=== PATIENT | male | born 1960 | race Caucasian/White ===

== ENCOUNTER → 2016-10-25 | Outpatient (CLI) | payer OTHER ==
[~2016-10-25] MED LIST: ASPI-232 PO; CEPH500C2 PO; GADAVIST IV PRN; HMLI7525 SC; HYDR25TA5 PO; LISI-461 PO; LVMI SQ; METF-384 PO; MULT-506 PO; PRAV20TA PO; SULF800T23 PO
--- NOTE | 2016-10-25 20:39 | DIAGNOSTIC IMAGING REPORT ---
MRI OF THE RIGHT FOREFOOT WITH AND WITHOUT CONTRAST CLINICAL HISTORY: Right great toe diabetic nonhealing wound. COMPARISON STUDY: No previous studies for comparison. TECHNIQUE: Utilizing a 1.5 Cris magnet and dedicated coil, multiplanar, multiecho imaging of the right forefoot was performed pre and postcontrast administration. Injection of 11 cc of Gadavist IV was uneventful. FINDINGS: There are findings consistent with amputations of the fourth and fifth right metatarsals as well as amputation of the third metatarsal at its distal aspect. There is joint space narrowing of the interphalangeal joint of the right first toe. There is moderate marrow edema within the mid to distal aspect of the proximal phalanx of the right first toe with mildly diminished T1 signal. The findings suggest a subacute to chronic fracture of the proximal phalanx. There is no convincing evidence for osteomyelitis within the right first toe. There is mild marrow edema within the distal phalanx with relatively preserved T1 signal. There is no evidence for osteomyelitis within the right second toe. No rim-enhancing fluid collection is identified to suggest an abscess. IMPRESSION: 1. No convincing evidence for osteomyelitis within the right first toe. 2. Marrow signal abnormality within the proximal phalanx of the right first toe with cortical irregularity which favors a subacute to chronic fracture. An infectious process is considered less likely. 3. 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 4. Multiple digit amputations of the right foot, as described above. Electronically signed by: Ramon Urbina M.D. 10/25/2016 8:38 PM Dictated Date/Time: 10/25/2016 4:30 PM
== END | disposition home or self-care (01) ==
LOC: C.MRI 13:32
PROVIDERS: ATTEND Emergency Medicine
DX: T14.8 Other injury of unspecified body region (principal); X58.XXXA Exposure to other specified factors, initial encounter; M13.88 Other specified arthritis, other site

== ENCOUNTER 2018-11-14 09:57 | Inpatient (IN) ==
[2018-11-14] MEDS ORDERED: GLUCOSE 10 TABS/TUBE PO PRN (13:08)
[2018-11-14] MEDS ORDERED: GLUCOSE 40% GEL 15 GM TUBE PO PRN (13:08)
[2018-11-14] MEDS ORDERED: ACETAMINOPHEN 325 MG TAB PO PRN (13:08)
[2018-11-14] MEDS ORDERED: MAGNESIUM HYDROXIDE SUSP 30 ML UDC PO PRN (13:08)
[2018-11-14] MEDS ORDERED: GLUCAGON FOR INJ 1 MG VIAL SQ PRN (13:08)
[2018-11-14] MEDS ORDERED: ONDANSETRON INJ 2 MG/ML 2 ML VIAL IV PRN (13:08)
[2018-11-14] MEDS ORDERED: CARBOHYDRATES FOR HYPOGLYCEMIA PO PRN (13:08)
[2018-11-14] MEDS ORDERED: DEXTROSE 50% 50 ML SYRINGE IV PRN (13:08)
[2018-11-14 13:29] LABS: Basophils # (auto) 0.05 K/uL (0-0.2); Basophils % (auto) 0.3 %; Eosinophils # (auto) 0.05 K/uL (0-0.5); Eosinophils % (auto) 0.3 %; Hematocrit (blood only) 39.1 % (42-52); Hemoglobin 14.3 g/dL (14.0-18.0); Immature Granulocytes # (auto) 0.11 K/uL (0.00-0.02); Immature Granulocytes % (auto) 0.8 %; Lymphocytes # (auto) 1.04 K/uL (1.2-3.4); Lymphocytes % (auto) 7.1 %; Mean Corpuscular Hgb Conc 36.6 g/dL (32-36); Mean Corpuscular Volume 85.4 fL (80-100); Mean Platelet Volume 10.5 fL (7.4-10.4); Monocytes # (auto) 1.81 K/uL (0.11-0.59); Monocytes % (auto) 12.4 %; Neutrophils # (auto) 11.49 K/uL (1.4-6.5); Neutrophils % (auto) 79.1 %; Platelet Count 201 K/uL (130-400); RDW Coefficient of Variation 12.1 % (11.5-14.5); Red Blood Count 4.58 M/uL (4.7-6.1); White Blood Count 14.55 K/uL (4.8-10.8)
[2018-11-14 13:50] LABS: Alanine Aminotransferase 40 U/L (12-78); Albumin Level 2.6 gm/dl (3.4-5.0); Aspartate Aminotransferase 26 U/L (15-37); BUN Creatinine Ratio 19.6 (10-20); Blood Urea Nitrogen 26 mg/dl (7-18); Calcium 9.1 mg/dl (8.5-10.1); Carbon Dioxide 27 mmol/L (21-32); Chloride 95 mmol/L (98-107); Est GFR (African American) 66.6; Est GFR (Non-African American) 57.5; Glucose 324 mg/dl (70-99); Magnesium 1.4 mg/dl (1.8-2.4); Potassium 4.9 mmol/L (3.5-5.1); Sodium 128 mmol/L (136-145)
[2018-11-14 13:56] LABS: Albumin Globulin Ratio 0.6 (0.9-2); Alkaline Phosphatase 72 U/L (45-117); Bilirubin,Total 0.9 mg/dl (0.2-1); Globulin 4.6 gm/dl (2.5-4.0); Phosphorus 2.7 mg/dl (2.5-4.9); Total Protein 7.2 gm/dl (6.4-8.2)
[2018-11-14 14:04] LABS: Beta-Hydroxybutyrate 4.58 mg/dl (0.2-2.81)
[2018-11-14] MEDS: INSULIN ASPART 100 UNITS/ML 3 ML PEN SC SCH ×3 (14:35→21:52)
--- NOTE | 2018-11-14 15:07 | XRay Report ---
XR tibia fibula LT 2V CLINICAL HISTORY: Left lower leg infection. COMPARISON STUDY: None. FINDINGS: No fracture or dislocation. Mild vascular calcifications. Mild diffuse soft tissue swelling . This is most pronounced within the distal anterior lower leg. No soft tissue gas identified. No bon y destruction to suggest osteomyelitis. Degenerative changes at the ankle joint. IMPRESSION: No evidence for osteomyelitis within the left lower leg. Electronically signed by: Everardo Christianson M.D. 11/14/2018 3:05 PM
[2018-11-14] MEDS: CEFAZOLIN 1000MG 1,000 MG/7.5 ML SYR IV SCH ×2 (15:27→21:53)
--- NOTE | 2018-11-14 18:06 | History & Physical Report ---
Date of Service November 14, 2018 Assessment & Plan (1) Cellulitis: LE XR neg for osteo s/p single dose of Bactrim HS 11/13 Will start cefazolin Q8h and monitor Lactobacillus WBC elevated, afebrile Blood cx pending Wound care c/s pending Hold on surgical c/s for now Takes aspirin 81mg for prevention only, will hold for now in case of need for debridement or other procedures (2) Hyperlipidemia: continue home meds (3) HTN (hypertension): continue home meds (4) DM type 2 (diabetes mellitus, type 2): Holding novolog, add SSI PRN holding metformin Continue with levemir A1c pending (5) DVT prophylaxis: SCDs (6) Tobacco use disorder: smokeless tobacco only Nicotine patch History of Present Illness Primary Care Provider: Pascale Huang MD 58 y/o M who was sent here as a direct admission for L LE cellulitis. Pt states he has had redness, burning, and swelling of L lower leg for about 1.5 weeks. It developed a blister in the last few days that broke last night after he bumped it. He was seen by PCP yesterday and started on Bactrim. Pt states that PCP wanted to pursue inpt tx at that time, but he wanted to try outpt tx. He had one dose of Bactrim. After f/u via phone today and no improvement, pt was sent for inpt care. He did not take abx today as he was told to hold for IV abx. Pt has a nonhealing ulceration on his R ugarte that he states has been there for about 3 months. It was worse prior but stopped getting better. No redness/pain to this ulceration. Pt states he feels fine otherwise. He has been tolerating PO without issue. Pt denies fever, SOB, chest pain, abd pain, n/v/d. He does note no bowel movement x3 days. Allergies Allergy/AdvReac Type Severity Reaction Status Date / Time No Known Allergies Allergy Unverified 10/15/16 13:39 Home Medications Home Medications Medication Instructions Recorded Confirmed Type aspirin 81 mg PO DAILY 11/14/18 11/14/18 History hydrochlorothiazide 12.5 mg PO DAILY 11/14/18 11/14/18 History insulin aspart U-100 [Novolog 38 unit SUBCUT TID 11/14/18 11/14/18 History Flexpen U-100 Insulin] insulin detemir U-100 [Levemir 45 unit SUBCUT BID 11/14/18 11/14/18 History FlexTouch U-100 Insuln] lisinopril 10 mg PO DAILY 11/14/18 11/14/18 History metformin 1,000 mg PO BID 11/14/18 11/14/18 History multivitamin 1 tab PO DAILY 11/14/18 11/14/18 History pravastatin [Pravachol] 80 mg PO DAILY 11/14/18 11/14/18 History sulfamethoxazole-trimethoprim 1 tab PO BID 11/14/18 11/14/18 History [Bactrim DS] Past Med/Surg History Social History Preferred Language: Vietnamese Communication Ability: Effective Manager Animal Required: No Beliefs That Will Affect Care: None Current Living Situation: Family Other Information That Helps Us Care for You: No Feels Safe at Home: Yes Safety Concerns: Feels Safe At This Time Smoking Status: Current every day smoker Hx Alcohol Use: No Hx Substance Use: No Review of Systems Pertinent positives and negatives reviewed in HPI--all others negative Physical Exam Vital Signs (Past 24 Hours): Last Vital Signs Temp 37.0 C 11/14/18 15:41 Pulse 93 H 11/14/18 15:41 Resp 18 11/14/18 15:41 BP 105/72 11/14/18 15:41 Pulse Ox 95 11/14/18 15:41 Constitutional: WD/WN, vitals as above Eyes: normal visual sam by confrontation and + anicteric sclerae Neck: normal visual inspection and trachea midline Respiratory: normal respiratory effort, lungs clear to auscultation Cardiovascular: Rate/Rhythm: regular rate and regular rhythm Gastrointestinal (Abdomen): Inspection/Auscultation: abdomen not distended Percussion/Palpation: abdomen soft; abdomen nontender Musculoskeletal: Head/Neck/Chest: normocephalic and head atraumatic L LE swelling, peripheral pulses intact Skin: L calf with redness between knee and ankle, lines drawn today, open ulceration on anterior LE that is weeping, nonbleeding, some purulence, TTP, warm to touch R calf with scab over ulceration on ugarte, no redness or swelling Neurologic: awake; not confused Speech / Cognition: normal speech Psychiatric: A+Ox3, euthymic affect Results & Data Diagnostic Findings L LE XR: neg for osteo Code Status & VTE Plan Code Status Full code VTE Prophylaxis Plan VTE Prophylaxis will be ordered: Yes
[2018-11-14] MEDS: NICOTINE 21 MG/24 HR TDSY TD SCH (19:22)
[2018-11-14] MEDS: INSULIN DETEMIR FLEXPEN/FLEX TOUCH 100 UNITS/ML 3ML SQ SCH (21:52)
[2018-11-15] MEDS: CEFAZOLIN 1000MG 1,000 MG/7.5 ML SYR IV SCH ×3 (06:18→22:20)
[2018-11-15 07:19] LABS: Estimated Average Glucose 303 mg/dl; Hemoglobin A1C 12.2 % (4.5-5.6)
[2018-11-15] MEDS: LACTOBACILLUS ACIDOPHILUS (FLORANEX) TAB PO SCH ×3 (09:33→16:33)
[2018-11-15] MEDS: NICOTINE 21 MG/24 HR TDSY TD SCH (09:33)
[2018-11-15] MEDS: hydroCHLOROthiazide 25 MG TAB PO SCH (09:34)
[2018-11-15] MEDS: PRAVASTATIN SOD 40 MG TAB PO SCH (09:35)
[2018-11-15] MEDS: LISINOPRIL 10 MG TAB PO SCH (09:35)
[2018-11-15] MEDS: MULTIVITAMIN TAB PO SCH (09:36)
[2018-11-15] MEDS: INSULIN DETEMIR FLEXPEN/FLEX TOUCH 100 UNITS/ML 3ML SQ SCH ×2 (09:37→21:36)
[2018-11-15] MEDS: INSULIN ASPART 100 UNITS/ML 3 ML PEN SC SCH ×3 (09:38→21:37)
--- NOTE | 2018-11-15 15:05 | Hospitalist Progress Note ---
Date of Service November 15, 2018 Assessment & Plan (1) Cellulitis: Left leg/ugarte cellulitis. Got single dose of Bactrim on 11/13, but without improvement. - As of 11/15, significant improvement in redness. - Continue cefazolin - Follow up blood cultures - Appreciate wound care consult (2) DM type 2 (diabetes mellitus, type 2): A1c of 12.2% on 11/15. - paraeducator consult - Glycemic pharmacist - Continue levemir and SSI (3) Hyperlipidemia: - Continue home meds (4) HTN (hypertension): BP is currently 130/80. - Continue home meds (5) Tobacco use disorder: Smokeless tobacco only. - Nicotine patch (6) DVT prophylaxis: SCDs Subjective 58yo M w/ hx of DM who presents with LLE cellulitis. Feeling great today. Cellulitis is improving with less redness and less pain. Reports no fevers/chills, chest pain, shortness of breath, abdominal pain, nausea, or vomiting. Physical Exam Vital Signs (Past 24 Hours): Last Vital Signs Temp 37.2 C 11/15/18 08:13 Pulse 68 11/15/18 08:13 Resp 15 11/15/18 08:13 BP 100/58 L 11/15/18 08:13 Pulse Ox 96 11/15/18 08:13 Constitutional: WD/WN, vitals as above Eyes: normal visual sam by confrontation and + anicteric sclerae Neck: normal visual inspection and trachea midline Respiratory: normal respiratory effort, lungs clear to auscultation Cardiovascular: Rate/Rhythm: regular rate and regular rhythm Gastrointestinal (Abdomen): Inspection/Auscultation: abdomen not distended Percussion/Palpation: abdomen soft; abdomen nontender Musculoskeletal: Head/Neck/Chest: normocephalic and head atraumatic Skin: Improving redness on LLE compared to ink-marked area Neurologic: awake; not confused Speech / Cognition: normal speech Psychiatric: A+Ox3, euthymic affect
[2018-11-15] MEDS ORDERED: PHARMACY GLYCEMIC MGMT CONSULT PRN (16:14)
[2018-11-15] MEDS: MAGNESIUM SULFATE / D5W 1 GM/100 ML BAG IV SCH ×2 (16:24→17:32)
[2018-11-15] MEDS ORDERED: INSULIN DETEMIR FLEXPEN/FLEX TOUCH 100 UNITS/ML 3ML SQ ONE (17:00)
[2018-11-15] MEDS ORDERED: INSULIN ASPART 100 UNITS/ML 3 ML PEN SC ONE (17:00)
[2018-11-16] MEDS: INSULIN ASPART 100 UNITS/ML 3 ML PEN SC SCH ×4 (00:33→13:14)
[2018-11-16] MEDS: CEFAZOLIN 1000MG 1,000 MG/7.5 ML SYR IV SCH ×2 (06:32→15:19)
[2018-11-16 06:40] LABS: Hematocrit (blood only) 39.6 % (42-52); Hemoglobin 14.1 g/dL (14.0-18.0); Mean Corpuscular Hgb Conc 35.6 g/dL (32-36); Mean Corpuscular Volume 86.8 fL (80-100); Mean Platelet Volume 9.9 fL (7.4-10.4); Platelet Count 250 K/uL (130-400); RDW Coefficient of Variation 12.1 % (11.5-14.5); RDW Standard Deviation 39.1 fL (36.4-46.3); Red Blood Count 4.56 M/uL (4.7-6.1); White Blood Count 12.69 K/uL (4.8-10.8)
[2018-11-16 07:10] LABS: BUN Creatinine Ratio 20.8 (10-20); Blood Urea Nitrogen 18 mg/dl (7-18); Carbon Dioxide 27 mmol/L (21-32); Chloride 102 mmol/L (98-107); Est GFR (African American) 111.3; Glucose 76 mg/dl (70-99); Potassium 3.6 mmol/L (3.5-5.1); Sodium 136 mmol/L (136-145)
[2018-11-16] MEDS: INSULIN DETEMIR FLEXPEN/FLEX TOUCH 100 UNITS/ML 3ML SQ SCH (09:26)
[2018-11-16] MEDS: LACTOBACILLUS ACIDOPHILUS (FLORANEX) TAB PO SCH ×2 (09:35→13:13)
[2018-11-16] MEDS: hydroCHLOROthiazide 25 MG TAB PO SCH (09:36)
[2018-11-16] MEDS: PRAVASTATIN SOD 40 MG TAB PO SCH (09:37)
[2018-11-16] MEDS: MULTIVITAMIN TAB PO SCH (09:37)
[2018-11-16] MEDS: LISINOPRIL 10 MG TAB PO SCH (09:37)
[2018-11-16] MEDS: NICOTINE 21 MG/24 HR TDSY TD SCH (09:37)
--- NOTE | 2018-11-16 13:28 | Pharmacy Report ---
Glycemic Control Consultation - Date of Service November 16, 2018 - Scope Scope: Glycemic Pharmacist consulted by Dr Angeles on 11/15 for glycemic control and to write orders per [facility] inpatient glycemic control protocol - Objective Weight: 103.7 kg Accuchecks BSG (last 24hrs): 11/15/18 11/15/18 11/16/18 17:13 20:24 00:12 Glucose POC Glucose 159 H 193 H 70 11/16/18 11/16/18 11/16/18 04:13 04:17 06:06 Glucose 76 POC Glucose 62 L* 75 11/16/18 11/16/18 07:53 12:14 Glucose POC Glucose 74 171 H Laboratory Data (last 24hrs): 11/16/18 06:06 Potassium 3.6 D Carbon Dioxide 27 Anion Gap 7.0 Creatinine 0.85 D Est Cr Clr Drug Dosing Not Reportable HbA1c: Hemoglobin A1c 12.2 % (4.5-5.6) H 11/15/18 06:09 - Recent Pertinent Medications Outpatient Anti-diabetic Regimen: * Novolog 38 units TIDM, Levemir 45 units BID, 1 g metformin BID * A1c = 12.2 % 11/15/18 The patient is currently receiving: * Basal insulin: Lantus 45 units every 12 hours * Correctional Insulin: Novolog Correction per scale ACHS Goal Range: Low 110 mg/dL - High 140 mg/dL Correction Factor: 15 mg/dL/unit * Prandial insulin: Per carb ratio of 1 unit per 5 grams CHO consumed Risk Factors for Insulin Resistance: * Diet: T2DM - Assessment & Plan Assessment & Plan: ASSESSMENT: * Mr. Galo is a 58 yo male admitted for cellulitis, hyperglcemic on admission with A1c 12.2% indicating poor outpatient control * BSGs improved yesterday, patient received 160 units of insulin (100 units of basal, 60 units of novolog (correctional+prandial)) * Patient had lower fasting this AM was was hypoglycemic overnight-reduced basal for this morning, loosened CF/CR * Patient being discharged and called to give recommendations on sliding scale for outpatient use-please see below PLAN FOR INPATIENT GLYCEMIC CONTROL: * Holding outpatient oral diabetes medications * Basal insulin * Lantus per sliding scale * 35 units BSG <180 * 45 units BSG >180 * Bolus insulin * NovoLog per scale ACHS or Q6hrs while NPO * Goal Range: Low 110 mg/dL - High 140 mg/dL * Correction Factor: 15 mg/dL/unit * Nutritional / Prandial insulin per carb ratio of 1 unit per 5 grams CHO consumed RECOMMENDATIONS FOR OUTPATIENT CONTROL: Spoke with patient today regarding outpatient control and adherence. Patient reports he has not checked his blood sugar in likely 3 years. Patient says that he does not often miss doses on his insulin and does not eat that much outpatient. He reports that he has taken the novolog without eating at times. He does not report any instances of feeling hypoglycemic- dizzy, shaky, etc. Patient did go a bit lower last night and reports that he did not feel it. When asked about hyperglycemic symptoms he said sometimes he is thirsty and wants water. Discussed the importance of checking his blood sugar and consequences of high blood sugar. He did see the ict educator today and has a glucometer. Asked for recommendations on sliding scale, limited data in the hospital as patient has only been admitted for a day and a half. Over the last twenty four hours the patient received 160 units. In the hospital he was receiving ~15-20 units novolog with meals/snacks, a decrease from his outpatient dosing. Very difficult to tell where his blood sugars have been and taking higher doses without knowing where his blood sugar was. Discussed with Dr. Angeles that it is very difficult to estimate outpatient needs, recommended if starting a scale to be conservative with a correction factor of 30- this is between a weight based stress of 1 and 2 and tighten scale/titrate doses up as needed. Inpatient we were using a CF of 15. This should be added to already scheduled mealtime insulin and at bedtime. Also discussed that patient likely needs adjustment of mealtime set dose- could even need reduced with the addition of the scale but cannot know for certain at this time. Patient should have close follow up with outpatient provider to adjust doses. * Please note that the plan above was derived based on current level of insulin resistance and hospital stress. These recommendations are appropriate for inpatient admission only. Plan of care upon discharge will need to be reassessed to avoid potential outpatient hypo/hyperglycemia. Thank you.
--- NOTE | 2018-11-16 16:37 | Discharge Summary ---
Date of Service November 16, 2018 Admission HPI Per Admitting Provider 58 y/o M who was sent here as a direct admission for L LE cellulitis. Pt states he has had redness, burning, and swelling of L lower leg for about 1.5 weeks. It developed a blister in the last few days that broke last night after he bumped it. He was seen by PCP yesterday and started on Bactrim. Pt states that PCP wanted to pursue inpt tx at that time, but he wanted to try outpt tx. He had one dose of Bactrim. After f/u via phone today and no improvement, pt was sent for inpt care. He did not take abx today as he was told to hold for IV abx. Pt has a nonhealing ulceration on his R ugarte that he states has been there for about 3 months. It was worse prior but stopped getting better. No redness/pain to this ulceration. Pt states he feels fine otherwise. He has been tolerating PO without issue. Pt denies fever, SOB, chest pain, abd pain, n/v/d. He does note no bowel movement x3 days. Principal Diagnosis Left leg cellulitis Discharge Exam Constitutional WD/WN, vitals as above Eyes normal visual sam by confrontation and + anicteric sclerae Neck normal visual inspection and trachea midline Respiratory normal respiratory effort, lungs clear to auscultation Cardiovascular Rate/Rhythm: regular rate and regular rhythm Gastrointestinal (Abdomen) Inspection/Auscultation: abdomen not distended Percussion/Palpation: abdomen soft; abdomen nontender Musculoskeletal Head/Neck/Chest: normocephalic and head atraumatic Neurologic awake; not confused Speech / Cognition: normal speech Psychiatric A+Ox3, euthymic affect Discharge Data Allergies Allergy/AdvReac Type Severity Reaction Status Date / Time No Known Allergies Allergy Unverified 10/15/16 13:39 Consultations 11/14/18 13:10 Consult Case Management - Discharge Planning Routine Hospital Course (1) Cellulitis: Left leg/ugarte cellulitis. Got single dose of Bactrim on 11/13, but without improvement. - As of 11/16, significant improvement in redness and pain. Initial area had been marked, and redness was receding on all sides. - Initially on cefazolin -> switched to PO Keflex on discharge - 5-day course - Blood cultures negative at discharge - Wound care consulted - Gave recs for the scabbed area (2) DM type 2 (diabetes mellitus, type 2): A1c of 12.2% on 11/15. - nurse educator consulted - He must check his sugars as he reports not checking them in years and just giving himself insulin. - On discharge, he was given scripts for diabetic supplies and encouraged to follow up with his PCP and endocrinology (3) Hyperlipidemia: - Continued home meds (4) HTN (hypertension): BPs were good in the hospital - 115/80-130/80. - Continue home meds (5) Tobacco use disorder: Smokeless tobacco only. - Nicotine patch (6) DVT prophylaxis: SCDs Total Time Total Time Spent Total Time Spent (In Minutes): 45 Total Time Includes: Examination of the Patient, Discharge Planning, Medication Reconciliation and Communication With Other Providers Discharge Plan Discharge Items Patient Disposition: Home - Self-Care Reason For Visit: DIABETIC FOOT INFECTION, OPEN WOUND Discharge Diagnosis: Diabetic skin infection Discharge Goals: Decrease discomfort, Improve function and Increase independence Activity: Resume your previous activity Non-emergency contact: Primary Care Provider Call non-emergency contact if: you have any medication questions, your symptoms worsen, your pain is not controlled and your temperature is above 101 Follow-up/Referrals: Evette Olson MD [Staff Physician] - 05/10/19 1:00 pm (Please, follow up at [facility] Endocrinology Office with Dr. Evette Olson. *Initially, you are required to have 2 appointments that are scheduled one week apart. The 1st appointment is on May 10 at 1:00 pm (arrive 12:45 pm). The 2nd appointment is on May 17 at 1:00 pm (arrive at 12:45 pm). This office is located in [address] [facility] - big building next to this hospital. If you need to change the appointments, call the office at [phone].) Pascale Huang MD [Primary Care Provider] - 11/27/18 8:10 am (Please, follow up at Dr. Pascale Huang' office with her esl instructional assistant, Philomena Guerra PA-C on TuesdayNovember 27 at 8:10 am. *If you need to change this appointment, call the office at [phone].) Diet: Carb Consistent or DM2 Addtl Provider Instructions: Mr. Galo, You were admitted for a left leg skin infection. We treated you with IV antibiotics, and it quickly improved. We are sending you out on another 5 days of antibiotics to ensure the infection is completely resolved. Please see your PCP before finishing the antibiotics to be sure you don't need any more. For the wound on your left leg, we had the wound nurse see you, and she recommended: Wash with mild soap and water. Do not soak. Cover with the Aquacell silver and cover with the foam bandage. Change every 3 days or as needed. She also recommended follow up at [facility] to be sure it is healing pro perly. Please take better care of your blood sugars. Your A1c was 12.2% which indicates an average blood sugar of 300 which is much too high. Levels this high can make infections worse and will lead to permenant damage to your nerves and blood vessels. Please work with Dr. Huang to find a good regimen that works for you or consider seeing an booking clerk (diabetes doctor). The sliding scale the hematology nurse educator spoke of was: Blood sugar of 140-169 - 1 unit of Novolog Blood sugar of 170-199 - 2 unit of Novolog Blood sugar of 200-229 - 3 unit of Novolog Blood sugar of 230-259 - 4 unit of Novolog Blood sugar of 260-289 - 5 unit of Novolog And so on. Add this insulin in addition to the 38 units you normally take with each meal. Please come back to the hospital if you have any worsening of the infection, fevers, chills, sweats, or other concerning symptoms. Prescriptions: New cephalexin [Keflex] 500 mg capsule 500 mg PO Q6H 5 Days Qty: 20 RF: 0 Continued metformin 1,000 mg Tablet 1,000 mg PO BID RF: 0 aspirin 81 mg Tablet,Delayed Release (Dr/Ec) 81 mg PO DAILY RF: 0 lisinopril 10 mg Tablet 10 mg PO DAILY RF: 0 Novolog Flexpen U-100 Insulin 100 unit/mL (3 mL) Insulin Pen 38 unit SUBCUT TID RF: 0 Levemir FlexTouch U-100 Insuln 100 unit/mL (3 mL) Insulin Pen 45 unit SUBCUT BID RF: 0 hydrochlorothiazide 12.5 mg Tablet 12.5 mg PO DAILY RF: 0 multivitamin Tablet 1 tab PO DAILY RF: 0 pravastatin [Pravachol] 80 mg Tablet 80 mg PO DAILY RF: 0 Discontinued sulfamethoxazole-trimethoprim [Bactrim DS] 800-160 mg Tablet 1 tab PO BID RF: 0 Stand-Alone Forms: [facility] Discharge Orders: Discharge Order (Routine); Ordered 11/16/18 Ordered By: Mohan Angeles Admission Data Admit Date/Time: 11/14/18 12:45 Attending Provider: Mohan Angeles Admit Provider: Wesley Dawson Primary Care Provider: Pascale Huang Service: Medical Other Interventions: Discharge Summary Assessment (RN) Last Done: 11/16/18 12:05 DC Date/Time DO NOT enter until pt leaves facility: 11/16/18 16:14
== END 2018-11-16 16:14 | disposition home or self-care (01) | DRG 638 ==
LOC: 3N 12:45 → SUATTDRO 12:45

== ENCOUNTER 2019-04-26 17:08 | Inpatient (IN) ==
[2019-04-26] MEDS ORDERED: SODIUM CHLORIDE 0.9% 1000ML 2,000 ML IV SCH (17:30)
[2019-04-26] MEDS ORDERED: AMPICILLIN/SULBACTAM SOD 3,000 MG in 0.9 % SODIUM CHLORIDE 100 ML IV STA (17:32)
--- NOTE | 2019-04-26 17:45 | Emergency Department Note ---
Entered by Debbie Sheikh acting as a scribe for Ian Gar DO History of Present Illness General Chief complaint: Hypotension Stated complaint: DIZZINESS, LIGHTHEADED, HYPOTENSION, Time Seen by Provider: 04/26/19 17:15 Source: patient History of Present Illness Onset (ago): day(s) 3 Location: head (Light headed) Severity: similar to prior episodes Pain Consistency: + intermittent Quality: + other (Light headed) Exacerbated By: + other (standing from seated position, standing on feet for too long) Associated symptoms: + other (Feet pain, infected wound on left foot) The patient is a 58 year old male presenting to the Emergency Department complaining of intermittent light headedness starting 3 days ago. The patient reports that he went to the wound clinic 2 days ago and became light headed. He states that he has experienced this before as he has been getting light headed for the past few days. He explains that he gets light headed a few times per day and that standing from a seated position worsens this. He notes that he has not been taking his blood pressure medication regularly. He adds that he called Dr. Vu PCP for these symptoms who recommended that he come into the ED because she would not be able to see him. The patient reports that he has an infected wound on his left foot. He states that he was taking antibiotics for his wound and that he ran out of these antibiotics 4 days ago. He explains that both of his feet are painful and standing for too long worsens his pain. He notes that he thinks his blood pressure has been low. Home Medications Home Medications Medication Instructions Recorded Confirmed Type Levemir FlexTouch U-100 Insuln 45 unit SUBCUT BID 11/14/18 04/26/19 History Novolog Flexpen U-100 Insulin 38 unit SUBCUT TID 11/14/18 04/26/19 History aspirin 81 mg PO QAM 11/14/18 04/26/19 History hydrochlorothiazide 12.5 mg PO QAM 11/14/18 04/26/19 History lisinopril 10 mg PO QAM 11/14/18 04/26/19 History metformin 1,000 mg PO BID 11/14/18 04/26/19 History multivitamin 1 tab PO QAM 11/14/18 04/26/19 History pravastatin [Pravachol] 80 mg PO QAM 11/14/18 04/26/19 History Allergies Allergy/AdvReac Type Severity Reaction Status Date / Time No Known Allergies Allergy Unverified 04/26/19 17:19 Past Med/Surg History Medical History Tobacco use disorder DM type 2 (diabetes mellitus, type 2) HTN (hypertension) Hyperlipidemia Acquired hallux valgus of right foot (Acute) Callus (Acute) Diabetes mellitus with diabetic polyneuropathy (Acute) Hallux valgus (acquired), left foot (Acute) Hammertoe of left foot (Acute) History of partial ray amputation of fifth toe of right foot (Acute) History of partial ray amputation of fourth toe of right foot (Acute) History of partial ray amputation of third toe of right foot (Acute) Surgical History 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 and A total of 10 systems reviewed and were otherwise negative Physical Exam Vital Signs Vital Signs - 24 hr 04/26/19 17:18 04/26/19 17:21 04/26/19 17:22 Temperature Temperature Source Sepsis Recent Fever Within 48 Hours Sepsis New/Unexplained Change in Mental Status Sepsis Action Taken by Nursing Pulse Rate 117 H 117 H 118 H Pulse Rate from SpO2 Sensor 120 H 119 H 118 H Respiratory Rate 27 H 27 H 22 Respiratory Effort / Characteristics Respiratory Depth Respiratory Pattern Blood Pressure 105/62 109/69 Blood Pressure Mean 76 82 Blood Pressure Position Pulse Oximetry 97 92 99 Oxygen Delivery Method 04/26/19 17:29 04/26/19 17:30 04/26/19 17:40 Temperature 38.4 C H Temperature Source Oral Sepsis Recent Fever Within 48 Hours Yes Sepsis New/Unexplained Change in Mental Status No Sepsis Action Taken by Nursing Physician Notified Pulse Rate 113 H 113 H 122 H Pulse Rate from SpO2 Sensor 114 H 112 H Respiratory Rate 27 H 28 H 22 Respiratory Effort / Characteristics Non-Labored Spontaneous Respiratory Depth Normal Respiratory Pattern Regular Blood Pressure 83/62 L 106/65 107/62 Blood Pressure Mean 69 78 77 Blood Pressure Position Lying Pulse Oximetry 97 98 99 Oxygen Delivery Method Room Air 04/26/19 18:00 04/26/19 18:30 04/26/19 19:00 Temperature Temperature Source Sepsis Recent Fever Within 48 Hours Sepsis New/Unexplained Change in Mental Status Sepsis Action Taken by Nursing Pulse Rate 111 H 106 H 106 H Pulse Rate from SpO2 Sensor 113 H 106 H 106 H Respiratory Rate 19 24 18 Respiratory Effort / Characteristics Respiratory Depth Respiratory Pattern Blood Pressure 108/60 119/56 L 113/79 Blood Pressure Mean 76 77 90 Blood Pressure Position Pulse Oximetry 98 96 98 Oxygen Delivery Method 04/26/19 19:31 Temperature Temperature Source Sepsis Recent Fever Within 48 Hours Sepsis New/Unexplained Change in Mental Status Sepsis Action Taken by Nursing Pulse Rate 114 H Pulse Rate from SpO2 Sensor Respiratory Rate 18 Respiratory Effort / Characteristics Respiratory Depth Respiratory Pattern Blood Pressure 120/77 Blood Pressure Mean 91 Blood Pressure Position Pulse Oximetry Oxygen Delivery Method CONSTITUTIONAL/VITAL SIGNS: Reviewed / noted above. GENERAL: Non-toxic in appearance. INTEGUMENTARY: Warm, dry, and [place]. HEAD: Normocephalic. EYES: without scleral icterus or trauma. ENT/OROPHARYNX: clear and moist. LYMPHADENOPATHY/NECK: Is supple without lymphadenopathy or meningismus. RESPIRATORY: Lungs clear and equal. CARDIOVASCULAR: Tachycardic rate and regular rhythm. GI/ABDOMEN: Soft and nontender. No organomegaly or pulsatile mass. No rebound or guarding. Normal bowel sounds. EXTREMITIES: Found smell from a large diabetic ulcer on left foot. Purulent discharge. BACK: No CVA tenderness. NEUROLOGICAL: Intact without focal deficits. PSYCHIATRIC: normal affect. MUSCULOSKELETAL: Normally developed with good muscle tone. Course 0: The patient was evaluated in room C8, and a complete history and physical examination were performed. 1923: I discussed the patient's case with Dr. Meng VILLA hospitalist. She will evaluate the patient for further management. 1940: I updated the patient at this time. Consultations Consultation #1: I discussed the patient's case with Dr. Meng VILLA hospitalist. She will evaluate the patient for further management. Time: 19:24 Administered Medications Discontinued Medications Sodium Chloride (Nss 1000ml) 2,000 mls @ 999 mls/hr IV .Q2H1M ADRY Stop: 04/26/19 19:30 Last Admin: 04/26/19 18:05 Dose: 999 mls/hr Documented by: [id number] Ampicillin Sodium/Sulbactam Sodium 3,000 mg/ Sodium Chloride 108 mls @ 200 ml s/hr IV NOW STA; Protocol Stop: 04/26/19 18:04 Last Infusion: 04/26/19 18:50 Dose: 0 mls/hr Documented by: [id number] Admin: 04/26/19 18:05 Dose: 200 mls/hr Documented by: [id number] Medical Decision Making Differential Diagnosis Differential includes acute coronary syndrome, myocardial infarction, CVA, TIA, anemia, infection, pneumonia, UTI, pyelonephritis, poor nutrition, dehydration, electrolyte disturbance,hypoglycemia. Medical Records Attestation: I reviewed the patient's medical records. Home Medications Current Medication List: was personally reviewed by me Laboratory Data Attestation: I reviewed the patient's lab results. Result diagrams: 04/26/19 17:58 04/26/19 17:58 Lab Results 04/26/19 04/26/19 04/26/19 Range/Units 17:51 17:58 17:58 WBC 24.97 H (4.8-10.8) K/uL RBC 4.23 L (4.7-6.1) M/uL Hgb 13.1 L (14.0-18.0) g/dL Hct 36.3 L (42-52) % MCV 85.8 (80-100) fL MCH 31.0 (25-34) pg MCHC 36.1 H (32-36) g/dL RDW Std Deviation 38.9 (36.4-46.3) fL RDW Coeff of Arnav 12.3 (11.5-14.5) % Plt Count 288 (130-400) K/uL MPV 10.5 H (7.4-10.4) fL Immature Gran % (Auto) 0.6 % Neut % (Auto) 87.8 % Lymph % (Auto) 7.0 % [place] % (Auto) 4.4 % Eos % (Auto) 0.0 % Baso % (Auto) 0.2 % Immature Gran # (Auto) 0.16 H (0.00-0.02) K/uL Neut # (Auto) 21.88 H (1.4-6.5) K/uL Lymph # (Auto) 1.76 (1.2-3.4) K/uL [place] # (Auto) 1.11 H (0.11-0.59) K/uL Eos # (Auto) 0.01 (0-0.5) K/uL Baso # (Auto) 0.05 (0-0.2) K/uL Absolute Nucleated RBC 0.02 H (0-0) K/uL Nucleated RBC % (auto) 0.1 % Platelet Estimate Normal (Normal) Sodium 129 L (136-145) mmol/L Potassium 4.5 (3.5-5.1) mmol/L Chloride 93 L (98-107) mmol/L Carbon Dioxide 23 (21-32) mmol/L Anion Gap 13.0 H (3-11) BUN 46 H (7-18) mg/dl Creatinine 1.90 H (0.6-1.4) mg/dl Est Cr Clr Drug Dosing 52.1 ml/min Est GFR ( Amer) 44.1 Est GFR (Non-Af Amer) 38.0 BUN/Creatinine Ratio 24.0 H (10-20) Glucose 181 H (70-99) mg/dl POC Lactic Acid Jsuten 3.17 H (0.90-1.70) mmol/L Calcium 9.4 (8.5-10.1) mg/dl Total Bilirubin 1.9 H (0.2-1) mg/dl AST 110 H (15-37) U/L ALT 95 H (12-78) U/L Alkaline Phosphatase 133 H (45-117) U/L Total Protein 8.1 (6.4-8.2) gm/dl Albumin 2.6 L (3.4-5.0) gm/dl Globulin 5.5 H (2.5-4.0) gm/dl Albumin/Globulin Ratio 0.5 L (0.9-2) Imaging Data Radiologist's Impression: Radiology results as stated below per my review and the radiologist's interpretation: XR foot LT min 3V routine CLINICAL HISTORY: 58 years-old Male presenting with r/o osteo lt heel area. TECHNIQUE: Frontal, oblique, and lateral views of the left foot were obtained. COMPARISON: 04/16/2019. FINDINGS: Mild diffuse soft tissue swelling with subcutaneous edema evident. There is a punctate metallic foreign body along the plantar aspect of the foot the level of the calcaneus with associated erosion of acute is. Soft tissue emphysema is evident regionally. No acute fracture or malalignment. No osseous erosion or periosteal reaction. Prominent enthesophyte at the origin of the plantar fascia. Degenerative changes also noted at the ankle mortise. Atherosclerosis. IMPRESSION: Skin ulceration at the site of a punctate metallic foreign body in the plantar soft tissues of the hindfoot. The presence of soft tissue emphysema in this region raises concern for an underlying abscess. Ultrasound of the plantar hindfoot recommended for further assessment. No radiographic evidence of osteomyelitis. The report will be called/faxed according to standard departmental protocol. Electronically signed by: Rylan Light M.D. 04/26/2019 6:33 PM ECG Data Attestation: I personally reviewed and interpreted this ECG as follows: Indication: other (Hypotension) Rate (beats per minute): 120 Rhythm: sinus tachycardia Findings: no ST elevation and no ectopy Blood Pressure Blood Pressure Findings: Low blood pressure Blood Pressure Disposition: further management by hospitalist ETHAN Espinosa This is a 50-year-old male who presents to the ED with a chief complaint of intermittent lightheadedness for the past 4 days. The patient also was seen by the wound care clinic 2 days ago and had a wound culture of his left heel. He has a diabetic foot ulcer in that area. The patient also reports that they had scraped the area and that day he experienced some chills. The patient denies any nausea or vomiting. He has not had a fever. The patient's physical exam reveals a foul-smelling discharge from his left heel with some purulent drainage. A culture done 2 days ago reveals enterococcus faecalis sensitive to ampicillin, vancomycin and daptomycin. The patient is tachycardic on my exam. His heart rate is around 120 lying recumbent. It increased slightly with standing and his blood pressure dropped to 83/64. Laying down it is 105/70. The patient otherwise has an unremarkable exam. An x-ray of the right foot does not show osteomyelitis but there is some evidence of infection and a metallic foreign body. The patient reports that this could be a piece of a staple that he had stepped on a few weeks ago. The patient's white blood cell count is elevated. He is febrile here and tachycardic. His sodium is 129. BUN is 46 and creatinine is 1.9. This is worse than his baseline. The patient was given 2 L normal saline IV. He was given IV Unasyn based on the wound culture result from 2 days ago. The patient will be seen by the hospitalist for further inpatient evaluation and care. Impression & Plan Sepsis, Infection of right foot, Orthostatic hypotension Critical Care Time Critical Care Time: Yes Total Critical Care Time: 35 I have personally spent 35 minutes of critical care time in the direct management of this patient. This includes bedside care, interpretation of diagn ostic studies, and testing, discussion with consultants, patient, and family members, and other required patient management activities. This 35 minutes is in excess of all separately billable procedures. Discharge Plan Visit Data Chief Complaint: Hypotension Stated Complaint: DIZZINESS, LIGHTHEADED, HYPOTENSION, ED Provider: Ian Gar Discharge Problem: Sepsis, Infection of right foot, Orthostatic hypotension Patient Disposition: Being Evaluated by Hospitalist Forms Stand Alone Forms: My [facility] Prescriptions Prescriptions: No Action metformin 1,000 mg Tablet 1,000 mg PO BID RF: 0 aspirin 81 mg Tablet,Delayed Release (Dr/Ec) 81 mg PO QAM RF: 0 lisinopril 10 mg Tablet 10 mg PO QAM RF: 0 Novolog Flexpen U-100 Insulin 100 unit/mL (3 mL) Insulin Pen 38 unit SUBCUT TID RF: 0 Levemir FlexTouch U-100 Insuln 100 unit/mL (3 mL) Insulin Pen 45 unit SUBCUT BID RF: 0 hydrochlorothiazide 12.5 mg Tablet 12.5 mg PO QAM RF: 0 multivitamin Tablet 1 tab PO QAM RF: 0 pravastatin [Pravachol] 80 mg Tablet 80 mg PO QAM RF: 0 Referrals Referrals: Pascale Huang MD [Primary Care Provider] - Discharge Problem: Sepsis Qualifiers: Sepsis type: sepsis due to unspecified organism Sepsis acute organ dysfunction status: unspecified Qualified Code(s): A41.9 - Sepsis, unspecified organism The scribe's documentation has been prepared under my direction and personally reviewed by me in its entirety. I confirm that the note above accurately reflects all work, treatment, procedures, and medical decision making performed by me.
[2019-04-26 18:29] LABS: Albumin Level 2.6 gm/dl (3.4-5.0); Calcium 9.4 mg/dl (8.5-10.1); Creatinine Clr Calc Pharmacy 52.1 ml/min; Est GFR (African American) 44.1; Potassium 4.5 mmol/L (3.5-5.1)
[2019-04-26 18:32] LABS: Albumin Globulin Ratio 0.5 (0.9-2); Bilirubin,Total 1.9 mg/dl (0.2-1); Globulin 5.5 gm/dl (2.5-4.0); Total Protein 8.1 gm/dl (6.4-8.2)
--- NOTE | 2019-04-26 18:34 | XRay Report ---
XR foot LT min 3V routine CLINICAL HISTORY: 58 years-old Male presenting with r/o osteo lt heel area. TECHNIQUE: Frontal, oblique, and lateral views of the left foot were obtained. COMPARISON: 04/16/2019. FINDINGS: Mild diffuse soft tissue swelling with subcutaneous edema evident. There is a punctate metallic forei gn body along the plantar aspect of the foot the level of the calcaneus with associated erosion of ac zeke is. Soft tissue emphysema is evident regionally. No acute fracture or malalignment. No osseous er osion or periosteal reaction. Prominent enthesophyte at the origin of the plantar fascia. Degenerativ e changes also noted at the ankle mortise. Atherosclerosis. IMPRESSION: Skin ulceration at the site of a punctate metallic foreign body in the plantar soft tissues of the hi ndfoot. The presence of soft tissue emphysema in this region raises concern for an underlying abscess . Ultrasound of the plantar hindfoot recommended for further assessment. No radiographic evidence of osteomyelitis. The report will be called/faxed according to standard departmental protocol. Electronically signed by: Rylan Light M.D. 04/26/2019 6:33 PM
[2019-04-26 18:39] LABS: Hematocrit (blood only) 36.3 % (42-52); Hemoglobin 13.1 g/dL (14.0-18.0); Mean Corpuscular Hgb Conc 36.1 g/dL (32-36); Mean Corpuscular Volume 85.8 fL (80-100); Mean Platelet Volume 10.5 fL (7.4-10.4); Nucleated RBC # (auto) 0.02 K/uL (0-0); Nucleated RBC % (auto) 0.1 %; Platelet Count 288 K/uL (130-400); RDW Coefficient of Variation 12.3 % (11.5-14.5); RDW Standard Deviation 38.9 fL (36.4-46.3); Red Blood Count 4.23 M/uL (4.7-6.1); White Blood Count 24.97 K/uL (4.8-10.8)
[2019-04-26 18:40] LABS: Basophils # (auto) 0.05 K/uL (0-0.2); Basophils % (auto) 0.2 %; Eosinophils # (auto) 0.01 K/uL (0-0.5); Immature Granulocytes # (auto) 0.16 K/uL (0.00-0.02); Immature Granulocytes % (auto) 0.6 %; Lymphocytes # (auto) 1.76 K/uL (1.2-3.4); Monocytes # (auto) 1.11 K/uL (0.11-0.59); Monocytes % (auto) 4.4 %; Neutrophils # (auto) 21.88 K/uL (1.4-6.5); Neutrophils % (auto) 87.8 %; Platelet Estimate Normal (Normal)
[2019-04-26] MEDS ORDERED: SODIUM CHLORIDE 0.9% 1000ML 1,000 ML IV ONE (20:11)
--- NOTE | 2019-04-26 20:37 | History & Physical Report ---
Date of Service April 26, 2019 Assessment & Plan (1) Sepsis: 58-year-old male with history of diabetes mellitus 2 with history of multiple foot ulcers status post partial ray amputation of third, fourth, and fifth right toes, hypertension, hyperlipidemia and tobacco use presents with chills and lightheadedness x3 days in the setting of left foot wound x3 to 4 weeks. Concern for sepsis in the setting of L foot wound with recent debridement Sepsis in the setting of left foot wound with recent debridement Patient febrile to 38.4, tachycardic to [id number], hypotensive White blood cell count 24.9 Lactate 3.17 Left foot x-ray: Skin ulceration at site of punctate metallic foreign body abdirahman ntar soft tissue of hindfoot. Possible abscess given soft tissue emphysema. No osteomyelitis Ultrasound of left plantar hindfoot ordered for concern of abscess Received amp sulbactam in the ED and 3 L IV fluids Started on amp sulbactam and clindamycin IV Started on maintenance IV fluids at 125 cc/h LR Podiatry consulted, n.p.o. for possible procedure SHANI likely in the setting of sepsis/hypotension BUN/creatinine 46/1.9 Received 3 L IV fluids normal saline, on LR at 125 cc/h Monitor BMP LFT abnormality: Likely mild shock liver in the setting of sepsis-hypotension, cholestasis of sepsis TB 1.9, AST 110, ALT 95, alk phos 133 Sepsis care as above Continue to monitor CMP Cough: Possible bronchitis versus pneumonia On antibiotics as above Satting well on room air Ordered Flonase and guaifenesin Chest x-ray ordered Hypertension/hyperlipidemia Continue home aspirin and pravastatin Hold home hydrochlorothiazide and lisinopril in the setting of hypotension/SHANI DM2 Hold home metformin Continue home Levemir 45 units twice daily BSG checks per unit protocol and SSI A1c ordered Code: Full Disposition: PCU telemetry DVT prophylaxis: SCDs only, chemical not ordered given possible procedure (2) DM type 2 (diabetes mellitus, type 2): (3) Traumatic wound: (4) HTN (hypertension): (5) Hyperlipidemia: (6) Foot ulcer, left: History of Present Illness Chief Complaint: Sepsis 2/2 L foot ulcer Primary Care Provider: Pascale Huang MD 58-year-old male with history of diabetes mellitus 2 with history of multiple foot ulcers status post partial ray amputation of third, fourth, and fifth right toes, hypertension, hyperlipidemia and tobacco use presents with chills and lightheadedness x3 days in the setting of left foot wound x3 to 4 weeks. Patient reports left foot wound noticed after he was cleaning his parking space and noted blood on his socks and slippers. He also noted a staple sticking through his slipper which could have caused the wound. Wound is noted to be draining yellowish/brownish stinky fluid and painful now despite decreased sensation in his feet. He reports going to his primary care doctor Dr. Vu who sent him to the wound clinic. Our wound clinic he had debridement on Tuesday, 3 days ago after which she developed chills and lightheadedness. Lightheadedness occurs every time he tries to get up quickly. He reports feeling worse day by day since debridement. Reports seeing Dr. Nelson yesterday for arterial study and nurse noted low blood pressure. He was instructed to go to PCP was sent into the ED today. Also reports bronchitis and dry cough for couple weeks now. Urine is also been orange in color for the last few days despite staying well-hydrated. Reports last antibiotic course was finished on Tuesday, 6 days agoBactrim twice daily x10 days given by PCP Dr. Vu. Denies any fever, headache, chest pain, shortness of breath, abdominal pain, nausea, vomiting, diarrhea, constipation, hematochezia,hematuria, dysuria. Social history: Reports chewing tobacco 1 pack/day for the past 35 to 40 years, no alcohol or recreational drug use Allergies Allergy/AdvReac Type Severity Reaction Status Date / Time No Known Allergies Allergy Unverified 04/26/19 17:19 Home Medications Home Medications Medication Instructions Recorded Confirmed Type Levemir FlexTouch U-100 Insuln 45 unit SUBCUT BID 11/14/18 04/26/19 History Novolog Flexpen U-100 Insulin 38 unit SUBCUT TID 11/14/18 04/26/19 History aspirin 81 mg PO QAM 11/14/18 04/26/19 History hydrochlorothiazide 12.5 mg PO QAM 11/14/18 04/26/19 History lisinopril 10 mg PO QAM 11/14/18 04/26/19 History metformin 1,000 mg PO BID 11/14/18 04/26/19 History multivitamin 1 tab PO QAM 11/14/18 04/26/19 History pravastatin [Pravachol] 80 mg PO QAM 11/14/18 04/26/19 History Past Med/Surg History Medical History Tobacco use disorder DM type 2 (diabetes mellitus, type 2) HTN (hypertension) Hyperlipidemia Acquired hallux valgus of right foot (Acute) Callus (Acute) Diabetes mellitus with diabetic polyneuropathy (Acute) Hallux valgus (acquired), left foot (Acute) Hammertoe of left foot (Acute) History of partial ray amputation of fifth toe of right foot (Acute) History of partial ray amputation of fourth toe of right foot (Acute) History of partial ray amputation of third toe of right foot (Acute) Surgical History 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) S/P tonsillectomy (Resolved) Social History Preferred Language: Kosovan Communication Ability: Effective 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 Beliefs That Will Affect Care: None marital status: single Current Living Situation: Alone current occupational status: unemployed and disabled Other Information That Helps Us Care for You: No Feels Safe at Home: Yes Safety Concerns: Feels Safe At This Time Smoking Status: Never smoker Tobacco Type: smokeless tobacco ; Do You Dip or Chew Tobacco: Yes ; Second Hand Exposure: No ; Tobacco Cessation Education Requested by Patient: Yes Hx Alcohol Use: No Hx Substance Use: No Review of Systems Review of Systems: As per HPI Physical Exam Physical Exam: General: In NAD, pleasant Neuro: A&O x 4 Pulm: CTAB, coarse but equal breath sounds bilaterally CV: Tachycardic with regular rhythm, no m/r/g Abdomen:+BS, no TTP in all quadrants, non-distended Skin/MSK: L foot edematous, erythematous and warm to touch on plantar and dorsal surfaces, L plantar hindfoot 5cm by 4cm ulcer likely stage 3-4 with foul odor and tenderness to palpation, L mid-plantar foot blister; L DP pulse faint; R foot deformity due to 3rd, 4th and 5th toe amputation, and heeling 2nd toe ulcer Results & Data Vital Signs (Past 12 Hours) Vital Signs Temp Pulse Resp BP Pulse Ox 04/26/19 19:31 114 H 18 120/77 04/26/19 19:00 106 H 18 113/79 98 04/26/19 18:30 106 H 24 119/56 L 96 04/26/19 18:00 111 H 19 108/60 98 04/26/19 17:40 38.4 C H 122 H 22 107/62 99 04/26/19 17:30 113 H 28 H 106/65 98 04/26/19 17:29 113 H 27 H 83/62 L 97 04/26/19 17:22 118 H 22 109/69 99 04/26/19 17:21 117 H 27 H 92 04/26/19 17:18 117 H 27 H 105/62 97 Laboratory Results Abnormal lab results 04/26/19 04/26/19 04/26/19 Range/Units 17:51 17:58 17:58 WBC 24.97 H (4.8-10.8) K/uL RBC 4.23 L (4.7-6.1) M/uL Hgb 13.1 L (14.0-18.0) g/dL Hct 36.3 L (42-52) % MCHC 36.1 H (32-36) g/dL MPV 10.5 H (7.4-10.4) fL Immature Gran # (Auto) 0.16 H (0.00-0.02) K/uL Neut # (Auto) 21.88 H (1.4-6.5) K/uL Sequoyah # (Auto) 1.11 H (0.11-0.59) K/uL Absolute Nucleated RBC 0.02 H (0-0) K/uL Sodium 129 L (136-145) mmol/L Chloride 93 L (98-107) mmol/L Anion Gap 13.0 H (3-11) BUN 46 H (7-18) mg/dl Creatinine 1.90 H (0.6-1.4) mg/dl BUN/Creatinine Ratio 24.0 H (10-20) Glucose 181 H (70-99) mg/dl POC Lactic Acid Justen 3.17 H (0.90-1.70) mmol/L Total Bilirubin 1.9 H (0.2-1) mg/dl AST 110 H (15-37) U/L ALT 95 H (12-78) U/L Alkaline Phosphatase 133 H (45-117) U/L Albumin 2.6 L (3.4-5.0) gm/dl Globulin 5.5 H (2.5-4.0) gm/dl Albumin/Globulin Ratio 0.5 L (0.9-2) Diagnostic Findings XR foot LT min 3V routine CLINICAL HISTORY: 58 years-old Male presenting with r/o osteo lt heel area. TECHNIQUE: Frontal, oblique, and lateral views of the left foot were obtained. COMPARISON: 04/16/2019. FINDINGS: Mild diffuse soft tissue swelling with subcutaneous edema evident. There is a punctate metallic foreign body along the plantar aspect of the foot the level of the calcaneus with associated erosion of acute is. Soft tissue emphysema is evident regionally. No acute fracture or malalignment. No osseous erosion or periosteal reaction. Prominent enthesophyte at the origin of the plantar fascia. Degenerative changes also noted at the ankle mortise. Atherosclerosis. IMPRESSION: Skin ulceration at the site of a punctate metallic foreign body in the plantar soft tissues of the hindfoot. The presence of soft tissue emphysema in this region raises concern for an underlying abscess. Ultrasound of the plantar hindfoot recommended for further assessment. No radiographic evidence of osteomyelitis. The report will be called/faxed according to standard departmental protocol. Medications Administered Current Inpatient Medications Sodium Chloride (Nss 1000ml) 1,000 mls @ 999 mls/hr IV .Q1H1M ONE Stop: 04/26/19 21:11 Last Admin: 04/26/19 20:48 Dose: 999 mls/hr Documented by: Code Status & VTE Plan Code Status Full VTE Prophylaxis Plan VTE Prophylaxis will be ordered: Yes Supervising Physician Co-Signing Physician Notes Patient seen and examined, chart reviewed, case discussed with Dr. Mathur and I agree with her assessment and plan as documented above. Briefly patient is a 58-year-old male with history of diabetes with associated neuropathy, hypertension, hyperlipidemia presenting with sepsis. Patient with ulcer of left foot. Has had increased pain and malodorous discharge over the last few weeks. He had a presumed injury to the foot while cleaning his driveway in which he thinks a staple might have become lodged into the tissue. He has felt overall ill and dizzy with positional changes. Also febrile. On physical exam he is febrile, tachycardic, hypotensive on arrival at 83/62 which improved with IV fluids to 119/56 during my encounter, tachypneic at 24 breaths/min saturating 96% on room air In general he is an ill-appearing male in no acute distress Skin is warm and dry. Skin tenting present. He has an ulcer on the plantar surface of the left foot, approximately 5 cm, surrounding erythema/edema. Foul odor and purulent discharge. No bulla/crepitus/lymphangitic streaking HEENT-normocephalic atraumatic, pupils equal and react to light, dry mucous membranes, neck supple Heart-plus S1/S2, regular, tachycardic Lungs-CTA Abdomen-+ bowel sounds soft, nontender/nondistended -Extremities right lower extremity status post amputation of third fourth and fifth digit, appears well-healed, left lower extremity as described above with concern plantar surface of foot. Extremities are cool bilaterally with diminished pulses 1+, area marked on left foot Labs and images reviewed. Significant for marked neutrophil predominant leukocytosis, WBC = 24.97, normochromic normocytic anemia at 13.1/36.3. Elevation in BUN and creatinine to 46 and 1.9, respectively. Lactate = 3.17. Glucose = 1.81 X-ray of the foot with skin ulceration at the site of a punctate metallic foreign body in the plantar soft tissues of the hindfoot. The presence of soft tissue emphysema in this region raises concern for an underlying abscess. Ultrasound recommended Assessment/plan: 58-year-old male with poorly controlled diabetes presenting with sepsis most likely secondary to diabetic foot ulcer of the left lower extremity. -Admit to PCU -Administer 30 mL/kg of IV fluid then provide maintenance fluids. Patient with sepsis, borderline hypotension and appears clinically dry on exam as well -Antibiotic coverage with vancomycin, Unasyn, clindamycin -Podiatry consultation -Patient n.p.o. -Repeat LFTs in a.m. if no improvement would consider right upper quadrant ultrasound -Remainder of plan as above PG Care Time/CCT Total # of Minutes Spent Total Time Spent with Patient: Total time spent is greater than 50% in coordination of care (as documented) at patient's floor/unit and/or counseling patient: Resident Activity Tracking Resident Involvement: Resident Care Provided Care Provided: Adult [facility] Medicine (1) DM type 2 (diabetes mellitus, type 2) Diabetes mellitus complication status: with hyperglycemia Diabetes mellitus snf insulin use: with ad terminal makeup operator use Qualified Code(s): E11.65 - Type 2 diabetes mellitus with hyperglycemia; Z79.4 - long term care pharmacist (current) use of insulin (2) Hyperlipidemia Hyperlipidemia type: unspecified Qualified Code(s): E78.5 - Hyperlipidemia, unspecified (3) Sepsis Sepsis acute organ dysfunction status: unspecified Sepsis type: sepsis due to unspecified organism Qualified Code(s): A41.9 - Sepsis, unspecified organism (4) HTN (hypertension) Hypertension type: unspecified Qualified Code(s): I10 - Essential (primary) hypertension
[2019-04-26] MEDS ORDERED: GLUCOSE 40% GEL 15 GM TUBE PO PRN (21:45)
[2019-04-26] MEDS ORDERED: GLUCOSE 10 TABS/TUBE PO PRN (21:45)
[2019-04-26] MEDS ORDERED: GLUCAGON FOR INJ 1 MG VIAL IM PRN (21:45)
[2019-04-26] MEDS ORDERED: DEXTROSE 50% 50 ML SYRINGE IV PRN (21:45)
[2019-04-26] MEDS: ACETAMINOPHEN 325 MG TAB PO PRN (21:47)
--- NOTE | 2019-04-26 21:47 | XRay Report ---
XR chest 1V portable CLINICAL HISTORY: 58 years-old Male presenting with cough. TECHNIQUE: Portable upright AP view of the chest was obtained. COMPARISON: 11/25/2018. FINDINGS: Atherosclerosis of the aortic arch. Cardiac silhouette normal in size. Lungs and pleural spaces clear . Degenerative changes of the thoracic spine. Upper abdomen normal. IMPRESSION: 1. No acute cardiopulmonary disease. Electronically signed by: Rylan Light M.D. 04/26/2019 9:46 PM
[2019-04-26] MEDS: FLUTICASONE PROPIONATE NA SPR 16 GM BTL SCH (21:48)
[2019-04-26] MEDS: LACTATED RINGER'S 1,000 ML IV SCH (21:48)
[2019-04-26] MEDS: INSULIN ASPART 100 UNITS/ML 3 ML PEN SC SCH (22:14)
[2019-04-26] MEDS: INSULIN DETEMIR FLEXPEN/FLEX TOUCH 100 UNITS/ML 3ML SQ SCH (22:14)
[2019-04-26] MEDS: CLINDAMYCIN 600 MG in DEXTROSE 5% 50 ML IV SCH (22:15)
[2019-04-27] MEDS: AMPICILLIN/SULBACTAM SOD 3,000 MG in 0.9 % SODIUM CHLORIDE 100 ML IV SCH ×5 (00:40→23:12)
[2019-04-27] MEDS ORDERED: VANCOMYCIN CONSULT ACTIVE PRN (01:33)
[2019-04-27] MEDS ORDERED: VANCOMYCIN HCL 2,500 MG in SODIUM CHLORIDE 0.9% 500 ML IV ONE (02:00)
[2019-04-27] MEDS: ACETAMINOPHEN 325 MG TAB PO PRN ×4 (03:52→23:12)
[2019-04-27] MEDS: INSULIN ASPART 100 UNITS/ML 3 ML PEN SC SCH ×5 (03:56→21:24)
[2019-04-27 05:27] LABS: Hematocrit (blood only) 31.3 % (42-52); Hemoglobin 11.3 g/dL (14.0-18.0); Mean Corpuscular Hgb Conc 36.1 g/dL (32-36); Platelet Count 198 K/uL (130-400); RDW Coefficient of Variation 12.3 % (11.5-14.5); RDW Standard Deviation 38.9 fL (36.4-46.3); Red Blood Count 3.64 M/uL (4.7-6.1)
[2019-04-27] MEDS: LACTATED RINGER'S 1,000 ML IV SCH ×3 (05:29→21:25)
[2019-04-27] MEDS: CLINDAMYCIN 600 MG in DEXTROSE 5% 50 ML IV SCH (05:29)
[2019-04-27 05:58] LABS: Basophils # (auto) 0.05 K/uL (0-0.2); Basophils % (auto) 0.3 %; Dohle Bodies 1+; Eosinophils # (auto) 0.06 K/uL (0-0.5); Eosinophils % (auto) 0.3 %; Immature Granulocytes % (auto) 0.5 %; Lymphocytes # (auto) 1.12 K/uL (1.2-3.4); Lymphocytes % (auto) 6.1 %; Monocytes % (auto) 9.2 %; Neutrophils # (auto) 15.37 K/uL (1.4-6.5); Neutrophils % (auto) 83.6 %; Tear Drop Cells 1+
[2019-04-27 06:07] LABS: Albumin Globulin Ratio 0.4 (0.9-2); Albumin Level 1.9 gm/dl (3.4-5.0); BUN Creatinine Ratio 27.7 (10-20); Bilirubin,Total 1.1 mg/dl (0.2-1); Calcium 8.1 mg/dl (8.5-10.1); Creatinine Clr Calc Pharmacy 72.4 ml/min; Est GFR (African American) 64.9; Globulin 4.3 gm/dl (2.5-4.0); Potassium 3.7 mmol/L (3.5-5.1); Total Protein 6.2 gm/dl (6.4-8.2)
[2019-04-27 06:33] LABS: Estimated Average Glucose 292 mg/dl; Hemoglobin A1C 11.8 % (4.5-5.6)
--- NOTE | 2019-04-27 07:11 | Ultrasound Report ---
US extremity non-vascular ltd CLINICAL HISTORY: xray concern for abscess, plantar hindfoot COMPARISON STUDY: Foot 2 views 04/26/2019 FINDINGS: Somewhat limited exam due to the presence of an open ulceration. Generalized soft tissue edematous change. Soft tissue within the air-containing considerable posterio r shadowing. Abscess is not excluded. CT of the foot is suggested. IMPRESSION: 1. A limited study due to the presence of the open wound and probable packing material. 2. Soft tissue air with posterior shadowing obscuring components of the foot. 3. Generalized soft tissue edematous change. 4. CT study is indicated to exclude an occult or poorly visualized collection. The above report was generated using voice recognition software. It may contain grammatical, syntax or spelling errors. Electronically signed by: Rommel Garcia M.D. 04/27/2019 7:10 AM
[2019-04-27] MEDS ORDERED: IOVERSOL 100ml IV PRN (09:00)
--- NOTE | 2019-04-27 09:14 | CT Scan Report ---
CT foot LT w con CLINICAL HISTORY: rule out abscess infection TECHNIQUE: Transaxial acquisition with multiaxial reformatted images. COMPARISON STUDY: Ultrasound same date FINDINGS: Moderate generalized soft tissue edematous change. Subcutaneous air pockets medial aspect o f the foot. Moderate soft tissue edematous change. 2.5 x 0.7 cm slightly complex collection within the plantar fascial region. No evidence for drainable abscess or collection. No acute bony abnormality. IMPRESSION: 1. Generalized soft tissue cellulitis/edema associated with subcutaneous air medial aspect right foot . 2. Small linear complex fluid pocket measuring 2.5 x 0.7 cm. 3. No evidence for drainable abscess or collection. The above report was generated using voice recognition software. It may contain grammatical, syntax or spelling errors. Electronically signed by: Rommel Garcia M.D. 04/27/2019 9:12 AM
[2019-04-27] MEDS: PRAVASTATIN SOD 40 MG TAB PO SCH (10:29)
[2019-04-27] MEDS: FLUTICASONE PROPIONATE NA SPR 16 GM BTL SCH ×2 (10:30→19:19)
[2019-04-27] MEDS: guaiFENesin 600 MG TABCR PO SCH ×2 (10:30→19:19)
[2019-04-27] MEDS: MULTIVITAMIN TAB PO SCH (10:30)
[2019-04-27] MEDS: ASPIRIN 81 MG ECTAB PO SCH (10:30)
[2019-04-27] MEDS ORDERED: PHARMACY GLYCEMIC MGMT CONSULT PRN (11:43)
[2019-04-27] MEDS ORDERED: INSULIN DETEMIR FLEXPEN/FLEX TOUCH 100 UNITS/ML 3ML SQ ONE ×2 (11:45)
[2019-04-27] MEDS: INSULIN DETEMIR FLEXPEN/FLEX TOUCH 100 UNITS/ML 3ML SQ SCH ×2 (11:51→21:24)
[2019-04-27] MEDS ORDERED: VANCOMYCIN HCL 1,500 MG in SODIUM CHLORIDE 0.9% 500 ML IV SCH (14:00)
--- NOTE | 2019-04-27 14:17 | Family Medicine Progress Note ---
Date of Service April 27, 2019 Assessment & Plan (1) Foot ulcer, left: 58yo male with PMHx significant for uncontrolled diabetes Type II, HTN, HLD who is admitted for sepsis likely secondary to an infected nonhealing LEFT heel wound. Sepsis in the setting of LEFT foot wound -febrile and tachycardic with inc WBC on admission. Lactate 3.17 at that time. -Also hypotensive on admission -Currently only on Unasyn; Clinda d/c as redundant coverage; Vanc d/c as culture grew MSSA and E. faecalis -Currently still spiking fevers however but WBC downtrending. -CT foot shows "2. Small linear complex fluid pocket measuring 2.5 x 0.7 cm. 3. No evidence for drainable abscess or collection. " -Podiatry consulted; recs pending -Complex fluid pocket surgical management, though no drainable abscess? DM II -Pt with hgA1c of 11.8 and avg estimated glucose of 292 -Regimen at home includes Metformin 1000mg BID, Levemir 45U BID and Novolog 38U TID. -question of compliance or need for med adjustment -metformin currently held with ISS while hospitalized. -appreciate pharm consult Elevated LFT -admitting elevations in AST, ALT, alk phos and t bili improving -ALT, alk phos in normal range; AST 62 and t bili 1.1 currently -was likely due to decreased perfusion given pt's hyoptension -continue fluids -continue to trend LFTs qAM SHANI -currently resolved after fluid administration -continue NSS @125 -will continue to monitor HTN/HLD -Holding home lisinopril and HCTZ given presenting HYPOtension -continue statin, aspirin FEN/GI: NPO pending procedural need DVT proph: SCDs pending possible procedural need CODE STATUS: Full Supervising Physician Co-Signing Physician Notes Resident Physician Supervision Note: I independently interviewed and examined the patient and verified the roberto history and physical, reviewed labs and image studies, discussed the case with the resident Dr. Agustin and agree with the findings and care plan. Subjective Mr. Galo states he has some pain in his foot but it is well controlled. Currently denies fevers, chills, night sweats, SMITH, blurry vision, N/V, diarrhea or constipation. Review of Systems Review of Systems: All systems reviewed & are unremarkable except as noted in HPI & below Physical Exam Physical Exam: General: Alert, oriented. No acute distress, resting in bed. HEENT: NC/AT, PERRLA, EOMI, oropharynx moist. Chest: Nontender to palpation. CV: RRR, Normal s1, s2. No murmurs appreciated Resp: Breath sounds clear bilaterally, no increased effort of breathing. No crackles/rhonchi/rales. Abdomen: Soft, nontender, nondistended. No guarding. No organomegaly appreciated. Extremities: Left heal with black ulcerated draining wound. Results & Data Vital Signs (Past 12 Hours) Vital Signs Temp Pulse Resp BP BP Pulse Ox 04/27/19 11:15 38.0 C H 91 H 16 101/65 95 04/27/19 07:02 37.6 C H 95 H 15 119/75 99 04/27/19 06:16 37.7 C H 04/27/19 04:45 38.5 C H 04/27/19 03:42 39.4 C H 100 H 18 129/69 96 Laboratory Results Laboratory Results - last 24 hr 04/26/19 04/26/19 04/26/19 17:51 17:58 17:58 WBC 24.97 H RBC 4.23 L Hgb 13.1 L Hct 36.3 L MCV 85.8 MCH 31.0 MCHC 36.1 H RDW Std Deviation 38.9 RDW Coeff of Arnav 12.3 Plt Count 288 MPV 10.5 H Immature Gran % (Auto) 0.6 Neut % (Auto) 87.8 Lymph % (Auto) 7.0 [place] % (Auto) 4.4 Eos % (Auto) 0.0 Baso % (Auto) 0.2 Immature Gran # (Auto) 0.16 H Neut # (Auto) 21.88 H Lymph # (Auto) 1.76 [place] # (Auto) 1.11 H Eos # (Auto) 0.01 Baso # (Auto) 0.05 Absolute Nucleated RBC 0.02 H Nucleated RBC % (auto) 0.1 Dohle Bodies Platelet Estimate Normal Tear Drop Cells Sodium 129 L Potassium 4.5 Chloride 93 L Carbon Dioxide 23 Anion Gap 13.0 H BUN 46 H Creatinine 1.90 H Est Cr Clr Drug Dosing 52.1 Est GFR ( Amer) 44.1 Est GFR (Non-Af Amer) 38.0 BUN/Creatinine Ratio 24.0 H Glucose 181 H POC Glucose Estimat Average Glucose Hemoglobin A1c POC Lactic Acid Justen 3.17 H Calcium 9.4 Total Bilirubin 1.9 H AST 110 H ALT 95 H Alkaline Phosphatase 133 H Total Protein 8.1 Albumin 2.6 L Globulin 5.5 H Albumin/Globulin Ratio 0.5 L Hepatitis C Ab Screen 04/26/19 04/26/19 04/27/19 21:52 21:54 03:47 WBC RBC Hgb Hct MCV MCH MCHC RDW Std Deviation RDW Coeff of Arnav Plt Count MPV Immature Gran % (Auto) Neut % (Auto) Lymph % (Auto) [place] % (Auto) Eos % (Auto) Baso % (Auto) Immature Gran # (Auto) Neut # (Auto) Lymph # (Auto) [place] # (Auto) Eos # (Auto) Baso # (Auto) Absolute Nucleated RBC Nucleated RBC % (auto) Dohle Bodies Platelet Estimate Tear Drop Cells Sodium Potassium Chloride Carbon Dioxide Anion Gap BUN Creatinine Est Cr Clr Drug Dosing Est GFR ( Amer) Est GFR (Non-Af Amer) BUN/Creatinine Ratio Glucose POC Glucose 343 H* 302 H* 150 H Estimat Average Glucose Hemoglobin A1c POC Lactic Acid Justen Calcium Total Bilirubin AST ALT Alkaline Phosphatase Total Protein Albumin Globulin Albumin/Globulin Ratio Hepatitis C Ab Screen 04/27/19 04/27/19 04/27/19 05:07 05:07 05:07 WBC 18.40 H RBC 3.64 L Hgb 11.3 L Hct 31.3 L MCV 86.0 MCH 31.0 MCHC 36.1 H RDW Std Deviation 38.9 RDW Coeff of Arnav 12.3 Plt Count 198 MPV 10.0 Immature Gran % (Auto) 0.5 Neut % (Auto) 83.6 Lymph % (Auto) 6.1 [place] % (Auto) 9.2 Eos % (Auto) 0.3 Baso % (Auto) 0.3 Immature Gran # (Auto) 0.10 H Neut # (Auto) 15.37 H Lymph # (Auto) 1.12 L [place] # (Auto) 1.70 H Eos # (Auto) 0.06 Baso # (Auto) 0.05 Absolute Nucleated RBC Nucleated RBC % (auto) Dohle Bodies 1+ Platelet Estimate Tear Drop Cells 1+ Sodium 133 L Potassium 3.7 D Chloride 102 Carbon Dioxide 23 Anion Gap 8.0 BUN 38 H Creatinine 1.38 D Est Cr Clr Drug Dosing 72.4 Est GFR ( Amer) 64.9 Est GFR (Non-Af Amer) 56.0 BUN/Creatinine Ratio 27.7 H Glucose 109 H POC Glucose Estimat Average Glucose 292 Hemoglobin A1c 11.8 H POC Lactic Acid Justen Calcium 8.1 L Total Bilirubin 1.1 H AST 62 H ALT 70 Alkaline Phosphatase 101 Total Protein 6.2 L D Albumin 1.9 L Globulin 4.3 H Albumin/Globulin Ratio 0.4 L Hepatitis C Ab Screen 04/27/19 04/27/19 04/27/19 05:07 07:25 11:32 WBC RBC Hgb Hct MCV MCH MCHC RDW Std Deviation RDW Coeff of Arnav Plt Count MPV Immature Gran % (Auto) Neut % (Auto) Lymph % (Auto) [place] % (Auto) Eos % (Auto) Baso % (Auto) Immature Gran # (Auto) Neut # (Auto) Lymph # (Auto) [place] # (Auto) Eos # (Auto) Baso # (Auto) Absolute Nucleated RBC Nucleated RBC % (auto) Dohle Bodies Platelet Estimate Tear Drop Cells Sodium Potassium Chloride Carbon Dioxide Anion Gap BUN Creatinine Est Cr Clr Drug Dosing Est GFR ( Amer) Est GFR (Non-Af Amer) BUN/Creatinine Ratio Glucose POC Glucose 96 83 Estimat Average Glucose Hemoglobin A1c POC Lactic Acid Justen Calcium Total Bilirubin AST ALT Alkaline Phosphatase Total Protein Albumin Globulin Albumin/Globulin Ratio Hepatitis C Ab Screen Neg Medications Administered Home Medications Levemir FlexTouch U-100 Insuln 45 unit SUBCUT BID 11/14/18 [History Confirmed 04/26/19] Novolog Flexpen U-100 Insulin 38 unit SUBCUT TID 11/14/18 [History Confirmed 04/26/19] aspirin 81 mg PO QAM 11/14/18 [History Confirmed 04/26/19] hydrochlorothiazide 12.5 mg PO QAM 11/14/18 [History Confirmed 04/26/19] lisinopril 10 mg PO QAM 11/14/18 [History Confirmed 04/26/19] metformin 1,000 mg PO BID 11/14/18 [History Confirmed 04/26/19] multivitamin 1 tab PO QAM 11/14/18 [History Confirmed 04/26/19] pravastatin [Pravachol] 80 mg PO QAM 11/14/18 [History Confirmed 04/26/19] Active Medications Acetaminophen (Tylenol) 650 mg PO Q4H PRN PRN Reason: Pain or Fever Stop: 05/26/19 21:26 Last Admin: 04/27/19 11:51 Dose: 650 mg Documented by: Aspirin (Ecotrin Ectab) 81 mg PO QAM [facility] Stop: 05/27/19 08:59 Last Admin: 04/27/19 10:30 Dose: 81 mg Documented by: Dextrose (Dextrose 50%) 25 - 50 ml IV UD PRN; Protocol PRN Reason: Hypoglycemia Protocol Stop: 05/26/19 21:44 Fluticasone Propionate (Flonase) 1 sprays NA BID [facility] Stop: 05/26/19 21:26 Last Admin: 04/27/19 10:30 Dose: Not Given Documented by: Glucagon (Glucagen) 1 mg IM UD PRN; Protocol PRN Reason: Hypoglycemia Protocol Stop: 05/26/19 21:44 Glucose (Glucose 40%) 15 - 30 gm PO UD PRN; Protocol PRN Reason: Hypoglycemia Protocol Stop: 05/26/19 21:44 Glucose (Dex4 Glucose) 4 - 8 tabs PO UD PRN; Protocol PRN Reason: Hypoglycemia Protocol Stop: 05/26/19 21:44 Guaifenesin (Mucinex) 1,200 mg PO Q12 [facility] Stop: 05/27/19 08:59 Last Admin: 04/27/19 10:30 Dose: 1,200 mg Documented by: Ampicillin Sodium/Sulbactam Sodium 3,000 mg/ Sodium Chloride 108 mls @ 200 mls/hr IV Q6H ADRY; Protocol Stop: 05/07/19 00:00 Last Infusion: 04/27/19 12:28 Dose: Infused Documented by: Lactated Ringer's (Lr) 1,000 mls @ 125 mls/hr IV .Q8H ADRY Stop: 05/26/19 21:26 Last Infusion: 04/27/19 14:16 Dose: Infused Documented by: Insulin Aspart (Novolog Flexpen) 0 units SC Q6H ADRY Stop: 05/26/19 21:26 Last Admin: 04/27/19 11:08 Dose: Not Given Documented by: Insulin Detemir (Levemir Flextouch) 0 units SQ BID ADRY; Protocol Stop: 05/27/19 20:59 Ioversol (Optiray 320 100ml) 93 ml IV ONCE PRN PRN Reason: Interaction Checking Stop: 05/01/19 08:59 Last Admin: 04/27/19 09:00 Dose: 93 ml Documented by: Miscellaneous (Carbohydrates For Hypoglycemia) 15 - 30 gm PO UD PRN PRN Reason: Hypoglycemia Treatment Stop: 05/26/19 21:44 Miscellaneous Information (Consult Glycemic Management Pharmacy) 1 ea N/A UD PRN PRN Reason: Consult Stop: 05/27/19 11:42 Multivitamins (Multivitamin Tab) 1 tab PO [facility] Stop: 05/27/19 08:59 Last Admin: 04/27/19 10:30 Dose: 1 tab Documented by: Pravastatin Sodium (Pravachol) 80 mg PO QAM [facility] Stop: 05/27/19 08:59 Last Admin: 04/27/19 10:29 Dose: 80 mg Documented by: PG Care Time/CCT Total # of Minutes Spent Total Time Spent with Patient: Total time spent is greater than 50% in coordination of care (as documented) at patient's floor/unit and/or counseling patient: Resident Activity Tracking Resident Involvement: Resident Care Provided Care Provided: Adult Hospital Medicine
--- NOTE | 2019-04-27 14:40 | Pharmacy Report ---
Glycemic Control Consultation - Date of Service April 27, 2019 - Scope Scope: Glycemic Pharmacist consulted by Dr Coyle on 04/27/19 for glycemic control and to write orders per [facility] inpatient glycemic control protocol - Objective Weight: 103 kg Accuchecks BSG (last 24hrs): 04/26/19 04/26/19 04/26/19 17:58 21:52 21:54 Glucose 181 H POC Glucose 343 H* 302 H* 04/27/19 04/27/19 04/27/19 03:47 05:07 07:25 Glucose 109 H POC Glucose 150 H 96 04/27/19 11:32 Glucose POC Glucose 83 Laboratory Data (last 24hrs): 04/26/19 04/27/19 17:58 05:07 Potassium 4.5 3.7 D Carbon Dioxide 23 23 Anion Gap 13.0 H 8.0 Creatinine 1.90 H 1.38 D Est Cr Clr Drug Dosing 52.1 72.4 HbA1c: Hemoglobin A1c 11.8 % (4.5-5.6) H 04/27/19 05:07 - Recent Pertinent Medications Outpatient Anti-diabetic Regimen: * Levemir 45 units SQ BID * Aspart 38 units SQ TID (patient reports he usually only takes BID) * A1c = 11.8 % 04/27/19 The patient is currently receiving: * Basal insulin: Lantus 45 units every bid hours * Correctional Insulin: Novolog Correction per scale ACHS Goal Range: Low 120 mg/dL - High 160 mg/dL Correction Factor: 25 mg/dL/unit * Prandial insulin: Per carb ratio of 1 unit per 7 grams CHO consumed * Oral Agents: on hold - Assessment & Plan Assessment & Plan: ASSESSMENT: * 58 yr old T2DM male admitted with hyperglycemia likely due to poor baseline control (a1c 11.8%) and infection. * BSG > 300 mg/dL upon arrival. Patient was given his home dose of Levemir 45 units last evening. Majority of BSGs have been less than 100 mg/dL since that time. Patient is NPO. * A partial dose of Lantus was ordered for this morning due to NPO status and low BSG. Further Lantus will be dosed based on BSG scale until inpatient needs are determined. I have added one overnight check incase selected dosing is not aggressive enough. * Patient has not required any bolus insulin today, therefore I will leave novolog parameters as is. PLAN FOR INPATIENT GLYCEMIC CONTROL: * Holding outpatient oral diabetes medications * Basal insulin - decrease * Lantus 20 units SQ x 1 this AM, then Lantus per scale BID * For BSG less than 100: 20 units * For BSG 100-180: 30 units * For BSG greater than 180: 40 units * Bolus insulin * NovoLog per scale ACHS or Q6hrs while NPO * Goal Range: Low 120 mg/dL - High 160 mg/dL * Correction Factor: 25 mg/dL/unit * Nutritional / Prandial insulin per carb ratio of 1 unit per 7 grams CHO consumed * Please note that the plan above was derived based on current level of insulin resistance and hospital stress. These recommendations are appropriate for inpatient admission only. Plan of care upon discharge will need to be reassessed to avoid potential outpatient hypo/hyperglycemia. Thank you.
--- NOTE | 2019-04-27 15:57 | Podiatry Consultation ---
Date of Consultation April 27, 2019 History of Present Illness Attending Physician: Adriane Coyle MD patient seen at bedside today with wound care nurse patient is a pleasant 58 y/o male patient with a history of DM, admitted through the ED due to feeling dizzy and patient has a history of a non healing left foot ulcer in the setting of diabetic neuropathy. patient is in no acute distress, WBC is elevated but trending down, wound is malodorous and concerning for arterial insufficiency as an additional cause of the ulcer, patient was supposed to have had arterial testing this was ordered on Tuesday per wound care note, however patient did not have the testing completed - I do recommend for surgical debridement due to the extent of the ulcer and infection present, patient is tentatively scheduled for Friday 05/04 for OR debridement - pulses are non palpable, I recommend for vascular surgery to be consulted to asses wound healing potential prior to OR debridement, consulted and will await his recs - new cultures obtained from wound at bedside today - dressings replaced by wound care nurse consisting of Aquacel AG and gauze - patient is to remain non weightbearing to the left foot due to the wound - I will continue to follow this patient, thank you for the consult Allergies Allergy/AdvReac Type Severity Reaction Status Date / Time No Known Allergies Allergy Unverified 04/26/19 17:19 Home Medications Home Medications Medication Instructions Recorded Confirmed Type Levemir FlexTouch U-100 Insuln 45 unit SUBCUT BID 11/14/18 04/26/19 History Novolog Flexpen U-100 Insulin 38 unit SUBCUT TID 11/14/18 04/26/19 History aspirin 81 mg PO QAM 11/14/18 04/26/19 History hydrochlorothiazide 12.5 mg PO QAM 11/14/18 04/26/19 History lisinopril 10 mg PO QAM 11/14/18 04/26/19 History metformin 1,000 mg PO BID 11/14/18 04/26/19 History multivitamin 1 tab PO QAM 11/14/18 04/26/19 History pravastatin [Pravachol] 80 mg PO QAM 11/14/18 04/26/19 History Patient History Medical History Tobacco use disorder DM type 2 (diabetes mellitus, type 2) HTN (hypertension) Hyperlipidemia Acquired hallux valgus of right foot (Acute) Callus (Acute) Diabetes mellitus with diabetic polyneuropathy (Acute) Hallux valgus (acquired), left foot (Acute) Hammertoe of left foot (Acute) History of partial ray amputation of fifth toe of right foot (Acute) History of partial ray amputation of fourth toe of right foot (Acute) History of partial ray amputation of third toe of right foot (Acute) Surgical History 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) S/P tonsillectomy (Resolved) Social History Preferred Language: [place] Island[place] Communication Ability: Effective Appointment Specialist Required: No Beliefs That Will Affect Care: None marital status: single Current Living Situation: Alone current occupational status: unemployed and disabled Other Information That Helps Us Care for You: No Feels Safe at Home: Yes Safety Concerns: Feels Safe At This Time Smoking Status: Never smoker Tobacco Type: smokeless tobacco ; Do You Dip or Chew Tobacco: Yes ; Second Hand Exposure: No ; Tobacco Cessation Education Requested by Patient: Yes Hx Alcohol Use: No Hx Substance Use: No Physical Exam Skin: large wound present at the plantar aspect of the left foot with non viable, necrotic tissue present that is odorous, there is a large amount of black/necrotic tissue with purulent drainage expressible from the ulceration - non palpable pulses of the left foot with +2/3 pitting edema - moderate swelling is present likely secondary to the infection - wound care obtained clinical photos please refer to photos Results & Data Vital Signs (Past 12 Hours) Vital Signs Temp Pulse Resp BP BP Pulse Ox 04/27/19 11:15 38.0 C H 91 H 16 101/65 95 04/27/19 07:02 37.6 C H 95 H 15 119/75 99 04/27/19 06:16 37.7 C H 04/27/19 04:45 38.5 C H
[2019-04-27] MEDS: CARBOHYDRATES FOR HYPOGLYCEMIA PO PRN ×2 (16:11→16:34)
[2019-04-27] MEDS ORDERED: Nursing to Pharmacy Communication ONE (17:04)
--- NOTE | 2019-04-27 17:39 | Ultrasound Report ---
US ankle/brachial index ltd CLINICAL HISTORY: 58 years-old Male presenting with non healing left foot ulcer with non palpable pul s. TECHNIQUE: Ankle brachial indices were obtained. COMPARISON: None. FINDINGS: Brachial: Right: mmHg. Left: mmHg. Ankle (posterior tibial): Right: > 254 mmHg. Left: > 254 mmHg. Ankle (dorsalis pedis): Right: > 254 mmHg. Left: > 254 mmHg. Ankle/brachial index: Right: Unable to calculate, Left: Unable to calculate. Reference ranges: Normal NEVIN 1.0-1.4; 0.9-0.99 borderline; less than 0.9 abnormal. IMPRESSION: Noncompressible posterior tibial and dorsalis pedis blood pressures resulting in nondiagnostic bilate ral ankle-brachial indices. Electronically signed by: Rylan Light M.D. 04/27/2019 5:37 PM
--- NOTE | 2019-04-27 21:06 | Magnetic Resonance Report ---
MR ankle LT wo con HISTORY: left foot ulcer TECHNIQUE: Multiplanar multisequence MRI of the left ankle was performed without contrast. COMPARISON STUDY: Left foot CT 04/27/2019. FINDINGS: There is again noted metallic artifact along the plantar surface of the hindfoot. This is c onsistent with a punctate metallic foreign body seen on the prior studies. There is an open wound med ial to this location which appears to contain gas or packing material. This measures 2.4 cm. There is extensive subcutaneous edema throughout the ankle/hindfoot. There is also edema throughout the plant ar muscles. No definite loculated fluid collections to suggest an abscess. No joint effusions identif ied. Normal marrow signal intensity seen throughout the visualized osseous structures of the ankle/hi ndfoot. Therefore, no evidence for osteomyelitis. Mild osteoarthritis within the ankle. Trace fluid w ithin the flexor houses longus tendon sheath is considered to be within the range of normal limits. IMPRESSION: 1. Metallic artifact along the plantar surface of the hindfoot consistent with a punctate metallic fo reign body seen in the prior studies. There is also an open wound medial to this metallic foreign bod y which contains gas or packing material. This measures 2.4 cm. 2. No evidence for osteomyelitis within the ankle/hindfoot. 3. Extensive subcutaneous edema throughout the ankle/hindfoot. There is also edema throughout the abdirahman ntar muscles. However, no definite loculated fluid collections on this noncontrast study to suggest a abscess. Electronically signed by: Everardo Christianson M.D. 04/27/2019 9:05 PM
[2019-04-27] MEDS ORDERED: KETOROLAC TROMETHAMINE 15 MG/ML VIAL IV ONE (23:01)
[2019-04-28] MEDS: LACTATED RINGER'S 1,000 ML IV SCH ×3 (04:06→22:00)
[2019-04-28] MEDS: AMPICILLIN/SULBACTAM SOD 3,000 MG in 0.9 % SODIUM CHLORIDE 100 ML IV SCH ×2 (06:03→11:59)
[2019-04-28 06:15] LABS: Hematocrit (blood only) 36.2 % (42-52); Hemoglobin 12.9 g/dL (14.0-18.0); Mean Corpuscular Hemoglobin 30.9 pg (25-34); Mean Corpuscular Hgb Conc 35.6 g/dL (32-36); Mean Corpuscular Volume 86.8 fL (80-100); Mean Platelet Volume 10.5 fL (7.4-10.4); Platelet Count 215 K/uL (130-400); RDW Coefficient of Variation 12.4 % (11.5-14.5); RDW Standard Deviation 39.6 fL (36.4-46.3); Red Blood Count 4.17 M/uL (4.7-6.1); White Blood Count 25.57 K/uL (4.8-10.8)
[2019-04-28 06:50] LABS: Basophils # (auto) 0.12 K/uL (0-0.2); Basophils % (auto) 0.5 %; Dohle Bodies 1+; Eosinophils # (auto) 0.01 K/uL (0-0.5); Immature Granulocytes # (auto) 0.36 K/uL (0.00-0.02); Immature Granulocytes % (auto) 1.4 %; Lymphocytes # (auto) 1.61 K/uL (1.2-3.4); Lymphocytes % (auto) 6.3 %; Monocytes # (auto) 2.21 K/uL (0.11-0.59); Monocytes % (auto) 8.6 %; Neutrophils # (auto) 21.26 K/uL (1.4-6.5); Neutrophils % (auto) 83.2 %
[2019-04-28 06:52] LABS: Albumin Globulin Ratio 0.4 (0.9-2); Albumin Level 2.1 gm/dl (3.4-5.0); BUN Creatinine Ratio 20.5 (10-20); Bilirubin Direct 0.6 mg/dl (0-0.2); Bilirubin,Total 1.4 mg/dl (0.2-1); Calcium 8.7 mg/dl (8.5-10.1); Creatinine Clr Calc Pharmacy 87.9 ml/min; Est GFR (African American) 81.7; Est GFR (Non-African American) 70.5; Potassium 3.5 mmol/L (3.5-5.1); Total Protein 7.1 gm/dl (6.4-8.2)
[2019-04-28] MEDS: CARBOHYDRATES FOR HYPOGLYCEMIA PO PRN ×2 (06:57→07:18)
[2019-04-28] MEDS: ASPIRIN 81 MG ECTAB PO SCH (08:21)
[2019-04-28] MEDS: guaiFENesin 600 MG TABCR PO SCH ×2 (08:21→22:01)
[2019-04-28] MEDS: MULTIVITAMIN TAB PO SCH (08:21)
[2019-04-28] MEDS: PRAVASTATIN SOD 40 MG TAB PO SCH (08:21)
[2019-04-28] MEDS: FLUTICASONE PROPIONATE NA SPR 16 GM BTL SCH ×2 (08:21→22:01)
[2019-04-28] MEDS: INSULIN ASPART 100 UNITS/ML 3 ML PEN SC SCH ×4 (08:22→22:05)
--- NOTE | 2019-04-28 09:19 | Communication Note ---
Date of Service: April 28, 2019 We will see the patient once the arterial noninvasives are completed. Angiogram suite in the OR is down for the weekend. no arteriography could be done until at least late Tuesday or Tuesday.
[2019-04-28] MEDS: ACETAMINOPHEN 325 MG TAB PO PRN ×2 (11:59→22:09)
[2019-04-28] MEDS ORDERED: PIPERACILL/TAZOBAC CONSULT ACTIVE PRN (13:07)
[2019-04-28] MEDS ORDERED: VANCOMYCIN CONSULT ACTIVE PRN (13:07)
[2019-04-28] MEDS ORDERED: VANCOMYCIN HCL 2,500 MG in SODIUM CHLORIDE 0.9% 500 ML IV ONE (13:30)
[2019-04-28] MEDS ORDERED: PIPERACILLIN/TAZOBACTAM 3.375 GM in DEXTROSE 5% 100 ML IV ONE (13:30)
[2019-04-28] MEDS ORDERED: VANCOMYCIN TROUGH ONE (13:30)
--- NOTE | 2019-04-28 14:32 | Pharmacy Report ---
Pharmacy Glycemic Short Note 2 - Date of Service April 28, 2019 - Glycemic Short BSG Results (Last 24 hours): 04/27/19 04/27/19 04/27/19 16:06 16:07 16:27 Glucose POC Glucose 55 L* 58 L* 66 L* 04/27/19 04/27/19 04/27/19 16:27 16:50 20:06 Glucose POC Glucose 68 L* 114 H 108 H 04/28/19 04/28/19 04/28/19 05:29 07:12 07:14 Glucose 43 L* POC Glucose 69 L* 63 L* 04/28/19 04/28/19 07:32 11:35 Glucose POC Glucose 95 138 H Outpatient Anti-diabetic Regimen: * Levemir 45 units SQ BID * Aspart 38 units SQ TID (patient reports he usually only takes BID) * A1c = 11.8 % 04/27/19 ASSESSMENT: * 58 yr old T2DM male admitted with hyperglycemia likely due to poor baseline control (a1c 11.8%) and infection. * Patient has had multiple episodes of hypoglycemia despite 45% decrease in basal insulin yesterday for NPO status. I instructed the nurse to hold his AM Levemir dose today and will further decrease Levemir dosing (I have used weight based dosing as a guide rather than home dose). * I anticipate insulin needs increasing as diet his has been advanced. PLAN FOR INPATIENT GLYCEMIC CONTROL: * Holding outpatient oral diabetes medications * Basal insulin - decrease * Lantus held this AM, then Lantus per scale BID: * For BSG less than 100: 0 units * For BSG 100-180: 10 units (stress 1) * For BSG greater than 180: 18 units (stress 2) * Bolus insulin * NovoLog per scale ACHS or Q6hrs while NPO * Goal Range: Low 120 mg/dL - High 160 mg/dL * Correction Factor: 25 mg/dL/unit * Nutritional / Prandial insulin per carb ratio of 1 unit per 8 grams CHO consumed PLAN FOR DISCHARGE: * A1c of 11.8% indicates poor outpatient control * Patient is requiring significantly less insulin as an inpatient. * Patient admits to poor dietary decisions. Per CDE note, patient may also be missing doses of insulin. * Recommend reinforcing the importance of taking insulin as directed. Thank you.
--- NOTE | 2019-04-28 14:37 | Ultrasound Report ---
US arterial duplex LE BI CLINICAL HISTORY: 58 years-old Male presenting with left foot ulcer. TECHNIQUE: Real-time grayscale and color and spectral Doppler ultrasound imaging of the bilateral low er extremities arteries was performed. Measurements calculated based on NASCET criteria. COMPARISON: None. FINDINGS: RIGHT: Common femoral artery: Patent. Triphasic waveforms. Peak systolic velocity (PSV) 54-67 cm/s. Deep femoral artery: Patent. Biphasic waveforms. PSV 40 cm/s. Superficial femoral artery: Patent. Triphasic waveforms. PSV 50-85 cm/s. Popliteal artery: Patent. Triphasic waveforms. PSV 90-126 cm/s. Anterior tibial artery: Patent. Triphasic waveforms. PSV 45-75 cm/s. Posterior tibial artery: Patent. Triphasic waveforms. PSV 74-84 cm/s. Peroneal artery: Patent. Monophasic waveforms. PSV 42 cm/s. Dorsalis pedis: Patent. Triphasic waveforms. PSV 70 cm/s. LEFT: Common femoral artery: Patent. Triphasic waveforms. Peak systolic velocity (PSV) 56-69 cm/s. Deep femoral artery: Patent. Triphasic waveforms. PSV 59 cm/s. Superficial femoral artery: Patent. Triphasic waveforms. PSV 64-110 cm/s. Popliteal artery: Patent. Biphasic waveforms. PSV 108-137 cm/s. Anterior tibial artery: Patent. Triphasic waveforms. PSV 63-123 cm/s. Posterior tibial artery: Patent. Triphasic waveforms. PSV 144 cm/s proximally and 88 cm/s downstream. Peroneal artery: Patent. Biphasic waveforms. PSV 76-110 cm/s. Dorsalis pedis: Patent. Biphasic waveforms. PSV 88-117 cm/s. Other: Cystic collection in the left popliteal fossa measuring 8 x 5.3 x 2 cm likely popliteal cyst. ANKLE/BRACHIAL INDEX (NEVIN): Not performed Brachial: Right: mmHg. Left: mmHg. Ankle (posterior tibial): Right: mmHg. Left: mmHg. Ankle (dorsalis pedis): Right: mmHg. Left: mmHg. Ankle/brachial index: Right: , Left: . Reference ranges: Normal Ankle/Brachial Index (NEVIN) 1.0-1.4; 0.91-0.99 borderline; < or = 0.9 abnormal (0.7-0.89 mild, 0.51-0.69 moderate, < or = 0.5 severe peripheral arterial disease). Normal Toe/Brachial Index (TBI) > or = 0.6; < 0.6 abnormal (0.34-0.59 mild, 0.12-0.34 moderate, < or = 0.11 severe peripheral arterial disease). IMPRESSION: 1. Patent vessels of the bilateral lower extremities to the ankles. 2. Questionable mild stenosis of the proximal left posterior tibial artery. This is of doubtful clin ical significance. No hemodynamically significant stenosis. 3. Ankle-brachial indices not performed. Electronically signed by: Rylan Light M.D. 04/28/2019 2:35 PM
--- NOTE | 2019-04-28 15:04 | Pharmacy Report ---
Pharmacy Abx Dose Short Note - Date of Service April 28, 2019 - Assessment & Plan Assessment 58 year old M receiving IV Vancomycin and Zosyn for treatment of L foot wound/ulcer Day # 1 of antimicrobial therapy. * Vancomycin being restarted. It was previously discontinued as 04/24 culture grew MSSA. Random level was inadvertently drawn at 1312 today. Surprisingly it was 5.1 mcg/dL despite no Vancomycin given >24 hours. Re-load and dose today. Plan Vancomycin * Give Vancomycin 2500mg (~24 mg/kg) IV x 1 as loading dose * Initiate Vancomycin 1500mg (~15 mg/kg) IV q12 as maintenance regimen * Goal trough level for cellulitis : ~15 mcg/mL * Trough level ordered for: 04/30/19 @ 0130 (prior to 3rd dose and therefore not reflective of steady state, but would like to assess dosing regimen earlier) Zosyn * Give Zosyn 3.375g IV x 1 as a loading dose * Initiate Zosyn 3.375g IV q8 as maintenance regimen for CrCl >20 mL/min Pharmacy will continue to follow and will adjust dose/frequency as necessary. Thank you.
--- NOTE | 2019-04-28 16:11 | Family Medicine Progress Note ---
Date of Service April 28, 2019 Assessment & Plan (1) Foot ulcer, left: 58yo male with PMHx significant for uncontrolled diabetes Type II, HTN, HLD who is admitted for sepsis likely secondary to an infected nonhealing LEFT heel wound. Sepsis in the setting of LEFT foot wound Febrile overnight, diaphoretic with chills White count climbed as well. Discontinued unasyn, diabetic with distal wound, subcutaneous emphysema and not responding to antibiotics wanted to cover for pseudomonas and MRSA Started Vanc and zosyn If patient has worsening clinical condition or evidence of necrotizing fasciitis will start clindamycin without delay -Podiatry consulted plan for debridement pending vascular evaluation DM II -Pt with hgA1c of 11.8 and avg estimated glucose of 292 -Regimen at home includes Metformin 1000mg BID, Levemir 45U BID and Novolog 38U TID. -question of compliance or need for med adjustment -metformin currently held with ISS while hospitalized. -appreciate pharm consult ACUTE ON CHRONIC LIVER INJURY -admitting elevations in AST, ALT, alk phos and t bili improving -ALT, alk phos in normal range; AST 62 and t bili 1.1 currently -was likely due to decreased perfusion given pt's hyoptension -continue fluids SHANI -currently resolved after fluid administration -continue NSS @125 -will continue to monitor HTN/HLD -Holding home lisinopril and HCTZ given presenting HYPOtension -continue statin, aspirin FEN/GI: NPO DVT proph: SCDs pending possible procedural need CODE STATUS: Full Supervising Physician Co-Signing Physician Notes I personally examined the patient and verified all roberto points of history and exam, discussed case, and agree with decision making with Dr Virk. Had chills earlier in the day. Feeling better now. Appreciates broader antibiotic coverage. No other acute complaints. Vitals noted, in general he is awake and alert pleasant no distress. HEENT normocephalic atraumatic mucous members are moist. Breathing unlabored no accessory muscle use good effort. Skin shows no rashes no pallor or icterus. His left heel is dressed, there is no tracking erythema, no skin crepitus in the area, no calf tenderness. Diabetic foot infection/nonhealing ulceragree with broadened antibiotic coverage, given his risks with prolonged open wound and frequent exposure to the healthcare system certainly MRSA is worth consideration, and given his diabetic vascular disease gram-negative such as Pseudomonas are of concern as well. His current regimen escalation will cover both. Should he have any worsening/tracking in spite of this, or crepitus, then may need to reinstitute clindamycin for antitoxin effect, but hopefully this will not be necessary. Work on assessing the severity of his vascular disease (try again with Dopplers for arterial flow, if a repeat attempt does not get good visualization, then need to consider CT angiogram) and once it is possible, hopefully proceed with debridement, as this will likely not get better without surgical intervention. That said he appears stable on antibiotics. Insulin-dependent diabetestype IIcontinue current management, continue to titrate insulins. I suspect his lows are because of eating far less simple carbohydrates here in the hospital and he normally does at home. DVT proph - add heparin SQ Subjective Mr. Galo resting this morning, he complains of fevers, chills and sweats overnight, says he drenched three of his gowns. Not having much discomfort currently, no other complaints. Review of Systems Review of Systems: All systems reviewed & are unremarkable except as noted in HPI & below Physical Exam Constitutional: well developed, well nourished, cooperative and comfortable; no acute distress Eyes: PERRL, conjunctivae normal, anicteric sclerae ENMT: external ear and nose normal, oropharynx normal Respiratory: normal respiratory effort, lungs clear to auscultation Cardiovascular: RRR, no murmur, no edema Gastrointestinal (Abdomen): normal bowel sounds, soft, nontender, no hepatosplenomegaly Skin: no rashes, warm and dry (Bandage over heel wound, no crepitus or red rash spreading from bandage) Results & Data Vital Signs (Past 12 Hours) Vital Signs Temp Pulse Resp BP Pulse Ox 04/28/19 15:03 37.1 C 89 18 106/69 97 04/28/19 11:10 38.1 C H 95 H 16 108/69 04/28/19 07:10 37.3 C 96 H 16 94/61 L 99 PG Care Time/CCT Total # of Minutes Spent Total Time Spent with Patient: Total time spent is greater than 50% in coordination of care (as documented) at patient's floor/unit and/or counseling patient: Resident Activity Tracking Resident Involvement: Resident Care Provided Care Provided: Adult Hospital Medicine
--- NOTE | 2019-04-28 17:57 | Podiatry Consultation ---
Date of Consultation April 28, 2019 History of Present Illness Attending Physician: Luis Antonio Cordova, patient seen at bedside today, worsening WBC elevated to 24 again, patient has chills and is febrile, I spoke with and discussed the arterial doppler finding and that show patent post tib, peroneal, and DP pulses, discussed that I will perform a, I and D with pulse lavage, will wait for extensive debridement until Tuesday after is available for CT further asses healing status, at this point the patient is worsening and MRI shows gas in the soft tissue, this is a surgical emergency that needs I and D and flushed, spoke with OR will take patient to OR around 730 tonight Allergies Allergy/AdvReac Type Severity Reaction Status Date / Time No Known Allergies Allergy Unverified 04/26/19 17:19 Home Medications Home Medications Medication Instructions Recorded Confirmed Type Levemir FlexTouch U-100 Insuln 45 unit SUBCUT BID 11/14/18 04/26/19 History Novolog Flexpen U-100 Insulin 38 unit SUBCUT TID 11/14/18 04/26/19 History aspirin 81 mg PO QAM 11/14/18 04/26/19 History hydrochlorothiazide 12.5 mg PO QAM 11/14/18 04/26/19 History lisinopril 10 mg PO QAM 11/14/18 04/26/19 History metformin 1,000 mg PO BID 11/14/18 04/26/19 History multivitamin 1 tab PO QAM 11/14/18 04/26/19 History pravastatin [Pravachol] 80 mg PO QAM 11/14/18 04/26/19 History Patient History Medical History Tobacco use disorder DM type 2 (diabetes mellitus, type 2) HTN (hypertension) Hyperlipidemia Acquired hallux valgus of right foot (Acute) Callus (Acute) Diabetes mellitus with diabetic polyneuropathy (Acute) Hallux valgus (acquired), left foot (Acute) Hammertoe of left foot (Acute) History of partial ray amputation of fifth toe of right foot (Acute) History of partial ray amputation of fourth toe of right foot (Acute) History of partial ray amputation of third toe of right foot (Acute) Surgical History 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) S/P tonsillectomy (Resolved) Social History Preferred Language: Russian Communication Ability: Effective Conceptor Required: No Beliefs That Will Affect Care: None marital status: single Current Living Situation: Alone current occupational status: unemployed and disabled Other Information That Helps Us Care for You: No Feels Safe at Home: Yes Safety Concerns: Feels Safe At This Time Smoking Status: Never smoker Tobacco Type: smokeless tobacco ; Do You Dip or Chew Tobacco: Yes ; Second Hand Exposure: No ; Tobacco Cessation Education Requested by Patient: Yes Hx Alcohol Use: No Hx Substance Use: No Results & Data Vital Signs (Past 12 Hours) Vital Signs Temp Pulse Resp BP Pulse Ox 04/28/19 15:03 37.1 C 89 18 106/69 97 04/28/19 11:10 38.1 C H 95 H 16 108/69 04/28/19 07:10 37.3 C 96 H 16 94/61 L 99
[2019-04-28] MEDS ORDERED: BACITRACIN INJ 50,000 UNIT VIAL ONE (20:13)
[2019-04-28] MEDS ORDERED: LIDOCAINE HCL 1% 20 ML VIAL ONE (20:13)
[2019-04-28] MEDS ORDERED: fentaNYL citrate 100 MCG/2 ML VIAL ONE (20:16)
[2019-04-28] MEDS ORDERED: MIDAZOLAM HCL 1 MG/ML 2ML VIAL ONE ×2 (20:16→21:03)
[2019-04-28] MEDS ORDERED: HYDROmorphone INJ 1 MG/ML SYRINGE IV PRN (20:20)
[2019-04-28] MEDS ORDERED: ePHEDrine sulfate 50 MG/ML AMP IV PRN (20:20)
[2019-04-28] MEDS ORDERED: fentaNYL citrate 100 MCG/2 ML VIAL IV PRN (20:20)
[2019-04-28] MEDS ORDERED: ONDANSETRON INJ 2 MG/ML 2 ML VIAL IV PRN (20:20)
[2019-04-28] MEDS ORDERED: ATROPINE SULFATE 0.1 MG/ML 10ML SYR IV PRN (20:20)
--- NOTE | 2019-04-28 20:22 | Anesthesiology Consultation ---
Date of Service April 28, 2019 Assessment & Plan (1) Encounter for pre-operative examination: Chart Review Chart Review: Acceptable Risk for Surgery and Patient NOT seen in Pre Admission Testing Consults Requested none ASA ASA3 History Surgery Operation Date: 04/28/19 19:30 Proposed Procedures p Debridement(Left) - Ya Marie DPM Operation Date: 05/04/19 07:00 Proposed Procedures p Left Foot Ulcer Debridement - Ya Marie DPM Height/Weight Height: 6 ft Weight: 103.5 kg Allergies Allergy/AdvReac Type Severity Reaction Status Date / Time No Known Allergies Allergy Unverified 04/26/19 17:19 Medications Home Medications Medication Instructions Recorded Confirmed Last Taken Levemir FlexTouch U-100 Insuln 45 unit SUBCUT BID 11/14/18 04/26/19 04/26/19 Novolog Flexpen U-100 Insulin 38 unit SUBCUT TID 11/14/18 04/26/19 04/26/19 aspirin 81 mg PO QAM 11/14/18 04/26/19 04/26/19 hydrochlorothiazide 12.5 mg PO QAM 11/14/18 04/26/19 04/26/19 lisinopril 10 mg PO QAM 11/14/18 04/26/19 04/26/19 metformin 1,000 mg PO BID 11/14/18 04/26/19 04/26/19 multivitamin 1 tab PO QAM 11/14/18 04/26/19 04/26/19 pravastatin [Pravachol] 80 mg PO QAM 11/14/18 04/26/19 04/26/19 Active Medications Generic Name Dose Route Start Last Admin Trade Name Freq PRN Reason Stop Dose Admin Acetaminophen 650 mg 04/26/19 21:27 04/28/19 11:59 Tylenol PO 05/26/19 21:26 650 mg Q4H PRN Administration Pain or Fever Aspirin 81 mg 04/27/19 09:00 04/28/19 08:21 Ecotrin Ectab PO 05/27/19 08:59 81 mg QAM ADRY Administration Fluticasone Propionate 1 sprays 04/26/19 21:27 04/28/19 08:21 Flonase NA 05/26/19 21:26 Not Given BID ADRY Guaifenesin 1,200 mg 04/27/19 09:00 04/28/19 08:21 Mucinex PO 05/27/19 08:59 1,200 mg Q12 ADRY Administration Lactated Ringer's 1,000 mls @ 125 mls/hr 04/26/19 21:27 04/28/19 12:59 Lr IV 05/26/19 21:26 125 mls/hr .Q8H ADRY Administration Insulin Aspart 0 units 04/27/19 18:00 04/28/19 16:55 Novolog Flexpen SC 05/27/19 17:59 11 units ACHS ADRY Administration Insulin Detemir 0 units 04/27/19 21:00 04/27/19 21:24 Levemir Flextouch SQ 05/27/19 20:59 30 units BID ADRY Administration Protocol Ioversol 93 ml 04/27/19 09:00 04/27/19 09:00 Optiray 320 100ml IV 05/01/19 08:59 93 ml ONCE PRN Administration Interaction Checking Miscellaneous 15 - 30 gm 04/26/19 21:45 04/28/19 07:18 Carbohydrates For Hypoglycemia PO 05/26/19 21:44 15 gm UD PRN Administration Hypoglycemia Treatment Multivitamins 1 tab 04/27/19 09:00 04/28/19 08:21 Multivitamin Tab PO 05/27/19 08:59 1 tab QAM ADRY Administration Pravastatin Sodium 80 mg 04/27/19 09:00 04/28/19 08:21 Pravachol PO 05/27/19 08:59 80 mg QAM ADRY Administration NPO Date Last Intake of Fluids: 04/28/19 Time Last Intake of Fluids: 17:30 Date Last Intake of Solids: 04/28/19 Time Last Intake of Solids: 17:30 Past Medical History Medical History Tobacco use disorder DM type 2 (diabetes mellitus, type 2) HTN (hypertension) Hyperlipidemia Acquired hallux valgus of right foot (Acute) Callus (Acute) Diabetes mellitus with diabetic polyneuropathy (Acute) Hallux valgus (acquired), left foot (Acute) Hammertoe of left foot (Acute) History of partial ray amputation of fifth toe of right foot (Acute) History of partial ray amputation of fourth toe of right foot (Acute) History of partial ray amputation of third toe of right foot (Acute) Exercise / Class Metabolic Activity II 4-5 Yardwork/Stairs/Walk up hill Past Surgical History Surgical History 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) S/P tonsillectomy (Resolved) Past Anesthesia History No Hx of Anesthesia Complications and No Family Hx of Anesthesia Complications History of PONV No Hx of PONV and No Hx of Motion Sickness Social History Smoking Status: Never smoker tobacco type: smokeless tobacco Do You Dip or Chew Tobacco: Yes Hx Alcohol Use: No Hx Substance Use: No Physical Exam Vital Signs Last Vital Signs Temp 39.1 C H 04/28/19 19:27 Pulse 99 H 04/28/19 19:27 Resp 18 04/28/19 19:27 BP 115/69 04/28/19 19:27 Pulse Ox 98 04/28/19 19:27 Testing Laboratory Results 04/28/19 05:29 04/28/19 05:29 Hemoglobin A1c 11.8 % (4.5-5.6) H 04/27/19 05:07 04/26/19 17:58 Aerobic Blood Culture - Preliminary Blood No growth in Aerobic bottle after 48 hours. Anaerobic Blood Culture - Final 04/26/19 17:58 Aerobic Blood Culture - Preliminary Blood No growth in Aerobic bottle after 48 hours. Anaerobic Blood Culture - Preliminary No growth in Anaerobic bottle after 48 hours. 04/26/19 Unknown Gram Stain - Final Foot,Left Wound Culture - Preliminary Coag negative Staphylococcus Staphylococcus species 04/27/19 15:25 Gram Stain - Final Foot,Left Deep Wound Culture - Preliminary Gram positive cocci 04/28/19 04/28/19 16:19 11:35 POC Glucose 156 H 138 H
--- NOTE | 2019-04-28 21:15 | Post Operative Brief Note ---
Immediate Post Op Note v1 Date of Surgery April 28, 2019 Pre & Post Diagnosis Operation Date: 04/28/19 19:30 Pre-Op Diagnosis: SEPSIS 2/2 SKIN AND SOFT TISSUE INFECTION Post-Op Diagnosis: SEPSIS 2/2 SKIN AND SOFT TISSUE INFECTION Operation Date: 05/04/19 07:00 <No data on this case meets the specified criteria> Procedure Operation Date: 04/28/19 19:30 Actual Procedures p Left Foot Incision and Drainage and Debridement(Left) - Ya Marie DPM Operation Date: 05/04/19 07:00 <No data on this case meets the specified criteria> Surgeon Ya Marie DPM Fender Mechanic Apprentice none Estimated Blood Loss 1 Findings Consistent with Post-Op Diagnosis
--- NOTE | 2019-04-28 21:31 | Anesthesiology Progress Note ---
Date of Service April 28, 2019 Anesthesia Post Procedure Vital Signs Vital Signs: Temp Pulse Pulse Resp BP Pulse Ox 04/28/19 19:27 39.1 C H 99 H 18 115/69 98 04/28/19 15:03 37.1 C 89 18 106/69 97 04/28/19 11:10 38.1 C H 95 H 16 108/69 04/28/19 07:10 37.3 C 96 H 16 94/61 L 99 04/28/19 02:49 36.5 C 75 17 102/65 98 04/28/19 00:32 36.9 C 04/27/19 23:29 89 04/27/19 23:06 39.1 C H 98 H 18 123/67 99 Transfer of Care Handoff Completed per policy Notes Mental Status: alert / awake / arousable and participated in evaluation Patient Amnestic to Procedure: Yes Nausea / Vomiting: adequately controlled Pain: adequately controlled Airway Patency, RR, SpO2: stable & adequate BP & HR: stable & adequate Hydration State: stable & adequate Anesthetic Complications: no major complications apparent and Pt Satisfied with anesthetic care
[2019-04-28] MEDS: PIPERACILLIN/TAZOBACTAM 3.375 GM in DEXTROSE 5% 100 ML IV SCH (22:01)
[2019-04-28] MEDS: HEPARIN SOD 5,000 UNIT/0.5 ML VIAL SQ SCH (22:02)
[2019-04-28] MEDS: INSULIN DETEMIR FLEXPEN/FLEX TOUCH 100 UNITS/ML 3ML SQ SCH (22:04)
--- NOTE | 2019-04-28 23:57 | Operative Report ---
DATE OF OPERATION: 04/28/2019 ATTENDING PHYSICIAN: Marlyn Fan D.O. SURGEON: Ya GARCIA DPM PREOPERATIVE DIAGNOSES: Left foot diabetic foot infection, ulcer, gas gangrene. POSTOPERATIVE DIAGNOSES: Left foot diabetic foot infection, ulcer, gas gangrene. PROCEDURES: Left foot incision and drainage and pulse lavage with debridement. BLOOD LOSS: 1 mL. HEMOSTASIS: Pneumatic ankle tourniquet at 250 mmHg. ANESTHESIA: Local IV sedation. DESCRIPTION OF PROCEDURE FOLLOWS: The patient was brought to the operating room and placed in the supine position. The left lower extremity was prepped and draped in the usual sterile manner. A 1% lidocaine plain was used to anesthetize the left foot in the area of the ulcerations and the fluid accumulations on the plantar aspect and the plantar medial aspect of the foot. Next, the patient was identified. A time-out was taken. The procedure was verified and the a time-out was taken and the procedure began. Patient had blistering and crepitus present on the foot prior to the surgery and gas identified on the MRI, making this an emergency incision and drainage. Debridement was performed on the ulcer present on the plantar medial aspect of the foot. There was a significant amount of necrotic nonviable tissue. Purulent drainage was expressed from this area. This was about 3-5 mL of purulent drainage was expressed. There was also an accumulation of fluid in the distal plantar aspect of the foot. A curvilinear incision was made over that. The drainage that was expressed was clear. There was no purulent drainage from the fluid accumulation distally on the foot. All the purulent drainage was expressed from the ulcerated area on the plantar medial aspect of the foot. Curved hemostats were used to trace an open area that traced proximally near the medial aspect of the foot. This traced back about 1 cm. The purulent drainage appeared to be coming from this open area. There was also plantar nonviable tissue that was also debrided. A pulse lavage was utilized through the area to clean any of the remaining tissue. Next, cultures were obtained from the area and sent for specimen. Half-inch iodoform packing was then applied to the open area on the plantar medial aspect of the foot. This is a staged procedure, pending all vascular results. The patient will return to the OR on Tuesday for further debridement and possible wound VAC application. Prior to this case, I spoke with vascular surgeon, Dr. Brendan Govea to discuss the patient has patent peroneal vessels, he has patent posterior tibial vessel and patent dorsalis pedis per the arterial Dopplers that were obtained prior to the surgery. Discussed case with Dr. Govea and deemed he was stable for a debridement procedure due to the severity of his infection, worsened systemic symptoms and the gas that is present on the MRI. After further vascular assessment, more extensive debridement will likely be needed as well as placement of a wound VAC, later this week. This was discussed with the patient as well and patient signed consent for the procedure. He will return to his telemetry gallo floor and continue all medications as prior to surgery. I attest to the content of the Intraoperative Record and any orders documented therein. Any exceptions are noted below. OLIVIA
[2019-04-29] MEDS: VANCOMYCIN HCL 1,500 MG in SODIUM CHLORIDE 0.9% 500 ML IV SCH ×2 (02:14→14:46)
[2019-04-29] MEDS: LACTATED RINGER'S 1,000 ML IV SCH (05:15)
[2019-04-29] MEDS: PIPERACILLIN/TAZOBACTAM 3.375 GM in DEXTROSE 5% 100 ML IV SCH ×3 (05:15→19:21)
[2019-04-29 06:36] LABS: Hematocrit (blood only) 30.9 % (42-52); Hemoglobin 10.9 g/dL (14.0-18.0); Mean Corpuscular Hemoglobin 30.6 pg (25-34); Mean Corpuscular Hgb Conc 35.3 g/dL (32-36); Mean Corpuscular Volume 86.8 fL (80-100); Mean Platelet Volume 10.2 fL (7.4-10.4); Platelet Count 219 K/uL (130-400); RDW Coefficient of Variation 12.2 % (11.5-14.5); RDW Standard Deviation 39.5 fL (36.4-46.3); Red Blood Count 3.56 M/uL (4.7-6.1); White Blood Count 15.82 K/uL (4.8-10.8)
[2019-04-29 07:14] LABS: Albumin Level 1.7 gm/dl (3.4-5.0); Creatinine Clr Calc Pharmacy 90.9 ml/min; Est GFR (African American) 85.3; Est GFR (Non-African American) 73.6; Potassium 4.1 mmol/L (3.5-5.1)
[2019-04-29 07:20] LABS: Basophils # (auto) 0.07 K/uL (0-0.2); Basophils % (auto) 0.4 %; Eosinophils # (auto) 0.05 K/uL (0-0.5); Eosinophils % (auto) 0.3 %; Immature Granulocytes # (auto) 0.27 K/uL (0.00-0.02); Immature Granulocytes % (auto) 1.7 %; Lymphocytes # (auto) 1.46 K/uL (1.2-3.4); Lymphocytes % (auto) 9.2 %; Monocytes # (auto) 1.42 K/uL (0.11-0.59); Neutrophils # (auto) 12.55 K/uL (1.4-6.5); Neutrophils % (auto) 79.4 %; RBC Morphology Unremarkable
[2019-04-29] MEDS: ACETAMINOPHEN 325 MG TAB PO PRN ×4 (07:24→23:36)
[2019-04-29] MEDS: FLUTICASONE PROPIONATE NA SPR 16 GM BTL SCH ×2 (07:25→19:22)
[2019-04-29] MEDS: guaiFENesin 600 MG TABCR PO SCH ×2 (07:25→19:22)
[2019-04-29] MEDS: MULTIVITAMIN TAB PO SCH (07:25)
[2019-04-29] MEDS: PRAVASTATIN SOD 40 MG TAB PO SCH (07:25)
[2019-04-29] MEDS: ASPIRIN 81 MG ECTAB PO SCH (07:26)
[2019-04-29 07:36] LABS: Albumin Globulin Ratio 0.4 (0.9-2); Bilirubin,Total 0.8 mg/dl (0.2-1); Globulin 4.1 gm/dl (2.5-4.0); Total Protein 5.8 gm/dl (6.4-8.2)
[2019-04-29] MEDS: INSULIN DETEMIR FLEXPEN/FLEX TOUCH 100 UNITS/ML 3ML SQ SCH ×2 (08:18→21:08)
[2019-04-29] MEDS: INSULIN ASPART 100 UNITS/ML 3 ML PEN SC SCH ×4 (08:18→21:09)
[2019-04-29] MEDS: HEPARIN SOD 5,000 UNIT/0.5 ML VIAL SQ SCH ×2 (08:19→21:08)
--- NOTE | 2019-04-29 09:00 | Anesthesiology Progress Note ---
Date of Service April 29, 2019 Anesthesia Post Procedure Vital Signs Vital Signs: Temp Pulse Pulse Resp BP BP Pulse Ox 04/29/19 07:17 39.3 C H 98 H 20 98/60 L 95 04/29/19 03:02 37.5 C 97 H 18 107/58 L 97 04/29/19 00:58 37.9 C H 97 H 18 114/58 L 96 04/29/19 00:43 101 H 04/29/19 00:00 38.3 C H 102 H 19 111/70 96 04/28/19 23:12 36.9 C 105 H 18 120/72 98 04/28/19 22:30 38.9 C H 109 H 18 100/64 95 04/28/19 22:00 39 C H 103 H 18 119/69 97 04/28/19 21:42 37.3 C 100 H 18 122/68 98 04/28/19 21:40 37.3 C 98 H 20 108/64 96 04/28/19 21:34 101 H 20 99/72 L 96 04/28/19 21:29 36.8 C 99 H 18 123/74 98 04/28/19 19:27 39.1 C H 99 H 18 115/69 98 04/28/19 15:03 37.1 C 89 18 106/69 97 04/28/19 11:10 38.1 C H 95 H 16 108/69 Pain Intensity Left Foot: Pain Intensity: 0 Notes Mental Status: alert / awake / arousable Patient Amnestic to Procedure: Yes Nausea / Vomiting: adequately controlled Pain: adequately controlled Airway Patency, RR, SpO2: stable & adequate BP & HR: stable & adequate Hydration State: stable & adequate Anesthetic Complications: no major complications apparent
--- NOTE | 2019-04-29 09:15 | Podiatry Consultation ---
Date of Consultation April 29, 2019 History of Present Illness Attending Physician: Luis Antonio Cordova DO patient seen at bedside today, he stated he was feeling warm but better, patient has a temp today this was down after surgery but did spike back up - however this can be related to the surgery, I will look for this to come down - additionally his WBC was significantly lowered and this is very positive - patient is still on for further debridement of the left foot on Tuesday, after assess his circulation issues, however the emergent I and D did help greatly, there was less purulent drainage expressible from the ulcer and the decreased WBC is great - patient is still at risk for BKA given the location of the ulcer and his circulation, however I am optimistic about the foot will continue to monitor - patient had no acute complaints today Allergies Allergy/AdvReac Type Severity Reaction Status Date / Time No Known Allergies Allergy Unverified 04/26/19 17:19 Home Medications Home Medications Medication Instructions Recorded Confirmed Type Levemir FlexTouch U-100 Insuln 45 unit SUBCUT BID 11/14/18 04/26/19 History Novolog Flexpen U-100 Insulin 38 unit SUBCUT TID 11/14/18 04/26/19 History aspirin 81 mg PO QAM 11/14/18 04/26/19 History hydrochlorothiazide 12.5 mg PO QAM 11/14/18 04/26/19 History lisinopril 10 mg PO QAM 11/14/18 04/26/19 History metformin 1,000 mg PO BID 11/14/18 04/26/19 History multivitamin 1 tab PO QAM 11/14/18 04/26/19 History pravastatin [Pravachol] 80 mg PO QAM 11/14/18 04/26/19 History Patient History Medical History Tobacco use disorder DM type 2 (diabetes mellitus, type 2) HTN (hypertension) Hyperlipidemia Acquired hallux valgus of right foot (Acute) Callus (Acute) Diabetes mellitus with diabetic polyneuropathy (Acute) Hallux valgus (acquired), left foot (Acute) Hammertoe of left foot (Acute) History of partial ray amputation of fifth toe of right foot (Acute) History of partial ray amputation of fourth toe of right foot (Acute) History of partial ray amputation of third toe of right foot (Acute) Surgical History 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) S/P tonsillectomy (Resolved) Social History Preferred Language: [place]er Communication Ability: Effective Mercury Purifier Required: No Beliefs That Will Affect Care: None marital status: single Current Living Situation: Alone current occupational status: unemployed and disabled Other Information That Helps Us Care for You: No Feels Safe at Home: Yes Safety Concerns: Feels Safe At This Time Smoking Status: Never smoker Tobacco Type: smokeless tobacco ; Do You Dip or Chew Tobacco: Yes ; Second Hand Exposure: No ; Tobacco Cessation Education Requested by Patient: Yes Hx Alcohol Use: No Hx Substance Use: No Physical Exam Skin: left foot with large ischemic ulcer at the plantar medial foot with purulent drainage from the ulcer, blisters and crepitus resolving after i and D, less drainage expressible from the foot and swelling is down, pain is improved as well - area had all dressings removed and packing removed, ulcer was flushed with Betadine/saline and packing them reapplied with dressings Results & Data Vital Signs (Past 12 Hours) Vital Signs Temp Pulse Pulse Resp BP BP Pulse Ox 04/29/19 07:17 39.3 C H 98 H 20 98/60 L 95 04/29/19 03:02 37.5 C 97 H 18 107/58 L 97 04/29/19 00:58 37.9 C H 97 H 18 114/58 L 96 04/29/19 00:43 101 H 04/29/19 00:00 38.3 C H 102 H 19 111/70 96 04/28/19 23:12 36.9 C 105 H 18 120/72 98 04/28/19 22:30 38.9 C H 109 H 18 100/64 95 04/28/19 22:00 39 C H 103 H 18 119/69 97 04/28/19 21:42 37.3 C 100 H 18 122/68 98 04/28/19 21:40 37.3 C 98 H 20 108/64 96 04/28/19 21:34 101 H 20 99/72 L 96 04/28/19 21:29 36.8 C 99 H 18 123/74 98
--- NOTE | 2019-04-29 10:06 | Consultation ---
Date of Consultation April 29, 2019 Assessment & Plan (1) Foot ulcer, left: Patient has diabetic atherosclerotic disease of the lower extremities. His exam shows good Doppler signals in the dorsalis pedis with normal capillary refill the toes of the left foot. He duplex of the arterial system of his left lower extremity also showed near normal waveforms in the dorsalis pedis artery. At this point there is no need for any intervention on the arterial system. On exam and noninvasive it appears that his flow is adequate enough to promote healing of the left foot wound. Thank you very much for letting us participate in the care of this patient. Please give us a call if he needs to be reevaluated at a later date. History of Present Illness Reason for Consultation: Left heel ulcer with gas gangrene Attending Physician: Luis Antonio Cordova DO History of Present Illness This is a 58-year-old gentleman with a left heel ulcer and peripheral vascular occlusive disease. He is diabetic. He is also hypertension. He chews tobacco. He presented to the emergency room with sepsis from his left heel ulcer. Yeste rday he underwent debridement of the left heel ulcer for gas gangrene. He denies any symptoms of claudication or rest pain in his foot. He was complaining of chills and fever the time of admission. Allergies Allergy/AdvReac Type Severity Reaction Status Date / Time No Known Allergies Allergy Unverified 04/26/19 17:19 Home Medications Home Medications Medication Instructions Recorded Confirmed Type Levemir FlexTouch U-100 Insuln 45 unit SUBCUT BID 11/14/18 04/26/19 History Novolog Flexpen U-100 Insulin 38 unit SUBCUT TID 11/14/18 04/26/19 History aspirin 81 mg PO QAM 11/14/18 04/26/19 History hydrochlorothiazide 12.5 mg PO QAM 11/14/18 04/26/19 History lisinopril 10 mg PO QAM 11/14/18 04/26/19 History metformin 1,000 mg PO BID 11/14/18 04/26/19 History multivitamin 1 tab PO QAM 11/14/18 04/26/19 History pravastatin [Pravachol] 80 mg PO QAM 11/14/18 04/26/19 History Patient History Medical History Tobacco use disorder DM type 2 (diabetes mellitus, type 2) HTN (hypertension) Hyperlipidemia Acquired hallux valgus of right foot (Acute) Callus (Acute) Diabetes mellitus with diabetic polyneuropathy (Acute) Hallux valgus (acquired), left foot (Acute) Hammertoe of left foot (Acute) History of partial ray amputation of fifth toe of right foot (Acute) History of partial ray amputation of fourth toe of right foot (Acute) History of partial ray amputation of third toe of right foot (Acute) Surgical History 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) S/P tonsillectomy (Resolved) Social History Preferred Language: Tunisian Communication Ability: Effective Repair Manager Required: No Beliefs That Will Affect Care: None marital status: single Current Living Situation: Alone current occupational status: unemployed and disabled Other Information That Helps Us Care for You: No Feels Safe at Home: Yes Safety Concerns: Feels Safe At This Time Smoking Status: Never smoker Tobacco Type: smokeless tobacco ; Do You Dip or Chew Tobacco: Yes ; Second Hand Exposure: No ; Tobacco Cessation Education Requested by Patient: Yes Hx Alcohol Use: No Hx Substance Use: No Review of Systems Review of Systems: All systems reviewed & are unremarkable except as noted in HPI & below Physical Exam Constitutional: WD/WN, vitals as above Respiratory: normal respiratory effort, lungs clear to auscultation Cardiovascular: Rate/Rhythm: regular rate and regular rhythm Vessels: femoral pulses present, posterior tibial pulses present (could not evaluate the pt on the left) and dorsalis pedis pulses present (excellent doppler signal on left) Extremities: normal capillary refill Gastrointestinal (Abdomen): Inspection/Auscultation: abdomen normal to inspection Percussion/Palpation: abdomen nontender Musculoskeletal: There is dressing present on his left foot. Neurologic: CN's II-XI intact bilaterally and moves all extremities Results & Data Vital Signs (Past 12 Hours) Vital Signs Temp Pulse Pulse Resp BP Pulse Ox 04/29/19 07:17 39.3 C H 98 H 20 98/60 L 95 04/29/19 03:02 37.5 C 97 H 18 107/58 L 97 04/29/19 00:58 37.9 C H 97 H 18 114/58 L 96 04/29/19 00:43 101 H 04/29/19 00:00 38.3 C H 102 H 19 111/70 96 04/28/19 23:12 36.9 C 105 H 18 120/72 98 04/28/19 22:30 38.9 C H 109 H 18 100/64 95
--- NOTE | 2019-04-29 11:12 | Pharmacy Report ---
Pharmacy Glycemic Short Note 2 - Date of Service April 29, 2019 - Glycemic Short BSG Results (Last 24 hours): 04/28/19 04/28/19 04/28/19 11:35 16:19 22:03 Glucose POC Glucose 138 H 156 H 203 H 04/29/19 04/29/19 06:11 07:20 Glucose 133 H POC Glucose 142 H Outpatient Anti-diabetic Regimen: * Levemir 45 units SQ BID * Aspart 38 units SQ TID (patient reports he usually only takes BID) * A1c = 11.8 % 04/27/19 ASSESSMENT: 04/29: * Mr. Galo has demonstrated decent glycemic control over the past 24 hours with only 39 units of insulin (18 units basal/21 units bolus). This is a dramatic reduction compared to home dosing. Will continue current Levemir dosing scale based on BSG and titrate as needed. * BSGs steadily rise throughout the day, therefore Novolog parameters will be tightened slightly. 04/28: * 58 yr old T2DM male admitted with hyperglycemia likely due to poor baseline control (a1c 11.8%) and infection. * Patient has had multiple episodes of hypoglycemia despite 45% decrease in basal insulin yesterday for NPO status. I instructed the nurse to hold his AM Levemir dose today and will further decrease Levemir dosing (I have used weight based dosing as a guide rather than home dose). * I anticipate insulin needs increasing as diet his has been advanced. PLAN FOR INPATIENT GLYCEMIC CONTROL: * Holding outpatient oral diabetes medications * Basal insulin * Lantus per scale BID: * For BSG less than 100: 0 units * For BSG 100-180: 10 units (stress 1) * For BSG greater than 180: 18 units (stress 2) * Bolus insulin - tighten * NovoLog per scale ACHS or Q6hrs while NPO * Goal Range: Low 120 mg/dL - High 160 mg/dL * Correction Factor: 20 mg/dL/unit * Nutritional / Prandial insulin per carb ratio of 1 unit per 7 grams CHO consumed PLAN FOR DISCHARGE: * A1c of 11.8% indicates poor outpatient control * Patient is requiring significantly less insulin as an inpatient. * Patient admits to poor dietary decisions. Per CDE note, patient may also be missing doses of insulin. * Recommend reinforcing the importance of taking insulin as directed. Thank you.
--- NOTE | 2019-04-29 12:18 | Family Medicine Progress Note ---
Date of Service April 29, 2019 Assessment & Plan (1) Foot ulcer, left: 58yo male with PMHx significant for uncontrolled diabetes Type II, HTN, HLD who is admitted for sepsis likely secondary to an infected nonhealing LEFT heel wound. Sepsis in the setting of LEFT foot wound Debrided by Dr. Frank Agarwal last night Patient's white count has dropped though he remains febrile Continuing Vanc and zosyn for MRSA and pseudomonas coverage. Expect to see improvement in fevers now that we have some source control and broad spectrum antibiotics If patient has worsening clinical condition or evidence of necrotizing fasciitis will start clindamycin without delay Podiatry plans to take patient back to OR later this week for further debridement. DM II -Pt with hgA1c of 11.8 and avg estimated glucose of 292 -Regimen at home includes Metformin 1000mg BID, Levemir 45U BID and Novolog 38U TID. -question of compliance or need for med adjustment -metformin currently held with ISS while hospitalized. -appreciate pharm consult ACUTE ON CHRONIC LIVER INJURY -admitting elevations in AST, ALT, alk phos and t bili improving -ALT, alk phos in normal range; AST 62 and t bili 1.1 currently -was likely due to decreased perfusion given pt's hyoptension -continue fluids SHANI -currently resolved after fluid administration Stopped fluids as he is tolerating PO well. -will continue to monitor HTN/HLD -Holding home lisinopril and HCTZ given presenting HYPOtension -continue statin, aspirin FEN/GI: Regular diet DVT proph: SCDs pending possible procedural need CODE STATUS: Full Supervising Physician Co-Signing Physician Notes I personally examined the patient and verified all roberto points of history and exam, discussed case, and agree with decision making with Dr Virk. Podiatry input greatly appreciated. Patient still having some chills, but overall feels better. Vitals noted, in general he is awake and alert pleasant no distress. HEENT normocephalic atraumatic mucous members are moist. Breathing unlabored no accessory muscle use good effort. Skin shows no rashes no pallor or icterus. His left foot/heel are dressed, there is no tracking erythema, no skin crepitus in the area, no calf tenderness. Diabetic foot infection/nonhealing ulceragree with broadened antibiotic c overage, given his risks with prolonged open wound and frequent exposure to the healthcare system certainly MRSA is worth consideration, and given his diabetic vascular disease gram-negative such as Pseudomonas are of concern as well. White count is improved dramatically, most likely predominantly from surgical debridement, but the escalation of antibiotics is likely helpful as well. Podiatry input greatly appreciated, continue to follow wound closely. Continue current antibiotics. His current fevers are not surprising given how extensive the infection seemed to be, and given that it was just debrided last night. Insulin-dependent diabetestype IIcontinue insulin management DVT proph - heparin SQ Subjective Gregory Galo has been doing well, he was taken late yesterday evening to OR for debridement by Dr. Almanza and continues to have fevers and chills, but feels his swelling and tightness is down and he feels pretty well overall. Review of Systems Review of Systems: All systems reviewed & are unremarkable except as noted in HPI & below Physical Exam Constitutional: well developed, well nourished, cooperative and comfortable; no acute distress Eyes: PERRL, conjunctivae normal, anicteric sclerae ENMT: external ear and nose normal, oropharynx normal Respiratory: normal respiratory effort, lungs clear to auscultation Cardiovascular: RRR, no murmur, no edema Gastrointestinal (Abdomen): normal bowel sounds, soft, nontender, no hepatosplenomegaly Skin: no rashes, warm and dry (Bandage over heel wound, no crepitus or red rash spreading from bandage) Results & Data Vital Signs (Past 12 Hours) Vital Signs Temp Pulse Pulse Resp BP Pulse Ox 04/29/19 11:15 37.2 C 89 16 100/62 97 04/29/19 07:17 39.3 C H 98 H 20 98/60 L 95 04/29/19 03:02 37.5 C 97 H 18 107/58 L 97 04/29/19 00:58 37.9 C H 97 H 18 114/58 L 96 04/29/19 00:43 101 H PG Care Time/CCT Total # of Minutes Spent Total Time Spent with Patient: Total time spent is greater than 50% in coordination of care (as documented) at patient's floor/unit and/or counseling patient:
[2019-04-30] MEDS ORDERED: VANCOMYCIN TROUGH ONE (01:30)
[2019-04-30] MEDS: VANCOMYCIN HCL 1,500 MG in SODIUM CHLORIDE 0.9% 500 ML IV SCH ×2 (02:34→15:07)
[2019-04-30 02:39] LABS: Hematocrit (blood only) 31.8 % (42-52); Mean Corpuscular Hemoglobin 30.2 pg (25-34); Mean Corpuscular Hgb Conc 34.6 g/dL (32-36); Mean Corpuscular Volume 87.4 fL (80-100); Mean Platelet Volume 9.9 fL (7.4-10.4); Platelet Count 243 K/uL (130-400); RDW Coefficient of Variation 12.4 % (11.5-14.5); RDW Standard Deviation 40.3 fL (36.4-46.3); Red Blood Count 3.64 M/uL (4.7-6.1); White Blood Count 19.31 K/uL (4.8-10.8)
[2019-04-30 02:58] LABS: Est GFR (African American) 79.2; Potassium 3.8 mmol/L (3.5-5.1)
[2019-04-30 02:59] LABS: Albumin Level 1.6 gm/dl (3.4-5.0); BUN Creatinine Ratio 10.4 (10-20); Calcium 8.3 mg/dl (8.5-10.1); Creatinine Clr Calc Pharmacy 85.5 ml/min; Est GFR (Non-African American) 68.3
[2019-04-30 03:01] LABS: Albumin Globulin Ratio 0.3 (0.9-2); Bilirubin,Total 0.5 mg/dl (0.2-1); Globulin 4.7 gm/dl (2.5-4.0); Total Protein 6.3 gm/dl (6.4-8.2)
[2019-04-30 03:17] LABS: Basophils % (auto) 0.5 %; Eosinophils # (auto) 0.11 K/uL (0-0.5); Eosinophils % (auto) 0.6 %; Immature Granulocytes % (auto) 1.6 %; Lymphocytes # (auto) 2.23 K/uL (1.2-3.4); Lymphocytes % (auto) 11.5 %; Monocytes # (auto) 1.44 K/uL (0.11-0.59); Monocytes % (auto) 7.5 %; Neutrophils # (auto) 15.13 K/uL (1.4-6.5); Neutrophils % (auto) 78.3 %
[2019-04-30] MEDS: PIPERACILLIN/TAZOBACTAM 3.375 GM in DEXTROSE 5% 100 ML IV SCH ×3 (04:10→19:43)
[2019-04-30] MEDS: ACETAMINOPHEN 325 MG TAB PO PRN ×3 (04:18→19:39)
[2019-04-30] MEDS: ASPIRIN 81 MG ECTAB PO SCH (08:16)
[2019-04-30] MEDS: MULTIVITAMIN TAB PO SCH (08:16)
[2019-04-30] MEDS: PRAVASTATIN SOD 40 MG TAB PO SCH (08:16)
[2019-04-30] MEDS: guaiFENesin 600 MG TABCR PO SCH ×2 (08:16→20:08)
[2019-04-30] MEDS: HEPARIN SOD 5,000 UNIT/0.5 ML VIAL SQ SCH ×2 (08:16→20:35)
[2019-04-30] MEDS: FLUTICASONE PROPIONATE NA SPR 16 GM BTL SCH ×2 (08:16→20:09)
[2019-04-30] MEDS: INSULIN ASPART 100 UNITS/ML 3 ML PEN SC SCH ×4 (08:19→20:36)
[2019-04-30] MEDS: INSULIN DETEMIR FLEXPEN/FLEX TOUCH 100 UNITS/ML 3ML SQ SCH ×2 (08:19→20:35)
--- NOTE | 2019-04-30 12:30 | Pharmacy Report ---
Pharmacy Abx Dose Short Note - Date of Service April 30, 2019 - Assessment & Plan Assessment 58 year old M receiving IV Vancomycin for treatment of L foot wound/ulcer Day # 3 of antimicrobial therapy. * No MRSA noted from wound cultures, but patient remains febrile despite Zosyn and Vancomycin therapy. Plan Vancomycin * Trough level of 15.5 mcg/mL is therapeutic. This level was drawn late due to inadvertent lab ordering error and is not reflective of Vancomycin at steady state. True Css trough higher, but should not be supratherapeutic. * Continue dose of 1500 mg IV every 12 hours * Goal trough level for cellulitis : ~15 mcg/mL * Trough level ordered for: 05/01/19 @ 1330 to reassess regimen at steady state Pharmacy will continue to follow and will adjust dose/frequency as necessary. Thank you.
--- NOTE | 2019-04-30 15:57 | Family Medicine Progress Note ---
Date of Service April 30, 2019 Assessment & Plan (1) Foot ulcer, left: 58yo male with PMHx significant for uncontrolled diabetes Type II, HTN, HLD who is admitted for sepsis likely secondary to an infected nonhealing LEFT heel wound. Sepsis in the setting of LEFT foot wound S/p debridement 04/28, Vanc and Zosyn day 2 Still spiking fevers with increased WBC- likely secondary to continued infection given ~48hrs on Vanc on Zosyn May benefit from further debridement vs. double coverage for Pseudomonas vs. below the knee amputation Per Vasc Surgery, vessels patent enough to promote healing. Appreciate Podiatry recs DM II -Pt with hgA1c of 11.8 and avg estimated glucose of 292 -Regimen at home includes Metformin 1000mg BID, Levemir 45U BID and Novolog 38U TID. -question of compliance or need for med adjustment -metformin currently held with ISS while hospitalized. -appreciate pharm consult ACUTE ON CHRONIC LIVER INJURY -likely secondary to CAMP[place]LL, given pt's metabolic status -LFTs currently stable -will continue to monitor SHANI -currently resolved after fluid administration Stopped fluids as he is tolerating PO well. -will continue to monitor HTN/HLD -Holding home lisinopril and HCTZ given presenting HYPOtension and current BP status -continue statin, aspirin FEN/GI: Regular diet DVT proph: SCDs CODE STATUS: Full Supervising Physician Co-Signing Physician Notes I personally examined the patient and verified all roberto points of history and exam, discussed case, and agree with decision making with Dr Agustin. Less chills. Less pain. Feeling better overall. Vitals noted, in general he is awake and alert pleasant no distress. HEENT normocephalic atraumatic mucous members are moist. Breathing unlabored no accessory muscle use good effort. Skin shows no rashes no pallor or icterus. His left foot/heel are dressed, there is no tracking erythema, no skin crepitus in the area, no calf tenderness. Toes show good capillary refill. Diabetic foot infection/nonhealing ulceroverall seems to be feeling and looking better, is still showing fevers and a persistent leukocytosis, but right now this appears most likely due to the infection being larger and more extensive than having initially been suspected. Continue Vanco and Zosyn, if he were to deteriorate consideration for resistant gram negatives would be most probable, but seems not likely at this time. Given no crepitus/tracking/anything apparent toxin mediated, clindamycin does not appear necessary. Insulin-dependent diabetestype IIcontinue insulin management sugars reasonable DVT proph - heparin SQ Stable for MedSurg Subjective Mr. Galo states he's doing well today. Has chills but denies any discomfort or pain. Denies SMITH, N/V, chest pain, SOB, palpitations, diarrhea or constipation. Does state he has a nonproductive cough. Review of Systems Review of Systems: All systems reviewed & are unremarkable except as noted in HPI & below Physical Exam Physical Exam: General: Alert, oriented. No acute distress HEENT: NC/AT, PERRLA, EOMI, oropharynx moist. Chest: Nontender to palpation. CV: RRR, Normal s1, s2. No murmurs appreciated Resp: Breath sounds clear bilaterally but decreased on back, no increased effort of breathing. Abdomen: soft, nontender, nondistended. No guarding. No organomegaly appreciated. Extremities: No edema in lower extremities bilaterally. Left foot bandaged. Some erythema noted on surrounding leg. Results & Data Vital Signs (Past 12 Hours) Vital Signs Temp Pulse Resp BP BP Pulse Ox 04/30/19 15:14 37.4 C 84 19 128/77 98 04/30/19 11:14 38.8 C H 87 18 129/78 95 04/30/19 06:57 36.7 C 83 18 116/70 95 04/30/19 05:28 38.1 C H 04/30/19 04:13 38.2 C H 90 16 123/73 96 Laboratory Results Laboratory Results - last 24 hr 04/29/19 04/29/19 04/30/19 16:08 21:07 02:32 WBC 19.31 H RBC 3.64 L Hgb 11.0 L Hct 31.8 L MCV 87.4 MCH 30.2 MCHC 34.6 RDW Std Deviation 40.3 RDW Coeff of Arnav 12.4 Plt Count 243 MPV 9.9 Immature Gran % (Auto) 1.6 Neut % (Auto) 78.3 Lymph % (Auto) 11.5 [place] % (Auto) 7.5 Eos % (Auto) 0.6 Baso % (Auto) 0.5 Immature Gran # (Auto) 0.30 H Neut # (Auto) 15.13 H Lymph # (Auto) 2.23 [place] # (Auto) 1.44 H Eos # (Auto) 0.11 Baso # (Auto) 0.10 Sodium Potassium Chloride Carbon Dioxide Anion Gap BUN Creatinine Est Cr Clr Drug Dosing Est GFR ( Amer) Est GFR (Non-Af Amer) BUN/Creatinine Ratio Glucose POC Glucose 216 H 201 H Calcium Total Bilirubin AST ALT Alkaline Phosphatase Total Protein Albumin Globulin Albumin/Globulin Ratio Vancomycin Trough 04/30/19 04/30/19 04/30/19 02:32 02:32 07:03 WBC RBC Hgb Hct MCV MCH MCHC RDW Std Deviation RDW Coeff of Arnav Plt Count MPV Immature Gran % (Auto) Neut % (Auto) Lymph % (Auto) [place] % (Auto) Eos % (Auto) Baso % (Auto) Immature Gran # (Auto) Neut # (Auto) Lymph # (Auto) [place] # (Auto) Eos # (Auto) Baso # (Auto) Sodium 137 Potassium 3.8 Chloride 105 Carbon Dioxide 25 Anion Gap 7.0 BUN 12 Creatinine 1.17 Est Cr Clr Drug Dosing 85.5 Est GFR ( Amer) 79.2 Est GFR (Non-Af Amer) 68.3 BUN/Creatinine Ratio 10.4 Glucose 104 H POC Glucose 78 Calcium 8.3 L Total Bilirubin 0.5 AST 47 H ALT 57 Alkaline Phosphatase 133 H Total Protein 6.3 L Albumin 1.6 L Globulin 4.7 H Albumin/Globulin Ratio 0.3 L Vancomycin Trough 15.5 04/30/19 11:13 WBC RBC Hgb Hct MCV MCH MCHC RDW Std Deviation RDW Coeff of Arnav Plt Count MPV Immature Gran % (Auto) Neut % (Auto) Lymph % (Auto) [place] % (Auto) Eos % (Auto) Baso % (Auto) Immature Gran # (Auto) Neut # (Auto) Lymph # (Auto) [place] # (Auto) Eos # (Auto) Baso # (Auto) Sodium Potassium Chloride Carbon Dioxide Anion Gap BUN Creatinine Est Cr Clr Drug Dosing Est GFR ( Amer) Est GFR (Non-Af Amer) BUN/Creatinine Ratio Glucose POC Glucose 135 H Calcium Total Bilirubin AST ALT Alkaline Phosphatase Total Protein Albumin Globulin Albumin/Globulin Ratio Vancomycin Trough Medications Administered Home Medications Levemir FlexTouch U-100 Insuln 45 unit SUBCUT BID 11/14/18 [History Confirmed 04/26/19] Novolog Flexpen U-100 Insulin 38 unit SUBCUT TID 11/14/18 [History Confirmed 04/26/19] aspirin 81 mg PO QAM 11/14/18 [History Confirmed 04/26/19] hydrochlorothiazide 12.5 mg PO QAM 11/14/18 [History Confirmed 04/26/19] lisinopril 10 mg PO QAM 11/14/18 [History Confirmed 04/26/19] metformin 1,000 mg PO BID 11/14/18 [History Confirmed 04/26/19] multivitamin 1 tab PO QAM 11/14/18 [History Confirmed 04/26/19] pravastatin [Pravachol] 80 mg PO QAM 11/14/18 [History Confirmed 04/26/19] Active Medications Acetaminophen (Tylenol) 650 mg PO Q4H PRN PRN Reason: Pain or Fever Stop: 05/26/19 21:26 Last Admin: 04/30/19 11:19 Dose: 650 mg Documented by: Aspirin (Ecotrin Ectab) 81 mg PO QAM [facility] Stop: 05/27/19 08:59 Last Admin: 04/30/19 08:16 Dose: 81 mg Documented by: Dextrose (Dextrose 50%) 25 - 50 ml IV UD PRN; Protocol PRN Reason: Hypoglycemia Protocol Stop: 05/26/19 21:44 Fluticasone Propionate (Flonase) 1 sprays NA BID [facility] Stop: 05/26/19 21:26 Last Admin: 04/30/19 08:16 Dose: Not Given Documented by: Glucagon (Glucagen) 1 mg IM UD PRN; Protocol PRN Reason: Hypoglycemia Protocol Stop: 05/26/19 21:44 Glucose (Glucose 40%) 15 - 30 gm PO UD PRN; Protocol PRN Reason: Hypoglycemia Protocol Stop: 05/26/19 21:44 Glucose (Dex4 Glucose) 4 - 8 tabs PO UD PRN; Protocol PRN Reason: Hypoglycemia Protocol Stop: 05/26/19 21:44 Guaifenesin (Mucinex) 1,200 mg PO Q12 [facility] Stop: 05/27/19 08:59 Last Admin: 04/30/19 08:16 Dose: 1,200 mg Documented by: Heparin Sodium (Porcine) (Heparin Sodium (Porcine)) 5,000 units SQ Q12 [facility] Stop: 05/28/19 20:59 Last Admin: 04/30/19 08:16 Dose: 5,000 units Documented by: Piperacillin Sod/Tazobactam (Sod 3.375 gm/ Dextrose) 115 mls @ 28.75 mls/hr IV Q8H [facility]; Protocol Stop: 05/08/19 19:59 Last Admin: 04/30/19 11:21 Dose: 28 mls/hr Documented by: Vancomycin HCl 1,500 mg/ (Sodium Chloride) 530 mls @ 200 mls/hr IV Q12H [facility] Stop: 05/08/19 01:59 Last Admin: 04/30/19 15:07 Dose: 200 mls/hr Documented by: Insulin Aspart (Novolog Flexpen) 0 units SC ACHS [facility] Stop: 05/27/19 17:59 Last Admin: 04/30/19 11:55 Dose: 8 units Documented by: Insulin Detemir (Levemir Flextouch) 0 units SQ BID [facility]; Protocol Stop: 05/27/19 20:59 Last Admin: 04/30/19 08:19 Dose: 10 units Documented by: Ioversol (Optiray 320 100ml) 93 ml IV ONCE PRN PRN Reason: Interaction Checking Stop: 05/01/19 08:59 Last Admin: 04/27/19 09:00 Dose: 93 ml Documented by: Miscellaneous (Carbohydrates For Hypoglycemia) 15 - 30 gm PO UD PRN PRN Reason: Hypoglycemia Treatment Stop: 05/26/19 21:44 Last Admin: 04/28/19 07:18 Dose: 15 gm Documented by: Miscellaneous Information (Consult Glycemic Management Pharmacy) 1 ea N/A UD PRN PRN Reason: Consult Stop: 05/27/19 11:42 Miscellaneous Information (Consult) 1 ea N/A UD PRN PRN Reason: Consult Stop: 05/28/19 13:06 Miscellaneous Information (Consult) 1 ea N/A UD PRN PRN Reason: Consult Stop: 05/28/19 13:06 Multivitamins (Multivitamin Tab) 1 tab PO QAM [facility] Stop: 05/27/19 08:59 Last Admin: 04/30/19 08:16 Dose: 1 tab Documented by: Oxycodone HCl (Roxicodone Immediate Rel) 5 mg PO Q4H PRN PRN Reason: Pain Stop: 05/12/19 21:34 Pravastatin Sodium (Pravachol) 80 mg PO QAM [facility] Stop: 05/27/19 08:59 Last Admin: 04/30/19 08:16 Dose: 80 mg Documented by: PG Care Time/CCT Total # of Minutes Spent Total Time Spent with Patient: Total time spent is greater than 50% in coordination of care (as documented) at patient's floor/unit and/or counseling patient: Resident Activity Tracking Resident Involvement: Resident Care Provided Care Provided: Adult Hospital Medicine
--- NOTE | 2019-04-30 20:04 | Podiatry Consultation ---
Date of Consultation April 30, 2019 History of Present Illness Attending Physician: Luis Antonio Cordova DO patient seen at bedside today, POD #2 patient is feeling ok not febrile currently however WBC spiked back up - this should continue to decrease, cultures from OR still pending - will order and MRI of the foot to asses the forefoot area, another blister was present today on eval at dorsal foot, I would like to make sure there is no further fluid / abscess present in the forefoot area patient is doing ok, still concern for the foot due to the severity of the infection, vascular surgery reviewed patient and he is stable from a vascular stand point, patient will go back to the OR this Tuesday for further debridement and wound vac application Allergies Allergy/AdvReac Type Severity Reaction Status Date / Time No Known Allergies Allergy Unverified 04/26/19 17:19 Home Medications Home Medications Medication Instructions Recorded Confirmed Type Levemir FlexTouch U-100 Insuln 45 unit SUBCUT BID 11/14/18 04/26/19 History Novolog Flexpen U-100 Insulin 38 unit SUBCUT TID 11/14/18 04/26/19 History aspirin 81 mg PO QAM 11/14/18 04/26/19 History hydrochlorothiazide 12.5 mg PO QAM 11/14/18 04/26/19 History lisinopril 10 mg PO QAM 11/14/18 04/26/19 History metformin 1,000 mg PO BID 11/14/18 04/26/19 History multivitamin 1 tab PO QAM 11/14/18 04/26/19 History pravastatin [Pravachol] 80 mg PO QAM 11/14/18 04/26/19 History Patient History Medical History Tobacco use disorder DM type 2 (diabetes mellitus, type 2) HTN (hypertension) Hyperlipidemia Acquired hallux valgus of right foot (Acute) Callus (Acute) Diabetes mellitus with diabetic polyneuropathy (Acute) Hallux valgus (acquired), left foot (Acute) Hammertoe of left foot (Acute) History of partial ray amputation of fifth toe of right foot (Acute) History of partial ray amputation of fourth toe of right foot (Acute) History of partial ray amputation of third toe of right foot (Acute) Surgical History 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) S/P tonsillectomy (Resolved) Social History Preferred Language: Welsh Communication Ability: Effective Manager Resource Required: No Beliefs That Will Affect Care: None marital status: single Current Living Situation: Alone current occupational status: unemployed and disabled Other Information That Helps Us Care for You: No Feels Safe at Home: Yes Safety Concerns: Feels Safe At This Time Smoking Status: Never smoker Tobacco Type: smokeless tobacco ; Do You Dip or Chew Tobacco: Yes ; Second Hand Exposure: No ; Tobacco Cessation Education Requested by Patient: Yes Hx Alcohol Use: No Hx Substance Use: No Physical Exam Skin: ulceration present at the medial foot still with expressible purulent drainage present - but less than previously, foot is still swollen and with erythema and warmth, patient had blistering present at dorsal foot today as well - foot dressings were removed and packing removed, foot was drained, flushed with Betadine and dressings reapplied Results & Data Vital Signs (Past 12 Hours) Vital Signs Temp Pulse Pulse Resp BP Pulse Ox 04/30/19 18:36 37.1 C 96 H 20 117/73 99 04/30/19 15:14 37.4 C 84 19 128/77 98 04/30/19 11:14 38.8 C H 87 18 129/78 95
[2019-04-30] MEDS: OXYCODONE HCL IR 5 MG TAB (IMMEDIATE RELEASE) PO PRN (22:19)
[2019-05-01] MEDS: VANCOMYCIN HCL 1,500 MG in SODIUM CHLORIDE 0.9% 500 ML IV SCH ×2 (01:41→15:37)
[2019-05-01] MEDS: ACETAMINOPHEN 325 MG TAB PO PRN ×3 (04:29→22:29)
[2019-05-01] MEDS: PIPERACILLIN/TAZOBACTAM 3.375 GM in DEXTROSE 5% 100 ML IV SCH ×3 (04:30→20:24)
[2019-05-01 05:52] LABS: Basophils # (auto) 0.06 K/uL (0-0.2); Basophils % (auto) 0.4 %; Eosinophils % (auto) 0.7 %; Hematocrit (blood only) 30.1 % (42-52); Hemoglobin 10.5 g/dL (14.0-18.0); Immature Granulocytes # (auto) 0.22 K/uL (0.00-0.02); Immature Granulocytes % (auto) 1.4 %; Lymphocytes # (auto) 1.71 K/uL (1.2-3.4); Lymphocytes % (auto) 11.3 %; Mean Corpuscular Hemoglobin 30.4 pg (25-34); Mean Corpuscular Hgb Conc 34.9 g/dL (32-36); Mean Corpuscular Volume 87.2 fL (80-100); Mean Platelet Volume 10.3 fL (7.4-10.4); Monocytes # (auto) 1.32 K/uL (0.11-0.59); Monocytes % (auto) 8.7 %; Neutrophils # (auto) 11.79 K/uL (1.4-6.5); Neutrophils % (auto) 77.5 %; Platelet Count 236 K/uL (130-400); RDW Coefficient of Variation 12.6 % (11.5-14.5); RDW Standard Deviation 40.4 fL (36.4-46.3); Red Blood Count 3.45 M/uL (4.7-6.1)
[2019-05-01 06:26] LABS: Albumin Level 1.4 gm/dl (3.4-5.0); BUN Creatinine Ratio 8.8 (10-20); Calcium 7.9 mg/dl (8.5-10.1); Creatinine Clr Calc Pharmacy 105.3 ml/min; Est GFR (African American) 101.9; Est GFR (Non-African American) 87.9; Potassium 3.8 mmol/L (3.5-5.1)
[2019-05-01 06:29] LABS: Albumin Globulin Ratio 0.3 (0.9-2); Bilirubin,Total 0.5 mg/dl (0.2-1); Globulin 4.9 gm/dl (2.5-4.0); Total Protein 6.3 gm/dl (6.4-8.2)
--- NOTE | 2019-05-01 06:56 | Magnetic Resonance Report ---
MR foot LT w/o con CLINICAL HISTORY: Left forefoot infection. Posterior formation. Evaluate for osteomyelitis.. COMPARISON STUDY: CT scan dated 04/27/2019 FINDINGS: Imaging was performed in the axial, sagittal, and coronal planes. There are no areas of marrow edema to indicate osteomyelitis. There is diffuse soft tissue edema. There is edema within the plantar musculature. There is a small joint effusion at the level of the first and second metatarsal phalangeal joints. There is fluid within the flexor hallucis longus tendon sheath. There is a soft tissue ulceration within the aspect of the hindfoot. No discrete abscess is visualized given the limitations of a noncontrast study. IMPRESSION: 1. No evidence of osteomyelitis 2. Diffuse soft tissue edema. This includes edema within the plantar musculature. 3. Small amount of fluid within the first and second metatarsal phalangeal joints 4. No loculated fluid collections are visualized to indicate an abscess given the limitations of a no ncontrast study Electronically signed by: Nickolas Mcintyre M.D. 05/01/2019 6:55 AM
[2019-05-01] MEDS: INSULIN ASPART 100 UNITS/ML 3 ML PEN SC SCH ×4 (08:44→20:29)
[2019-05-01] MEDS: ASPIRIN 81 MG ECTAB PO SCH ×2 (08:45→08:49)
[2019-05-01] MEDS: INSULIN DETEMIR FLEXPEN/FLEX TOUCH 100 UNITS/ML 3ML SQ SCH ×2 (08:45→20:27)
[2019-05-01] MEDS: FLUTICASONE PROPIONATE NA SPR 16 GM BTL SCH ×2 (08:46→20:25)
[2019-05-01] MEDS: HEPARIN SOD 5,000 UNIT/0.5 ML VIAL SQ SCH ×2 (08:46→20:25)
--- NOTE | 2019-05-01 08:47 | Podiatry Consultation ---
Date of Consultation May 01, 2019 History of Present Illness Attending Physician: Luis Antonio Cordova DO patient seen at bedside today with wound nurse, improvement of the WBC noted, it is the lowest it has been since patient was admitted, the foot has improved swelling and erythema, MRI completed of the distal forefoot and no abcess present, patient had blistering present dorsally yesterday - now the area is macerated but stable, plantar area with maceration and bleeding from previous blister, of note temp is normal, vascular surgery has stated his circulation is stable but the hallux has a concerning appearnace, as does the 4th toe - ulcer still has expressible purulent drainage, but again this is lessening - WBC down and fever improved Allergies Allergy/AdvReac Type Severity Reaction Status Date / Time No Known Allergies Allergy Unverified 04/26/19 17:19 Home Medications Home Medications Medication Instructions Recorded Confirmed Type Levemir FlexTouch U-100 Insuln 45 unit SUBCUT BID 11/14/18 04/26/19 History Novolog Flexpen U-100 Insulin 38 unit SUBCUT TID 11/14/18 04/26/19 History aspirin 81 mg PO QAM 11/14/18 04/26/19 History hydrochlorothiazide 12.5 mg PO QAM 11/14/18 04/26/19 History lisinopril 10 mg PO QAM 11/14/18 04/26/19 History metformin 1,000 mg PO BID 11/14/18 04/26/19 History multivitamin 1 tab PO QAM 11/14/18 04/26/19 History pravastatin [Pravachol] 80 mg PO QAM 11/14/18 04/26/19 History Patient History Medical History Tobacco use disorder DM type 2 (diabetes mellitus, type 2) HTN (hypertension) Hyperlipidemia Acquired hallux valgus of right foot (Acute) Callus (Acute) Diabetes mellitus with diabetic polyneuropathy (Acute) Hallux valgus (acquired), left foot (Acute) Hammertoe of left foot (Acute) History of partial ray amputation of fifth toe of right foot (Acute) History of partial ray amputation of fourth toe of right foot (Acute) History of partial ray amputation of third toe of right foot (Acute) Surgical History 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) S/P tonsillectomy (Resolved) Social History Preferred Language: Armenian Communication Ability: Effective Metal Sprayer Required: No Beliefs That Will Affect Care: None marital status: single Current Living Situation: Alone current occupational status: unemployed and disabled Other Information That Helps Us Care for You: No Feels Safe at Home: Yes Safety Concerns: Feels Safe At This Time Smoking Status: Never smoker Tobacco Type: smokeless tobacco ; Do You Dip or Chew Tobacco: Yes ; Second Hand Exposure: No ; Tobacco Cessation Education Requested by Patient: Yes Hx Alcohol Use: No Hx Substance Use: No Physical Exam Skin: left foot ulceration with necrotic tissue in need of debridement, p urulent drainage expressed from the area, 4th toe and hallux with concerning appearance however circulation is stable per vascular - improved erythema and swelling - foot is improving but still concerning Results & Data Vital Signs (Past 12 Hours) Vital Signs Temp Pulse Resp BP Pulse Ox 05/01/19 07:32 36.9 C 77 18 111/69 97 05/01/19 04:20 37.8 C H 88 16 115/74 96
[2019-05-01] MEDS: MULTIVITAMIN TAB PO SCH (08:48)
[2019-05-01] MEDS: PRAVASTATIN SOD 40 MG TAB PO SCH (08:48)
[2019-05-01] MEDS: guaiFENesin 600 MG TABCR PO SCH ×2 (08:49→20:27)
--- NOTE | 2019-05-01 10:32 | Family Medicine Progress Note ---
Date of Service May 01, 2019 Assessment & Plan (1) Foot ulcer, left: 58yo male with PMHx significant for uncontrolled diabetes Type II, HTN, HLD who is admitted for sepsis likely secondary to an infected nonhealing LEFT heel wound. Sepsis in the setting of LEFT foot wound S/p debridement 04/28, Vanc and Zosyn day 3-will continue seems to be doing well. Will hold off on double covering for Psuedomonas. Almost 24hr fever free at time of writing with decreased WBC further debridement scheduled for 05/04/19 Per Vas Surgery, vessels patent enough to promote healing. Appreciate Podiatry recs. DM II -Pt with hgA1c of 11.8 and avg estimated glucose of 292 -Regimen at home includes Metformin 1000mg BID, Levemir 45U BID and Novolog 38U TID. -question of compliance or need for med adjustment -metformin currently held with ISS while hospitalized. -appreciate pharm consult ACUTE ON CHRONIC LIVER INJURY -likely secondary to CAMPBELL, given pt's metabolic status -LFTs currently stable -will continue to monitor SHANI -currently resolved after fluid administration Stopped fluids as he is tolerating PO well. -will continue to monitor HTN/HLD -Holding home lisinopril and HCTZ given presenting HYPOtension and current BP status -continue statin, aspirin FEN/GI: Regular diet DVT proph: SCDs CODE STATUS: Full Supervising Physician Co-Signing Physician Notes I personally examined the patient and verified all roberto points of history and exam, discussed case, and agree with decision making with Dr Agustin. Feeling much better. Okay with OR again on Tuesday. Hopes to be on to go home afterwards or over the weekend. Vitals noted, in general he is awake and alert pleasant no distress. HEENT normocephalic atraumatic mucous members are moist. Breathing unlabored no accessory muscle use good effort. Skin shows no rashes no pallor or icterus. His left foot/heel are dressed, there is no tracking erythema, no skin crepitus in the area, no calf tenderness. Toes show good capillary refill. Diabetic foot infection/nonhealing ulcerslowly improving. Do anticipate the need for further operative debridement. Continue Vanco and Zosyn. Continue to follow closely. Insulin-dependent diabetestype IIcontinue insulin management sugar control okay DVT proph - heparin SQ Subjective Mr. Galo states he's doing well today. Denies fevers, chills or night sweats currently. Denies SMITH, N/V, chest pain, SOB, palpitations, diarrhea or constipation. nonproductive cough improving as well. Review of Systems Review of Systems: All systems reviewed & are unremarkable except as noted in HPI & below Physical Exam Physical Exam: General: Alert, oriented. No acute distress HEENT: NC/AT, PERRLA, EOMI, oropharynx moist. Chest: Nontender to palpation. CV: RRR, Normal s1, s2. No murmurs appreciated Resp: Breath sounds coarse bilaterally, no increased effort of breathing. Abdomen: soft, nontender, nondistended. No guarding. No organomegaly appreciated. Extremities: No edema in lower extremities bilaterally. Left foot bandaged, clean and dry. Results & Data Vital Signs (Past 12 Hours) Vital Signs Temp Pulse Resp BP Pulse Ox 05/01/19 07:32 36.9 C 77 18 111/69 97 05/01/19 04:20 37.8 C H 88 16 115/74 96 Laboratory Results Laboratory Results - last 24 hr 04/30/19 04/30/19 04/30/19 11:13 16:34 20:31 WBC RBC Hgb Hct MCV MCH MCHC RDW Std Deviation RDW Coeff of Arnav Plt Count MPV Immature Gran % (Auto) Neut % (Auto) Lymph % (Auto) Door % (Auto) Eos % (Auto) Baso % (Auto) Immature Gran # (Auto) Neut # (Auto) Lymph # (Auto) Door # (Auto) Eos # (Auto) Baso # (Auto) Sodium Potassium Chloride Carbon Dioxide Anion Gap BUN Creatinine Est Cr Clr Drug Dosing Est GFR ( Amer) Est GFR (Non-Af Amer) BUN/Creatinine Ratio Glucose POC Glucose 135 H 189 H 175 H Calcium Total Bilirubin AST ALT Alkaline Phosphatase Total Protein Albumin Globulin Albumin/Globulin Ratio 05/01/19 05/01/19 05/01/19 05:17 05:17 08:06 WBC 15.20 H RBC 3.45 L Hgb 10.5 L Hct 30.1 L MCV 87.2 MCH 30.4 MCHC 34.9 RDW Std Deviation 40.4 RDW Coeff of Arnav 12.6 Plt Count 236 MPV 10.3 Immature Gran % (Auto) 1.4 Neut % (Auto) 77.5 Lymph % (Auto) 11.3 Door % (Auto) 8.7 Eos % (Auto) 0.7 Baso % (Auto) 0.4 Immature Gran # (Auto) 0.22 H Neut # (Auto) 11.79 H Lymph # (Auto) 1.71 Door # (Auto) 1.32 H Eos # (Auto) 0.10 Baso # (Auto) 0.06 Sodium 135 L Potassium 3.8 Chloride 104 Carbon Dioxide 27 Anion Gap 4.0 BUN 8 Creatinine 0.95 Est Cr Clr Drug Dosing 105.3 Est GFR ( Amer) 101.9 Est GFR (Non-Af Amer) 87.9 BUN/Creatinine Ratio 8.8 L Glucose 117 H POC Glucose 105 H Calcium 7.9 L Total Bilirubin 0.5 AST 30 ALT 43 Alkaline Phosphatase 133 H Total Protein 6.3 L Albumin 1.4 L Globulin 4.9 H Albumin/Globulin Ratio 0.3 L Medications Administered Home Medications Levemir FlexTouch U-100 Insuln 45 unit SUBCUT BID 11/14/18 [History Confirmed 04/26/19] Novolog Flexpen U-100 Insulin 38 unit SUBCUT TID 11/14/18 [History Confirmed 04/26/19] aspirin 81 mg PO QAM 11/14/18 [History Confirmed 04/26/19] hydrochlorothiazide 12.5 mg PO QAM 11/14/18 [History Confirmed 04/26/19] lisinopril 10 mg PO QAM 11/14/18 [History Confirmed 04/26/19] metformin 1,000 mg PO BID 11/14/18 [History Confirmed 04/26/19] multivitamin 1 tab PO QAM 11/14/18 [History Confirmed 04/26/19] pravastatin [Pravachol] 80 mg PO QAM 11/14/18 [History Confirmed 04/26/19] Active Medications Acetaminophen (Tylenol) 650 mg PO Q4H PRN PRN Reason: Pain or Fever Stop: 05/26/19 21:26 Last Admin: 05/01/19 04:29 Dose: 650 mg Documented by: Aspirin (Ecotrin Ectab) [facility] [place] Stop: 05/27/19 08:59 Last Admin: 05/01/19 08:49 Dose: 81 mg Documented by: Dextrose (Dextrose 50%) 25 - 50 ml IV UD PRN; Protocol PRN Reason: Hypoglycemia Protocol Stop: 05/26/19 21:44 Fluticasone Propionate (Flonase) 1 sprays NA BID COUNTS INCLUDE 234 BEDS AT THE [facility] Stop: 05/26/19 21:26 Last Admin: 05/01/19 08:46 Dose: 1 sprays Documented by: Glucagon (Glucagen) 1 mg IM UD PRN; Protocol PRN Reason: Hypoglycemia Protocol Stop: 05/26/19 21:44 Glucose (Glucose 40%) 15 - 30 gm PO UD PRN; Protocol PRN Reason: Hypoglycemia Protocol Stop: 05/26/19 21:44 Glucose (Dex4 Glucose) 4 - 8 tabs PO UD PRN; Protocol PRN Reason: Hypoglycemia Protocol Stop: 05/26/19 21:44 Guaifenesin (Mucinex) 1,200 mg PO Q12 ADRY Stop: 05/27/19 08:59 Last Admin: 05/01/19 08:49 Dose: 1,200 mg Documented by: Heparin Sodium (Porcine) (Heparin Sodium (Porcine)) 5,000 units SQ Q12 ADRY Stop: 05/28/19 20:59 Last Admin: 05/01/19 08:46 Dose: 5,000 units Documented by: Piperacillin Sod/Tazobactam (Sod 3.375 gm/ Dextrose) 115 mls @ 28.75 mls/hr IV Q8H COUNTS INCLUDE 234 BEDS AT THE [facility]; Protocol Stop: 05/08/19 19:59 Last Infusion: 05/01/19 08:45 Dose: Infused Documented by: Vancomycin HCl 1,500 mg/ (Sodium Chloride) 530 mls @ 200 mls/hr IV Q12H COUNTS INCLUDE 234 BEDS AT THE [facility] Stop: 05/08/19 01:59 Last Infusion: 05/01/19 04:20 Dose: Infused Documented by: Insulin Aspart (Novolog Flexpen) 0 units SC ACHS COUNTS INCLUDE 234 BEDS AT THE [facility] Stop: 05/27/19 17:59 Last Admin: 05/01/19 08:44 Dose: 6 units Documented by: Insulin Detemir (Levemir Flextouch) 0 units SQ BID COUNTS INCLUDE 234 BEDS AT THE [facility]; Protocol Stop: 05/27/19 20:59 Last Admin: 05/01/19 08:45 Dose: 10 units Documented by: Miscellaneous (Carbohydrates For Hypoglycemia) 15 - 30 gm PO UD PRN PRN Reason: Hypoglycemia Treatment Stop: 05/26/19 21:44 Last Admin: 04/28/19 07:18 Dose: 15 gm Documented by: Miscellaneous Information (Consult Glycemic Management Pharmacy) 1 ea N/A UD PRN PRN Reason: Consult Stop: 05/27/19 11:42 Miscellaneous Information (Consult) 1 ea N/A UD PRN PRN Reason: Consult Stop: 05/28/19 13:06 Miscellaneous Information (Consult) 1 ea N/A UD PRN PRN Reason: Consult Stop: 05/28/19 13:06 Multivitamins (Multivitamin Tab) [facility] [place] Stop: 05/27/19 08:59 Last Admin: 05/01/19 08:48 Dose: 1 tab Documented by: Oxycodone HCl (Roxicodone Immediate Rel) 5 mg PO Q4H PRN PRN Reason: Pain Stop: 05/12/19 21:34 Last Admin: 04/30/19 22:19 Dose: 5 mg Documented by: Pravastatin Sodium (Pravachol) 80 mg PO QAM COUNTS INCLUDE 234 BEDS AT THE [facility] Stop: 05/27/19 08:59 Last Admin: 05/01/19 08:48 Dose: 80 mg Documented by: PG Care Time/CCT Total # of Minutes Spent Total Time Spent with Patient: Total time spent is greater than 50% in coordination of care (as documented) at patient's floor/unit and/or counseling patient: Resident Activity Tracking Resident Involvement: Resident Care Provided Care Provided: Adult Hospital Medicine
--- NOTE | 2019-05-01 13:15 | Pharmacy Report ---
Pharmacy Glycemic Short Note 2 - Date of Service May 01, 2019 - Glycemic Short BSG Results (Last 24 hours): 04/30/19 04/30/19 05/01/19 16:34 20:31 05:17 Glucose 117 H POC Glucose 189 H 175 H 05/01/19 05/01/19 08:06 11:59 Glucose POC Glucose 105 H 144 H Outpatient Anti-diabetic Regimen: * Levemir 45 units SQ BID * Aspart 38 units SQ TID (patient reports he usually only takes BID) * A1c = 11.8 % 04/27/19 ASSESSMENT: 05/01: * Patient received total of 42 units of insulin yesterday, of which 20 were basal insulin * Fasting BSG this AM w/in range at 117 mg/dL - will continue same basal insulin; adjust parameters for Levemir slightly tonight * BSGs at lunch 144 mg/dL - will continue same CF/CR for now PLAN FOR INPATIENT GLYCEMIC CONTROL: * Holding outpatient oral diabetes medications * Basal insulin * Levemir per scale BID: * For BSG 180 or less: 10 units * For BSG greater than 180: 15 units * Bolus insulin - * NovoLog per scale ACHS or Q6hrs while NPO * Goal Range: Low 120 mg/dL - High 160 mg/dL * Correction Factor: 20 mg/dL/unit * Nutritional / Prandial insulin per carb ratio of 1 unit per 6 grams CHO consumed Thank you.
[2019-05-01] MEDS ORDERED: VANCOMYCIN TROUGH ONE (13:30)
--- NOTE | 2019-05-01 14:34 | Pharmacy Report ---
Pharmacy Abx Dose Short Note - Date of Service May 01, 2019 - Assessment & Plan Assessment 58 year old M receiving vancomycin for foot infection Day #4 of antimicrobial therapy. Plan Vancomycin * Trough level came back therapeutic at 18.7 mcg/ml (goal 15-20 mcg/ml); level drawn appropriately * Renal function remains stable, will continue same dosing for now * Patient with elevated BMI, therefore at increased risk fo accumulation with vancomycin / will monitor closely and consider rechecking trough in next 2-3 days if to be continued Zosyn * 3.375 gm iv q 8 hrs - appropriate for CrCl >20 ml/min (CrCl >100 ml/min) Pharmacy will continue to follow and will adjust dose/frequency as necessary. Thank you.
[2019-05-02] MEDS: VANCOMYCIN HCL 1,500 MG in SODIUM CHLORIDE 0.9% 500 ML IV SCH ×2 (02:18→15:18)
[2019-05-02] MEDS: PIPERACILLIN/TAZOBACTAM 3.375 GM in DEXTROSE 5% 100 ML IV SCH ×3 (04:00→20:54)
[2019-05-02 05:55] LABS: Hematocrit (blood only) 32.5 % (42-52); Mean Corpuscular Hgb Conc 33.8 g/dL (32-36); Mean Corpuscular Volume 88.6 fL (80-100); Mean Platelet Volume 9.9 fL (7.4-10.4); Platelet Count 238 K/uL (130-400); RDW Coefficient of Variation 12.6 % (11.5-14.5); RDW Standard Deviation 40.8 fL (36.4-46.3); Red Blood Count 3.67 M/uL (4.7-6.1); White Blood Count 15.18 K/uL (4.8-10.8)
[2019-05-02 06:22] LABS: Basophils # (auto) 0.08 K/uL (0-0.2); Basophils % (auto) 0.5 %; Dohle Bodies 1+; Eosinophils # (auto) 0.09 K/uL (0-0.5); Eosinophils % (auto) 0.6 %; Immature Granulocytes # (auto) 0.21 K/uL (0.00-0.02); Immature Granulocytes % (auto) 1.4 %; Lymphocytes # (auto) 1.78 K/uL (1.2-3.4); Lymphocytes % (auto) 11.7 %; Monocytes # (auto) 1.32 K/uL (0.11-0.59); Monocytes % (auto) 8.7 %; Neutrophils % (auto) 77.1 %
[2019-05-02 06:30] LABS: Albumin Level 1.5 gm/dl (3.4-5.0); BUN Creatinine Ratio 6.8 (10-20); Creatinine Clr Calc Pharmacy 93.5 ml/min; Est GFR (African American) 88.2; Est GFR (Non-African American) 76.1; Potassium 3.9 mmol/L (3.5-5.1)
[2019-05-02 06:33] LABS: Albumin Globulin Ratio 0.3 (0.9-2); Bilirubin,Total 0.4 mg/dl (0.2-1); Globulin 5.3 gm/dl (2.5-4.0); Total Protein 6.8 gm/dl (6.4-8.2)
[2019-05-02] MEDS: PRAVASTATIN SOD 40 MG TAB PO SCH (08:27)
[2019-05-02] MEDS: FLUTICASONE PROPIONATE NA SPR 16 GM BTL SCH ×2 (08:27→20:51)
[2019-05-02] MEDS: MULTIVITAMIN TAB PO SCH (08:27)
[2019-05-02] MEDS: ASPIRIN 81 MG ECTAB PO SCH (08:27)
[2019-05-02] MEDS: guaiFENesin 600 MG TABCR PO SCH ×2 (08:27→20:52)
[2019-05-02] MEDS: HEPARIN SOD 5,000 UNIT/0.5 ML VIAL SQ SCH ×2 (08:28→20:50)
[2019-05-02] MEDS: INSULIN DETEMIR FLEXPEN/FLEX TOUCH 100 UNITS/ML 3ML SQ SCH ×2 (08:29→20:51)
[2019-05-02] MEDS: INSULIN ASPART 100 UNITS/ML 3 ML PEN SC SCH ×4 (09:05→20:53)
[2019-05-02] MEDS: LEVOFLOXACIN/D5W 750 MG/150 ML BAG IV SCH (11:22)
--- NOTE | 2019-05-02 12:50 | Podiatry Consultation ---
Date of Consultation May 02, 2019 History of Present Illness Attending Physician: Luis Antonio Cordova DO patient is doing better today, WBC is again lowered today - patient was seen with wound nurse and started the process of pre auth for a wound vac for at home use still has purulent drainage expressible from the ulcer, but less again today wound and foot still concerning but swelling and erythema are improving as well which leave me optimistic plan is still for patient to have debridement 2 this Tuesday with wound vac application patient may benefit from ID consult for the infection and for intermission coordinator care as well Allergies Allergy/AdvReac Type Severity Reaction Status Date / Time No Known Allergies Allergy Unverified 04/26/19 17:19 Home Medications Home Medications Medication Instructions Recorded Confirmed Type Levemir FlexTouch U-100 Insuln 45 unit SUBCUT BID 11/14/18 04/26/19 History Novolog Flexpen U-100 Insulin 38 unit SUBCUT TID 11/14/18 04/26/19 History aspirin 81 mg PO QAM 11/14/18 04/26/19 History hydrochlorothiazide 12.5 mg PO QAM 11/14/18 04/26/19 History lisinopril 10 mg PO QAM 11/14/18 04/26/19 History metformin 1,000 mg PO BID 11/14/18 04/26/19 History multivitamin 1 tab PO QAM 11/14/18 04/26/19 History pravastatin [Pravachol] 80 mg PO QAM 11/14/18 04/26/19 History Patient History Medical History Tobacco use disorder DM type 2 (diabetes mellitus, type 2) HTN (hypertension) Hyperlipidemia Acquired hallux valgus of right foot (Acute) Callus (Acute) Diabetes mellitus with diabetic polyneuropathy (Acute) Hallux valgus (acquired), left foot (Acute) Hammertoe of left foot (Acute) History of partial ray amputation of fifth toe of right foot (Acute) History of partial ray amputation of fourth toe of right foot (Acute) History of partial ray amputation of third toe of right foot (Acute) Surgical History 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) S/P tonsillectomy (Resolved) Social History Preferred Language: German Communication Ability: Effective 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 Beliefs That Will Affect Care: None marital status: single Current Living Situation: Alone current occupational status: unemployed and disabled Other Information That Helps Us Care for You: No Feels Safe at Home: Yes Safety Concerns: Feels Safe At This Time Smoking Status: Never smoker Tobacco Type: smokeless tobacco ; Do You Dip or Chew Tobacco: Yes ; Second Hand Exposure: No ; Tobacco Cessation Education Requested by Patient: Yes Hx Alcohol Use: No Hx Substance Use: No Physical Exam Skin: left foot - all dressing removed, skin is peeling and macerating at the forefoot area, 4th toe had blistering present, hallux still with concerning appearance and slight dusky appearance ulcer was debrided at bedside with 15 blade , forceps, and scissors, then expressed and then flushed with betadine dressing reapplied by wound nurse and measurements obtained as well as clinical photos Results & Data Vital Signs (Past 12 Hours) Vital Signs Temp Pulse Resp BP Pulse Ox 05/02/19 07:18 38.2 C H 85 18 126/69 93
[2019-05-02] MEDS: ACETAMINOPHEN 325 MG TAB PO PRN (17:00)
--- NOTE | 2019-05-02 18:08 | Family Medicine Progress Note ---
Date of Service May 02, 2019 Assessment & Plan (1) Foot ulcer, left: 58yo male with PMHx significant for uncontrolled diabetes Type II, HTN, HLD who is admitted for sepsis likely secondary to an infected nonhealing LEFT heel wound. Sepsis in the setting of LEFT foot wound S/p debridement 04/28, Vanc and Zosyn day 3-will continue seems to be doing well. Added Levaquin for double coverage o Pseudomonas given the pt we're treating; per pharmacy recs also started on Flagyl for coverage of Prevotella. Still spiking fevers further debridement scheduled for 05/04/19 Per Vasc Surgery, vessels patent enough to promote healing. Appreciate Podiatry recs. DM II -Pt with hgA1c of 11.8 and avg estimated glucose of 292 -Regimen at home includes Metformin 1000mg BID, Levemir 45U BID and Novolog 38U TID. -question of compliance or need for med adjustment -metformin currently held with ISS while hospitalized. -appreciate pharm consult ACUTE ON CHRONIC LIVER INJURY -likely secondary to CAMPBELL, given pt's metabolic status -LFTs currently stable -will continue to monitor SHANI -currently resolved after fluid administration Stopped fluids as he is tolerating PO well. -will continue to monitor HTN/HLD -Holding home lisinopril and HCTZ given presenting HYPOtension and current BP status -continue statin, aspirin FEN/GI: Regular diet DVT proph: SCDs CODE STATUS: Full Supervising Physician Co-Signing Physician Notes I personally examined the patient and verified all roberto points of history and exam, discussed case, and agree with decision making with Dr Agustin. feeling ok but continues to have fevers. for OR again tuesday Vitals noted, in general he is awake and alert pleasant no distress. HEENT normocephalic atraumatic mucous members are moist. Breathing unlabored no accessory muscle use good effort. Skin shows no rashes no pallor or icterus. His left foot/heel are dressed, there is no tracking erythema. Toes show good capillary refill. Diabetic foot infection/nonhealing ulcerslowly improving. Do anticipate the need for further operative debridement. Continue Vanco and Zosyn. added levaquin in case of MDR gram neg given DM foot infection and ongoing fevers. pharm suggested flagyl as well - agree and initiate. Continue to follow closely. Insulin-dependent diabetestype IIcontinue insulin management; sugar control adequate DVT proph - heparin SQ Subjective Mr. Galo states he's doing well today. States fevers, chills and night sweats have returned. Denies SMITH, N/V, chest pain, SOB, palpitations, diarrhea or constipation. nonproductive cough improving as well. Review of Systems Review of Systems: All systems reviewed & are unremarkable except as noted in HPI & below Physical Exam Physical Exam: General: Alert, oriented. No acute distress HEENT: NC/AT, PERRLA, EOMI, oropharynx moist. Chest: Nontender to palpation. CV: RRR, Normal s1, s2. No murmurs appreciated Resp: Breath sounds coarse bilaterally, no increased effort of breathing. Abdomen: soft, nontender, nondistended. No guarding. No organomegaly appreciated. Extremities: No edema in lower extremities bilaterally. Left foot bandaged, clean and dry. Results & Data Vital Signs (Past 12 Hours) Vital Signs Temp Pulse Resp BP Pulse Ox 05/02/19 15:00 37.9 C H 77 18 129/79 95 05/02/19 07:18 38.2 C H 85 18 126/69 93 Laboratory Results Laboratory Results - last 24 hr 05/01/19 05/02/19 05/02/19 20:21 05:30 05:30 WBC 15.18 H RBC 3.67 L Hgb 11.0 L Hct 32.5 L MCV 88.6 MCH 30.0 MCHC 33.8 RDW Std Deviation 40.8 RDW Coeff of Arnav 12.6 Plt Count 238 MPV 9.9 Immature Gran % (Auto) 1.4 Neut % (Auto) 77.1 Lymph % (Auto) 11.7 [place] % (Auto) 8.7 Eos % (Auto) 0.6 Baso % (Auto) 0.5 Immature Gran # (Auto) 0.21 H Neut # (Auto) 11.70 H Lymph # (Auto) 1.78 [place] # (Auto) 1.32 H Eos # (Auto) 0.09 Baso # (Auto) 0.08 Dohle Bodies 1+ Sodium 136 Potassium 3.9 Chloride 104 Carbon Dioxide 26 Anion Gap 6.0 BUN 7 Creatinine 1.07 Est Cr Clr Drug Dosing 93.5 Est GFR ( Amer) 88.2 Est GFR (Non-Af Amer) 76.1 BUN/Creatinine Ratio 6.8 L Glucose 132 H POC Glucose 177 H Calcium 8.0 L Total Bilirubin 0.4 AST 31 ALT 40 Alkaline Phosphatase 131 H Total Protein 6.8 Albumin 1.5 L Globulin 5.3 H Albumin/Globulin Ratio 0.3 L 05/02/19 05/02/19 05/02/19 07:54 12:05 16:45 WBC RBC Hgb Hct MCV MCH MCHC RDW Std Deviation RDW Coeff of Arnav Plt Count MPV Immature Gran % (Auto) Neut % (Auto) Lymph % (Auto) [place] % (Auto) Eos % (Auto) Baso % (Auto) Immature Gran # (Auto) Neut # (Auto) Lymph # (Auto) [place] # (Auto) Eos # (Auto) Baso # (Auto) Dohle Bodies Sodium Potassium Chloride Carbon Dioxide Anion Gap BUN Creatinine Est Cr Clr Drug Dosing Est GFR ( Amer) Est GFR (Non-Af Amer) BUN/Creatinine Ratio Glucose POC Glucose 147 H 167 H 185 H Calcium Total Bilirubin AST ALT Alkaline Phosphatase Total Protein Albumin Globulin Albumin/Globulin Ratio Medications Administered Home Medications Levemir FlexTouch U-100 Insuln 45 unit SUBCUT BID 11/14/18 [History Confirmed 04/26/19] Novolog Flexpen U-100 Insulin 38 unit SUBCUT TID 11/14/18 [History Confirmed 04/26/19] aspirin 81 mg PO QAM 11/14/18 [History Confirmed 04/26/19] hydrochlorothiazide 12.5 mg PO QAM 11/14/18 [History Confirmed 04/26/19] lisinopril 10 mg PO QAM 11/14/18 [History Confirmed 04/26/19] metformin 1,000 mg PO BID 11/14/18 [History Confirmed 04/26/19] multivitamin 1 tab PO QAM 11/14/18 [History Confirmed 04/26/19] pravastatin [Pravachol] 80 mg PO QAM 11/14/18 [History Confirmed 04/26/19] Active Medications Acetaminophen (Tylenol) 650 mg PO Q4H PRN PRN Reason: Pain or Fever Stop: 05/26/19 21:26 Last Admin: 05/02/19 17:00 Dose: 650 mg Documented by: Aspirin (Ecotrin Ectab) [facility] Stop: 09/29/19 08:59 Last Admin: 05/02/19 08:27 Dose: 81 mg Documented by: Dextrose (Dextrose 50%) 25 - 50 ml IV UD PRN; Protocol PRN Reason: Hypoglycemia Protocol Stop: 05/26/19 21:44 Fluticasone Propionate (Flonase) 1 sprays NA BID [facility] Stop: 05/26/19 21:26 Last Admin: 05/02/19 08:27 Dose: 1 sprays Documented by: Glucagon (Glucagen) 1 mg IM UD PRN; Protocol PRN Reason: Hypoglycemia Protocol Stop: 05/26/19 21:44 Glucose (Glucose 40%) 15 - 30 gm PO UD PRN; Protocol PRN Reason: Hypoglycemia Protocol Stop: 05/26/19 21:44 Glucose (Dex4 Glucose) 4 - 8 tabs PO UD PRN; Protocol PRN Reason: Hypoglycemia Protocol Stop: 05/26/19 21:44 Guaifenesin (Mucinex) 1,200 mg PO Q12 [facility] Stop: 05/27/19 08:59 Last Admin: 05/02/19 08:27 Dose: 1,200 mg Documented by: Heparin Sodium (Porcine) (Heparin Sodium (Porcine)) 5,000 units SQ Q12 [facility] Stop: 05/28/19 20:59 Last Admin: 05/02/19 08:28 Dose: 5,000 units Documented by: Piperacillin Sod/Tazobactam (Sod 3.375 gm/ Dextrose) 115 mls @ 28.75 mls/hr IV Q8H ADRY; Protocol Stop: 05/08/19 19:59 Last Infusion: 05/02/19 17:00 Dose: Infused Documented by: Vancomycin HCl 1,500 mg/ (Sodium Chloride) 530 mls @ 200 mls/hr IV Q12H [facility] Stop: 05/08/19 01:59 Last Admin: 05/02/19 15:18 Dose: 150 mls/hr Documented by: Levofloxacin/Dextrose (Levaquin/D5w) 750 mg in 150 mls @ 100 mls/hr IV Q24H [facility]; Protocol Stop: 05/12/19 10:59 Last Infusion: 05/02/19 13:00 Dose: Infused Documented by: Metronidazole (Flagyl) 500 mg in 100 mls @ 100 mls/hr IV Q8H [facility] Stop: 05/12/19 17:59 Insulin Aspart (Novolog Flexpen) 0 units SC ACHS [facility] Stop: 05/27/19 17:59 Last Admin: 05/02/19 17:49 Dose: 12 units Documented by: Insulin Detemir (Levemir Flextouch) 0 units SQ BID [facility]; Protocol Stop: 05/27/19 20:59 Last Admin: 05/02/19 08:29 Dose: 10 units Documented by: Miscellaneous (Carbohydrates For Hypoglycemia) 15 - 30 gm PO UD PRN PRN Reason: Hypoglycemia Treatment Stop: 05/26/19 21:44 Last Admin: 04/28/19 07:18 Dose: 15 gm Documented by: Miscellaneous Information (Consult Glycemic Management Pharmacy) 1 ea N/A UD PRN PRN Reason: Consult Stop: 05/27/19 11:42 Miscellaneous Information (Consult) 1 ea N/A UD PRN PRN Reason: Consult Stop: 05/28/19 13:06 Miscellaneous Information (Consult) 1 ea N/A UD PRN PRN Reason: Consult Stop: 05/28/19 13:06 Multivitamins (Multivitamin Tab) 1 tab PO [facility] Stop: 05/27/19 08:59 Last Admin: 05/02/19 08:27 Dose: 1 tab Documented by: Oxycodone HCl (Roxicodone Immediate Rel) 5 mg PO Q4H PRN PRN Reason: Pain Stop: 05/12/19 21:34 Last Admin: 04/30/19 22:19 Dose: 5 mg Documented by: Pravastatin Sodium (Pravachol) [facility] [place] Stop: 05/27/19 08:59 Last Admin: 05/02/19 08:27 Dose: 80 mg Documented by: PG Care Time/CCT Total # of Minutes Spent Total Time Spent with Patient: Total time spent is greater than 50% in coordination of care (as documented) at patient's floor/unit and/or counseling patient: Resident Activity Tracking Resident Involvement: Resident Care Provided Care Provided: Adult Hospital Medicine
[2019-05-02] MEDS: metroNIDAZOLE 500 MG/100 ML BAG IV SCH (19:45)
[2019-05-03] MEDS ORDERED: VANCOMYCIN TROUGH ONE (01:30)
[2019-05-03] MEDS: VANCOMYCIN HCL 1,500 MG in SODIUM CHLORIDE 0.9% 500 ML IV SCH ×2 (01:40→12:25)
[2019-05-03 01:55] LABS: Creatinine Clr Calc Pharmacy 97.1 ml/min; Est GFR (African American) 92.4; Est GFR (Non-African American) 79.7
[2019-05-03] MEDS: metroNIDAZOLE 500 MG/100 ML BAG IV SCH ×3 (01:58→17:49)
[2019-05-03] MEDS: PIPERACILLIN/TAZOBACTAM 3.375 GM in DEXTROSE 5% 100 ML IV SCH ×3 (04:34→20:27)
[2019-05-03 07:08] LABS: Basophils # (auto) 0.05 K/uL (0-0.2); Basophils % (auto) 0.4 %; Eosinophils # (auto) 0.09 K/uL (0-0.5); Eosinophils % (auto) 0.7 %; Immature Granulocytes # (auto) 0.13 K/uL (0.00-0.02); Lymphocytes % (auto) 11.1 %; Mean Corpuscular Hemoglobin 29.4 pg (25-34); Mean Corpuscular Hgb Conc 33.3 g/dL (32-36); Mean Corpuscular Volume 88.2 fL (80-100); Mean Platelet Volume 9.9 fL (7.4-10.4); Monocytes # (auto) 1.29 K/uL (0.11-0.59); Monocytes % (auto) 9.5 %; Neutrophils # (auto) 10.49 K/uL (1.4-6.5); Neutrophils % (auto) 77.3 %; Platelet Count 237 K/uL (130-400); RDW Coefficient of Variation 12.6 % (11.5-14.5); RDW Standard Deviation 40.7 fL (36.4-46.3); White Blood Count 13.55 K/uL (4.8-10.8)
--- NOTE | 2019-05-03 08:23 | Pharmacy Report ---
Pharmacy Glycemic Short Note 2 - Date of Service May 03, 2019 - Glycemic Short BSG Results (Last 24 hours): 05/02/19 05/02/19 05/02/19 12:05 16:45 20:37 POC Glucose 167 H 185 H 202 H 05/03/19 08:02 POC Glucose 167 H Outpatient Anti-diabetic Regimen: * Levemir 45 units SQ BID * Aspart 38 units SQ TID (patient reports he usually only takes BID) * A1c = 11.8 % 04/27/19 ASSESSMENT: 05/03: * Patient received total of 65 units of insulin yesterday, of which 25 were basal insulin, significant increase in insulin needs compared to previous days this admission. Will tighten CF and CR for better prandial coverage. Continue basal on scale, fasting BSG 167mg/dl today. 05/01: * Patient received total of 42 units of insulin yesterday, of which 20 were basal insulin * Fasting BSG this AM w/in range at 117 mg/dL - will continue same basal insulin; adjust parameters for Levemir slightly tonight * BSGs at lunch 144 mg/dL - will continue same CF/CR for now PLAN FOR INPATIENT GLYCEMIC CONTROL: * Holding outpatient oral diabetes medications * Basal insulin * Levemir per scale BID: * For BSG 180 or less: 10 units * For BSG greater than 180: 15 units * Bolus insulin - * NovoLog per scale ACHS or Q6hrs while NPO * Goal Range: Low 120 mg/dL - High 160 mg/dL - higher goal range for A1c 11.8% * TIGHTEN: Correction Factor: 15 mg/dL/unit * TIGHTEN: Nutritional / Prandial insulin per carb ratio of 1 unit per 5 grams CHO consumed Thank you.
[2019-05-03] MEDS: FLUTICASONE PROPIONATE NA SPR 16 GM BTL SCH ×2 (08:49→20:28)
[2019-05-03] MEDS: INSULIN DETEMIR FLEXPEN/FLEX TOUCH 100 UNITS/ML 3ML SQ SCH ×2 (08:49→20:30)
[2019-05-03] MEDS: MULTIVITAMIN TAB PO SCH (08:49)
[2019-05-03] MEDS: guaiFENesin 600 MG TABCR PO SCH ×2 (08:49→20:31)
[2019-05-03] MEDS: HEPARIN SOD 5,000 UNIT/0.5 ML VIAL SQ SCH ×2 (08:49→20:28)
[2019-05-03] MEDS: PRAVASTATIN SOD 40 MG TAB PO SCH (08:49)
[2019-05-03] MEDS: INSULIN ASPART 100 UNITS/ML 3 ML PEN SC SCH ×4 (08:50→20:33)
--- NOTE | 2019-05-03 09:08 | Podiatry Consultation ---
Date of Consultation May 03, 2019 History of Present Illness Attending Physician: Luis Antonio Cordova DO patient seen at bedside today feeling very well, again les swelling and erythema noted WBC lower again today and no fevers patient consented for left foot debridement/ I and D/ and wound vac application tomorrow for the second time patient will need to be NPO as of midnight tonight for surgery tomorrow Allergies Allergy/AdvReac Type Severity Reaction Status Date / Time No Known Allergies Allergy Unverified 04/26/19 17:19 Home Medications Home Medications Medication Instructions Recorded Confirmed Type Levemir FlexTouch U-100 Insuln 45 unit SUBCUT BID 11/14/18 04/26/19 History Novolog Flexpen U-100 Insulin 38 unit SUBCUT TID 11/14/18 04/26/19 History aspirin 81 mg PO QAM 11/14/18 04/26/19 History hydrochlorothiazide 12.5 mg PO QAM 11/14/18 04/26/19 History lisinopril 10 mg PO QAM 11/14/18 04/26/19 History metformin 1,000 mg PO BID 11/14/18 04/26/19 History multivitamin 1 tab PO QAM 11/14/18 04/26/19 History pravastatin [Pravachol] 80 mg PO QAM 11/14/18 04/26/19 History Patient History Medical History Tobacco use disorder DM type 2 (diabetes mellitus, type 2) HTN (hypertension) Hyperlipidemia Acquired hallux valgus of right foot (Acute) Callus (Acute) Diabetes mellitus with diabetic polyneuropathy (Acute) Hallux valgus (acquired), left foot (Acute) Hammertoe of left foot (Acute) History of partial ray amputation of fifth toe of right foot (Acute) History of partial ray amputation of fourth toe of right foot (Acute) History of partial ray amputation of third toe of right foot (Acute) Surgical History 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) S/P tonsillectomy (Resolved) Social History Preferred Language: Slovak Communication Ability: Effective 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 Beliefs That Will Affect Care: None marital status: single Current Living Situation: Alone current occupational status: unemployed and disabled Feels Safe at Home: Yes Smoking Status: Never smoker Tobacco Type: smokeless tobacco ; Second Hand Exposure: No ; Hx Alcohol Use: No Hx Substance Use: No Physical Exam Skin: foot evaluated and all dressings removed, ulcer was measured and clinical photo obtained by wound care nurse, patient was seen in conjunction with wound nurses erythema is mainly located on the distal foot with swelling, this has improved from the leg and ankle pedal pulses are non palpable but ABIs and arterial dopplers completed and vascular surgery has seen patient as well capillary refill time is normal to all digits, concern still with color appearance of the hallux and 4th digit but this is somewhat improved today ulcer still has purulent drainage expressible from the ulcer but again much less today than yesterday wound was flushed with Betadine and dressings reapplied patient will be taken to OR tomorrow will need to be NPO as of midnight tonight Results & Data Vital Signs (Past 12 Hours) Vital Signs Temp Pulse Resp BP Pulse Ox 05/03/19 07:28 37.4 C 76 18 109/60 96 05/02/19 23:02 37.4 C 85 18 132/80 97
--- NOTE | 2019-05-03 09:24 | Family Medicine Progress Note ---
Date of Service May 03, 2019 Assessment & Plan (1) Foot ulcer, left: 58yo male with PMHx significant for uncontrolled diabetes Type II, HTN, HLD who is admitted for sepsis likely secondary to an infected nonhealing LEFT heel wound. Sepsis in the setting of LEFT foot wound S/p debridement 04/28, Vanc and Zosyn day 5-will continue seems to be doing well. Added Levaquin 05/02 for double coverage of Pseudomonas given the pt we're treatin g; per pharmacy recs also started on Flagyl for coverage of Prevotella. Currently afebrile, WBC trended down to >13,000 today. Further debridement scheduled for 05/04/19 Per Vasc Surgery, vessels patent enough to promote healing. Appreciate Podiatry recs. DM II -Pt with hgA1c of 11.8 and avg estimated glucose of 292 -Regimen at home includes Metformin 1000mg BID, Levemir 45U BID and Novolog 38U TID. -question of compliance or need for med adjustment -metformin currently held with ISS while hospitalized. -appreciate pharm consult ACUTE ON CHRONIC LIVER INJURY -likely secondary to CAMPBELL, given pt's metabolic status -LFTs currently stable -will continue to monitor SHANI -currently resolved after fluid administration Stopped fluids as he is tolerating PO well. -will continue to monitor HTN/HLD -Holding home lisinopril and HCTZ given presenting HYPOtension and current BP status -continue statin, aspirin FEN/GI: Regular diet DVT proph: SCDs CODE STATUS: Full Supervising Physician Co-Signing Physician Notes I personally examined the patient and verified all roberto points of history and exam, discussed case, and agree with decision making with Dr Agustin. feeling ok no fevers. for OR tomorrow. Vitals noted, in general he is awake and alert pleasant no distress. HEENT normocephalic atraumatic mucous members are moist. Breathing unlabored no accessory muscle use good effort. Skin shows no rashes no pallor or icterus. His left foot/heel are dressed, there is no tracking erythema. Diabetic foot infection/nonhealing ulcerslowly improving. Do anticipate the need for further operative debridement. abx coverage extensive - vanco for presumed MRSA, zosyn for concern on resistant gram negative but then added levaquin for same concern due to persistent fevers (can consider stop zosyn but also concern on perioperative period given how much infection may still be present) and flagyl for better anaerobe coverage due to gas/prolonged deep infection. Insulin-dependent diabetestype IIcontinue insulin management, continue to follow sugars DVT proph - heparin SQ Subjective Mr. Galo states he's doing well today. No fevers, chills or sweats overnight. Denies SMITH, N/V, chest pain, SOB, palpitations, diarrhea or constipation. Nonproductive cough improving as well. Review of Systems Review of Systems: All systems reviewed & are unremarkable except as noted in HPI & below Physical Exam Physical Exam: General: Alert, oriented. No acute distress HEENT: NC/AT, PERRLA, EOMI, oropharynx moist. Chest: Nontender to palpation. CV: RRR, Normal s1, s2. No murmurs appreciated Resp: Breath sounds coarse bilaterally, no increased effort of breathing. Abdomen: soft, nontender, nondistended. No guarding. No organomegaly appreciated. Extremities: No edema in lower extremities bilaterally. Left foot bandaged, clean and dry. Results & Data Vital Signs (Past 12 Hours) Vital Signs Temp Pulse Resp BP Pulse Ox 05/03/19 07:28 37.4 C 76 18 109/60 96 05/02/19 23:02 37.4 C 85 18 132/80 97 Laboratory Results Laboratory Results - last 24 hr 05/02/19 05/02/19 05/02/19 12:05 16:45 20:37 WBC RBC Hgb Hct MCV MCH MCHC RDW Std Deviation RDW Coeff of Arnav Plt Count MPV Immature Gran % (Auto) Neut % (Auto) Lymph % (Auto) [place] % (Auto) Eos % (Auto) Baso % (Auto) Immature Gran # (Auto) Neut # (Auto) Lymph # (Auto) [place] # (Auto) Eos # (Auto) Baso # (Auto) Creatinine Est Cr Clr Drug Dosing Est GFR ( Amer) Est GFR (Non-Af Amer) POC Glucose 167 H 185 H 202 H Vancomycin Trough Random Vancomycin 05/03/19 05/03/19 05/03/19 01:26 01:26 05:35 WBC RBC Hgb Hct MCV MCH MCHC RDW Std Deviation RDW Coeff of Arnav Plt Count MPV Immature Gran % (Auto) Neut % (Auto) Lymph % (Auto) [place] % (Auto) Eos % (Auto) Baso % (Auto) Immature Gran # (Auto) Neut # (Auto) Lymph # (Auto) [place] # (Auto) Eos # (Auto) Baso # (Auto) Creatinine 1.03 Est Cr Clr Drug Dosing 97.1 Est GFR ( Amer) 92.4 Est GFR (Non-Af Amer) 79.7 POC Glucose Vancomycin Trough 20.2 Random Vancomycin 20.6 05/03/19 05/03/19 05:40 08:02 WBC 13.55 H RBC 3.40 L Hgb 10.0 L Hct 30.0 L MCV 88.2 MCH 29.4 MCHC 33.3 RDW Std Deviation 40.7 RDW Coeff of Arnav 12.6 Plt Count 237 MPV 9.9 Immature Gran % (Auto) 1.0 Neut % (Auto) 77.3 Lymph % (Auto) 11.1 [place] % (Auto) 9.5 Eos % (Auto) 0.7 Baso % (Auto) 0.4 Immature Gran # (Auto) 0.13 H Neut # (Auto) 10.49 H Lymph # (Auto) 1.50 [place] # (Auto) 1.29 H Eos # (Auto) 0.09 Baso # (Auto) 0.05 Creatinine Est Cr Clr Drug Dosing Est GFR ( Amer) Est GFR (Non-Af Amer) POC Glucose 167 H Vancomycin Trough Random Vancomycin Medications Administered Home Medications Levemir FlexTouch U-100 Insuln 45 unit SUBCUT BID 11/14/18 [History Confirmed 04/26/19] Novolog Flexpen U-100 Insulin 38 unit SUBCUT TID 11/14/18 [History Confirmed 04/26/19] aspirin 81 mg PO QAM 11/14/18 [History Confirmed 04/26/19] hydrochlorothiazide 12.5 mg PO QAM 11/14/18 [History Confirmed 04/26/19] lisinopril 10 mg PO QAM 11/14/18 [History Confirmed 04/26/19] metformin 1,000 mg PO BID 11/14/18 [History Confirmed 04/26/19] multivitamin 1 tab PO QAM 11/14/18 [History Confirmed 04/26/19] pravastatin [Pravachol] 80 mg PO QAM 11/14/18 [History Confirmed 08/29/19] Active Medications Acetaminophen (Tylenol) 650 mg PO Q4H PRN PRN Reason: Pain or Fever Stop: 05/26/19 21:26 Last Admin: 05/02/19 17:00 Dose: 650 mg Documented by: Aspirin (Ecotrin Ectab) 81 mg PO QAM [facility] Stop: 05/27/19 08:59 Last Admin: 05/02/19 08:27 Dose: 81 mg Documented by: Dextrose (Dextrose 50%) 25 - 50 ml IV UD PRN; Protocol PRN Reason: Hypoglycemia Protocol Stop: 05/26/19 21:44 Fluticasone Propionate (Flonase) 1 sprays NA BID [facility] Stop: 05/26/19 21:26 Last Admin: 05/03/19 08:49 Dose: 1 sprays Documented by: Glucagon (Glucagen) 1 mg IM UD PRN; Protocol PRN Reason: Hypoglycemia Protocol Stop: 05/26/19 21:44 Glucose (Glucose 40%) 15 - 30 gm PO UD PRN; Protocol PRN Reason: Hypoglycemia Protocol Stop: 05/26/19 21:44 Glucose (Dex4 Glucose) 4 - 8 tabs PO UD PRN; Protocol PRN Reason: Hypoglycemia Protocol Stop: 05/26/19 21:44 Guaifenesin (Mucinex) 1,200 mg PO Q12 [facility] Stop: 05/27/19 08:59 Last Admin: 05/03/19 08:49 Dose: 1,200 mg Documented by: Heparin Sodium (Porcine) (Heparin Sodium (Porcine)) 5,000 units SQ Q12 [facility] Stop: 05/28/19 20:59 Last Admin: 05/03/19 08:49 Dose: 5,000 units Documented by: Piperacillin Sod/Tazobactam (Sod 3.375 gm/ Dextrose) 115 mls @ 28.75 mls/hr IV Q8H [facility]; Protocol Stop: 05/08/19 19:59 Last Infusion: 05/03/19 08:45 Dose: Infused Documented by: Vancomycin HCl 1,500 mg/ (Sodium Chloride) 530 mls @ 200 mls/hr IV Q12H [facility] Stop: 05/08/19 01:59 Last Infusion: 05/03/19 02:36 Dose: Infused Documented by: Levofloxacin/Dextrose (Levaquin/D5w) 750 mg in 150 mls @ 100 mls/hr IV Q24H [facility]; Protocol Stop: 05/12/19 10:59 Last Infusion: 05/02/19 13:00 Dose: Infused Documented by: Metronidazole (Flagyl) 500 mg in 100 mls @ 100 mls/hr IV Q8H [facility] Stop: 05/12/19 17:59 Last Infusion: 05/03/19 02:58 Dose: Infused Documented by: Insulin Aspart (Novolog Flexpen) 0 units SC ACHS [facility] Stop: 05/27/19 17:59 Last Admin: 05/03/19 08:50 Dose: 11 units Documented by: Insulin Detemir (Levemir Flextouch) 0 units SQ BID [facility]; Protocol Stop: 05/27/19 20:59 Last Admin: 05/03/19 08:49 Dose: 10 units Documented by: Miscellaneous (Carbohydrates For Hypoglycemia) 15 - 30 gm PO UD PRN PRN Reason: Hypoglycemia Treatment Stop: 05/26/19 21:44 Last Admin: 04/28/19 07:18 Dose: 15 gm Documented by: Miscellaneous Information (Consult Glycemic Management Pharmacy) 1 ea N/A UD PRN PRN Reason: Consult Stop: 05/27/19 11:42 Miscellaneous Information (Consult) 1 ea N/A UD PRN PRN Reason: Consult Stop: 05/28/19 13:06 Miscellaneous Information (Consult) 1 ea N/A UD PRN PRN Reason: Consult Stop: 05/28/19 13:06 Multivitamins (Multivitamin Tab) [address] [facility] Stop: 05/27/19 08:59 Last Admin: 05/03/19 08:49 Dose: 1 tab Documented by: Oxycodone HCl (Roxicodone Immediate Rel) 5 mg PO Q4H PRN PRN Reason: Pain Stop: 05/12/19 21:34 Last Admin: 04/30/19 22:19 Dose: 5 mg Documented by: Pravastatin Sodium (Pravachol) 80 mg PO QAM [facility] Stop: 05/27/19 08:59 Last Admin: 05/03/19 08:49 Dose: 80 mg Documented by: PG Care Time/CCT Total # of Minutes Spent Total Time Spent with Patient: Total time spent is greater than 50% in coordination of care (as documented) at patient's floor/unit and/or counseling p atient: Resident Activity Tracking Resident Involvement: Resident Care Provided Care Provided: Adult [facility] Medicine
--- NOTE | 2019-05-03 09:44 | Pharmacy Report ---
Pharmacy Abx Dose Progress Nt - Date of Service May 03, 2019 - Pharmacy Dosing Scope The patient is currently receiving the following antimicrobial agents per Pharmacy consult: Vancomycin 1500 mg IV every 12 hours Zosyn 3.375g IV Q8H Patient also on Levaquin 750mg IV Q24H, and metronidazole 500mg IV Q8H - Objective Vital Signs (Past 12hrs): Vital Signs Temp Pulse Resp BP Pulse Ox 05/03/19 07:28 37.4 C 76 18 109/60 96 05/02/19 23:02 37.4 C 85 18 132/80 97 Lab Results (24hrs): Laboratory Tests (24 Hours) 05/03/19 05/03/19 05/03/19 05:40 05:35 01:26 WBC 13.55 H Neut # (Auto) 10.49 H Creatinine Est Cr Clr Drug Dosing Vancomycin Trough 20.2 Random Vancomycin 20.6 05/03/19 01:26 WBC Neut # (Auto) Creatinine 1.03 Est Cr Clr Drug Dosing 97.1 Vancomycin Trough Random Vancomycin Micro Results: 04/28/19 21:00 Gram Stain - Final Foot,Left 04/26/19 17:58 Aerobic Blood Culture - Final Blood No growth in Aerobic bottle after 5 days. Anaerobic Blood Culture - Final No growth in Anaerobic bottle after 5 days. 04/26/19 17:58 Aerobic Blood Culture - Final Blood No growth in Aerobic bottle after 5 days. Anaerobic Blood Culture - Final 04/27/19 15:25 Gram Stain - Final Foot,Left Deep Wound Culture - Final Enterococcus faecalis Staphylococcus aureus Prevotella bivia 04/26/19 Unknown Gram Stain - Final Foot,Left Wound Culture - Final Coag negative Staphylococcus Staphylococcus aureus - Risk Factors for Resistance * Antimicrobial use within the last 90 days - Bactrim - Assessment & Plan Assessment 58 year old M receiving IV Vancomycin, Zosyn, Levaquin, metronidazole for treatment of Left foot wound/ulcer, not osteomyelitis. Growing enterococcus, staph aureus, and prevotella in foot cultures, all blood cultures negative. Patient responding to current antibiotic regimen. Day # 6 of Vancomycin and Zosyn Day # 2 of Levaquin and metronidazole - these antibiotics were started d/t pt spiking fevers on 05/01/19, Levaquin for concern for pneumonia in diabetic patient and metronidazole for double anaerobic coverage of prevotella. Plan Vancomycin IV * Trough level of 20.6 mcg/mL is supratherapeutic, so dose was held after patient received ~1/2 dose at 0140 last night, patient accumulating d/t obesity. * Change to 1500 mg IV every 16 hours, starting at 1200 today. * Goal trough level for foot infection, Vanc RANDEE =2 : 17 to 20 mcg/mL * Trough level ordered for: 05/05/19 prior to 1200 dose * Extended dosing interval selected due to drug accumulation in obese patient. Piperacillin/tazobactam * Continue 3.375 g IV extended infusion every 8 hours for CrCl greater than 20 mL/min Levaquin 750mg IV Q24H -- will discuss possible de-escalation with provider. Metronidazole 500mg IV Q8H Pharmacy will continue to follow and will adjust dose/frequency as necessary. Thank you.
[2019-05-03] MEDS: LEVOFLOXACIN/D5W 750 MG/150 ML BAG IV SCH (10:22)
[2019-05-03] MEDS: LACTOBACILLUS ACIDOPHILUS (FLORANEX) TAB PO SCH (17:57)
--- NOTE | 2019-05-03 19:51 | Anesthesiology Consultation ---
Date of Service May 03, 2019 Assessment & Plan (1) Encounter for pre-operative examination: Chart Review Chart Review: Acceptable Risk for Surgery and Patient NOT seen in Pre Admission Testing Consults Requested none History Surgery Operation Date: 04/28/19 19:30 Proposed Procedures p Debridement(Left) - Ya Marie DPM Operation Date: 05/04/19 12:30 Proposed Procedures p Left Foot Ulcer Debridement - Ya Marie DPM Height/Weight Height: 6 ft Weight: 103.2 kg Allergies Allergy/AdvReac Type Severity Reaction Status Date / Time No Known Allergies Allergy Unverified 04/26/19 17:19 Medications Home Medications Medication Instructions Recorded Confirmed Last Taken Levemir FlexTouch U-100 Insuln 45 unit SUBCUT BID 11/14/18 04/26/19 04/26/19 Novolog Flexpen U-100 Insulin 38 unit SUBCUT TID 11/14/18 04/26/19 04/26/19 aspirin 81 mg PO QAM 11/14/18 04/26/19 04/26/19 hydrochlorothiazide 12.5 mg PO QAM 11/14/18 04/26/19 04/26/19 lisinopril 10 mg PO QAM 11/14/18 04/26/19 04/26/19 metformin 1,000 mg PO BID 11/14/18 04/26/19 04/26/19 multivitamin 1 tab PO QAM 11/14/18 04/26/19 04/26/19 pravastatin [Pravachol] 80 mg PO QAM 11/14/18 04/26/19 04/26/19 Active Medications Generic Name Dose Route Start Last Admin Trade Name Mitesh PRN Reason Stop Dose Admin Acetaminophen 650 mg 04/26/19 21:27 05/03/19 22:58 Tylenol PO 05/26/19 21:26 650 mg Q4H PRN Administration Pain or Fever Aspirin 81 mg 04/27/19 09:00 05/04/19 07:59 Ecotrin Ectab PO 05/27/19 08:59 81 mg QAM ADRY Administration Fluticasone Propionate 1 sprays 04/26/19 21:27 05/04/19 07:59 Flonase NA 05/26/19 21:26 1 sprays BID ADRY Administration Guaifenesin 1,200 mg 04/27/19 09:00 05/04/19 07:58 Mucinex PO 05/27/19 08:59 1,200 mg Q12 ADRY Administration Heparin Sodium (Porcine) 5,000 units 04/28/19 21:00 05/04/19 08:37 Heparin Sodium (Porcine) SQ 05/28/19 20:59 Not Given Q12 ADRY Piperacillin Sod/Tazobactam 115 mls @ 28.75 mls/hr 04/28/19 20:00 05/04/19 08:10 Sod 3.375 gm/ Dextrose IV 05/08/19 19:59 Infused Q8H ADRY Infusion Protocol Levofloxacin/Dextrose 750 mg in 150 mls @ 100 mls/hr 05/02/19 11:00 05/04/19 10:42 Levaquin/D5w IV 05/12/19 10:59 100 mls/hr Q24H ADRY Administration Protocol Metronidazole 500 mg in 100 mls @ 100 mls/hr 05/02/19 18:00 05/04/19 10:35 Flagyl IV 05/12/19 17:59 Infused Q8H ADRY Infusion Vancomycin HCl 1,500 mg/ 530 mls @ 200 mls/hr 05/03/19 12:00 05/04/19 06:48 Sodium Chloride IV 05/08/19 14:30 Infused Q16H ADRY Infusion Insulin Aspart 0 units 05/04/19 07:30 05/04/19 12:05 Novolog Flexpen SC 06/03/19 07:29 Not Given Q6 [facility] Protocol Insulin Detemir 0 units 04/27/19 21:00 05/04/19 08:36 Levemir Flextouch SQ 05/27/19 20:59 5 units BID ADRY Administration Protocol Lactobacillus Acidophilus 4 tab 05/03/19 17:00 05/04/19 11:24 Floranex PO 06/02/19 16:59 Not Given TIDM ADRY Miscellaneous 15 - 30 gm 04/26/19 21:45 04/28/19 07:18 Carbohydrates For Hypoglycemia PO 05/26/19 21:44 15 gm UD PRN Administration Hypoglycemia Treatment Multivitamins 1 tab 04/27/19 09:00 05/04/19 07:59 Multivitamin Tab PO 05/27/19 08:59 1 tab QAM ADRY Administration Oxycodone HCl 5 mg 04/28/19 21:35 05/04/19 00:50 Roxicodone Immediate Rel PO 05/12/19 21:34 5 mg Q4H PRN Administration Pain Pravastatin Sodium 80 mg 04/27/19 09:00 05/04/19 07:59 Pravachol PO 05/27/19 08:59 80 mg QAM ADRY Administration NPO Date Last Intake of Fluids: 04/28/19 Time Last Intake of Fluids: 17:30 Date Last Intake of Solids: 04/28/19 Time Last Intake of Solids: 17:30 Past Medical History Medical History Tobacco use disorder DM type 2 (diabetes mellitus, type 2) HTN (hypertension) Hyperlipidemia Acquired hallux valgus of right foot (Acute) Callus (Acute) Diabetes mellitus with diabetic polyneuropathy (Acute) Hallux valgus (acquired), left foot (Acute) Hammertoe of left foot (Acute) History of partial ray amputation of fifth toe of right foot (Acute) History of partial ray amputation of fourth toe of right foot (Acute) History of partial ray amputation of third toe of right foot (Acute) Exercise / Class Metabolic Activity III < 4 Walking/Shop/Light housework Past Surgical History Surgical History 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) S/P tonsillectomy (Resolved) Social History Smoking Status: Never smoker tobacco type: smokeless tobacco Do You Dip or Chew Tobacco: Yes Hx Alcohol Use: No Hx Substance Use: No Physical Exam Vital Signs Last Vital Signs Temp 36.9 C 05/04/19 07:08 Pulse 75 05/04/19 07:08 Resp 18 05/04/19 07:08 BP 128/71 05/04/19 07:08 Pulse Ox 98 05/04/19 07:08 ENMT Mouth: + dentition abnormality, + edentulous and + poor dentition; no TMJ abnormality Thyromental Distance: < 3.5 Finger Breadths Mallampati Class: III Neck normal visual inspection and + thick neck Respiratory normal respiratory effort Auscultation: lungs clear to auscultation bilaterally Cardiovascular Rate/Rhythm: regular rate and regular rhythm Musculoskeletal Spine: normal cervical ROM and no pain with cervical ROM Neurologic moves all extremities Motor/Sensory: + sensory deficit (Neuropathy) Psychiatric Orientation: alert and oriented x 3 Testing Laboratory Results 05/04/19 05:45 05/04/19 05:45 Hemoglobin A1c 11.8 % (4.5-5.6) H 04/27/19 05:07 04/28/19 13:15 Aerobic Blood Culture - Final Blood No growth in Aerobic bottle after 5 days. Anaerobic Blood Culture - Final No growth in Anaerobic bottle after 5 days. 04/28/19 13:12 Aerobic Blood Culture - Final Blood No growth in Aerobic bottle after 5 days. Anaerobic Blood Culture - Final No growth in Anaerobic bottle after 5 days. 04/28/19 21:00 Gram Stain - Final Foot,Left Aerobic and Anaerobic Culture - Preliminary Enterococcus faecalis Staphylococcus aureus 04/30/19 14:17 Aerobic Blood Culture - Preliminary Blood No growth in Aerobic bottle after 48 hours. Anaerobic Blood Culture - Preliminary No growth in Anaerobic bottle after 48 hours. 04/30/19 14:42 Aerobic Blood Culture - Preliminary Blood No growth in Aerobic bottle after 48 hours. Anaerobic Blood Culture - Preliminary No growth in Anaerobic bottle after 48 hours. 04/26/19 17:58 Aerobic Blood Culture - Final Blood No growth in Aerobic bottle after 5 days. Anaerobic Blood Culture - Final No growth in Anaerobic bottle after 5 days. 04/26/19 17:58 Aerobic Blood Culture - Final Blood No growth in Aerobic bottle after 5 days. Anaerobic Blood Culture - Final 04/27/19 15:25 Gram Stain - Final Foot,Left Deep Wound Culture - Final Enterococcus faecalis Staphylococcus aureus Prevotella bivia 04/26/19 Unknown Gram Stain - Final Foot,Left Wound Culture - Final Coag negative Staphylococcus Staphylococcus aureus 05/04/19 07:59 POC Glucose 173 H Electrocardiogram Date: 04/26/19 Findings: + ST @ (119) Sinus tachycardia Left anterior fascicular block Abnormal ECG When compared with ECG of 25-NOV-2018 18:06, No significant change was found Confirmed by Carlos Lowe ([id number]) on 04/27/2019 5:05:13 PM
[2019-05-03] MEDS: ACETAMINOPHEN 325 MG TAB PO PRN (22:58)
[2019-05-04] MEDS: OXYCODONE HCL IR 5 MG TAB (IMMEDIATE RELEASE) PO PRN ×2 (00:50→22:26)
[2019-05-04] MEDS: metroNIDAZOLE 500 MG/100 ML BAG IV SCH ×3 (02:11→17:36)
[2019-05-04] MEDS: VANCOMYCIN HCL 1,500 MG in SODIUM CHLORIDE 0.9% 500 ML IV SCH ×2 (04:09→20:44)
[2019-05-04] MEDS: PIPERACILLIN/TAZOBACTAM 3.375 GM in DEXTROSE 5% 100 ML IV SCH ×2 (04:09→16:40)
[2019-05-04 06:18] LABS: Basophils # (auto) 0.04 K/uL (0-0.2); Basophils % (auto) 0.3 %; Eosinophils # (auto) 0.07 K/uL (0-0.5); Eosinophils % (auto) 0.5 %; Hematocrit (blood only) 30.5 % (42-52); Immature Granulocytes # (auto) 0.18 K/uL (0.00-0.02); Immature Granulocytes % (auto) 1.3 %; Lymphocytes # (auto) 1.83 K/uL (1.2-3.4); Lymphocytes % (auto) 13.2 %; Mean Corpuscular Hemoglobin 29.2 pg (25-34); Mean Corpuscular Hgb Conc 32.8 g/dL (32-36); Mean Corpuscular Volume 89.2 fL (80-100); Mean Platelet Volume 9.8 fL (7.4-10.4); Monocytes # (auto) 1.23 K/uL (0.11-0.59); Monocytes % (auto) 8.9 %; Neutrophils # (auto) 10.51 K/uL (1.4-6.5); Neutrophils % (auto) 75.8 %; Platelet Count 233 K/uL (130-400); RDW Coefficient of Variation 12.6 % (11.5-14.5); RDW Standard Deviation 40.8 fL (36.4-46.3); Red Blood Count 3.42 M/uL (4.7-6.1); White Blood Count 13.86 K/uL (4.8-10.8)
[2019-05-04 06:45] LABS: Albumin Level 1.5 gm/dl (3.4-5.0); BUN Creatinine Ratio 9.8 (10-20); Calcium 8.2 mg/dl (8.5-10.1); Creatinine Clr Calc Pharmacy 103.1 ml/min; Est GFR (African American) 99.3; Est GFR (Non-African American) 85.7; Potassium 3.9 mmol/L (3.5-5.1)
[2019-05-04 06:48] LABS: Albumin Globulin Ratio 0.3 (0.9-2); Bilirubin,Total 0.4 mg/dl (0.2-1); Globulin 5.3 gm/dl (2.5-4.0); Total Protein 6.8 gm/dl (6.4-8.2)
[2019-05-04] MEDS: guaiFENesin 600 MG TABCR PO SCH (07:58)
[2019-05-04] MEDS: PRAVASTATIN SOD 40 MG TAB PO SCH (07:59)
[2019-05-04] MEDS: ASPIRIN 81 MG ECTAB PO SCH (07:59)
[2019-05-04] MEDS: FLUTICASONE PROPIONATE NA SPR 16 GM BTL SCH ×2 (07:59→20:47)
[2019-05-04] MEDS: MULTIVITAMIN TAB PO SCH (07:59)
[2019-05-04] MEDS: LACTOBACILLUS ACIDOPHILUS (FLORANEX) TAB PO SCH ×3 (08:00→17:36)
--- NOTE | 2019-05-04 08:22 | Family Medicine Progress Note ---
Date of Service May 04, 2019 Assessment & Plan (1) Foot ulcer, left: Mr. Galo is a 58 year old male with a PMHx significant for uncontrolled diabetes Type II, HTN, HLD who is admitted for sepsis likely secondary to an infected nonhealing LEFT heel wound. Sepsis in the setting of LEFT foot wound -S/p debridement 04/28, to return to OR today for repeat debridement w/placement of wound vac -Day 6 of Vanc and Zosyn -Added Levaquin 05/02 for double coverage of Pseudomonas, and per pharmacy recs also started on Flagyl for coverage of Prevotella -last fever was AM of 05/02 -d/c zosyn today given unlikely pt needs double coverage for pseudomonas, and he improved moreso after the addition of levaquin and flagyl than the initial zosyn & vanc -if he continues to improve, can d/c home on triple abx therapy with levaquin, flagyl and MRSA coverage (potentially doxycycline) -WBC trending downwards, now stable at 13.8 today -Per Vasc Surgery, vessels patent enough to promote healing. -Appreciate Podiatry recs. DM II -Pt with HbA1c of 11.8 and avg estimated glucose of 292 -Regimen at home includes Metformin 1000mg BID, Levemir 45U BID and Novolog 38U TID. -question of compliance or need for med adjustment -metformin currently held with ISS while hospitalized. -appreciate pharm consult Transaminitis -likely secondary to CAMPBELL -LFTs currently stable SHANI -resolved after fluid administration -Stopped fluids as he is tolerating PO well. HTN/HLD -pt's lisinopril and HCTZ were held on admission given hypotension -assess prior to d/c - pt has been normotensive whilst here - may be able to d/c HCTZ, although do need lisinopril for renal protection -continue statin and aspirin FEN/GI: Regular diet DVT prophylaxis: heparin 5,000 units SQ q12h CODE STATUS: Full Disposition: anticipate d/c tomorrow with home health, provided continues to remain afebrile and WCC continues to decrease Supervising Physician Co-Signing Physician Notes I personally examined the patient and verified all roberto points of history and exam, discussed case, and agree with decision making with Dr Agustin. Feeling okay except for some neck pain. He notes OMT yesterday helped. Hopeful to go home soon. Seen postop, no significant pain. Vitals noted, in general he is awake and alert pleasant no distress. HEENT normocephalic atraumatic mucous members are moist. Breathing unlabored no accessory muscle use good effort. Skin shows no rashes no pallor or icterus. His left foot/heel are dressed, there is no tracking erythema. Osteopathic structural exam shows his left-sided lateral cervical paraspinals to be high in tone, tender, decreased range of motioncounterstrain and some gentle unwindingimproved. Patient tolerated well and noted improvement in his pain. Diabetic foot infection/nonhealing ulcerslowly improving. Now status post repeat debridement and wound VAC has been placed. His fevers seem to have improved significantly after initiation of Levaquin and Flagyl, will DC Zosyn as there is no clear need to double cover gram-negatives now that he is getting better, and hopefully in the next 1 to 2 days (goal would be to see him 24 hours fever free, as well as surgery being happy with his progress) he could hopefully cautiously go home on a regimen such as Levaquin and Flagyl (plus or minus doxycycline to cover for resistant gram-positive's) Insulin-dependent diabetestype IIcontinue insulin management, sugar control has been reasonable in the hospital. He will definitely need close follow-up after discharge Somatic dysfunction cervical regionOMT as above DVT proph - heparin SQ Subjective Mr. Galo reports that he feels well today he denies being in any pain. He states that he was up and walking around, and did fine with this. He is nervous about having the wound VAC placed, and would like to ensure that it is functioning properly before being discharged. He is hopeful for discharge tomorrow. He denies any fever or chills overnight. Review of Systems Constitutional: + fatigue; no fever and no chills Respiratory: no cough and no dyspnea Cardiovascular: no chest pain, no palpitations and no edema Gastrointestinal: no abdominal pain, no nausea and no vomiting Physical Exam Constitutional: WD/WN, vitals as above cooperative and comfortable; no acute distress Respiratory: normal respiratory effort, lungs clear to auscultation Cardiovascular: Rate/Rhythm: regular rate and regular rhythm Gastrointestinal (Abdomen): Inspection/Auscultation: abdomen normal to inspection Percussion/Palpation: abdomen nontender Skin: Left foot with dressing that is clean, dry, and intact Results & Data Vital Signs (Past 12 Hours) Vital Signs Temp Pulse Pulse Resp BP BP Pulse Ox 05/04/19 07:08 36.9 C 75 18 128/71 98 05/04/19 00:51 37.6 C H 05/03/19 23:19 37.9 C H 81 19 124/75 95 PG Care Time/CCT Total # of Minutes Spent Total Time Spent with Patient: Total time spent is greater than 50% in c oordination of care (as documented) at patient's floor/unit and/or counseling patient: Resident Activity Tracking Resident Involvement: Resident Care Provided Care Provided: Adult Hospital Medicine
[2019-05-04] MEDS: INSULIN DETEMIR FLEXPEN/FLEX TOUCH 100 UNITS/ML 3ML SQ SCH ×2 (08:36→20:54)
[2019-05-04] MEDS: HEPARIN SOD 5,000 UNIT/0.5 ML VIAL SQ SCH ×2 (08:37→20:49)
[2019-05-04] MEDS: INSULIN ASPART 100 UNITS/ML 3 ML PEN SC SCH ×4 (08:38→20:53)
--- NOTE | 2019-05-04 09:09 | Pharmacy Report ---
Pharmacy Glycemic Short Note 2 - Date of Service May 04, 2019 - Glycemic Short BSG Results (Last 24 hours): 05/03/19 05/03/19 05/03/19 12:08 16:59 20:24 Glucose POC Glucose 232 H 261 H 250 H 05/04/19 05/04/19 05:45 07:59 Glucose 182 H POC Glucose 173 H Outpatient Anti-diabetic Regimen: * Levemir 45 units SQ BID * Aspart 38 units SQ TID (patient reports he usually only takes BID) * A1c = 11.8 % 04/27/19 ASSESSMENT: 05/04: * Patient received total of 88 units of insulin yesterday, of which 25 were basal insulin, significant increase in insulin needs compared to previous days this admission. Will tighten CF and CR for better prandial coverage and increase basal. * Patient NPO for I&D today, likely will not eat until dinnertime. Will give reduced dose of basal this morning, then resume on scale increasing dose slightly, fasting BSG 175mg/dl this morning. 05/03: * Patient received total of 65 units of insulin yesterday, of which 25 were basal insulin, significant increase in insulin needs compared to previous days this admission. Will tighten CF and CR for better prandial coverage. Continue basal on scale, fasting BSG 167mg/dl today. 05/01: * Patient received total of 42 units of insulin yesterday, of which 20 were basal insulin * Fasting BSG this AM w/in range at 117 mg/dL - will continue same basal insulin; adjust parameters for Levemir slightly tonight * BSGs at lunch 144 mg/dL - will continue same CF/CR for now PLAN FOR INPATIENT GLYCEMIC CONTROL: * Holding outpatient oral diabetes medications * Basal insulin - 5 units this AM for NPO status then increase to * Levemir per scale BID: * For BSG 180 or less: 15 units * For BSG greater than 180: 20 units * Bolus insulin - * NovoLog per scale ACHS or Q6hrs while NPO * Goal Range: Low 120 mg/dL - High 160 mg/dL - higher goal range for A1c 11.8% * TIGHTEN: Correction Factor: 12 mg/dL/unit * TIGHTEN: Nutritional / Prandial insulin per carb ratio of 1 unit per 4 grams CHO consumed Thank you.
[2019-05-04] MEDS: LEVOFLOXACIN/D5W 750 MG/150 ML BAG IV SCH (10:42)
--- NOTE | 2019-05-04 12:03 | History & Physical Bridge Note ---
Date of Service May 04, 2019 History & Physical Bridge Note I have examined the patient, reviewed the History & Physical and in the interval since the performance of the History & Physical I have noted the following changes of clinical significance: no changes noted left foot surgery
[2019-05-04] MEDS ORDERED: LIDOCAINE HCL 2% 2 ML VIAL/AMP(20MG/ML) INFIL ONE (12:13)
[2019-05-04] MEDS ORDERED: PROPOFOL IV EMULSION 10 MG/ML 20 ML VIAL IV ONE (12:13)
[2019-05-04] MEDS ORDERED: fentaNYL citrate 100 MCG/2 ML VIAL ONE (12:13)
[2019-05-04] MEDS ORDERED: ONDANSETRON INJ 2 MG/ML 2 ML VIAL ONE (12:13)
[2019-05-04] MEDS ORDERED: MIDAZOLAM HCL 1 MG/ML 2ML VIAL ONE (12:13)
[2019-05-04] MEDS ORDERED: ATROPINE SULFATE 0.1 MG/ML 10ML SYR IV PRN (12:18)
[2019-05-04] MEDS ORDERED: HYDROmorphone INJ 1 MG/ML SYRINGE IV PRN (12:18)
[2019-05-04] MEDS ORDERED: ePHEDrine sulfate 50 MG/ML AMP IV PRN (12:18)
[2019-05-04] MEDS ORDERED: BACITRACIN INJ 50,000 UNIT VIAL ONE (12:36)
[2019-05-04] MEDS ORDERED: BUPIVACAINE 0.5 % 5 MG/1 ML MPF 30ML VIAL ONE (12:37)
[2019-05-04] MEDS ORDERED: LIDOCAINE HCL 1% 20 ML VIAL ONE (12:37)
[2019-05-04] MEDS ORDERED: BUPIVACAINE/EPINEPHRINE 0.5% MPF 1:200,000 30 ML VIAL ONE (12:37)
[2019-05-04] MEDS ORDERED: PHENYLEPHRINE 100MCG/ML 5ML SYR ONE (13:06)
--- NOTE | 2019-05-04 13:45 | Post Operative Brief Note ---
Immediate Post Op Note v1 Date of Surgery May 04, 2019 Pre & Post Diagnosis Operation Date: 04/28/19 19:30 Pre-Op Diagnosis: SEPSIS 2/2 SKIN AND SOFT TISSUE INFECTION Post-Op Diagnosis: SEPSIS 2/2 SKIN AND SOFT TISSUE INFECTION Operation Date: 05/04/19 12:30 Pre-Op Diagnosis: SEPSIS 2/2 SKIN AND SOFT TISSUE INFECTION Post-Op Diagnosis: SEPSIS 2/2 SKIN AND SOFT TISSUE INFECTION Procedure Operation Date: 04/28/19 19:30 Actual Procedures p Left Foot Incision and Drainage and Debridement(Left) - Ya Marie DPM Operation Date: 05/04/19 12:30 Actual Procedures p Left Foot Ulcer Debridement(Left) - Ya Marie DPM Surgeon Ya Marie DPM Abrasive Grader Helper none Estimated Blood Loss 2 Findings Consistent with Post-Op Diagnosis
[2019-05-04] MEDS ORDERED: INSULIN ASPART 100 UNITS/ML 3 ML PEN SQ SCH (15:06)
--- NOTE | 2019-05-04 15:16 | Operative Report ---
DATE OF OPERATION: 05/04/2019 SURGEON: Ya Marie DPM PREOPERATIVE DIAGNOSIS: Left foot diabetic ulcer and cellulitis infection. POSTOPERATIVE DIAGNOSIS: Left foot diabetic ulcer and cellulitis infection. PROCEDURE: Left foot diabetic ulcer debridement, incision and drainage and wound VAC application. BLOOD LOSS: 3 mL. HEMOSTASIS: Not used. ANESTHESIA: Local IV sedation. PROCEDURE FOLLOWS: The patient was brought into the operating room, a timeout was taken and the patient was identified and the procedure began. The procedure began with debridement of the ulcer that was present at the left medial heel area. The ulcer measures 5.2 x 2.5 x 0.5 cm. There was a significant amount of necrotic nonviable tissue within the area. There was no purulence that was expressible from the foot. This is the second debridement for this foot. The previous was performed on Tuesday04/28/2019. Since that time, the purulent drainage has been significantly improving. During debridement, there was a foreign body which is likely a metallic staple that was present within the wound bed. This was debrided and sent to pathology for permanent specimen. Debrided tissue was also sent for culture and pathology for permanent specimen. All of the nonviable tissue that was present was removed. The area was then flushed with a pulse lavage with bacitracin mixed with saline. Next, any remaining nonviable tissue was again debrided. Next, the wound VAC was applied to the ulcer of the left foot. The patient then had a dressing applied to the foot with the wound VAC. The patient will then return to his floor, he is under the care of the medicine team and he will remain under the care of the medicine team. I attest to the content of the Intraoperative Record and any orders documented therein. Any exception s are noted below.
--- NOTE | 2019-05-04 18:16 | Anesthesiology Progress Note ---
Date of Service May 04, 2019 Anesthesia Post Procedure Vital Signs Vital Signs: Temp Pulse Pulse Pulse Resp BP BP 05/04/19 16:56 37.1 C 89 20 122/73 05/04/19 15:45 36.9 C 85 20 116/70 05/04/19 15:18 37.2 C 80 18 132/79 05/04/19 14:45 37.1 C 82 20 05/04/19 14:35 79 14 115/72 05/04/19 14:31 37.5 C 05/04/19 14:30 79 22 122/67 05/04/19 14:25 80 20 119/67 05/04/19 14:20 80 14 118/69 05/04/19 14:15 78 24 122/72 05/04/19 14:10 76 19 117/69 05/04/19 14:05 78 22 116/70 05/04/19 14:00 77 19 114/67 05/04/19 13:58 83 18 05/04/19 13:57 84 21 112/64 05/04/19 07:08 36.9 C 75 18 05/04/19 00:51 37.6 C H 05/03/19 23:19 37.9 C H 81 19 124/75 BP Pulse Ox 05/04/19 16:56 94 05/04/19 15:45 97 05/04/19 15:18 97 05/04/19 14:45 119/71 96 05/04/19 14:35 96 05/04/19 14:31 95 05/04/19 14:30 95 05/04/19 14:25 93 05/04/19 14:20 93 05/04/19 14:15 95 05/04/19 14:10 97 05/04/19 14:05 98 05/04/19 14:00 97 05/04/19 13:58 96 05/04/19 13:57 96 05/04/19 07:08 128/71 98 05/04/19 00:51 05/03/19 23:19 95 Pain Intensity Left Foot: Pain Intensity: 0 Left Posterior Head: Pain Intensity: 6 Transfer of Care Handoff Completed per policy Notes Mental Status: alert / awake / arousable Patient Amnestic to Procedure: Yes Nausea / Vomiting: adequately controlled Pain: adequately controlled Airway Patency, RR, SpO2: stable & adequate BP & HR: stable & adequate Hydration State: stable & adequate Anesthetic Complications: no major complications apparent and Pt Satisfied with anesthetic care
[2019-05-04] MEDS ORDERED: METFORMIN HCL 500 MG TAB PO SCH (21:00)
[2019-05-05] MEDS: metroNIDAZOLE 500 MG/100 ML BAG IV SCH ×2 (02:22→10:37)
[2019-05-05 05:56] LABS: Basophils # (auto) 0.03 K/uL (0-0.2); Basophils % (auto) 0.2 %; Eosinophils # (auto) 0.07 K/uL (0-0.5); Eosinophils % (auto) 0.6 %; Hematocrit (blood only) 29.6 % (42-52); Immature Granulocytes % (auto) 0.8 %; Lymphocytes # (auto) 1.41 K/uL (1.2-3.4); Lymphocytes % (auto) 11.3 %; Mean Corpuscular Hemoglobin 30.2 pg (25-34); Mean Corpuscular Hgb Conc 33.8 g/dL (32-36); Mean Corpuscular Volume 89.4 fL (80-100); Mean Platelet Volume 9.5 fL (7.4-10.4); Monocytes # (auto) 0.95 K/uL (0.11-0.59); Monocytes % (auto) 7.6 %; Neutrophils # (auto) 9.89 K/uL (1.4-6.5); Neutrophils % (auto) 79.5 %; Platelet Count 243 K/uL (130-400); RDW Coefficient of Variation 12.7 % (11.5-14.5); RDW Standard Deviation 41.3 fL (36.4-46.3); Red Blood Count 3.31 M/uL (4.7-6.1); White Blood Count 12.45 K/uL (4.8-10.8)
[2019-05-05] MEDS: LACTOBACILLUS ACIDOPHILUS (FLORANEX) TAB PO SCH ×3 (08:34→17:41)
[2019-05-05] MEDS: HEPARIN SOD 5,000 UNIT/0.5 ML VIAL SQ SCH ×2 (08:35→20:25)
[2019-05-05] MEDS: ASPIRIN 81 MG ECTAB PO SCH (08:35)
[2019-05-05] MEDS: FLUTICASONE PROPIONATE NA SPR 16 GM BTL SCH ×2 (08:35→20:21)
[2019-05-05] MEDS: MULTIVITAMIN TAB PO SCH (08:36)
[2019-05-05] MEDS: PRAVASTATIN SOD 40 MG TAB PO SCH (08:36)
[2019-05-05] MEDS: INSULIN ASPART 100 UNITS/ML 3 ML PEN SC SCH ×4 (08:37→20:26)
[2019-05-05] MEDS: INSULIN DETEMIR FLEXPEN/FLEX TOUCH 100 UNITS/ML 3ML SQ SCH ×2 (08:38→20:31)
[2019-05-05] MEDS: LEVOFLOXACIN/D5W 750 MG/150 ML BAG IV SCH (10:37)
--- NOTE | 2019-05-05 10:49 | Pharmacy Report ---
Pharmacy Glycemic Short Note 2 - Date of Service May 05, 2019 - Glycemic Short BSG Results (Last 24 hours): 05/04/19 05/04/19 05/04/19 14:18 16:41 20:51 POC Glucose 179 H 176 H 180 H 05/05/19 07:49 POC Glucose 208 H Outpatient Anti-diabetic Regimen: * Levemir 45 units SQ BID * Aspart 38 units SQ TID (patient reports he usually only takes BID) * A1c = 11.8 % 04/27/19 ASSESSMENT: * Patient is currently receiving ~80-90 units of insulin per day * BSGs elevated today secondary to decreased insulin dosing given prior to OR yesterday. Should improve once steady state is re-established. * No changes needed today. PLAN FOR INPATIENT GLYCEMIC CONTROL: * Holding outpatient oral diabetes medications * Basal insulin * Levemir per scale BID: * For BSG 180 or less: 15 units * For BSG greater than 180: 20 units * Bolus insulin * NovoLog per scale ACHS or Q6hrs while NPO * Goal Range: Low 120 mg/dL - High 160 mg/dL - higher goal range for A1c 11.8% * Correction Factor: 12 mg/dL/unit * Nutritional / Prandial insulin per carb ratio of 1 unit per 4 grams CHO consumed Thank you.
--- NOTE | 2019-05-05 11:13 | Podiatry Consultation ---
Date of Consultation May 05, 2019 History of Present Illness Attending Physician: Adriane Coyle MD Patient seen at bedside today and he is feeling much better, WBC 12.45 again almost to normal, has not had a temp in a number of days - I am still optimistic about his foot, the ulcer itself is much better, but the distal digits have a slight blue appearance, this may be due to the significant swelling that was present from the severity of the infection, or circulation, I think it would be helpful for vascular surgery's input as to whether a CT angiogram would give more insight on the blue appearance of the digits and the amount of circulation that is getting to the digits - wound vac is working well - patient is doing much better systemically - patient will need crutches or a wheelchair for use at home once d/c and f/u with me after d/c - the acute infection has improved overall Allergies Allergy/AdvReac Type Severity Reaction Status Date / Time No Known Allergies Allergy Unverified 04/26/19 17:19 Home Medications Home Medications Medication Instructions Recorded Confirmed Type Levemir FlexTouch U-100 Insuln 45 unit SUBCUT BID 11/14/18 04/26/19 History Novolog Flexpen U-100 Insulin 38 unit SUBCUT TID 11/14/18 04/26/19 History aspirin 81 mg PO QAM 11/14/18 04/26/19 History hydrochlorothiazide 12.5 mg PO QAM 11/14/18 04/26/19 History lisinopril 10 mg PO QAM 11/14/18 04/26/19 History metformin 1,000 mg PO BID 11/14/18 04/26/19 History multivitamin 1 tab PO QAM 11/14/18 04/26/19 History pravastatin [Pravachol] 80 mg PO QAM 11/14/18 04/26/19 History Patient History Medical History Tobacco use disorder DM type 2 (diabetes mellitus, type 2) HTN (hypertension) Hyperlipidemia Acquired hallux valgus of right foot (Acute) Callus (Acute) Diabetes mellitus with diabetic polyneuropathy (Acute) Hallux valgus (acquired), left foot (Acute) Hammertoe of left foot (Acute) History of partial ray amputation of fifth toe of right foot (Acute) History of partial ray amputation of fourth toe of right foot (Acute) History of partial ray amputation of third toe of right foot (Acute) Surgical History 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) S/P tonsillectomy (Resolved) Social History Preferred Language: Ukrainian Communication Ability: Effective Diet Tech Required: No Beliefs That Will Affect Care: None marital status: single Current Living Situation: Alone current occupational status: unemployed and disabled Feels Safe at Home: Yes Smoking Status: Never smoker Tobacco Type: smokeless tobacco ; Second Hand Exposure: No ; Hx Alcohol Use: No Hx Substance Use: No Physical Exam Skin: dressings removed, wound vac left in place - vac is functioning well concern for the digits mainly the hallux and the 2nd toe and 4th toe all with concerning appearance - he may benefit from a CT angiogram but will need vascular surgery's input otherwise from an acute infection standpoint he is improving dressings reapplied consisting of adaptic, gauze Results & Data Vital Signs (Past 12 Hours) Vital Signs Temp Pulse Resp BP Pulse Ox 05/05/19 07:18 37.2 C 90 18 121/74 96
[2019-05-05] MEDS ORDERED: VANCOMYCIN TROUGH ONE (11:30)
[2019-05-05] MEDS: VANCOMYCIN HCL 1,500 MG in SODIUM CHLORIDE 0.9% 500 ML IV SCH (11:59)
--- NOTE | 2019-05-05 15:21 | Pharmacy Report ---
Pharmacy Abx Dose Short Note - Date of Service May 05, 2019 - Assessment & Plan Laboratory Tests 05/05/19 11:29 Vancomycin Trough 13.6 Assessment 58 year old M receiving Vancomycin 1500mg IV q16h, Flagyl and Levaquin for treatment of foot wound/ulcer. No signs of osteomyelitis. Current foot cultures are growing streptococcus in 3/3 cultures. Day #8 of Vancomycin antimicrobial therapy. Day #4 of Levaquin and Flagyl. Plan Vancomycin * Trough level of 13.6 mcg/mL is slightly subtherapeutic * Change to 1500 mg IV every 14 hours * Goal trough level for SST: 15 to 20 mcg/mL * Trough level ordered for: 05/07/19 at 0530 Pharmacy will continue to follow and will adjust dose/frequency as necessary. Thank you.
--- NOTE | 2019-05-05 15:25 | Family Medicine Progress Note ---
Date of Service May 05, 2019 Assessment & Plan (1) Foot ulcer, left: 58-year-old male was admitted on 26 April 2019 for chills and lightheadedness related to chronic left foot wound. Left heel wound, sepsis: History of non-healing left foot ulcer and multiple right toe amputations in setting of diabetic neuropathy. No evidence of osteomyelitis on two MRIs of the foot. 31Aug underwent left foot I&D with pulse lavage and debridement via podiatry (see related notes). Follow-on I&D with wound VAC application on 06Sep as well. Initially on vancomycin and Zosyn. 31Aug wound culture positive for partially resistant Aerococcus faecalis and staph aureus. Is on Levaquin, vancomycin, and Flagyl. Zosyn recently discontinued. - Discussed case with podiatry. He should remain non-weightbearing. He is currently unable to safely use a cane or a walker, therefore would need crutches or a wheelchair for acute ambulatory purposes. Recommended ID consult for planning for antibiotic management. - For now, will stop Levaquin and flagyl. Continue vancomycin. Will consult ID for further recommendations including discharge antibiotic options. Concern for arterial insufficiency: 31Aug BLE arterial duplex showed good waveforms. 30Aug NEVIN noted non- compressible vessels. 31Aug seen by vascular surgery who noted no role for acute intervention (see related notes). However, since postop is noted to have blue toes with concerns for ongoing ischemia. - Discussed case with podiatry and she noted the current discoloration cannot be 100% attributed to postop (? vasospasm) state. She recommend monitoring until TuesdaySep with consideration for CT angio at that time, sooner if new symptoms or findings arise. - On re-evaluation in the afternoon, patient's toes appear more pink with slightly improved cap refill. Acute kidney injury: Admit creatinine 1.9, since resolved with IVF. Likely was pre-renal. Monitoring. Transaminitis: Minimally elevated AST, ALT, AP. Since improving/resolved. Likely secondary to CAMPBELL. Would benefit from outpatient evaluation. Ongoing medical history: - Hypertension, hyperlipidemia: Home lisinopril and HCTZ were initially held given hypotension. Since his had good BP off of these meds. Was continued on his pravastatin and aspirin. - Type 2 diabetes, diabetic neuropathy: Mar 2019 HbA1c 11.8. At home is been on metformin, Levemir, NovoLog. Question of compliance. Patient agrees to close PCP (Dr. Huang) follow-up for this. - Tobacco use. Code status: Full code. Diet: Heart healthy, DM 2. DVT prophy: Heparin, SCDs. PT/OT: Deferred. Disbo: Admitted to [facility]. Case management onboard. Working on arranging home wound VAC use as well as options for ambulation. (2) Sepsis: (3) Acute kidney injury: (4) Transaminitis: (5) HTN (hypertension): (6) Hyperlipidemia: (7) DM type 2 (diabetes mellitus, type 2): (8) Diabetic neuropathy: (9) Tobacco use disorder: Supervising Physician Co-Signing Physician Notes Resident Physician Supervision Note: I independently interviewed and examined the patient and verified the roberto history and physical, reviewed labs and image studies, discussed the case with the resident Dr. Corona and agree with the findings and care plan. Subjective Found patient resting comfortably earlier this morning. He says overall he feels quite well and would like to go home. He denies any fever or chills for the past three nights. Says that overall his left foot feels okay and that the wound VAC is going well. He says he has experience with wound VAC's in the [facility]. He plans on following up with both podiatry and his primary care provider upon discharge. He denies any acute concerns. Had a second discussion with the patient this afternoon. He relates that he is quite anxious about the overall healing of his left foot and does not want to have any more toe amputations. Review of Systems Review of Systems: ROS per HPI. Physical Exam Physical Exam: General Appearance: Awake, alert & oriented, comfortable in general, NAD. CV: +S1S2 RRR, no murmur. Pulm: Clear to auscultation throughout. Abdomen: +BS, soft, non-tender, non-distended. Extremities: The left foot is has a c/d/I dressing in place. All of his toes are exposed and are blue with poor cap refill. They are also tender to palpation. There is a wound VAC in place on the left heel. The right foot is surgically missing three toes. Results & Data Vital Signs (Past 12 Hours) Vital Signs Temp Pulse Resp BP Pulse Ox 09/07/19 07:18 37.2 C 90 18 121/74 96 Laboratory Results 05/05/19 05/05/19 05/05/19 Range/Units 11:29 11:27 07:49 WBC (4.8-10.8) K/uL RBC (4.7-6.1) M/uL Hgb (14.0-18.0) g/dL Hct (42-52) % MCV (80-100) fL MCH (25-34) pg MCHC (32-36) g/dL RDW Std Deviation (36.4-46.3) fL RDW Coeff of Arnav (11.5-14.5) % Plt Count (130-400) K/uL MPV (7.4-10.4) fL Immature Gran % (Auto) % Neut % (Auto) % Lymph % (Auto) % Bethel % (Auto) % Eos % (Auto) % Baso % (Auto) % Immature Gran # (Auto) (0.00-0.02) K/uL Neut # (Auto) (1.4-6.5) K/uL Lymph # (Auto) (1.2-3.4) K/uL Bethel # (Auto) (0.11-0.59) K/uL Eos # (Auto) (0-0.5) K/uL Baso # (Auto) (0-0.2) K/uL POC Glucose 268 H 208 H (70-99) Vancomycin Trough 13.6 (See Comment) mcg/ml 05/05/19 05/04/19 05/04/19 Range/Units 05:43 20:51 16:41 WBC 12.45 H (4.8-10.8) K/uL RBC 3.31 L (4.7-6.1) M/uL Hgb 10.0 L (14.0-18.0) g/dL Hct 29.6 L (42-52) % MCV 89.4 (80-100) fL MCH 30.2 (25-34) pg MCHC 33.8 (32-36) g/dL RDW Std Deviation 41.3 (36.4-46.3) fL RDW Coeff of Arnav 12.7 (11.5-14.5) % Plt Count 243 (130-400) K/uL MPV 9.5 (7.4-10.4) fL Immature Gran % (Auto) 0.8 % Neut % (Auto) 79.5 % Lymph % (Auto) 11.3 % Bethel % (Auto) 7.6 % Eos % (Auto) 0.6 % Baso % (Auto) 0.2 % Immature Gran # (Auto) 0.10 H (0.00-0.02) K/uL Neut # (Auto) 9.89 H (1.4-6.5) K/uL Lymph # (Auto) 1.41 (1.2-3.4) K/uL Bethel # (Auto) 0.95 H (0.11-0.59) K/uL Eos # (Auto) 0.07 (0-0.5) K/uL Baso # (Auto) 0.03 (0-0.2) K/uL POC Glucose 180 H 176 H (70-99) Vancomycin Trough (See Comment) mcg/ml Medications Administered Current Inpatient Medications Acetaminophen (Tylenol) 650 mg PO Q4H PRN PRN Reason: Pain or Fever Stop: 05/26/19 21:26 Last Admin: 05/03/19 22:58 Dose: 650 mg Documented by: Aspirin (Ecotrin Ectab) 81 mg PO QAM [facility] Stop: 05/27/19 08:59 Last Admin: 05/05/19 08:35 Dose: 81 mg Documented by: Dextrose (Dextrose 50%) 25 - 50 ml IV UD PRN; Protocol PRN Reason: Hypoglycemia Protocol Stop: 05/26/19 21:44 Fluticasone Propionate (Flonase) 1 sprays NA BID [facility] Stop: 05/26/19 21:26 Last Admin: 05/05/19 08:35 Dose: 1 sprays Documented by: Glucagon (Glucagen) 1 mg IM UD PRN; Protocol PRN Reason: Hypoglycemia Protocol Stop: 05/26/19 21:44 Glucose (Glucose 40%) 15 - 30 gm PO UD PRN; Protocol PRN Reason: Hypoglycemia Protocol Stop: 05/26/19 21:44 Glucose (Dex4 Glucose) 4 - 8 tabs PO UD PRN; Protocol PRN Reason: Hypoglycemia Protocol Stop: 05/26/19 21:44 Heparin Sodium (Porcine) (Heparin Sodium (Porcine)) 5,000 units SQ Q12 [facility] Stop: 05/28/19 20:59 Last Admin: 05/05/19 08:35 Dose: 5,000 units Documented by: Hydrochlorothiazide (Hctz) 12.5 mg PO QAM [facility] Stop: 06/04/19 08:59 Levofloxacin/Dextrose (Levaquin/D5w) 750 mg in 150 mls @ 100 mls/hr IV Q24H [facility] ; Protocol Stop: 05/12/19 10:59 Last Infusion: 05/05/19 12:00 Dose: Infused Documented by: Metronidazole (Flagyl) 500 mg in 100 mls @ 100 mls/hr IV Q8H [facility] Stop: 05/12/19 17:59 Last Infusion: 05/05/19 11:50 Dose: Infused Documented by: Vancomycin HCl 1,500 mg/ (Sodium Chloride) 530 mls @ 200 mls/hr IV Q14H [facility] Stop: 05/08/19 14:30 Insulin Aspart (Novolog Flexpen) 0 units SC ACHS [facility]; Protocol Stop: 06/03/19 07:29 Last Admin: 05/05/19 12:29 Dose: 27 units Documented by: Insulin Detemir (Levemir Flextouch) 0 units SQ BID [facility]; Protocol Stop: 05/27/19 20:59 Last Admin: 05/05/19 08:38 Dose: 20 units Documented by: Lactobacillus Acidophilus (Floranex) 4 tab PO TIDM [facility] Stop: 06/02/19 16:59 Last Admin: 05/05/19 12:00 Dose: 4 tab Documented by: Lisinopril (Zestril) 10 mg PO QAM [facility] Stop: 06/04/19 08:59 Miscellaneous (Carbohydrates For Hypoglycemia) 15 - 30 gm PO UD PRN PRN Reason: Hypoglycemia Treatment Stop: 05/26/19 21:44 Last Admin: 04/28/19 07:18 Dose: 15 gm Documented by: Miscellaneous Information (Consult Glycemic Management Pharmacy) 1 ea N/A UD PRN PRN Reason: Consult Stop: 05/27/19 11:42 Miscellaneous Information (Consult) 1 ea N/A UD PRN PRN Reason: Consult Stop: 05/28/19 13:06 Multivitamins (Multivitamin Tab) 1 tab PO QAM [facility] Stop: 05/27/19 08:59 Last Admin: 05/05/19 08:36 Dose: 1 tab Documented by: Oxycodone HCl (Roxicodone Immediate Rel) 5 mg PO Q4H PRN PRN Reason: Pain Stop: 05/12/19 21:34 Last Admin: 05/04/19 22:26 Dose: 5 mg Documented by: Pravastatin Sodium (Pravachol) 80 mg PO QAM [facility] Stop: 05/27/19 08:59 Last Admin: 05/05/19 08:36 Dose: 80 mg Documented by: PG Care Time/CCT Total # of Minutes Spent Total Time Spent with Patient: Total time spent is greater than 50% in coordination of care (as documented) at patient's floor/unit and/or counseling patient: Resident Activity Tracking Resident Involvement: Resident Care Provided Care Provided: Adult Hospital Medicine (1) DM type 2 (diabetes mellitus, type 2) Diabetes mellitus complication status: with hyperglycemia Diabetes mellitus exterminator helper termite insulin use: with mcc use Qualified Code(s): E11.65 - Type 2 diabetes mellitus with hyperglycemia; Z79.4 - longterm (current) use of insulin (2) Hyperlipidemia Hyperlipidemia type: unspecified Qualified Code(s): E78.5 - Hyperlipidemia, unspecified (3) Sepsis Sepsis acute organ dysfunction status: unspecified Sepsis type: sepsis due to unspecified organism Qualified Code(s): A41.9 - Sepsis, unspecified organism (4) HTN (hypertension) Hypertension type: unspecified Qualified Code(s): I10 - Essential (primary) hypertension
[2019-05-06] MEDS: VANCOMYCIN HCL 1,500 MG in SODIUM CHLORIDE 0.9% 500 ML IV SCH ×2 (01:53→16:55)
[2019-05-06 05:55] LABS: Hematocrit (blood only) 30.4 % (42-52); Hemoglobin 10.1 g/dL (14.0-18.0); Mean Corpuscular Hemoglobin 29.3 pg (25-34); Mean Corpuscular Hgb Conc 33.2 g/dL (32-36); Mean Corpuscular Volume 88.1 fL (80-100); Mean Platelet Volume 9.4 fL (7.4-10.4); Platelet Count 255 K/uL (130-400); RDW Coefficient of Variation 12.8 % (11.5-14.5); Red Blood Count 3.45 M/uL (4.7-6.1); White Blood Count 12.92 K/uL (4.8-10.8)
[2019-05-06 06:19] LABS: Basophils # (auto) 0.04 K/uL (0-0.2); Basophils % (auto) 0.3 %; Immature Granulocytes # (auto) 0.08 K/uL (0.00-0.02); Immature Granulocytes % (auto) 0.6 %; Lymphocytes # (auto) 1.56 K/uL (1.2-3.4); Lymphocytes % (auto) 12.1 %; Monocytes # (auto) 0.87 K/uL (0.11-0.59); Monocytes % (auto) 6.7 %; Neutrophils # (auto) 10.37 K/uL (1.4-6.5); Neutrophils % (auto) 80.3 %
[2019-05-06 06:33] LABS: BUN Creatinine Ratio 9.4 (10-20); Calcium 7.9 mg/dl (8.5-10.1); Creatinine Clr Calc Pharmacy 109.9 ml/min; Est GFR (African American) 107.3; Est GFR (Non-African American) 92.6; Potassium 3.7 mmol/L (3.5-5.1)
[2019-05-06] MEDS: LACTOBACILLUS ACIDOPHILUS (FLORANEX) TAB PO SCH ×3 (08:13→17:32)
[2019-05-06] MEDS: FLUTICASONE PROPIONATE NA SPR 16 GM BTL SCH ×2 (08:13→20:46)
[2019-05-06] MEDS: PRAVASTATIN SOD 40 MG TAB PO SCH (08:14)
[2019-05-06] MEDS: MULTIVITAMIN TAB PO SCH (08:14)
[2019-05-06] MEDS: ASPIRIN 81 MG ECTAB PO SCH (08:14)
[2019-05-06] MEDS: INSULIN ASPART 100 UNITS/ML 3 ML PEN SC SCH ×4 (08:57→20:57)
[2019-05-06] MEDS: HEPARIN SOD 5,000 UNIT/0.5 ML VIAL SQ SCH ×2 (08:58→20:47)
[2019-05-06] MEDS: INSULIN DETEMIR FLEXPEN/FLEX TOUCH 100 UNITS/ML 3ML SQ SCH ×2 (08:58→20:57)
--- NOTE | 2019-05-06 10:39 | Infectious Disease Consult ---
Date of Consultation May 06, 2019 Assessment & Plan (1) Foot ulcer, left: no evidence of osteo, would suggest po Augmentin 875mg po bid and doxy 100mg po bid for min 4 weeks post d/c. plan to follow with podiatry post d/c. can follow at wound center with ID as well. No contraindication for d/c from ID standpoint when otherwise stable. History of Present Illness Attending Physician: Adriane Coyle MD pt admitted on 04/26 with worsening left foot wound, podiatry eval, taken to OR on 04/28, second surgery for necrosis and fb removal done on 05/04. Has had several days of high grade fevers, afebrile since 05/04. Blood cultures 04/26 and 04/28 negative but multiple wound cultures growing MSSA and E. faecalis. He is currently on levaquin, flagyl and vanco. tolerating well. wbc was as high as 25 on 04/28, now 12. creat 0.9, no ESR done. foor MRI done on 04/30 showed no osteo. has vac in room, awaiting placement. On my exam he denies pain in foot, no f/c. no drainage, dressing intact, no abd pain, no n/v/d. no cp, sob, cough. ID consulted for d/c antibiotics. Allergies Allergy/AdvReac Type Severity Reaction Status Date / Time No Known Allergies Allergy Unverified 04/26/19 17:19 Home Medications Home Medications Medication Instructions Recorded Confirmed Type Levemir FlexTouch U-100 Insuln 45 unit SUBCUT BID 11/14/18 04/26/19 History Novolog Flexpen U-100 Insulin 38 unit SUBCUT TID 11/14/18 04/26/19 History aspirin 81 mg PO QAM 11/14/18 04/26/19 History hydrochlorothiazide 12.5 mg PO QAM 11/14/18 04/26/19 History lisinopril 10 mg PO QAM 11/14/18 04/26/19 History metformin 1,000 mg PO BID 11/14/18 04/26/19 History multivitamin 1 tab PO QAM 11/14/18 04/26/19 History pravastatin [Pravachol] 80 mg PO QAM 11/14/18 04/26/19 History Patient History Medical History Tobacco use disorder DM type 2 (diabetes mellitus, type 2) HTN (hypertension) Hyperlipidemia Acquired hallux valgus of right foot (Acute) Callus (Acute) Diabetes mellitus with diabetic polyneuropathy (Acute) Hallux valgus (acquired), left foot (Acute) Hammertoe of left foot (Acute) History of partial ray amputation of fifth toe of right foot (Acute) History of partial ray amputation of fourth toe of right foot (Acute) History of partial ray amputation of third toe of right foot (Acute) Surgical History 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) S/P tonsillectomy (Resolved) Social History Preferred Language: Malaysian Communication Ability: Effective 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 Beliefs That Will Affect Care: None marital status: single Current Living Situation: Alone current occupational status: unemployed and disabled Feels Safe at Home: Yes Smoking Status: Never smoker Tobacco Type: smokeless tobacco ; Second Hand Exposure: No ; Hx Alcohol Use: No Hx Substance Use: No Review of Systems Review of Systems: All systems reviewed & are unremarkable except as noted in HPI & below Physical Exam Constitutional: WD/WN, vitals as above Eyes: PERRL, conjunctivae normal, anicteric sclerae ENMT: external ear and nose normal, oropharynx normal Neck: normal visual inspection Respiratory: normal respiratory effort, lungs clear to auscultation Cardiovascular: RRR, no murmur, no edema Gastrointestinal (Abdomen): normal bowel sounds, soft, nontender, no hepatosplenomegaly Musculoskeletal: no cyanosis or clubbing, extremities motor strength 5/5 Skin: no rashes, warm and dry left foot dressing c/d/i. Psychiatric: A+Ox3, euthymic affect Results & Data Vital Signs (Past 12 Hours) Vital Signs Temp Pulse Resp BP Pulse Ox 05/06/19 07:15 36.8 C 85 18 152/81 H 95 05/06/19 00:07 37.4 C 86 18 126/62 94 Laboratory Results Microbiology 05/04/19 13:28 Foot,Left Gram Stain - Final 05/04/19 13:28 Foot,Left Aerobic and Anaerobic Culture - Preliminary Streptococcus species Staphylococcus aureus 04/30/19 14:17 Blood Aerobic Blood Culture - Final No growth in Aerobic bottle after 5 days. 04/30/19 14:17 Blood Anaerobic Blood Culture - Final No growth in Anaerobic bottle after 5 days. 04/30/19 14:42 Blood Aerobic Blood Culture - Final No growth in Aerobic bottle after 5 days. 04/30/19 14:42 Blood Anaerobic Blood Culture - Final No growth in Anaerobic bottle after 5 days. 05/04/19 13:27 Foot,Left Gram Stain - Final 05/04/19 13:27 Foot,Left Aerobic and Anaerobic Culture - Preliminary Streptococcus species 05/04/19 13:20 Foot,Left Gram Stain - Final 05/04/19 13:20 Foot,Left Aerobic and Anaerobic Culture - Preliminary Streptococcus species 04/28/19 21:00 Foot,Left Gram Stain - Final 04/28/19 21:00 Foot,Left Aerobic and Anaerobic Culture - Final Enterococcus faecalis Staphylococcus aureus 04/28/19 13:15 Blood Aerobic Blood Culture - Final No growth in Aerobic bottle after 5 days. 04/28/19 13:15 Blood Anaerobic Blood Culture - Final No growth in Anaerobic bottle after 5 days. 04/28/19 13:12 Blood Aerobic Blood Culture - Final No growth in Aerobic bottle after 5 days. 04/28/19 13:12 Blood Anaerobic Blood Culture - Final No growth in Anaerobic bottle after 5 days. 04/26/19 17:58 Blood Aerobic Blood Culture - Final No growth in Aerobic bottle after 5 days. 04/26/19 17:58 Blood Anaerobic Blood Culture - Final No growth in Anaerobic bottle after 5 days. 04/26/19 17:58 Blood Aerobic Blood Culture - Final No growth in Aerobic bottle after 5 days. 04/26/19 17:58 Blood Anaerobic Blood Culture - Final 04/27/19 15:25 Foot,Left Gram Stain - Final 04/27/19 15:25 Foot,Left Deep Wound Culture - Final Enterococcus faecalis Staphylococcus aureus Prevotella bivia 04/26/19 Unknown Foot,Left Gram Stain - Final 04/26/19 Unknown Foot,Left Wound Culture - Final Coag negative Staphylococcus Staphylococcus aureus PG Care Time/CCT Total # of Minutes Spent Total Time Spent with Patient: Total time spent is greater than 50% in coordination of care (as documented) at patient's floor/unit and/or counseling patient:
--- NOTE | 2019-05-06 11:44 | Family Medicine Progress Note ---
Date of Service May 06, 2019 Assessment & Plan (1) Foot ulcer, left: 58-year-old male was admitted on 26 April 2019 for chills and lightheadedness related to chronic left foot wound. Left heel wound, sepsis: History of non-healing left foot ulcer and multiple right toe amputations in setting of diabetic neuropathy. No evidence of osteomyelitis on two MRIs of the foot. - 31Aug underwent left foot I&D with pulse lavage and debridement via podiatry (see related notes). Follow-on I&D with wound VAC application on 06Sep as well. --- Unfortunately lost wound VAC overnight. Will see with podiatry wishes to do regarding replacement. - 31Aug wound culture positive for partially-resistant Aerococcus faecalis and staph aureus. 06Sep wound culture positive for strep. Stopped zosyn, Levaquin, flagyl. Kept vancomycin as inpatient. ID recommends Augmentin and doxy for 4+ weeks as outpatient (see related note) as well as ID & wound follow-up. - On prior podiatry discussions, patient should remain non-weightbearing. He is currently unable to safely use a cane or a walker, therefore would need crutches or a wheelchair for acute ambulatory purposes. Concern for arterial insufficiency: 31Aug BLE arterial duplex showed good waveforms. 30Aug NEVIN noted non- compressible vessels. 31Aug seen by vascular surgery who noted no role for acute intervention (see related notes). However, since postop is noted to have blue toes with concerns for ongoing ischemia versus resolving vasospasm. Previous discussions with podiatry mentioned consideration for CT angio at that time, sooner if new symptoms or findings arise. Acute kidney injury: Admit creatinine 1.9, since resolved with IVF. Likely was pre-renal. Monitoring. Transaminitis: Minimally elevated AST, ALT, AP. Since improving/resolved. Likely secondary to CAMPBELL. Would benefit from outpatient evaluation. Ongoing medical history: - Hypertension, hyperlipidemia: Home lisinopril and HCTZ were initially held given hypotension. Since his had rather good BP off of these meds. Was continued on his pravastatin and aspirin. - Type 2 diabetes, diabetic neuropathy: Mar 2019 HbA1c 11.8. At home is been on metformin, Levemir, NovoLog. Question of compliance. Patient agrees to close PCP (Dr. Huang) follow-up for this. - Tobacco use. Code status: Full code. Diet: Heart healthy, DM 2. DVT prophy: Heparin, SCDs. PT/OT: Deferred. Disbo: Admitted to [facility]. Case management onboard. Working on arranging home wound VAC use as well as options for ambulation. (2) Sepsis: (3) Acute kidney injury: (4) Transaminitis: (5) HTN (hypertension): (6) Hyperlipidemia: (7) DM type 2 (diabetes mellitus, type 2): (8) Diabetic neuropathy: (9) Tobacco use disorder: Supervising Physician Co-Signing Physician Notes Resident Physician Supervision Note: I independently interviewed and examined the patient and verified the roberto history and physical, reviewed labs and image studies, discussed the case with the resident Dr. Corona and agree with the findings and care plan. Subjective Found patient resting comfortably this morning. He seemed a bit less anxious, stating that he had no current pain or immediate concerns about his foot. He does note that during the night the cord of his wound VAC got caught on something accidentally, thus resulting in the wound VAC being removed. Nursing applied a local dressing. Denies any fever or chills as well. No other acute patient concerns identified. Review of Systems Review of Systems: ROS per HPI. Physical Exam Physical Exam: General Appearance: Awake, alert & oriented, comfortable in general, NAD. CV: +S1S2 RRR, no murmur. Pulm: Clear to auscultation throughout. Abdomen: +BS, soft, non-tender, non-distended. Extremities: - The left foot dressing was removed for examination. There is a wet-to-dry dressing over the prior wound VAC site. There is a non-occlusive dressing to the distal dorsal aspect of the foot. The first and fourth toes are quite blue in color with comparatively poor cap refill. The second toe is the most pink with good cap refill. The third and fifth toes are more pinkish-blue in color with fair cap refill. Patient denies being able to feel any of these toes. - The right foot is surgically missing three toes. Results & Data Vital Signs (Past 12 Hours) Vital Signs Temp Pulse Resp BP Pulse Ox 05/06/19 07:15 36.8 C 85 18 152/81 H 95 05/06/19 00:07 37.4 C 86 18 126/62 94 Laboratory Results 05/06/19 05/06/19 05/06/19 Range/Units 07:56 05:45 05:45 WBC 12.92 H (4.8-10.8) K/uL RBC 3.45 L (4.7-6.1) M/uL Hgb 10.1 L (14.0-18.0) g/dL Hct 30.4 L (42-52) % MCV 88.1 (80-100) fL MCH 29.3 (25-34) pg MCHC 33.2 (32-36) g/dL RDW Std Deviation 41.0 (36.4-46.3) fL RDW Coeff of Arnav 12.8 (11.5-14.5) % Plt Count 255 (130-400) K/uL MPV 9.4 (7.4-10.4) fL Immature Gran % (Auto) 0.6 % Neut % (Auto) 80.3 % Lymph % (Auto) 12.1 % [place] % (Auto) 6.7 % Eos % (Auto) 0.0 % Baso % (Auto) 0.3 % Immature Gran # (Auto) 0.08 H (0.00-0.02) K/uL Neut # (Auto) 10.37 H (1.4-6.5) K/uL Lymph # (Auto) 1.56 (1.2-3.4) K/uL [place] # (Auto) 0.87 H (0.11-0.59) K/uL Eos # (Auto) 0.00 (0-0.5) K/uL Baso # (Auto) 0.04 (0-0.2) K/uL Sodium 136 (136-145) mmol/L Potassium 3.7 (3.5-5.1) mmol/L Chloride 105 (98-107) mmol/L Carbon Dioxide 27 (21-32) mmol/L Anion Gap 4.0 (3-11) BUN 9 (7-18) mg/dl Creatinine 0.91 (0.6-1.4) mg/dl Est Cr Clr Drug Dosing 109.9 ml/min Est GFR ( Amer) 107.3 Est GFR (Non-Af Amer) 92.6 BUN/Creatinine Ratio 9.4 L (10-20) Glucose 163 H (70-99) mg/dl POC Glucose 178 H (70-99) Calcium 7.9 L (8.5-10.1) mg/dl Vancomycin Trough (See Comment) mcg/ml 05/05/19 05/05/19 05/05/19 Range/Units 20:14 20:12 20:10 WBC (4.8-10.8) K/uL RBC (4.7-6.1) M/uL Hgb (14.0-18.0) g/dL Hct (42-52) % MCV (80-100) fL MCH (25-34) pg MCHC (32-36) g/dL RDW Std Deviation (36.4-46.3) fL RDW Coeff of Arnav (11.5-14.5) % Plt Count (130-400) K/uL MPV (7.4-10.4) fL Immature Gran % (Auto) % Neut % (Auto) % Lymph % (Auto) % [place] % (Auto) % Eos % (Auto) % Baso % (Auto) % Immature Gran # (Auto) (0.00-0.02) K/uL Neut # (Auto) (1.4-6.5) K/uL Lymph # (Auto) (1.2-3.4) K/uL [place] # (Auto) (0.11-0.59) K/uL Eos # (Auto) (0-0.5) K/uL Baso # (Auto) (0-0.2) K/uL Sodium (136-145) mmol/L Potassium (3.5-5.1) mmol/L Chloride (98-107) mmol/L Carbon Dioxide (21-32) mmol/L Anion Gap (3-11) BUN (7-18) mg/dl Creatinine (0.6-1.4) mg/dl Est Cr Clr Drug Dosing ml/min Est GFR ( Amer) Est GFR (Non-Af Amer) BUN/Creatinine Ratio (10-20) Glucose (70-99) mg/dl POC Glucose 229 H 223 H 321 H* (70-99) Calcium (8.5-10.1) mg/dl Vancomycin Trough (See Comment) mcg/ml 05/05/19 05/05/19 Range/Units 17:11 11:29 WBC (4.8-10.8) K/uL RBC (4.7-6.1) M/uL Hgb (14.0-18.0) g/dL Hct (42-52) % MCV (80-100) fL MCH (25-34) pg MCHC (32-36) g/dL RDW Std Deviation (36.4-46.3) fL RDW Coeff of Arnav (11.5-14.5) % Plt Count (130-400) K/uL MPV (7.4-10.4) fL Immature Gran % (Auto) % Neut % (Auto) % Lymph % (Auto) % [place] % (Auto) % Eos % (Auto) % Baso % (Auto) % Immature Gran # (Auto) (0.00-0.02) K/uL Neut # (Auto) (1.4-6.5) K/uL Lymph # (Auto) (1.2-3.4) K/uL [place] # (Auto) (0.11-0.59) K/uL Eos # (Auto) (0-0.5) K/uL Baso # (Auto) (0-0.2) K/uL Sodium (136-145) mmol/L Potassium (3.5-5.1) mmol/L Chloride (98-107) mmol/L Carbon Dioxide (21-32) mmol/L Anion Gap (3-11) BUN (7-18) mg/dl Creatinine (0.6-1.4) mg/dl Est Cr Clr Drug Dosing ml/min Est GFR ( Amer) Est GFR (Non-Af Amer) BUN/Creatinine Ratio (10-20) Glucose (70-99) mg/dl POC Glucose 164 H (70-99) Calcium (8.5-10.1) mg/dl Vancomycin Trough 13.6 (See Comment) mcg/ml Medications Administered Current Inpatient Medications Acetaminophen (Tylenol) 650 mg PO Q4H PRN PRN Reason: Pain or Fever Stop: 05/26/19 21:26 Last Admin: 05/03/19 22:58 Dose: 650 mg Documented by: [facility]ir[facility] ([facility]rin [facility]ab) [facility]: 05/27/19 08:59 Last Admin: 05/06/19 08:14 Dose: 81 mg Documented by: Dextrose (Dextrose 50%) 25 - 50 ml IV UD PRN; Protocol PRN Reason: Hypoglycemia Protocol Stop: 05/26/19 21:44 Fluticasone Propionate (Flonase) 1 sprays NA BID [facility] Stop: 05/26/19 21:26 Last Admin: 05/06/19 08:13 Dose: 1 sprays Documented by: Glucagon (Glucagen) 1 mg IM UD PRN; Protocol PRN Reason: Hypoglycemia Protocol Stop: 05/26/19 21:44 Glucose (Glucose 40%) 15 - 30 gm PO UD PRN; Protocol PRN Reason: Hypoglycemia Protocol Stop: 05/26/19 21:44 Glucose (Dex4 Glucose) 4 - 8 tabs PO UD PRN; Protocol PRN Reason: Hypoglycemia Protocol Stop: 05/26/19 21:44 Heparin Sodium (Porcine) (Heparin Sodium (Porcine)) 5,000 units SQ Q12 ADRY Stop: 05/28/19 20:59 Last Admin: 05/06/19 08:58 Dose: 5,000 units Documented by: Hydrochlorothiazide (Hctz) 12.5 mg PO QAM [facility] Stop: 06/04/19 08:59 Levofloxacin/Dextrose (Levaquin/D5w) 750 mg in 150 mls @ 100 mls/hr IV Q24H ADRY; Protocol Stop: 05/12/19 10:59 Last Infusion: 05/05/19 12:00 Dose: Infused Documented by: Metronidazole (Flagyl) 500 mg in 100 mls @ 100 mls/hr IV Q8H [facility] Stop: 05/12/19 17:59 Last Infusion: 05/05/19 11:50 Dose: Infused Documented by: Vancomycin HCl 1,500 mg/ (Sodium Chloride) 530 mls @ 200 mls/hr IV Q14H [facility] Stop: 05/08/19 14:30 Last Infusion: 05/06/19 04:55 Dose: Infused Documented by: Insulin Aspart (Novolog Flexpen) 0 units SC ACHS [facility]; Protocol Stop: 06/03/19 07:29 Last Admin: 05/06/19 08:57 Dose: 17 units Documented by: Insulin Detemir (Levemir Flextouch) 0 units SQ BID [facility]; Protocol Stop: 05/27/19 20:59 Last Admin: 05/06/19 08:58 Dose: 15 units Documented by: Lactobacillus Acidophilus (Floranex) 4 tab PO TIDM [facility] Stop: 06/02/19 16:59 Last Admin: 05/06/19 08:13 Dose: 4 tab Documented by: Lisinop[facility] (Zestril) [facility]: 06/04/19 08:59 Miscellaneous (Carbohydrates For Hypoglycemia) 15 - 30 gm PO UD PRN PRN Reason: Hypoglycemia Treatment Stop: 05/26/19 21:44 Last Admin: 04/28/19 07:18 Dose: 15 gm Documented by: Miscellaneous Information (Consult Glycemic Management Pharmacy) 1 ea N/A UD PRN PRN Reason: Consult Stop: 05/27/19 11:42 Miscellaneous Information (Consult) 1 ea N/A UD PRN PRN Reason: Consult Stop: 05/28/19 13:06 Multivitamins (Multivitamin Tab) 1 tab PO QAM [facility] Stop: 05/27/19 08:59 Last Admin: 05/06/19 08:14 Dose: 1 tab Documented by: Oxycodone HCl (Roxicodone Immediate Rel) 5 mg PO Q4H PRN PRN Reason: Pain Stop: 05/12/19 21:34 Last Admin: 05/04/19 22:26 Dose: 5 mg Documented by: Pravastatin Sodium (Pravachol) [facility] [place] Stop: 05/27/19 08:59 Last Admin: 05/06/19 08:14 Dose: 80 mg Documented by: PG Care Time/CCT Total # of Minutes Spent Total Time Spent with Patient: Total time spent is greater than 50% in coordination of care (as documented) at patient's floor/unit and/or counseling patient: Resident Activity Tracking Resident Involvement: Resident Care Provided Care Provided: Adult Hospital Medicine (1) DM type 2 (diabetes mellitus, type 2) Diabetes mellitus complication status: with hyperglycemia Diabetes mellitus supervisor intermediates insulin use: with fpc use Qualified Code(s): E11.65 - Type 2 diabetes mellitus with hyperglycemia; Z79.4 - local company intermodal truck driver (current) use of insulin (2) Hyperlipidemia Hyperlipidemia type: unspecified Qualified Code(s): E78.5 - Hyperlipidemia, unspecified (3) Sepsis Sepsis acute organ dysfunction status: unspecified Sepsis type: sepsis due to unspecified organism Qualified Code(s): A41.9 - Sepsis, unspecified organism (4) HTN (hypertension) Hypertension type: unspecified Qualified Code(s): I10 - Essential (primary) hypertension
--- NOTE | 2019-05-06 12:04 | Pharmacy Report ---
Pharmacy Glycemic Short Note 2 - Date of Service May 06, 2019 - Glycemic Short BSG Results (Last 24 hours): 05/05/19 05/05/19 05/05/19 17:11 20:10 20:12 Glucose POC Glucose 164 H 321 H* 223 H 05/05/19 05/06/19 05/06/19 20:14 05:45 07:56 Glucose 163 H POC Glucose 229 H 178 H Outpatient Anti-diabetic Regimen: * Levemir 45 units SQ BID * Aspart 38 units SQ TID (patient reports he usually only takes BID) * A1c = 11.8 % 04/27/19 ASSESSMENT: * Patient is currently receiving ~80-90 units of insulin per day- received 100+ units yesterday since BSGs elevated from reduced insulin dosing on 05/04 for OR. * BSGs Should improve once steady state is re-established with insulin dosing. Estimating that patient will settle in around total daily dose of 80-90 units. * Goal is to maintain BSGs <200 mg/dl (ideally <150 mg/dl) to prevent post op complications * Tight glycemic control crucial for wound healing. Also, recommend zinc, vitamin C and protein supplementation to promote wound healing in wound care patients Zinc: 50 mg elemental zinc (e.g., 220 mg zinc sulfate) PO three times per day until wound healed. Vitamin C: 500-3000mg/day depending on whether it causes soft stool, then back off Protein: may consult dietary for protein supplement recommendation. Could consider boost glucose control supplement PLAN FOR INPATIENT GLYCEMIC CONTROL: * Basal insulin * Levemir per scale BID: * For BSG 150 or less: 15 units * For BSG greater than 150: 20 units * Bolus insulin * NovoLog per scale ACHS or Q6hrs while NPO * Goal Range: Low 110 mg/dL - High 140 mg/dL * Correction Factor: 12 mg/dL/unit * Nutritional / Prandial insulin per carb ratio of 1 unit per 4 grams CHO consumed Thank you.
[2019-05-06] MEDS: OXYCODONE HCL IR 5 MG TAB (IMMEDIATE RELEASE) PO PRN (12:24)
[2019-05-07] MEDS ORDERED: VANCOMYCIN TROUGH ONE (05:30)
[2019-05-07 05:52] LABS: Hemoglobin 10.1 g/dL (14.0-18.0); Mean Corpuscular Hemoglobin 30.1 pg (25-34); Mean Corpuscular Hgb Conc 33.7 g/dL (32-36); Mean Corpuscular Volume 89.6 fL (80-100); Mean Platelet Volume 9.5 fL (7.4-10.4); Platelet Count 269 K/uL (130-400); RDW Coefficient of Variation 12.7 % (11.5-14.5); Red Blood Count 3.35 M/uL (4.7-6.1)
[2019-05-07] MEDS: VANCOMYCIN HCL 1,500 MG in SODIUM CHLORIDE 0.9% 500 ML IV SCH ×2 (06:15→20:51)
--- NOTE | 2019-05-07 07:37 | Podiatry Consultation ---
Date of Consultation May 07, 2019 History of Present Illness Attending Physician: Adriane Coyle MD patient is stable in terms of infection, seen at bedside today, however wound vac fell off yesterday - patient wants to go home however his toes are still very concerning and not improving - blue discoloration of the hallux 3rd, 4th digits and now the 5th as well - wound vac will be reapplied today by wound nurse - must have vascular surgery see patient as the digits are not improving and concern for vascular compromise remains Allergies Allergy/AdvReac Type Severity Reaction Status Date / Time No Known Allergies Allergy Unverified 04/26/19 17:19 Home Medications Home Medications Medication Instructions Recorded Confirmed Type Levemir FlexTouch U-100 Insuln 45 unit SUBCUT BID 11/14/18 04/26/19 History Novolog Flexpen U-100 Insulin 38 unit SUBCUT TID 11/14/18 04/26/19 History aspirin 81 mg PO QAM 11/14/18 04/26/19 History hydrochlorothiazide 12.5 mg PO QAM 11/14/18 04/26/19 History lisinopril 10 mg PO QAM 11/14/18 04/26/19 History metformin 1,000 mg PO BID 11/14/18 04/26/19 History multivitamin 1 tab PO QAM 11/14/18 04/26/19 History pravastatin [Pravachol] 80 mg PO QAM 11/14/18 04/26/19 History Patient History Medical History Tobacco use disorder DM type 2 (diabetes mellitus, type 2) HTN (hypertension) Hyperlipidemia Acquired hallux valgus of right foot (Acute) Callus (Acute) Diabetes mellitus with diabetic polyneuropathy (Acute) Hallux valgus (acquired), left foot (Acute) Hammertoe of left foot (Acute) History of partial ray amputation of fifth toe of right foot (Acute) History of partial ray amputation of fourth toe of right foot (Acute) History of partial ray amputation of third toe of right foot (Acute) Surgical History 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) S/P tonsillectomy (Resolved) Social History Preferred Language: Occitan Communication Ability: Effective Supervisor Files Required: No Beliefs That Will Affect Care: None marital status: single Current Living Situation: Alone current occupational status: unemployed and disabled Feels Safe at Home: Yes Smoking Status: Never smoker Tobacco Type: smokeless tobacco ; Second Hand Exposure: No ; Hx Alcohol Use: No Hx Substance Use: No Physical Exam Skin: vac not in place, as patient lost it yesterday - concern for the coloration of the digits, most concerning is the 4th digit with blue discoloration present, acute infection improving, WBC 13 today no temp noted Results & Data Vital Signs (Past 12 Hours) Vital Signs Temp Pulse Pulse Resp BP Pulse Ox 05/07/19 07:16 37.2 C 88 18 152/84 H 95 05/06/19 23:37 95 H 19 130/70 95
[2019-05-07] MEDS: ASPIRIN 81 MG ECTAB PO SCH (08:35)
[2019-05-07] MEDS: MULTIVITAMIN TAB PO SCH (08:35)
[2019-05-07] MEDS: LACTOBACILLUS ACIDOPHILUS (FLORANEX) TAB PO SCH ×3 (08:36→16:27)
[2019-05-07] MEDS: PRAVASTATIN SOD 40 MG TAB PO SCH (08:36)
[2019-05-07] MEDS: FLUTICASONE PROPIONATE NA SPR 16 GM BTL SCH ×2 (08:37→20:52)
[2019-05-07] MEDS: INSULIN ASPART 100 UNITS/ML 3 ML PEN SC SCH ×4 (08:42→20:55)
[2019-05-07] MEDS: HEPARIN SOD 5,000 UNIT/0.5 ML VIAL SQ SCH ×2 (08:43→20:52)
[2019-05-07] MEDS: INSULIN DETEMIR FLEXPEN/FLEX TOUCH 100 UNITS/ML 3ML SQ SCH ×2 (08:43→20:53)
--- NOTE | 2019-05-07 10:28 | Surgery Progress Note ---
Date of Service May 07, 2019 Assessment & Plan (1) Gangrene of left foot: Gangrene of the left foot Will discuss with podiatry. I am not sure a tma is an option due to no plantar flap possible due to gangrene. Possibly will need a BKA Subjective Patient complains of pain in his left foot. Physical Exam Physical Exam: Toes are cyanotic. Plantar aspect of foot is necrotic but dry. Moderate drainage from surgical wound Results & Data Vital Signs (Past 12 Hours) Vital Signs Temp Pulse Pulse Resp BP Pulse Ox 05/07/19 07:16 37.2 C 88 18 152/84 H 95 05/06/19 23:37 95 H 19 130/70 95
--- NOTE | 2019-05-07 14:47 | Family Medicine Progress Note ---
Date of Service May 07, 2019 Assessment & Plan (1) Foot ulcer, left: 58-year-old male was admitted on 26 April 2019 for chills and lightheadedness related to chronic left foot wound. Left heel wound, sepsis: History of non-healing left foot ulcer and multiple right toe amputations in setting of diabetic neuropathy. No evidence of osteomyelitis on two MRIs of the foot. - 31Aug underwent left foot I&D with pulse lavage and debridement via podiatry (see related notes). Follow-on I&D with wound VAC application on 06Sep as well. --- Unfortunately lost wound VAC overnight. Will see with podiatry wishes to do regarding replacement. - 31Aug wound culture positive for partially-resistant Aerococcus faecalis and staph aureus. 06Sep wound culture positive for strep. Stopped zosyn, Levaquin, flagyl. Kept vancomycin as inpatient. ID recommends Augmentin and doxy for 4+ weeks as outpatient (see related note) as well as ID & wound follow-up. - On prior podiatry discussions, patient should remain non-weightbearing. He is currently unable to safely use a cane or a walker, therefore would need crutches or a wheelchair for acute ambulatory purposes. Concern for arterial insufficiency: 31Aug BLE arterial duplex showed good waveforms. 30Aug NEVIN noted non- compressible vessels. 31Aug seen by vascular surgery who noted no role for acute intervention (see related notes). However, since postop is noted to have blue toes with concerns for ongoing ischemia versus resolving vasospasm. Previous discussions with podiatry mentioned consideration for CT angio at that time, sooner if new symptoms or findings arise. Vascular surgery was asked this morning for re-eval of patient as they were previously consulted. Recommendations were for BKA. Patient found this news upsetting and was requesting to go home for a day to process news. Discussed that this would be a danger for patients health as IV antibiotics are most likely keeping him out of septic shock or worsening infection. Spent time at length with patient discussing disease process. He is requesting to talk with Podiatry about getting information as he is more familiar with them. He wasnt obviously happy about getting this new information that treatment would require BKA. He would like to get more information about recovery and prosthetics. Acute kidney injury: Admit creatinine 1.9, since resolved with IVF. Likely was pre-renal. Monitoring. Transaminitis: Minimally elevated AST, ALT, AP. Since improving/resolved. Likely secondary to CAMPBELL. Would benefit from outpatient evaluation. Ongoing medical history: - Hypertension, hyperlipidemia: Home lisinopril and HCTZ were initially held given hypotension. Since his had rather good BP off of these meds. Was continued on his pravastatin and aspirin. - Type 2 diabetes, diabetic neuropathy: Mar 2019 HbA1c 11.8. At home is been on metformin, Levemir, NovoLog. Question of compliance. Patient agrees to close PCP (Dr. Huang) follow-up for this. - Tobacco use. Code status: Full code. Diet: Heart healthy, DM 2. DVT prophy: Heparin, SCDs. PT/OT: Deferred. Dispo: Admitted to [facility]. Case management onboard. (2) Sepsis: (3) Acute kidney injury: (4) Transaminitis: (5) HTN (hypertension): (6) Hyperlipidemia: (7) DM type 2 (diabetes mellitus, type 2): (8) Diabetic neuropathy: (9) Tobacco use disorder: Supervising Physician Co-Signing Physician Notes Attending attestation Pt seen and examined in concert with Dr. Cadena. In agreement with the documented findings as noted in the resident documentation with any exceptions or additions as noted here. Sepsis in the setting of nonhealing left heel wound - ID and podiatry consultation - continue vancomycin, to re-assess following proposed amputation Tuesday Arterial insufficiency - vascular surgery consultation - scheduled BKA for Tuesday. Considerable, understandable patient distress. Reviewed indications and overview of care in detail. Would encourage patient to d/w family and involve us for information/counseling. DMII w/ neuropathy and nonhealing foot wound - continue present insulin regimen, uptitrate in AM if no improvement in glucose control w/ today's dose. Else see resident documentation as noted. Subjective Mr. Galo had no acute complaints when seen this AM. He notes he has no feeling in feet and doesnt report foot pain. He denies chest pain, shortness of breath, nausea, vomiting, diarrhea. Physical Exam Constitutional: cooperative and comfortable Eyes: + anicteric sclerae ENMT: external ear and nose normal, oropharynx normal Neck: normal visual inspection and trachea midline Respiratory: normal respiratory effort, lungs clear to auscultation Cardiovascular: Rate/Rhythm: regular rate and regular rhythm Musculoskeletal: Head/Neck/Chest: head atraumatic right foot s/p prior toe amputation with still remaining great toe and 2nd toe. Left foot with bandage in place. Visible Toes 1-4 skin is black. He is able to move toes; no sensati on in bilateral feet. Neurologic: moves all extremities and awake Psychiatric: Orientation: alert and oriented x 3 Results & Data Vital Signs (Past 12 Hours) Vital Signs Temp Pulse Resp BP Pulse Ox 05/07/19 07:16 37.2 C 88 18 152/84 H 95 PG Care Time/CCT Total # of Minutes Spent Total Time Spent with Patient: Total time spent is greater than 50% in coordination of care (as documented) at patient's floor/unit and/or counseling patient: Resident Activity Tracking Resident Involvement: Resident Care Provided Care Provided: Adult Hospital Medicine (1) DM type 2 (diabetes mellitus, type 2) Diabetes mellitus complication status: with hyperglycemia Diabetes mellitus detention 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
--- NOTE | 2019-05-07 15:03 | Pharmacy Report ---
Pharmacy Abx Dose Short Note - Date of Service May 07, 2019 - Assessment & Plan Assessment 58 year old M receiving vancomycin for treatment of SSTI with no osteomyelitis Day # 06/11 of antimicrobial therapy. Plan Vancomycin * Trough level of 17.7 mcg/mL is therapeutic. * Continue dose of 1500 mg IV every 14 hours * Goal trough level for SSTI : 15 to 20 mcg/mL * Will order based upon patient prognosis and duration of therapy. Pharmacy will continue to follow and will adjust dose/frequency as necessary. Thank you.
[2019-05-07] MEDS: OXYCODONE HCL IR 5 MG TAB (IMMEDIATE RELEASE) PO PRN (16:26)
[2019-05-08 06:45] LABS: Creatinine Clr Calc Pharmacy 103.1 ml/min; Est GFR (African American) 99.3; Est GFR (Non-African American) 85.7
--- NOTE | 2019-05-08 06:58 | Family Medicine Progress Note ---
Date of Service May 08, 2019 Assessment & Plan (1) Foot ulcer, left: 58-year-old male was admitted on 26 April 2019 for chills and lightheadedness related to chronic left foot wound. Left heel wound, sepsis: History of non-healing left foot ulcer and multiple right toe amputations in setting of diabetic neuropathy. No evidence of osteomyelitis on two MRIs of the foot. - 31Aug underwent left foot I&D with pulse lavage and debridement via podiatry (see related notes). Follow-on I&D with wound VAC application on 06Sep as well. --- Unfortunately lost wound VAC overnight. Will see with podiatry wishes to do regarding replacement. - 31Aug wound culture positive for partially-resistant Aerococcus faecalis and staph aureus. 06Sep wound culture positive for strep. Stopped zosyn, Levaquin, flagyl. Kept vancomycin as inpatient. ID recommends Augmentin and doxy for 4+ weeks as outpatient (see related note) as well as ID & wound follow-up. - On prior podiatry discussions, patient should remain non-weightbearing. He is currently unable to safely use a cane or a walker, therefore would need crutches or a wheelchair for acute ambulatory purposes. - 10Sept added Flagyl to provide gram negative anaerobe coverage since this did grow on culture. Was only previously on Vanc providing only gram +. Concern for arterial insufficiency: 31Aug BLE arterial duplex showed good waveforms. 30Aug NEVIN noted non- compressible vessels. 31Aug seen by vascular surgery who noted no role for acute intervention (see related notes). However, since postop is noted to have blue toes with concerns for ongoing ischemia versus resolving vasospasm. Previous discussions with podiatry mentioned consideration for CT angio at that time, sooner if new symptoms or findings arise. Vascular surgery was asked this morning for re-eval of patient as they were previously consulted. Recommendations were for BKA. Patient found this news upsetting and was requesting to go home for a day to process news. Discussed that this would be a danger for patients health as IV antibiotics are most likely keeping him out of septic shock or worsening infection. Spent time at length with patient discussing disease process. He is requesting to talk with Podiatry about getting information as he is more familiar with them. He wasnt obviously happy about getting this new information that treatment would require BKA. He would like to get more information about recovery and prosthetics. Again had lengthy discussuion with patient this morning about need for surgical. I will contact family members as resquested. Plan on meeting with family here tonight as he requested. Happy to send landlord letter once I receive fax number from patient. Acute kidney injury: Admit creatinine 1.9, since resolved with IVF. Likely was pre-renal. Monitoring. Transaminitis: Minimally elevated AST, ALT, AP. Since improving/resolved. Likely secondary to CAMPBELL. Would benefit from outpatient evaluation. Ongoing medical history: - Hypertension, hyperlipidemia: Home lisinopril and HCTZ were initially held given hypotension. Since his had rather good BP off of these meds. Was continued on his pravastatin and aspirin. - Type 2 diabetes, diabetic neuropathy: Mar 2019 HbA1c 11.8. At home is been on metformin, Levemir, NovoLog. Question of compliance. Patient agrees to close PCP (Dr. Huang) follow-up for this. - Tobacco use. Code status: Full code. Diet: Heart healthy, DM 2. DVT prophy: Heparin, SCDs. PT/OT: Deferred. Dispo: Admitted to [facility]. Case management onboard. (2) Sepsis: (3) Acute kidney injury: (4) Transaminitis: (5) HTN (hypertension): (6) Hyperlipidemia: (7) DM type 2 (diabetes mellitus, type 2): (8) Diabetic neuropathy: (9) Tobacco use disorder: Supervising Physician Co-Signing Physician Notes Attending attestation Pt seen and examined in concert with Dr. Cadena. In agreement with the documented findings as noted in the resident documentation with any exceptions or additions as noted here. Still under considerable duress regarding the impending amputation of the LLE 2/2 sepsis, family meeting for this evening upcoming to discuss. Arterial insufficiency - vascular surgery consultation - scheduled BKA for Tuesday - family meeting today to discuss course of care Sepsis in the setting of nonhealing left heel wound - ID and podiatry consultation - continue vancomycin, to re-assess following proposed amputation Tuesday DMII w/ neuropathy and nonhealing foot wound - uptitrate to 25/20U BID of glargine insulin. Continue ISS. Continue to follow FSBS Else see resident documentation as noted. Subjective Mr. Galo mood was improved this morning. He had no new acute complaints. He is requesting a meeting with his sister at 7pm today to discuss case with myself. He is again requesting time to go home to think prior to making a decision. He also is requesting that we provide documentation to his landlord since his rent is past due since he has been in the hospital and unable to pay it. Physical Exam Constitutional: cooperative and comfortable Eyes: + anicteric sclerae ENMT: external ear and nose normal, oropharynx normal Neck: normal visual inspection and trachea midline Respiratory: normal respiratory effort, lungs clear to auscultation Cardiovascular: Rate/Rhythm: regular rate and regular rhythm Musculoskeletal: Head/Neck/Chest: head atraumatic Left foot is necrotic in appearance throughout with ulcerations, including the toes. bandage in place. Neurologic: moves all extremities and awake Psychiatric: Orientation: alert and oriented x 3 Eye Contact: good eye contact Affect: + anxious affect and + tearful affect Results & Data Vital Signs (Past 12 Hours) Vital Signs Temp Pulse Resp BP Pulse Ox 05/07/19 22:48 37.3 C 78 20 164/87 H 96 PG Care Time/CCT Total # of Minutes Spent Total Time Spent with Patient: Total time spent is greater than 50% in coordination of care (as documented) at patient's floor/unit and/or counseling patient: Resident Activity Tracking Resident Involvement: Resident Care Provided Care Provided: Adult Hospital Medicine (1) DM type 2 (diabetes mellitus, type 2) Diabetes mellitus complication status: with hyperglycemia Diabetes mellitus meterman insulin use: with meterman use Qualified Code(s): E11.65 - Type 2 diabetes mellitus with hyperglycemia; Z79.4 - meterman (current) use of insulin (2) Hyperlipidemia Hyperlipidemia type: unspecified Qualified Code(s): E78.5 - Hyperlipidemia, unspecified (3) Sepsis Sepsis acute organ dysfunction status: unspecified Sepsis type: sepsis due to unspecified organism Qualified Code(s): A41.9 - Sepsis, unspecified organism (4) HTN (hypertension) Hypertension type: unspecified Qualified Code(s): I10 - Essential (primary) hypertension
[2019-05-08] MEDS: LACTOBACILLUS ACIDOPHILUS (FLORANEX) TAB PO SCH ×3 (09:26→16:10)
[2019-05-08] MEDS: FLUTICASONE PROPIONATE NA SPR 16 GM BTL SCH ×2 (09:27→20:09)
[2019-05-08] MEDS: ASPIRIN 81 MG ECTAB PO SCH (09:27)
[2019-05-08] MEDS: MULTIVITAMIN TAB PO SCH (09:27)
[2019-05-08] MEDS: PRAVASTATIN SOD 40 MG TAB PO SCH (09:27)
[2019-05-08] MEDS: HEPARIN SOD 5,000 UNIT/0.5 ML VIAL SQ SCH ×2 (09:29→20:10)
[2019-05-08] MEDS: INSULIN DETEMIR FLEXPEN/FLEX TOUCH 100 UNITS/ML 3ML SQ SCH ×2 (09:29→21:15)
[2019-05-08] MEDS: INSULIN ASPART 100 UNITS/ML 3 ML PEN SC SCH ×4 (09:31→21:11)
[2019-05-08] MEDS: VANCOMYCIN HCL 1,500 MG in SODIUM CHLORIDE 0.9% 500 ML IV SCH (09:38)
--- NOTE | 2019-05-08 11:14 | Pharmacy Report ---
Glycemic Control Progress Note - Date of Service May 08, 2019 - Scope Glycemic Pharmacist consulted for glycemic control to write orders per [facility] inpatient glycemic control protocol. - Objective Accuchecks BSG(last 24 hours):: 05/07/19 05/07/19 05/07/19 11:52 17:08 20:21 POC Glucose 210 H 90 173 H 05/08/19 07:57 POC Glucose 221 H HbA1c:: Hemoglobin A1c 11.8 % (4.5-5.6) H 04/27/19 05:07 - Recent Pertinent Medications The patient is currently receiving: * Basal insulin: Lantus 20 units every 12 hours (15 UNITS IF BELOW 120 MG/DL) * Correctional Insulin: Novolog Correction per scale ACHS Goal Range: Low 110 mg/dL - High 140 mg/dL Correction Factor: 10 mg/dL/unit * Prandial insulin: Per carb ratio of 1 unit per 3 grams CHO consumed - Outpatient Anti-Diabetic Meds Levemir 45 units BID Aspart 38 units BID-TIDM metformin 1 gm po BID - Assessment & Plan ASSESSMENT: * See progress note from 04/27/19 for more background info, in short: * Pt receiving SQ basal bolus insulin regimen for hyperglycemia secondary to baseline DM (outpatient regimen on hold),stress/infection (currently on vancomycin). * Patient is currently receiving an average of 121 units of insulin per day * 40 units of basal insulin * 81 units of prandial/correctional insulin * BSGs ranging 90 - 212 mg/dl over the past 24hrs * Changes needed to insulin regimen: * AM Fasting BSG = 221 mg/dl. This is above range for patient based on inpatient targets and co-morbidities. Increase basal by 20% to 50 units per day or 25 units of Levemir BID. * Post-prandial BSGs are reasonably controlled. Regimen is currently very bolus heavy so increasing basal appropriately. Patient's blood sugar of 90 mg/dL at dinner was secondary to stacking. * Total daily dose = >100 units. PLAN FOR INPATIENT GLYCEMIC CONTROL: * Increasing Levemir to 25 units SQ BID (20 units if BSG less than 120 mg/dL) * Continuing correction factor of 10 mg/dl/unit * Continuing carb ratio of 1 unit per 3 grams CHO consumed * Continuing goal range of Low 110 mg/dL - High 140 mg/dL RECOMMENDATIONS FOR DISCHARGE: * Patient's HbA1C is not controlled at this point. He is on a very aggressive insulin regimen. * It appears per Desi Ferreira's note that the patient has difficult with meal planning. He eats throughout the night -- this can increase blood sugars substantially. Recommend working with patient to structure diet differently to improve glucose control. * Please note that the plan above was derived based on current level of insulin resistance and hospital stress. These recommendations are appropriate for inpatient admission only. Plan of care upon discharge will need to be reassessed to avoid potential outpatient hypo/hyperglycemia. Thank you.
[2019-05-08] MEDS: metroNIDAZOLE 500 MG/100 ML BAG IV SCH ×2 (13:31→21:07)
--- NOTE | 2019-05-08 13:56 | Infectious Disease Progress Nt ---
Date of Service May 08, 2019 Assessment & Plan (1) Foot ulcer, left: no evidence of osteo, would suggest po Augmentin 875mg po bid and doxy 100mg po bid for min 4 weeks post d/c, however, BKA would be curative from infection standpoit, await surgical plan Subjective remains on abx. s/p vascular eval, continued gangrene, recommended bka, pt to decide. no new culture to review. afebrile. toleating abx. Results & Data Vital Signs (Past 12 Hours) Vital Signs Temp Pulse Resp BP Pulse Ox 05/08/19 08:21 37 C 72 20 148/76 H 96 Laboratory Results Microbiology 05/04/19 13:27 Foot,Left Gram Stain - Final 05/04/19 13:27 Foot,Left Aerobic and Anaerobic Culture - Preliminary Enterococcus faecalis Staphylococcus aureus 05/04/19 13:20 Foot,Left Gram Stain - Final 05/04/19 13:20 Foot,Left Aerobic and Anaerobic Culture - Preliminary Enterococcus faecalis Staphylococcus aureus 05/04/19 13:28 Foot,Left Gram Stain - Final 05/04/19 13:28 Foot,Left Aerobic and Anaerobic Culture - Preliminary Enterococcus faecalis Staphylococcus aureus 04/30/19 14:17 Blood Aerobic Blood Culture - Final No growth in Aerobic bottle after 5 days. 04/30/19 14:17 Blood Anaerobic Blood Culture - Final No growth in Anaerobic bottle after 5 days. 04/30/19 14:42 Blood Aerobic Blood Culture - Final No growth in Aerobic bottle after 5 days. 04/30/19 14:42 Blood Anaerobic Blood Culture - Final No growth in Anaerobic bottle after 5 days. 04/28/19 21:00 Foot,Left Gram Stain - Final 04/28/19 21:00 Foot,Left Aerobic and Anaerobic Culture - Final Enterococcus faecalis Staphylococcus aureus 04/28/19 13:15 Blood Aerobic Blood Culture - Final No growth in Aerobic bottle after 5 days. 04/28/19 13:15 Blood Anaerobic Blood Culture - Final No growth in Anaerobic bottle after 5 days. 04/28/19 13:12 Blood Aerobic Blood Culture - Final No growth in Aerobic bottle after 5 days. 04/28/19 13:12 Blood Anaerobic Blood Culture - Final No growth in Anaerobic bottle after 5 days. 04/26/19 17:58 Blood Aerobic Blood Culture - Final No growth in Aerobic bottle after 5 days. 04/26/19 17:58 Blood Anaerobic Blood Culture - Final No growth in Anaerobic bottle after 5 days. 04/26/19 17:58 Blood Aerobic Blood Culture - Final No growth in Aerobic bottle after 5 days. 04/26/19 17:58 Blood Anaerobic Blood Culture - Final 04/27/19 15:25 Foot,Left Gram Stain - Final 04/27/19 15:25 Foot,Left Deep Wound Culture - Final Enterococcus faecalis Staphylococcus aureus Prevotella bivia 04/26/19 Unknown Foot,Left Gram Stain - Final 04/26/19 Unknown Foot,Left Wound Culture - Final Coag negative Staphylococcus Staphylococcus aureus PG Care Time/CCT Total # of Minutes Spent Total Time Spent with Patient: Total time spent is greater than 50% in coordination of care (as documented) at patient's floor/unit and/or counseling patient:
--- NOTE | 2019-05-08 16:55 | Podiatry Consultation ---
Date of Consultation May 08, 2019 History of Present Illness Attending Physician: Darren Oquendo MD patient seen at bedside today, discussed with patient that the vacular status of his hallux and 4th toe is concerning, patient has been seen by vascular surgery - patient is scheduled for surgery tomorrow discussed possibility of BKA, discussed with patient that his circulation will dictate the level of amputation that will be advised, patient is understanding of this, although it is hard for him to hear he does understand that the most important thing is to keep him safe and free of infection and to give him the best opportunity to heal Allergies Allergy/AdvReac Type Severity Reaction Status Date / Time No Known Allergies Allergy Unverified 04/26/19 17:19 Home Medications Home Medications Medication Instructions Recorded Confirmed Type Levemir FlexTouch U-100 Insuln 45 unit SUBCUT BID 11/14/18 04/26/19 History Novolog Flexpen U-100 Insulin 38 unit SUBCUT TID 11/14/18 04/26/19 History aspirin 81 mg PO QAM 11/14/18 04/26/19 History hydrochlorothiazide 12.5 mg PO QAM 11/14/18 04/26/19 History lisinopril 10 mg PO QAM 11/14/18 04/26/19 History metformin 1,000 mg PO BID 11/14/18 04/26/19 History multivitamin 1 tab PO QAM 11/14/18 04/26/19 History pravastatin [Pravachol] 80 mg PO QAM 11/14/18 04/26/19 History Patient History Medical History Tobacco use disorder DM type 2 (diabetes mellitus, type 2) HTN (hypertension) Hyperlipidemia Acquired hallux valgus of right foot (Acute) Callus (Acute) Diabetes mellitus with diabetic polyneuropathy (Acute) Hallux valgus (acquired), left foot (Acute) Hammertoe of left foot (Acute) History of partial ray amputation of fifth toe of right foot (Acute) History of partial ray amputation of fourth toe of right foot (Acute) History of partial ray amputation of third toe of right foot (Acute) Surgical History 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) S/P tonsillectomy (Resolved) Social History Preferred Language: Slovenian Communication Ability: Effective Water Rights Specialist Required: No Beliefs That Will Affect Care: None marital status: single Current Living Situation: Alone current occupational status: unemployed and disabled Feels Safe at Home: Yes Smoking Status: Never smoker Tobacco Type: smokeless tobacco ; Second Hand Exposure: No ; Hx Alcohol Use: No Hx Substance Use: No Physical Exam Skin: dressing removed left foot, vac in place and function well, hallux with dusky appearance and 4th digit dry gangrene Results & Data Vital Signs (Past 12 Hours) Vital Signs Temp Pulse Pulse Resp BP Pulse Ox 05/08/19 15:43 37.1 C 79 20 130/76 98 05/08/19 08:21 37 C 72 20 148/76 H 96
[2019-05-09] MEDS: VANCOMYCIN HCL 1,500 MG in SODIUM CHLORIDE 0.9% 500 ML IV SCH ×2 (00:30→14:30)
[2019-05-09] MEDS: metroNIDAZOLE 500 MG/100 ML BAG IV SCH ×3 (03:50→19:51)
[2019-05-09] MEDS ORDERED: LACTATED RINGER'S 1,000 ML IV SCH (06:45)
[2019-05-09] MEDS: ASPIRIN 81 MG ECTAB PO SCH (08:41)
[2019-05-09] MEDS: PRAVASTATIN SOD 40 MG TAB PO SCH (08:41)
[2019-05-09] MEDS: HEPARIN SOD 5,000 UNIT/0.5 ML VIAL SQ SCH ×2 (08:41→20:08)
[2019-05-09] MEDS: MULTIVITAMIN TAB PO SCH (08:42)
[2019-05-09] MEDS: INSULIN DETEMIR FLEXPEN/FLEX TOUCH 100 UNITS/ML 3ML SQ SCH ×2 (08:44→20:10)
[2019-05-09] MEDS: INSULIN ASPART 100 UNITS/ML 3 ML PEN SC SCH ×5 (08:44→20:10)
[2019-05-09] MEDS: FLUTICASONE PROPIONATE NA SPR 16 GM BTL SCH ×2 (08:46→20:08)
[2019-05-09] MEDS: LACTOBACILLUS ACIDOPHILUS (FLORANEX) TAB PO SCH ×3 (08:51→16:29)
--- NOTE | 2019-05-09 10:37 | Family Medicine Progress Note ---
Date of Service May 09, 2019 Assessment & Plan (1) Foot ulcer, left: 58-year-old male was admitted on 26 April 2019 for chills and lightheadedness related to chronic left foot wound. Left heel wound, sepsis: History of non-healing left foot ulcer and multiple right toe amputations in setting of diabetic neuropathy. No evidence of osteomyelitis on two MRIs of the foot. - 31Aug underwent left foot I&D with pulse lavage and debridement via podiatry (see related notes). Follow-on I&D with wound VAC application on 06Sep as well. --- Unfortunately lost wound VAC overnight. Will see with podiatry wishes to do regarding replacement. - 31Aug wound culture positive for partially-resistant Aerococcus faecalis and staph aureus. 06Sep wound culture positive for strep. Stopped zosyn, Levaquin, flagyl. Kept vancomycin as inpatient. ID recommends Augmentin and doxy for 4+ weeks as outpatient (see related note) as well as ID & wound follow-up. - On prior podiatry discussions, patient should remain non-weightbearing. He is currently unable to safely use a cane or a walker, therefore would need crutches or a wheelchair for acute ambulatory purposes. - 10Sept added Flagyl to provide gram negative anaerobe coverage since this did grow on culture. Was only previously on Vanc providing only gram +. - 11Sept, plan for left BKA today was changed to Tuesday 13 Apr; explained to patient that going home and returning is not a safe option. Concern for arterial insufficiency: 31Aug BLE arterial duplex showed good waveforms. 30Aug NEVIN noted non- compressible vessels. 31Aug seen by vascular surgery who noted no role for acute intervention (see related notes). However, since postop is noted to have blue toes with concerns for ongoing ischemia versus resolving vasospasm. This led to re-eval with recommendations for left BKA. Acute kidney injury: Admit creatinine 1.9, since resolved with IVF. Likely was pre-renal. Monitoring. Transaminitis: Minimally elevated AST, ALT, AP. Since improving/resolved. Likely secondary to CAMPBELL. Would benefit from outpatient evaluation. Ongoing medical history: - Hypertension, hyperlipidemia: Home lisinopril and HCTZ were initially held given hypotension. Since his had rather good BP off of these meds. Was contin ued on his pravastatin and aspirin. - Type 2 diabetes, diabetic neuropathy: Mar 2019 HbA1c 11.8. At home is been on metformin, Levemir, NovoLog. Question of compliance. Patient agrees to close PCP (Dr. Huang) follow-up for this. - Tobacco use. Code status: Full code. Diet: Heart healthy, DM 2. DVT prophy: Heparin, SCDs. PT/OT: Deferred. Dispo: Admitted to [facility]. Case management onboard. (2) Sepsis: (3) Acute kidney injury: (4) Transaminitis: (5) HTN (hypertension): (6) Hyperlipidemia: (7) DM type 2 (diabetes mellitus, type 2): (8) Diabetic neuropathy: (9) Tobacco use disorder: Supervising Physician Co-Signing Physician Notes Attending attestation Pt seen and examined in concert with Dr. Cadena. In agreement with the documented findings as noted in the resident documentation with any exceptions or additions as noted here. Comfortable with upcoming procedure following counseling and family meeting yesterday. Unchanged foot, though wound vac removed. Arterial insufficiency - vascular surgery consultation - scheduled BKA for Tuesday Sepsis in the setting of nonhealing left heel wound - ID and podiatry consultation - continue vancomycin DMII w/ neuropathy and nonhealing foot wound - continue 25/20U BID of glargine insulin. Continue ISS. Continue to follow FSBS Else see resident documentation as noted. Subjective Productive conversation with patient and sister last night with planned left BKA today. Rested with comfort overnight, other other new acute issues. Unfortunately, he was taken off the schedule as there wasnt confirmation with surgery. Gregory would like to go home for a day and return for new schedule procedure time on Tuesday, but unfortunately we had to explain this wasnt a safe option. Physical Exam Constitutional: cooperative and comfortable Eyes: + anicteric sclerae ENMT: external ear and nose normal, oropharynx normal Neck: normal visual inspection and trachea midline Respiratory: normal respiratory effort, lungs clear to auscultation Cardiovascular: Rate/Rhythm: regular rate and regular rhythm Musculoskeletal: Head/Neck/Chest: head atraumatic Left foot with diffuse necrosis; wound vac in place Neurologic: moves all extremities and awake Psychiatric: Orientation: alert and oriented x 3 Eye Contact: good eye contact Affect: + anxious affect and + tearful affect Results & Data Vital Signs (Past 12 Hours) Vital Signs Temp Pulse Pulse Resp BP Pulse Ox 05/09/19 07:24 37.1 C 82 16 144/73 H 96 05/08/19 23:44 37.1 C 84 18 149/79 H 95 PG Care Time/CCT Total # of Minutes Spent Total Time Spent with Patient: Total time spent is greater than 50% in coordination of care (as documented) at patient's floor/unit and/or counseling patient: Resident Activity Tracking Resident Involvement: Resident Care Provided Care Provided: Adult [place] [facility] (1) DM type 2 (diabetes mellitus, type 2) Diabetes mellitus complication status: with hyperglycemia Diabetes mellitus long term care administrator insulin use: with long term care administrator use Qualified Code(s): E11.65 - Type 2 diabetes mellitus with hyperglycemia; Z79.4 - correction (current) use of insulin (2) Hyperlipidemia Hyperlipidemia type: unspecified Qualified Code(s): E78.5 - Hyperlipidemia, unspecified (3) Sepsis Sepsis acute organ dysfunction status: unspecified Sepsis type: sepsis due to unspecified organism Qualified Code(s): A41.9 - Sepsis, unspecified organism (4) HTN (hypertension) Hypertension type: unspecified Qualified Code(s): I10 - Essential (primary) hypertension
--- NOTE | 2019-05-09 11:43 | Communication Note ---
Date of Service: May 09, 2019 Patient willing to have the BKA. Patient was cancelled today due to planned family meeting last pm. No one paged me that the family and patient were a greeable. Earliest we can do him now is tuesday pm.
--- NOTE | 2019-05-09 13:00 | Podiatry Consultation ---
Date of Consultation May 09, 2019 History of Present Illness Attending Physician: Darren Oquendo MD patient seen at bedside today - he was upset that his surgery was cancelled for today, he is threatening to leave AMA and come back tomorrow for his BKA - I discussed with him that this is not advisable and he should stay in the hospital for his surgery otherwise patient is stable Allergies Allergy/AdvReac Type Severity Reaction Status Date / Time No Known Allergies Allergy Unverified 04/26/19 17:19 Home Medications Home Medications Medication Instructions Recorded Confirmed Type Levemir FlexTouch U-100 Insuln 45 unit SUBCUT BID 11/14/18 04/26/19 History Novolog Flexpen U-100 Insulin 38 unit SUBCUT TID 11/14/18 04/26/19 History aspirin 81 mg PO QAM 11/14/18 04/26/19 History hydrochlorothiazide 12.5 mg PO QAM 11/14/18 04/26/19 History lisinopril 10 mg PO QAM 11/14/18 04/26/19 History metformin 1,000 mg PO BID 11/14/18 04/26/19 History multivitamin 1 tab PO QAM 11/14/18 04/26/19 History pravastatin [Pravachol] 80 mg PO QAM 11/14/18 04/26/19 History Patient History Medical History Tobacco use disorder DM type 2 (diabetes mellitus, type 2) HTN (hypertension) Hyperlipidemia Acquired hallux valgus of right foot (Acute) Callus (Acute) Diabetes mellitus with diabetic polyneuropathy (Acute) Hallux valgus (acquired), left foot (Acute) Hammertoe of left foot (Acute) History of partial ray amputation of fifth toe of right foot (Acute) History of partial ray amputation of fourth toe of right foot (Acute) History of partial ray amputation of third toe of right foot (Acute) Surgical History 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) S/P tonsillectomy (Resolved) Social History Preferred Language: Angolan Communication Ability: Effective Associate Consulting Engineer Required: No Beliefs That Will Affect Care: None marital status: single Current Living Situation: Alone current occupational status: unemployed and disabled Feels Safe at Home: Yes Smoking Status: Never smoker Tobacco Type: smokeless tobacco ; Second Hand Expo sure: No ; Hx Alcohol Use: No Hx Substance Use: No Physical Exam Skin: dry gangrene noted of the hallux and 4th digit with ischemic changes to the plantar surface of the left foot - wound vac is in place and dry gauze to the forefoot Results & Data Vital Signs (Past 12 Hours) Vital Signs Temp Pulse Resp BP Pulse Ox 05/09/19 07:24 37.1 C 82 16 144/73 H 96
[2019-05-10] MEDS: metroNIDAZOLE 500 MG/100 ML BAG IV SCH ×3 (04:10→21:45)
[2019-05-10] MEDS: VANCOMYCIN HCL 1,500 MG in SODIUM CHLORIDE 0.9% 500 ML IV SCH ×2 (04:11→17:50)
[2019-05-10 06:05] LABS: Creatinine Clr Calc Pharmacy 129.9 ml/min; Est GFR (African American) 115.9
[2019-05-10] MEDS: LACTOBACILLUS ACIDOPHILUS (FLORANEX) TAB PO SCH ×3 (09:26→16:06)
[2019-05-10] MEDS: OXYCODONE HCL IR 5 MG TAB (IMMEDIATE RELEASE) PO PRN (09:26)
[2019-05-10] MEDS: ASPIRIN 81 MG ECTAB PO SCH (09:26)
[2019-05-10] MEDS: MULTIVITAMIN TAB PO SCH (09:27)
[2019-05-10] MEDS: PRAVASTATIN SOD 40 MG TAB PO SCH (09:27)
[2019-05-10] MEDS: HEPARIN SOD 5,000 UNIT/0.5 ML VIAL SQ SCH ×2 (09:27→20:19)
[2019-05-10] MEDS: FLUTICASONE PROPIONATE NA SPR 16 GM BTL SCH ×2 (09:27→20:19)
[2019-05-10] MEDS: INSULIN DETEMIR FLEXPEN/FLEX TOUCH 100 UNITS/ML 3ML SQ SCH (09:31)
[2019-05-10] MEDS: INSULIN ASPART 100 UNITS/ML 3 ML PEN SC SCH ×4 (09:34→21:26)
--- NOTE | 2019-05-10 13:06 | Pharmacy Report ---
Pharmacy Glycemic Short Note 2 - Date of Service May 10, 2019 - Glycemic Short BSG Results (Last 24 hours): 05/09/19 05/09/19 05/10/19 16:41 19:45 08:04 POC Glucose 267 H 128 H 109 H 05/10/19 11:55 POC Glucose 191 H Outpatient Anti-diabetic Regimen: * Levemir 45 units SQ BID * Aspart 38 units SQ TID (patient reports he usually only takes BID) * A1c = 11.8 % 04/27/19 ASSESSMENT: * BSGs over the previous 24hrs have been reasonably well controlled: [phone]/dL. He does occasionally have some prandial hyperglycemia, likely due to carb heavy meals. He required 108 units of insuli n yesterday. He will be made NPO at [facility] for a BKA tomorrow. We will continue with standing insulin orders * Tight glycemic control crucial for wound healing. Also, recommend zinc, vitamin C and protein supplementation to promote wound healing in wound care patients Zinc: 50 mg elemental zinc (e.g., 220 mg zinc sulfate) PO three times per day until wound healed. Vitamin C: 500-3000mg/day depending on whether it causes soft stool, then back off Protein: may consult dietary for protein supplement recommendation. Could consider boost glucose control supplement PLAN FOR INPATIENT GLYCEMIC CONTROL: * Basal insulin * Levemir per scale BID: despite being NPO this is still a vast reduction in outpt requirements. * For BSG 120 or less: 20 units * For BSG greater than 120: 25 units * Bolus insulin * NovoLog per scale daily @ 0730,1630,2100 * Goal Range: Low 110 mg/dL - High 140 mg/dL * Correction Factor: 10 mg/dL/unit * Nutritional / Prandial insulin per carb ratio of 1 unit per 3 grams CHO consumed * daily @ 1130 CF: 18, CR: 6 Thank you.
--- NOTE | 2019-05-10 13:33 | Anesthesiology Consultation ---
Date of Service May 10, 2019 Assessment & Plan (1) Encounter for pre-operative examination: Chart Review Chart Review: Acceptable Risk for Surgery and Patient NOT seen in Pre Admission Testing Consults Requested none History Surgery Operation Date: 04/28/19 19:30 Proposed Procedures p Debridement(Left) - Ya Marie DPM Operation Date: 05/04/19 12:30 Proposed Procedures p Left Foot Ulcer Debridement - Ya Marie DPM Operation Date: 05/11/19 07:00 Proposed Procedures p Left Below Knee Amputation - Brendan Govea MD Height/Weight Height: 6 ft Weight: 103.2 kg Allergies Allergy/AdvReac Type Severity Reaction Status Date / Time No Known Allergies Allergy Unverified 04/26/19 17:19 Medications Home Medications Medication Instructions Recorded Confirmed Last Taken Levemir FlexTouch U-100 Insuln 45 unit SUBCUT BID 11/14/18 04/26/19 04/26/19 Novolog Flexpen U-100 Insulin 38 unit SUBCUT TID 11/14/18 04/26/19 04/26/19 aspirin 81 mg PO QAM 11/14/18 04/26/19 04/26/19 hydrochlorothiazide 12.5 mg PO QAM 11/14/18 04/26/19 04/26/19 lisinopril 10 mg PO QAM 11/14/18 04/26/19 04/26/19 metformin 1,000 mg PO BID 11/14/18 04/26/19 04/26/19 multivitamin 1 tab PO QAM 11/14/18 04/26/19 04/26/19 pravastatin [Pravachol] 80 mg PO QAM 11/14/18 04/26/19 04/26/19 Active Medications Generic Name Dose Route Start Last Admin Trade Name Freq PRN Reason Stop Dose Admin Acetaminophen 650 mg 04/26/19 21:27 05/03/19 22:58 Tylenol PO 05/26/19 21:26 650 mg Q4H PRN Administration Pain or Fever Aspirin 81 mg 04/27/19 09:00 05/10/19 09:26 Ecotrin Ectab PO 05/27/19 08:59 81 mg QAM ADRY Administration Fluticasone Propionate 1 sprays 04/26/19 21:27 05/10/19 09:27 Flonase NA 05/26/19 21:26 1 sprays BID ADRY Administration Heparin Sodium (Porcine) 5,000 units 04/28/19 21:00 05/10/19 09:27 Heparin Sodium (Porcine) SQ 05/28/19 20:59 5,000 units Q12 ADRY Administration Levofloxacin/Dextrose 750 mg in 150 mls @ 100 mls/hr 05/02/19 11:00 05/05/19 12:00 Levaquin/D5w IV 05/12/19 10:59 Infused Q24H ADRY Infusion Protocol Vancomycin HCl 1,500 mg/ 530 mls @ 200 mls/hr 05/06/19 02:00 05/10/19 07:00 Sodium Chloride IV 05/15/19 01:59 Infused Q14H ADRY Infusion Metronidazole 500 mg in 100 mls @ 100 mls/hr 05/08/19 12:00 05/10/19 12:04 Flagyl IV 05/18/19 11:59 100 mls/hr Q8H ADRY Administration Insulin Aspart 0 units 05/09/19 08:00 05/10/19 09:34 Novolog Flexpen SC 06/03/19 20:59 23 units DAILY@0730,1630,2100 ADRY Administration Protocol Insulin Aspart 0 units 05/09/19 11:30 05/10/19 12:41 Novolog Flexpen SC 06/08/19 11:29 16 units DAILY@1130 ADRY Administration Protocol Insulin Detemir 0 units 04/27/19 21:00 05/10/19 09:31 Levemir Flextouch SQ 05/27/19 20:59 20 units BID ADRY Administration Protocol Lactobacillus Acidophilus 4 tab 05/03/19 17:00 05/10/19 12:04 Floranex PO 06/02/19 16:59 4 tab TIDM ADRY Administration Miscellaneous 15 - 30 gm 04/26/19 21:45 04/28/19 07:18 Carbohydrates For Hypoglycemia PO 05/26/19 21:44 15 gm UD PRN Administration Hypoglycemia Treatment Multivitamins 1 tab 04/27/19 09:00 05/10/19 09:27 Multivitamin Tab PO 05/27/19 08:59 1 tab QAM ADRY Administration Oxycodone HCl 5 mg 04/28/19 21:35 05/10/19 09:26 Roxicodone Immediate Rel PO 05/12/19 21:34 5 mg Q4H PRN Administration Pain Pravastatin Sodium 80 mg 04/27/19 09:00 05/10/19 09:27 Pravachol PO 05/27/19 08:59 80 mg QAM ADRY Administration NPO Date Last Intake of Fluids: 05/08/19 Time Last Intake of Fluids: 22:00 Date Last Intake of Solids: 05/08/19 Time Last Intake of Solids: 21:00 Past Medical History Medical History Tobacco use disorder DM type 2 (diabetes mellitus, type 2) HTN (hypertension) Hyperlipidemia Acquired hallux valgus of right foot (Acute) Callus (Acute) Diabetes mellitus with diabetic polyneuropathy (Acute) Hallux valgus (acquired), left foot (Acute) Hammertoe of left foot (Acute) History of partial ray amputation of fifth toe of right foot (Acute) History of partial ray amputation of fourth toe of right foot (Acute) History of partial ray amputation of third toe of right foot (Acute) Past Surgical History Surgical History Status post left foot surgery 05/04/19 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) S/P tonsillectomy (Resolved) Social History Smoking Status: Never smoker tobacco type: smokeless tobacco Do You Dip or Chew Tobacco: Yes Hx Alcohol Use: No Hx Substance Use: No Physical Exam Vital Signs Last Vital Signs Temp 37.0 C 05/10/19 07:26 Pulse 72 05/10/19 07:26 Resp 17 05/10/19 07:26 BP 122/73 05/10/19 07:26 Pulse Ox 97 05/10/19 07:26 Testing Laboratory Results 05/07/19 05:34 05/10/19 04:58 Hemoglobin A1c 11.8 % (4.5-5.6) H 04/27/19 05:07 Blood Type A Positive 05/08/19 14:57 Antibody Screen NEGATIVE 05/08/19 14:57 05/04/19 13:20 Gram Stain - Final Foot,Left Aerobic and Anaerobic Culture - Final Enterococcus faecalis Staphylococcus aureus Ni fernandez 05/04/19 13:28 Gram Stain - Final Foot,Left Aerobic and Anaerobic Culture - Final Enterococcus faecalis Staphylococcus aureus Ni fernandez 05/04/19 13:27 Gram Stain - Final Foot,Left Aerobic and Anaerobic Culture - Final Enterococcus faecalis Staphylococcus aureus Ni fernandez 04/30/19 14:17 Aerobic Blood Culture - Final Blood No growth in Aerobic bottle after 5 days. Anaerobic Blood Culture - Final No growth in Anaerobic bottle after 5 days. 04/30/19 14:42 Aerobic Blood Culture - Final Blood No growth in Aerobic bottle after 5 days. Anaerobic Blood Culture - Final No growth in Anaerobic bottle after 5 days. 04/28/19 21:00 Gram Stain - Final Foot,Left Aerobic and Anaerobic Culture - Final Enterococcus faecalis Staphylococcus aureus 04/28/19 13:15 Aerobic Blood Culture - Final Blood No growth in Aerobic bottle after 5 days. Anaerobic Blood Culture - Final No growth in Anaerobic bottle after 5 days. 04/28/19 13:12 Aerobic Blood Culture - Final Blood No growth in Aerobic bottle after 5 days. Anaerobic Blood Culture - Final No growth in Anaerobic bottle after 5 days. 04/26/19 17:58 Aerobic Blood Culture - Final Blood No growth in Aerobic bottle after 5 days. Anaerobic Blood Culture - Final No growth in Anaerobic bottle after 5 days. 04/26/19 17:58 Aerobic Blood Culture - Final Blood No growth in Aerobic bottle after 5 days. Anaerobic Blood Culture - Final 04/27/19 15:25 Gram Stain - Final Foot,Left Deep Wound Culture - Final Enterococcus faecalis Staphylococcus aureus Prevotella bivia 04/26/19 Unknown Gram Stain - Final Foot,Left Wound Culture - Final Coag negative Staphylococcus Staphylococcus aureus 05/10/19 05/10/19 11:55 08:04 POC Glucose 191 H 109 H Electrocardiogram Date: 04/26/19 Findings: + ST @ (119) Sinus tachycardia Left anterior fascicular block Abnormal ECG When compared with ECG of 25-NOV-2018 18:06, No significant change was found Confirmed by Carlos Barrera ([id number]) on 04/27/2019 5:05:13 PM
--- NOTE | 2019-05-10 13:55 | Surgery Progress Note ---
Date of Service May 10, 2019 Assessment & Plan (1) Gangrene of left foot: Planning on left BKA tomorrow afternoon. I have discussed the risks options and benefits of the procedure with the patient. The patient understands the risks options and benefits and agrees to the procedure. Subjective No new complaints Physical Exam Physical Exam: Left foot unchanged. Results & Data Vital Signs (Past 12 Hours) Vital Signs Temp Pulse Resp BP Pulse Ox 05/10/19 07:26 37.0 C 72 17 122/73 97
--- NOTE | 2019-05-10 14:52 | Podiatry Consultation ---
Date of Consultation May 10, 2019 History of Present Illness Attending Physician: Darren Oquendo MD patient seen at bedside today, he is in good spirits and is ready for surgery tomorrow patient has no new acute issues, WBC has stabilized, no fevers left heel ulcer present, vac removed in preparation for surgery tomorrow, patient has dry gangrene of the left hallux, distal tip of the second digit, 4th toe and plantar foot - patient is scheduled for BKA with I am signing off from this patient, vascular surgery will be taking over patient should f/u on the outpatient for diabetic foot examinations as to prevent ulceration to the right foot Allergies Allergy/AdvReac Type Severity Reaction Status Date / Time No Known Allergies Allergy Unverified 04/26/19 17:19 Home Medications Home Medications Medication Instructions Recorded Confirmed Type Levemir FlexTouch U-100 Insuln 45 unit SUBCUT BID 11/14/18 04/26/19 History Novolog Flexpen U-100 Insulin 38 unit SUBCUT TID 11/14/18 04/26/19 History aspirin 81 mg PO QAM 11/14/18 04/26/19 History hydrochlorothiazide 12.5 mg PO QAM 11/14/18 04/26/19 History lisinopril 10 mg PO QAM 11/14/18 04/26/19 History metformin 1,000 mg PO BID 11/14/18 04/26/19 History multivitamin 1 tab PO QAM 11/14/18 04/26/19 History pravastatin [Pravachol] 80 mg PO QAM 11/14/18 04/26/19 History Patient History Medical History Tobacco use disorder DM type 2 (diabetes mellitus, type 2) HTN (hypertension) Hyperlipidemia Acquired hallux valgus of right foot (Acute) Callus (Acute) Diabetes mellitus with diabetic polyneuropathy (Acute) Hallux valgus (acquired), left foot (Acute) Hammertoe of left foot (Acute) History of partial ray amputation of fifth toe of right foot (Acute) History of partial ray amputation of fourth toe of right foot (Acute) History of partial ray amputation of third toe of right foot (Acute) Surgical History Status post left foot surgery 05/04/19 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) S/P tonsillectomy (Resolved) Social History Preferred Language: Albanian Communication Ability: Effective Ammonia Still Operator Required: No Beliefs That Will Affect Care: None marital status: single Current Living Situation: Alone current occupational status: unemployed and disabled Feels Safe at Home: Yes Smoking Status: Never smoker Tobacco Type: smokeless tobacco ; Second Hand Exposure: No ; Hx Alcohol Use: No Hx Substance Use: No Physical Exam Skin: dry gangrene of the left hallux, 2nd toe, 4th toe and plantar foot, wound vac removed due to upcoming surgery ulcer left heel with fibrotic tissue present Results & Data Vital Signs (Past 12 Hours) Vital Signs Temp Pulse Resp BP Pulse Ox 05/10/19 07:26 37.0 C 72 17 122/73 97
--- NOTE | 2019-05-10 15:41 | Family Medicine Progress Note ---
Date of Service May 10, 2019 Assessment & Plan (1) Gangrene of left foot: 58 yo M here for gangrene of left foot, awaiting surgical BKA tomorrow. Gangrenous LT foot/left foot heel ulcer -for BKA tomorrow -wheel chair is ordered per CM -will need PT to fit for crutches post op - order placed. -cont IV abx until post op FEN/GI: npo after midnite DVT ppx: heparin SQ CODE STATUS: FULL DISPO: med/surg Other ongoing medical issues: SHANI - resolved - Hypertension, hyperlipidemia: Home lisinopril and HCTZ were initially held given hypotension. Since his had rather good BP off of these meds. Was continued on his pravastatin and aspirin. - Type 2 diabetes, diabetic neuropathy: Mar 2019 HbA1c 11.8. At home is been on metformin, Levemir, NovoLog. Question of compliance. Patient agrees to close PCP (Dr. Huang) follow-up for this. - Tobacco use. Encourage cessation. (2) Sepsis: (3) DM type 2 (diabetes mellitus, type 2): (4) HTN (hypertension): Supervising Physician Co-Signing Physician Notes Attending attestation Pt seen and examined in concert with Dr. Cadena. In agreement with the documented findings as noted in the resident documentation with any exceptions or additions as noted here. Comfortable with upcoming procedure following counseling and family meeting yesterday. Unchanged foot, though wound vac removed. Arterial insufficiency - vascular surgery consultation - scheduled BKA for Tuesday Sepsis in the setting of nonhealing left heel wound - ID and podiatry consultation - continue vancomycin DMII w/ neuropathy and nonhealing foot wound - continue 25/20U BID of glargine insulin. Continue ISS. Continue to follow FSBS Else see resident documentation as noted. Subjective Feeling well, tolerating po. Denies pain in his extremities. Review of Systems Review of Systems: All systems reviewed & are unremarkable except as noted in HPI & below Physical Exam Physical Exam: Vitals noted and within normal limits GENERAL: Awake, alert to person, place, and time, nontoxic-appearing, in no distress. HENT: Normocephalic, atraumatic. EYES: Normal conjunctiva. Sclera non-icteric. EOMI. NECK: Supple. Full range of motion. No JVD. RESPIRATORY: Clear to auscultation. Normal work of breathing. CARDIAC: Regular rate, normal rhythm. Extremities warm and well perfused. ABDOMEN: Bowel sounds are normal. LOWER EXTREMITIES: Inspection of calves reveal equal size bilaterally. LLE with gangrenous foot, bandage in place. RT foot s/p digit amputations. NEURO: No gross focal motor deficits noted. Sensation in tact. CN II-XII g rossly in tact. . SKIN: in tact with exception of LLE as above. PSYCH: Appropriate mood and affect. Cooperative. Exam as done by Gabrielle Graham MD, Pediatric Physician. Results & Data Vital Signs (Past 12 Hours) Vital Signs Temp Pulse Resp BP BP Pulse Ox 05/10/19 15:24 37.0 C 67 18 129/82 98 05/10/19 07:26 37.0 C 72 17 122/73 97 Laboratory Results 05/10/19 05/10/19 05/10/19 Range/Units 11:55 08:04 04:58 Creatinine 0.77 (0.6-1.4) mg/dl Est Cr Clr Drug Dosing 129.9 ml/min Est GFR ( Amer) 115.9 Est GFR (Non-Af Amer) 100.0 POC Glucose 191 H 109 H (70-99) 05/09/19 05/09/19 Range/Units 19:45 16:41 Creatinine (0.6-1.4) mg/dl Est Cr Clr Drug Dosing ml/min Est GFR ( Amer) Est GFR (Non-Af Amer) POC Glucose 128 H 267 H (70-99) Medications Administered Current Inpatient Medications Acetaminophen (Tylenol) 650 mg PO Q4H PRN PRN Reason: Pain or Fever Stop: 05/26/19 21:26 Last Admin: 05/03/19 22:58 Dose: 650 mg Documented by: Aspirin (Ecotrin Ectab) 81 mg PO QAM [facility] Stop: 05/27/19 08:59 Last Admin: 05/10/19 09:26 Dose: 81 mg Documented by: Dextrose (Dextrose 50%) 25 - 50 ml IV UD PRN; Protocol PRN Reason: Hypoglycemia Protocol Stop: 05/26/19 21:44 Fluticasone Propionate (Flonase) 1 sprays NA BID [facility] Stop: 05/26/19 21:26 Last Admin: 05/10/19 09:27 Dose: 1 sprays Documented by: Glucagon (Glucagen) 1 mg IM UD PRN; Protocol PRN Reason: Hypoglycemia Protocol Stop: 05/26/19 21:44 Glucose (Glucose 40%) 15 - 30 gm PO UD PRN; Protocol PRN Reason: Hypoglycemia Protocol Stop: 05/26/19 21:44 Glucose (Dex4 Glucose) 4 - 8 tabs PO UD PRN; Protocol PRN Reason: Hypoglycemia Protocol Stop: 05/26/19 21:44 Heparin Sodium (Porcine) (Heparin Sodium (Porcine)) 5,000 units SQ Q12 ADRY Stop: 05/28/19 20:59 Last Admin: 05/10/19 09:27 Dose: 5,000 units Documented by: Hydrochlorothiazide (Hctz) 12.5 mg PO QAM [facility] Stop: 06/04/19 08:59 Levofloxacin/Dextrose (Levaquin/D5w) 750 mg in 150 mls @ 100 mls/hr IV Q24H ADRY; Protocol Stop: 05/12/19 10:59 Last Infusion: 05/05/19 12:00 Dose: Infused Documented by: Vancomycin HCl 1,500 mg/ (Sodium Chloride) 530 mls @ 200 mls/hr IV Q14H [facility] Stop: 05/15/19 01:59 Last Infusion: 05/10/19 07:00 Dose: Infused Documented by: Metronidazole (Flagyl) 500 mg in 100 mls @ 100 mls/hr IV Q8H [facility] Stop: 05/18/19 11:59 Last Infusion: 05/10/19 13:52 Dose: Infused Documented by: Insulin Aspart (Novolog Flexpen) 0 units SC DAILY@0730,1630,2100 ADRY; Protocol Stop: 06/03/19 20:59 Last Admin: 05/10/19 09:34 Dose: 23 units Documented by: Insulin Aspart (Novolog Flexpen) 0 units SC DAILY@1130 ADRY; Protocol Stop: 06/08/19 11:29 Last Admin: 05/10/19 12:41 Dose: 16 units Documented by: Insulin Detemir (Levemir Flextouch) 0 units SQ BID [facility]; Protocol Stop: 05/27/19 20:59 Last Admin: 05/10/19 09:31 Dose: 20 units Documented by: Lactobacillus Acidophilus (Floranex) 4 tab PO TIDM [facility] Stop: 06/02/19 16:59 Last Admin: 05/10/19 12:04 Dose: 4 tab Documented by: Lisinopril (Zestril) 10 mg PO [facility] Stop: 06/04/19 08:59 Miscellaneous (Carbohydrates For Hypoglycemia) 15 - 30 gm PO UD PRN PRN Reason: Hypoglycemia Treatment Stop: 05/26/19 21:44 Last Admin: 04/28/19 07:18 Dose: 15 gm Documented by: Miscellaneous Information (Consult Glycemic Management Pharmacy) 1 ea N/A UD PRN PRN Reason: Consult Stop: 05/27/19 11:42 Miscellaneous Information (Consult) 1 ea N/A UD PRN PRN Reason: Consult Stop: 05/28/19 13:06 Multivitamins (Multivitamin Tab) 1 tab PO [facility] Stop: 05/27/19 08:59 Last Admin: 05/10/19 09:27 Dose: 1 tab Documented by: Oxycodone HCl (Roxicodone Immediate Rel) 5 mg PO Q4H PRN PRN Reason: Pain Stop: 05/12/19 21:34 Last Admin: 05/10/19 09:26 Dose: 5 mg Documented by: Pravastatin Sodium (Pravachol) 80 mg PO [facility] Stop: 05/27/19 08:59 Last Admin: 05/10/19 09:27 Dose: 80 mg Documented by: PG Care Time/CCT Total # of Minutes Spent Total Time Spent with Patient: Total time spent is greater than 50% in coordination of care (as documented) at patient's floor/unit and/or counseling patient: Resident Activity Tracking Resident Involvement: Resident Care Provided Care Provided: Adult Hospital Medicine (1) DM type 2 (diabetes mellitus, type 2) Diabetes mellitus complication status: with hyperglycemia Diabetes mellitus jail insulin use: with jail use Qualified Code(s): E11.65 - Type 2 diabetes mellitus with hyperglycemia; Z79.4 - exterminator (current) use of insulin (2) Sepsis Sepsis acute organ dysfunction status: unspecified Sepsis type: sepsis due to unspecified organism Qualified Code(s): A41.9 - Sepsis, unspecified organism (3) HTN (hypertension) Hypertension type: unspecified Qualified Code(s): I10 - Essential (primary) hypertension
[2019-05-10] MEDS: CARBOHYDRATES FOR HYPOGLYCEMIA PO PRN ×3 (20:16→20:54)
[2019-05-11] MEDS: metroNIDAZOLE 500 MG/100 ML BAG IV SCH ×3 (05:02→20:51)
[2019-05-11 06:06] LABS: Hematocrit (blood only) 30.7 % (42-52); Hemoglobin 10.1 g/dL (14.0-18.0); Mean Corpuscular Hemoglobin 29.4 pg (25-34); Mean Corpuscular Hgb Conc 32.9 g/dL (32-36); Mean Corpuscular Volume 89.2 fL (80-100); Mean Platelet Volume 9.8 fL (7.4-10.4); Platelet Count 299 K/uL (130-400); RDW Coefficient of Variation 13.2 % (11.5-14.5); RDW Standard Deviation 42.3 fL (36.4-46.3); Red Blood Count 3.44 M/uL (4.7-6.1); White Blood Count 10.65 K/uL (4.8-10.8)
[2019-05-11] MEDS ORDERED: Nursing to Pharmacy Communication ONE (06:19)
[2019-05-11 06:38] LABS: BUN Creatinine Ratio 12.3 (10-20); Calcium 8.2 mg/dl (8.5-10.1); Creatinine Clr Calc Pharmacy 113.7 ml/min; Est GFR (African American) 109.7; Est GFR (Non-African American) 94.7; Potassium 3.9 mmol/L (3.5-5.1)
[2019-05-11] MEDS: INSULIN ASPART 100 UNITS/ML 3 ML PEN SC SCH ×4 (06:49→21:00)
[2019-05-11 06:53] LABS: Basophils # (auto) 0.04 K/uL (0-0.2); Basophils % (auto) 0.4 %; Eosinophils # (auto) 0.02 K/uL (0-0.5); Eosinophils % (auto) 0.2 %; Immature Granulocytes # (auto) 0.05 K/uL (0.00-0.02); Immature Granulocytes % (auto) 0.5 %; Lymphocytes % (auto) 16.9 %; Monocytes # (auto) 0.85 K/uL (0.11-0.59); Neutrophils # (auto) 7.89 K/uL (1.4-6.5)
[2019-05-11] MEDS: ASPIRIN 81 MG ECTAB PO SCH (07:44)
[2019-05-11] MEDS: LACTOBACILLUS ACIDOPHILUS (FLORANEX) TAB PO SCH ×3 (07:44→18:02)
[2019-05-11] MEDS: HEPARIN SOD 5,000 UNIT/0.5 ML VIAL SQ SCH ×2 (07:44→21:01)
[2019-05-11] MEDS: VANCOMYCIN HCL 1,500 MG in SODIUM CHLORIDE 0.9% 500 ML IV SCH ×2 (07:44→22:08)
[2019-05-11] MEDS: PRAVASTATIN SOD 40 MG TAB PO SCH (07:45)
[2019-05-11] MEDS: FLUTICASONE PROPIONATE NA SPR 16 GM BTL SCH ×2 (07:45→20:58)
[2019-05-11] MEDS: MULTIVITAMIN TAB PO SCH (07:45)
[2019-05-11] MEDS ORDERED: INSULIN DETEMIR FLEXPEN/FLEX TOUCH 100 UNITS/ML 3ML SQ ONE ×2 (08:00→15:30)
--- NOTE | 2019-05-11 13:21 | History & Physical Bridge Note ---
Date of Service May 11, 2019 History & Physical Bridge Note Patient for a left BKA today. I have discussed the risks options and benefits of the procedure with the patient. The patient understands the risks options and benefits and agrees to the procedure. I have examined the patient, reviewed the History & Physical and in the interval since the performance of the History & Physical I have noted the following changes of clinical significance: no changes noted
[2019-05-11] MEDS ORDERED: MIDAZOLAM HCL 1 MG/ML 2ML VIAL ONE (13:42)
[2019-05-11] MEDS ORDERED: PROPOFOL IV EMULSION 10 MG/ML 20 ML VIAL IV ONE (13:42)
[2019-05-11] MEDS ORDERED: fentaNYL citrate 100 MCG/2 ML VIAL ONE ×2 (13:42→15:15)
[2019-05-11] MEDS ORDERED: NEOSTIGMINE METHYLSULFATE 5 MG/5 ML SYR ONE (13:42)
[2019-05-11] MEDS ORDERED: LIDOCAINE HCL 2% 2 ML VIAL/AMP(20MG/ML) INFIL ONE (13:42)
[2019-05-11] MEDS ORDERED: ONDANSETRON INJ 2 MG/ML 2 ML VIAL ONE (13:42)
[2019-05-11] MEDS ORDERED: DEXAMETHASONE SOD INJ 4 MG/ML VIAL ONE (13:42)
[2019-05-11] MEDS ORDERED: GLYCOPYRROLATE 0.2 MG/ML VIAL ONE (13:42)
[2019-05-11] MEDS ORDERED: ONDANSETRON INJ 2 MG/ML 2 ML VIAL IV PRN (14:16)
[2019-05-11] MEDS ORDERED: HYDROmorphone INJ 1 MG/ML SYRINGE IV PRN (14:16)
[2019-05-11] MEDS ORDERED: ePHEDrine sulfate 50 MG/ML AMP IV PRN (14:16)
[2019-05-11] MEDS ORDERED: ATROPINE SULFATE 0.1 MG/ML 10ML SYR IV PRN (14:16)
[2019-05-11] MEDS ORDERED: ePHEDrine sulfate 50 MG/ML AMP ONE (14:47)
[2019-05-11] MEDS ORDERED: ROCURONIUM BROMIDE 10 MG/ML 5 ML VIAL ONE (14:47)
--- NOTE | 2019-05-11 15:10 | Pharmacy Report ---
Pharmacy Glycemic Short Note 2 - Date of Service May 11, 2019 - Glycemic Short BSG Results (Last 24 hours): 05/10/19 05/10/19 05/10/19 16:37 20:09 20:11 Glucose POC Glucose 99 68 L* 54 L* 05/10/19 05/10/19 05/10/19 20:29 20:48 21:05 Glucose POC Glucose 62 L* 61 L* 73 05/10/19 05/11/19 05/11/19 23:57 05:34 06:12 Glucose 212 H POC Glucose 217 H 206 H 05/11/19 11:58 Glucose POC Glucose 215 H Outpatient Anti-diabetic Regimen: * Levemir 45 units SQ BID * Aspart 38 units SQ TID (patient reports he usually only takes BID) * A1c = 11.8 % 04/27/19 ASSESSMENT: * Patient undergoing left below the knee amputation today * Hypoglycemic last night and Levemir held * BSGs in 200s today * Dexamethasone 8 mg IV x 1 given in OR today PLAN FOR INPATIENT GLYCEMIC CONTROL: * Basal insulin * Will give one-time 55 unit Levemir dose today following surgery due to missed Levemir last evening and due to administration of dexamethasone IV in OR * Bolus insulin * NovoLog ACHS or q6 if NPO * Goal Range: Low 110 mg/dL - High 140 mg/dL * Correction Factor: 10 mg/dL/unit * Nutritional / Prandial insulin per carb ratio of 1 unit per 3 grams CHO consumed * Will add 00,04 checks in setting of recent IV dexamethasone administration Thank you.
--- NOTE | 2019-05-11 15:53 | Post Operative Brief Note ---
Immediate Post Op Note v1 Date of Surgery May 11, 2019 Pre & Post Diagnosis Operation Date: 04/28/19 19:30 Pre-Op Diagnosis: SEPSIS 2/2 SKIN AND SOFT TISSUE INFECTION Post-Op Diagnosis: SEPSIS 2/2 SKIN AND SOFT TISSUE INFECTION Operation Date: 05/04/19 12:30 Pre-Op Diagnosis: SEPSIS 2/2 SKIN AND SOFT TISSUE INFECTION Post-Op Diagnosis: SEPSIS 2/2 SKIN AND SOFT TISSUE INFECTION Operation Date: 05/11/19 07:00 Pre-Op Diagnosis: Gangrene of left foot Post-Op Diagnosis: Gangrene of left foot Procedure Operation Date: 04/28/19 19:30 Actual Procedures p Left Foot Incision and Drainage and Debridement(Left) - Ya Marie DPM Operation Date: 05/04/19 12:30 Actual Procedures p Left Foot Ulcer Debridement(Left) - Ya Marie DPM Operation Date: 05/11/19 07:00 Actual Procedures p Left Below Knee Amputation(Left) - Brendan Govea MD Surgeon Brendan Govea MD Charge Weigher MD Lena Loo,MS2 Estimated Blood Loss 200 Findings Consistent with Post-Op Diagnosis Anesthesia Type General Complications none Disposition Accompanied Patient To Recovery: No Disposition: Recovery Room
--- NOTE | 2019-05-11 16:08 | Operative Report ---
Post Operative Report Pre & Post Diagnosis Operation Date: 04/28/19 19:30 Pre-Op Diagnosis: SEPSIS 2/2 SKIN AND SOFT TISSUE INFECTION Post-Op Diagnosis: SEPSIS 2/2 SKIN AND SOFT TISSUE INFECTION Operation Date: 05/04/19 12:30 Pre-Op Diagnosis: SEPSIS 2/2 SKIN AND SOFT TISSUE INFECTION Post-Op Diagnosis: SEPSIS 2/2 SKIN AND SOFT TISSUE INFECTION Operation Date: 05/11/19 07:00 Pre-Op Diagnosis: Gangrene of left foot Post-Op Diagnosis: Gangrene of left foot Procedure Operation Date: 04/28/19 19:30 Actual Procedures p Left Foot Incision and Drainage and Debridement(Left) - Ya Marie DPM Operation Date: 05/04/19 12:30 Actual Procedures p Left Foot Ulcer Debridement(Left) - Ya Marie DPM Operation Date: 05/11/19 07:00 Actual Procedures p Left Below Knee Amputation(Left) - Brendan Govea MD Surgeon Brendan Govea MD Secondary Connector Armature MD Lena Loo,MS2 Estimated Blood Loss 200 Findings Consistent with Post-Op Diagnosis Specimens Left leg Complications none Indications Mr. Galo is a 58yo gentleman with a infection of his left foot. This is failed conservative management with debridement and requires a below-knee amputation. The risk and benefits of this procedure were discussed with the patient and he agreed to proceed with the operation. Consent was signed and the site was [facility] prior to entering the upper Description of Procedure Patient was brought to the operating room placed in supine position. There is the patient was safely intubated. Left leg was then circumferentially prepped and draped in standard fashion. The patient was identified and a timeout performed. A approximately a handbreadth below the tibial tuberosity #10 scalpel was used to get a transverse incision across two thirds of the leg circumference, incision was carried longitudinally down either central leg approximately one third the distance of its circumference and connected the posterior aspect. Electrocautery was then used to carry the incision down through the subcutaneous tissue and muscle to the tibia. During this the greater saphenous vein was isolated and ligated, as was the anterior tibial artery. The fibula was cleared with periosteal elevator and then transected with a powered reciprocating saw. Periosteal elevators were then used to clean tissue off the tibia circumferentially several centimeters above the skin incision. A Gigli saw was then used to transect the tibia proximally 1 cm above the skin incision. The amputation knife was then used to complete the incision. The leg was then passed off the table and hemostasis was achieved on the posterior flap, with a combination of electrocautery and ligature. The posterior flap was then trimmed appropriately. Next the fascia was approximated using 2-0 Vicryl. The subcutaneous tissue was then reapproximated using 3-0 Vicryl. Skin was closed with keith. A dressing was then applied. All needle, instrument and sponge counts were correct. The patient was awoken from anesthesia, extubated and transported to PACU in good condition. Dr. Govea was present and scrubbed for the entire procedure. I attest to the content of the Intraoperative Record and any orders documented therein. Any exceptions are noted below.
[2019-05-11] MEDS ORDERED: MoRPHine SULFATE 4 MG/ML 1 ML CARP\\VIAL IV PRN (16:45)
[2019-05-11] MEDS ORDERED: HYDROmorphone INJ 0.5 MG/0.5 ML SYR ONE (16:59)
--- NOTE | 2019-05-11 17:00 | Anesthesiology Progress Note ---
Date of Service May 11, 2019 Anesthesia Post Procedure Vital Signs Vital Signs: Temp Pulse Pulse Pulse Resp BP BP 05/11/19 16:50 36.3 C L 91 H 16 93/58 L 05/11/19 16:40 90 16 108/71 05/11/19 16:30 92 H 16 104/70 05/11/19 16:20 94 H 16 102/67 05/11/19 16:12 36.0 C L 91 H 20 120/73 05/11/19 13:54 37.1 C 85 20 174/96 H 05/11/19 07:26 37.1 C 87 16 142/80 H 05/10/19 22:40 36.9 C 80 18 158/92 H Pulse Ox 05/11/19 16:50 96 05/11/19 16:40 95 05/11/19 16:30 95 05/11/19 16:20 96 05/11/19 16:12 96 05/11/19 13:54 96 05/11/19 07:26 95 05/10/19 22:40 97 Pain Intensity Left Foot: Pain Intensity: 0 Left Posterior Head: Pain Intensity: 0 Transfer of Care Handoff Completed per policy Notes Mental Status: alert / awake / arousable Patient Amnestic to Procedure: Yes Nausea / Vomiting: adequately controlled Pain: adequately controlled Airway Patency, RR, SpO2: stable & adequate BP & HR: stable & adequate Hydration State: stable & adequate Anesthetic Complications: no major complications apparent
[2019-05-11] MEDS ORDERED: SODIUM CHLORIDE 0.9% 500 ML IV SCH (17:05)
--- NOTE | 2019-05-11 18:30 | Family Medicine Progress Note ---
Date of Service May 11, 2019 Assessment & Plan (1) Gangrene of left foot: 58 yo M here for gangrene of left foot, received BKA today Gangrenous LT foot/left foot heel ulcer -for BKA today -wheel chair is ordered per CM OT PT orders placed plan is to D/C home -cont IV abx for now FEN/GI: DMII diet DVT ppx: heparin SQ CODE STATUS: FULL DISPO: med/surg Other ongoing medical issues: SHANI - resolved - Hypertension, hyperlipidemia: Home lisinopril and HCTZ were initially held given hypotension. Since his had rather good BP off of these meds. Was continued on his pravastatin and aspirin. - Type 2 diabetes, diabetic neuropathy: Mar 2019 HbA1c 11.8. At home is been on metformin, Levemir, NovoLog. Question of compliance. Patient agrees to close PCP (Dr. Huang) follow-up for this. - Tobacco use. Encourage cessation. (2) Sepsis: 58-year-old male with history of diabetes mellitus 2 with history of multiple foot ulcers status post partial ray amputation of third, fourth, and fifth right toes, hypertension, hyperlipidemia and tobacco use presents with chills and lightheadedness x3 days in the setting of left foot wound x3 to 4 weeks. Concern for sepsis in the setting of L foot wound with recent debridement Sepsis in the setting of left foot wound with recent debridement Patient febrile to 38.4, tachycardic to [id number], hypotensive White blood cell count 24.9 Lactate 3.17 Left foot x-ray: Skin ulceration at site of punctate metallic foreign body plantar soft tissue of hindfoot. Possible abscess given soft tissue emphysema. No osteomyelitis Ultrasound of left plantar hindfoot ordered for concern of abscess Received amp sulbactam in the ED and 3 L IV fluids Started on amp sulbactam and clindamycin IV Started on maintenance IV fluids at 125 cc/h LR Podiatry consulted, n.p.o. for possible procedure SHANI likely in the setting of sepsis/hypotension BUN/creatinine 46/1.9 Received 3 L IV fluids normal saline, on LR at 125 cc/h Monitor BMP LFT abnormality: Likely mild shock liver in the setting of sepsis-hypotension, cholestasis of sepsis TB 1.9, AST 110, ALT 95, alk phos 133 Sepsis care as above Continue to monitor CMP Cough: Possible bronchitis versus pneumonia On antibiotics as above Satting well on room air Ordered Flonase and guaifenesin Chest x-ray ordered Hypertension/hyperlipidemia Continue home aspirin and pravastatin Hold home hydrochlorothiazide and lisinopril in the setting of hypotension/SHANI DM2 Hold home metformin Continue home Levemir 45 units twice daily BSG checks per unit protocol and SSI A1c ordered Code: Full Disposition: PCU telemetry DVT prophylaxis: SCDs only, chemical not ordered given possible procedure (3) DM type 2 (diabetes mellitus, type 2): (4) HTN (hypertension): Supervising Physician Co-Signing Physician Notes I saw the patient independent of the resident physician and discussed the case with the resident. I agree with the above impression and plan. I saw the patient in the PACU shortly after surgery. At that time, his pain was well controlled. Disposition dependent on physical therapy and Occupational Therapy evaluations. Subjective Mr. Galo tells me he is ready to go through with his Below knee amputation today, he is somewhat tearful but understands it needs to be done and is hopeful that it will end his pain and allow him to return home. He feels Dr. Govea answered all of his questions adequately and has none to add. Review of Systems Review of Systems: All systems reviewed & are unremarkable except as noted in HPI & below Physical Exam Constitutional: well developed, well nourished, cooperative and comfortable; no acute distress Eyes: PERRL, conjunctivae normal, anicteric sclerae Respiratory: normal respiratory effort, lungs clear to auscultation Cardiovascular: RRR, no murmur, no edema Gastrointestinal (Abdomen): normal bowel sounds, soft, nontender, no hepatosplenomegaly Skin: Leg wound bandaged, no spreading rash, no crepitus outside of bandage noted Results & Data Vital Signs (Past 12 Hours) Vital Signs Temp Pulse Pulse Pulse Resp BP BP 05/11/19 18:08 35.7 C L 95 H 16 109/69 05/11/19 17:45 36.7 C 94 H 16 121/74 05/11/19 17:00 87 16 115/76 05/11/19 16:50 36.3 C L 91 H 16 93/58 L 05/11/19 16:40 90 16 108/71 05/11/19 16:30 92 H 16 104/70 05/11/19 16:20 94 H 16 102/67 09/13/19 16:12 36.0 C L 91 H 20 120/73 05/11/19 13:54 37.1 C 85 20 174/96 H 05/11/19 07:26 37.1 C 87 16 142/80 H Pulse Ox 05/11/19 18:08 96 05/11/19 17:45 96 05/11/19 17:00 96 05/11/19 16:50 96 05/11/19 16:40 95 05/11/19 16:30 95 05/11/19 16:20 96 05/11/19 16:12 96 05/11/19 13:54 96 05/11/19 07:26 95 PG Care Time/CCT Total # of Minutes Spent Total Time Spent with Patient: Total time spent is greater than 50% in coordination of care (as documented) at patient's floor/unit and/or counseling patient: Resident Activity Tracking Resident Involvement: Resident Care Provided Care Provided: Adult Hospital Medicine (1) DM type 2 (diabetes mellitus, type 2) Diabetes mellitus complication status: with hyperglycemia Diabetes mellitus shelter insulin use: with intermodal owner operator truck driver use Qualified Code(s): E11.65 - Type 2 diabetes mellitus with hyperglycemia; Z79.4 - MCFP (current) use of insulin (2) Sepsis Sepsis acute organ dysfunction status: unspecified Sepsis type: sepsis due to unspecified organism Qualified Code(s): A41.9 - Sepsis, unspecified organism (3) HTN (hypertension) Hypertension type: unspecified Qualified Code(s): I10 - Essential (primary) hypertension
[2019-05-11] MEDS: OXYCODONE HCL IR 5 MG TAB (IMMEDIATE RELEASE) PO PRN (20:52)
[2019-05-12] MEDS: INSULIN ASPART 100 UNITS/ML 3 ML PEN SC SCH ×6 (00:16→20:54)
[2019-05-12] MEDS: metroNIDAZOLE 500 MG/100 ML BAG IV SCH ×2 (04:04→12:12)
[2019-05-12 06:03] LABS: Basophils # (auto) 0.03 K/uL (0-0.2); Basophils % (auto) 0.3 %; Hematocrit (blood only) 26.4 % (42-52); Hemoglobin 8.7 g/dL (14.0-18.0); Immature Granulocytes # (auto) 0.06 K/uL (0.00-0.02); Immature Granulocytes % (auto) 0.6 %; Lymphocytes # (auto) 1.55 K/uL (1.2-3.4); Mean Corpuscular Hemoglobin 29.8 pg (25-34); Mean Corpuscular Volume 90.4 fL (80-100); Mean Platelet Volume 9.7 fL (7.4-10.4); Monocytes # (auto) 0.83 K/uL (0.11-0.59); Monocytes % (auto) 8.1 %; Neutrophils # (auto) 7.83 K/uL (1.4-6.5); Platelet Count 252 K/uL (130-400); RDW Coefficient of Variation 13.1 % (11.5-14.5); RDW Standard Deviation 43.1 fL (36.4-46.3); Red Blood Count 2.92 M/uL (4.7-6.1)
[2019-05-12 06:32] LABS: BUN Creatinine Ratio 12.8 (10-20); Calcium 7.9 mg/dl (8.5-10.1); Creatinine Clr Calc Pharmacy 103.1 ml/min; Est GFR (African American) 99.3; Est GFR (Non-African American) 85.7; Potassium 3.7 mmol/L (3.5-5.1)
--- NOTE | 2019-05-12 06:52 | Surgery Progress Note ---
Date of Service May 12, 2019 Assessment & Plan (1) Complete below knee amputation of left lower extremity: Doing well after surgery. Will check wound tomorrow or Tuesday. Can start OT/PT today. Would strongly recommend placement in rehab for his fresh BKA. Case management consult sent. Subjective Patient complaining of stump pain. He claims he is going home today if he does well with crutches. Physical Exam Physical Exam: Dressing intact. No further drainage on dressing since post op last pm. Stump does not appear swollen. Results & Data Vital Signs (Past 12 Hours) Vital Signs Temp Pulse Pulse Resp BP BP Pulse Ox 05/12/19 04:00 36.8 C 79 18 108/70 94 05/11/19 23:15 36.5 C 86 16 122/75 95 05/11/19 22:48 36.6 C 79 16 133/79 96 05/11/19 21:59 36.5 C 91 H 16 156/91 H 94 05/11/19 20:22 36.6 C 82 16 117/78 96 05/11/19 19:34 36.6 C 89 16 111/71 95
[2019-05-12] MEDS ORDERED: INSULIN DETEMIR FLEXPEN/FLEX TOUCH 100 UNITS/ML 3ML SQ ONE (07:45)
[2019-05-12] MEDS: LACTOBACILLUS ACIDOPHILUS (FLORANEX) TAB PO SCH ×3 (09:20→16:10)
[2019-05-12] MEDS: ASPIRIN 81 MG ECTAB PO SCH (09:20)
[2019-05-12] MEDS: FLUTICASONE PROPIONATE NA SPR 16 GM BTL SCH ×2 (09:20→20:52)
[2019-05-12] MEDS: MULTIVITAMIN TAB PO SCH (09:20)
[2019-05-12] MEDS: HEPARIN SOD 5,000 UNIT/0.5 ML VIAL SQ SCH ×2 (09:21→20:52)
[2019-05-12] MEDS: PRAVASTATIN SOD 40 MG TAB PO SCH (09:21)
--- NOTE | 2019-05-12 13:05 | Family Medicine Progress Note ---
Date of Service May 12, 2019 Assessment & Plan (1) Gangrene of left foot: 58 yo M here for gangrene of left foot, received BKA. History of poorly controlled diabetes, hypertension, hyperlipidemia, tobacco abuse. Gangrenous LT foot/left foot heel ulcer -BKA 05/11/2019doing well Continue PT/OT -Case management consult DC antibiotics, no signs of symptoms of sepsis Type 2 diabetes Poorly controlled, A1c was 11.8 in March Glycemic consult Continue outpatient on education Hypertension/hyperlipidemia Continue aspirin and pravastatin Currently holding lisinopril/HCTZ the setting of SHANI SHANI Resolved, in the setting of sepsis Tobacco use Encourage cessation FEN/GI: DMII diet DVT ppx: heparin SQ CODE STATUS: FULL DISPO: med/surg (2) Sepsis: (3) DM type 2 (diabetes mellitus, type 2): (4) HTN (hypertension): Supervising Physician Co-Signing Physician Notes I saw the patient independent of the resident physician and discussed the case with the resident. I agree with the above impression and plan. The patient would prefer to go home with home physical therapy, there is not clear today if this is possible. Certainly we could not get home services set up over the weekend. Optimally he would go for short inpatient rehabilitation as if he refuses we will have to look at other options. Disposition dependent on physical therapy and Occupational Therapy evaluations. Review of Systems Review of Systems: All systems reviewed & are unremarkable except as noted in HPI & below Physical Exam Constitutional: WD/WN, vitals as above Neck: trachea midline, no thyromegaly Respiratory: normal respiratory effort, lungs clear to auscultation Cardiovascular: RRR, no murmur, no edema Gastrointestinal (Abdomen): normal bowel sounds, soft, nontender, no hepatosplenomegaly Musculoskeletal: no cyanosis or clubbing, extremities motor strength 5/5 Skin: no rashes, warm and dry Neurologic: PERRL, EOMI, accommodation nl, no face palsy, no dysarthria Psychiatric: A+Ox3, euthymic affect Results & Data Vital Signs (Past 12 Hours) Vital Signs Temp Pulse Resp BP Pulse Ox 05/12/19 07:23 36.5 C 78 18 131/80 97 05/12/19 04:00 36.8 C 79 18 108/70 94 PG Care Time/CCT Total # of Minutes Spent Total Time Spent with Patient: Total time spent is greater than 50% in coordination of care (as documented) at patient's floor/unit and/or counseling patient: Resident Activity Tracking Resident Involvement: Resident Care Provided Care Provided: Adult Hospital Medicine (1) DM type 2 (diabetes mellitus, type 2) Diabetes mellitus complication status: with hyperglycemia Diabetes mellitus terminal gauger supervisor insulin use: with terminal gauger supervisor use Qualified Code(s): E11.65 - Type 2 diabetes mellitus with hyperglycemia; Z79.4 - assisted (current) use of insulin (2) Sepsis Sepsis acute organ dysfunction status: unspecified Sepsis type: sepsis due to unspecified organism Qualified Code(s): A41.9 - Sepsis, unspecified organism (3) HTN (hypertension) Hypertension type: unspecified Qualified Code(s): I10 - Essential (primary) hypertension
[2019-05-12] MEDS: VANCOMYCIN HCL 1,500 MG in SODIUM CHLORIDE 0.9% 500 ML IV SCH (13:16)
--- NOTE | 2019-05-12 13:49 | Pharmacy Report ---
Pharmacy Glycemic Short Note 2 - Date of Service May 12, 2019 - Glycemic Short BSG Results (Last 24 hours): 05/11/19 05/11/19 05/11/19 16:15 17:35 20:15 Glucose POC Glucose 229 H 230 H 306 H* 05/11/19 05/11/19 05/12/19 20:19 23:55 04:04 Glucose POC Glucose 290 H 219 H 193 H 05/12/19 05/12/19 05/12/19 05:36 08:04 12:16 Glucose 177 H POC Glucose 146 H 128 H Outpatient Anti-diabetic Regimen: * Levemir 45 units SQ BID * Aspart 38 units SQ TID (patient reports he usually only takes BID) * A1c = 11.8 % 04/27/19 ASSESSMENT: 05/12 * Mr. Galo is POD 1 s/p BKA * He received 75 units of basal yesterday and 45 units of correctional * BSGs went as high as 306 mg/dL at bedtime but down to 177 mg/dL this AM after correctional doses overnight * I expect the Decadron to still be on board at this point, lasting through a majority of the day * Will give more basal this AM (usual dosing ~20-25 units BID) and tighten the CF/CR for this AM. Since BSG already much improved at lunch (128 mg/dL) will loosen the CF/CR back to previously stable doses. 05/11 * Patient undergoing left below the knee amputation today * Hypoglycemic last night and Levemir held * BSGs in 200s today * Dexamethasone 8 mg IV x 1 given in OR today PLAN FOR INPATIENT GLYCEMIC CONTROL: * Basal insulin * Levemir 45 units x 1 this AM (to account for Decadron being on board) * Resume Levemir BID dosing tonight as per the following scale: * BSG 110 mg/dL or less, give 10 units * BSG > 110 mg/dL, give 20 units * Bolus insulin * NovoLog ACHS or q6 if NPO * Goal Range: Low 110 mg/dL - High 140 mg/dL * Correction Factor: 10 mg/dL/unit * Nutritional / Prandial insulin per carb ratio of 1 unit per 3 grams CHO consumed Thank you.
[2019-05-12] MEDS: OXYCODONE HCL IR 5 MG TAB (IMMEDIATE RELEASE) PO PRN (19:54)
[2019-05-12] MEDS: INSULIN DETEMIR FLEXPEN/FLEX TOUCH 100 UNITS/ML 3ML SQ SCH (20:54)
[2019-05-13 05:33] LABS: Basophils # (auto) 0.03 K/uL (0-0.2); Basophils % (auto) 0.4 %; Eosinophils # (auto) 0.02 K/uL (0-0.5); Eosinophils % (auto) 0.3 %; Hematocrit (blood only) 27.2 % (42-52); Hemoglobin 8.9 g/dL (14.0-18.0); Immature Granulocytes # (auto) 0.03 K/uL (0.00-0.02); Immature Granulocytes % (auto) 0.4 %; Lymphocytes # (auto) 2.06 K/uL (1.2-3.4); Lymphocytes % (auto) 28.7 %; Mean Corpuscular Hemoglobin 29.6 pg (25-34); Mean Corpuscular Hgb Conc 32.7 g/dL (32-36); Mean Corpuscular Volume 90.4 fL (80-100); Mean Platelet Volume 9.3 fL (7.4-10.4); Monocytes # (auto) 0.66 K/uL (0.11-0.59); Monocytes % (auto) 9.2 %; Neutrophils # (auto) 4.37 K/uL (1.4-6.5); Platelet Count 276 K/uL (130-400); RDW Coefficient of Variation 13.5 % (11.5-14.5); RDW Standard Deviation 44.2 fL (36.4-46.3); Red Blood Count 3.01 M/uL (4.7-6.1); White Blood Count 7.17 K/uL (4.8-10.8)
[2019-05-13] MEDS: ASPIRIN 81 MG ECTAB PO SCH (07:51)
[2019-05-13] MEDS: FLUTICASONE PROPIONATE NA SPR 16 GM BTL SCH ×2 (07:51→20:54)
[2019-05-13] MEDS: LACTOBACILLUS ACIDOPHILUS (FLORANEX) TAB PO SCH ×3 (07:51→17:49)
[2019-05-13] MEDS: MULTIVITAMIN TAB PO SCH (07:51)
[2019-05-13] MEDS: PRAVASTATIN SOD 40 MG TAB PO SCH (07:52)
[2019-05-13] MEDS ORDERED: INSULIN DETEMIR FLEXPEN/FLEX TOUCH 100 UNITS/ML 3ML SQ ONE (08:30)
[2019-05-13] MEDS ORDERED: OXYCODONE HCL IR 5 MG TAB (IMMEDIATE RELEASE) PO PRN (09:10)
[2019-05-13] MEDS: INSULIN ASPART 100 UNITS/ML 3 ML PEN SC SCH ×4 (09:23→20:57)
[2019-05-13] MEDS: HEPARIN SOD 5,000 UNIT/0.5 ML VIAL SQ SCH ×2 (09:25→20:54)
--- NOTE | 2019-05-13 09:29 | Family Medicine Progress Note ---
Date of Service May 13, 2019 Assessment & Plan (1) Gangrene of left foot: 58 yo M here for gangrene of left foot, received BKA. History of poorly controlled diabetes, hypertension, hyperlipidemia, tobacco abuse. Gangrenous LT foot/left foot heel ulcer -BKA 05/11/2019 Continue PT/OT -Case management consult--patient agrees to rehab this morning, details to be discussed today DC antibiotics, no signs of symptoms of sepsis Type 2 diabetes Poorly controlled, A1c was 11.8 in March Glycemic consult Continue outpatient education Hypertension/hyperlipidemia Continue aspirin and pravastatin Resuming HCTZ/lisinopril SHANI Resolved, in the setting of sepsis Tobacco use Encourage cessation FEN/GI: DMII diet DVT ppx: heparin SQ CODE STATUS: FULL DISPO: med/surg (2) Sepsis: (3) DM type 2 (diabetes mellitus, type 2): (4) HTN (hypertension): Supervising Physician Co-Signing Physician Notes I saw the patient independent of the resident physician and discussed the case with the resident. I agree with the above impression and plan. The patient is willing to go for inpatient rehabilitation and referrals have been placed. Stump wound dressing to be changed tomorrow. He will be medically ready for transfer to inpatient rehabilitation tomorrow. Subjective Complains of stump pain this morning. Worse over night, received morphine. Patient agreeing to rehab, will be working on details with family and with case management. Review of Systems Review of Systems: All systems reviewed & are unremarkable except as noted in HPI & below Physical Exam Constitutional: WD/WN, vitals as above Eyes: PERRL, conjunctivae normal, anicteric sclerae ENMT: external ear and nose normal, oropharynx normal Neck: trachea midline, no thyromegaly Respiratory: normal respiratory effort, lungs clear to auscultation Cardiovascular: RRR, no murmur, no edema Gastrointestinal (Abdomen): normal bowel sounds, soft, nontender, no hepatosplenomegaly Musculoskeletal: no cyanosis or clubbing, extremities motor strength 5/5 left lower extremity--stump dressing in clean, dry, intact Skin: no rashes, warm and dry Psychiatric: A+Ox3, euthymic affect Results & Data Vital Signs (Past 12 Hours) Vital Signs Temp Pulse Pulse Resp BP Pulse Ox 05/13/19 07:11 36.7 C 78 16 153/85 H 95 05/12/19 23:25 36.7 C 82 18 123/76 97 PG Care Time/CCT Total # of Minutes Spent Total Time Spent with Patient: Total time spent is greater than 50% in coordination of care (as documented) at patient's floor/unit and/or counseling patient: Resident Activity Tracking Resident Involvement: Resident Care Provided Care Provided: Adult Hospital Medicine (1) DM type 2 (diabetes mellitus, type 2) Diabetes mellitus complication status: with hyperglycemia Diabetes mellitus mcfp insulin use: with mcfp use Qualified Code(s): E11.65 - Type 2 diabetes mellitus with hyperglycemia; Z79.4 - intermediate frame tender (current) use of insulin (2) Sepsis Sepsis acute organ dysfunction status: unspecified Sepsis type: sepsis due to unspecified organism Qualified Code(s): A41.9 - Sepsis, unspecified organism (3) HTN (hypertension) Hypertension type: unspecified Qualified Code(s): I10 - Essential (primary) hypertension
--- NOTE | 2019-05-13 11:30 | Pharmacy Report ---
Pharmacy Glycemic Short Note 2 - Date of Service May 13, 2019 - Glycemic Short BSG Results (Last 24 hours): 05/12/19 05/12/19 05/12/19 12:16 17:13 20:13 POC Glucose 128 H 81 120 H 05/13/19 08:05 POC Glucose 148 H Outpatient Anti-diabetic Regimen: * Levemir 45 units SQ BID * Aspart 38 units SQ TID (patient reports he usually only takes BID) * A1c = 11.8 % 04/27/19 ASSESSMENT: 05/13 * Mr. Galo's BSGs have been well controlled over the past 24 hours * His Levemir dose was held by nursing last night, even though the order was set to resume at 2100 * Fasting BSG = 148 mg/dL - will provide 10 additional units of Levemir to partially make up for missed dose last night (estimated basal requirements ~40-45 units/day) * Will plan to continue with tighter CF/CR in light of the missed basal, but wi ll need to loosen further tomorrow, depending on BSGs 05/12 * Mr. Galo is POD 1 s/p BKA * He received 75 units of basal yesterday and 45 units of correctional * BSGs went as high as 306 mg/dL at bedtime but down to 177 mg/dL this AM after correctional doses overnight * I expect the Decadron to still be on board at this point, lasting through a majority of the day * Will give more basal this AM (usual dosing ~20-25 units BID) and tighten the CF/CR for this AM. Since BSG already much improved at lunch (128 mg/dL) will loosen the CF/CR back to previously stable doses. 05/11 * Patient undergoing left below the knee amputation today * Hypoglycemic last night and Levemir held * BSGs in 200s today * Dexamethasone 8 mg IV x 1 given in OR today PLAN FOR INPATIENT GLYCEMIC CONTROL: * Basal insulin * Levemir 30 units x 1 this AM (additional 10 units to account for missed dose last evening) * Resume Levemir BID dosing tonight as per the following scale: * BSG 110 mg/dL or less, give 20 units * BSG > 110 mg/dL, give 25 units * Bolus insulin - continue same parameters for now, will most likely need to loosen tomorrow * NovoLog ACHS or q6 if NPO * Goal Range: Low 110 mg/dL - High 140 mg/dL * Correction Factor: 10 mg/dL/unit * Nutritional / Prandial insulin per carb ratio of 1 unit per 3 grams CHO consumed Discharge Recommendations: * See note from 05/08 Thank you.
[2019-05-13] MEDS: INSULIN DETEMIR FLEXPEN/FLEX TOUCH 100 UNITS/ML 3ML SQ SCH (20:56)
[2019-05-14 05:26] LABS: Basophils # (auto) 0.04 K/uL (0-0.2); Basophils % (auto) 0.6 %; Eosinophils % (auto) 1.5 %; Hemoglobin 8.8 g/dL (14.0-18.0); Immature Granulocytes # (auto) 0.06 K/uL (0.00-0.02); Immature Granulocytes % (auto) 0.9 %; Lymphocytes # (auto) 2.03 K/uL (1.2-3.4); Lymphocytes % (auto) 31.3 %; Mean Corpuscular Hemoglobin 29.7 pg (25-34); Mean Corpuscular Hgb Conc 32.6 g/dL (32-36); Mean Corpuscular Volume 91.2 fL (80-100); Mean Platelet Volume 9.3 fL (7.4-10.4); Monocytes # (auto) 0.71 K/uL (0.11-0.59); Neutrophils # (auto) 3.54 K/uL (1.4-6.5); Neutrophils % (auto) 54.7 %; Platelet Count 286 K/uL (130-400); RDW Coefficient of Variation 13.7 % (11.5-14.5); RDW Standard Deviation 44.9 fL (36.4-46.3); Red Blood Count 2.96 M/uL (4.7-6.1); White Blood Count 6.48 K/uL (4.8-10.8)
[2019-05-14 05:43] LABS: BUN Creatinine Ratio 14.4 (10-20); Calcium 8.4 mg/dl (8.5-10.1); Creatinine Clr Calc Pharmacy 116.3 ml/min; Est GFR (African American) 110.8; Est GFR (Non-African American) 95.6; Potassium 3.9 mmol/L (3.5-5.1)
[2019-05-14] MEDS: LACTOBACILLUS ACIDOPHILUS (FLORANEX) TAB PO SCH ×3 (08:14→17:45)
[2019-05-14] MEDS: ASPIRIN 81 MG ECTAB PO SCH (08:14)
[2019-05-14] MEDS: hydroCHLOROthiazide 25 MG TAB PO SCH (08:15)
[2019-05-14] MEDS: MULTIVITAMIN TAB PO SCH (08:15)
[2019-05-14] MEDS: FLUTICASONE PROPIONATE NA SPR 16 GM BTL SCH ×3 (08:15→21:42)
[2019-05-14] MEDS: PRAVASTATIN SOD 40 MG TAB PO SCH (08:16)
[2019-05-14] MEDS: LISINOPRIL 10 MG TAB PO SCH (08:16)
[2019-05-14] MEDS: HEPARIN SOD 5,000 UNIT/0.5 ML VIAL SQ SCH ×2 (08:19→21:33)
[2019-05-14] MEDS: INSULIN ASPART 100 UNITS/ML 3 ML PEN SC SCH ×4 (08:22→21:35)
[2019-05-14] MEDS: INSULIN DETEMIR FLEXPEN/FLEX TOUCH 100 UNITS/ML 3ML SQ SCH ×2 (08:22→21:34)
--- NOTE | 2019-05-14 09:33 | Surgery Progress Note ---
Date of Service May 14, 2019 Assessment & Plan (1) Complete below knee amputation of left lower extremity: Pt doing well post op. No dressing required to BKA. OK for discharge to rehab from vascular standpoint. Will see in office in 2 weeks for staple removal. Please call if needed otherwise. Present on Admission?: No Subjective 58 yo m with multple medical problems, POD #3 after LLE BKA d/t L foot gangrene, seen in f/u today. Pt states minimal pain in LLE BKA stump. Denies any new complaints and is looking forward to dischare. Planning on [facility] for rehab. Review of Systems Review of Systems: All systems reviewed & are unremarkable except as noted in HPI & below Physical Exam Constitutional: WD/WN, vitals as above Skin: + incision (LLE BKA C/D/I keith,-erythema,necrosis. + local edema) Results & Data Vital Signs (Past 12 Hours) Vital Signs Temp Pulse Pulse Resp BP BP Pulse Ox 05/14/19 08:13 76 132/76 05/14/19 06:34 36.7 C 80 16 135/71 96 05/13/19 23:00 37.1 C 80 16 135/81 96
--- NOTE | 2019-05-14 09:58 | Anesthesiology Progress Note ---
Date of Service May 14, 2019 Anesthesia Post Procedure Vital Signs Vital Signs: Temp Pulse Pulse Resp BP BP Pulse Ox 05/14/19 08:13 76 132/76 05/14/19 06:34 36.7 C 80 16 135/71 96 05/13/19 23:00 37.1 C 80 16 135/81 96 05/13/19 15:00 36.6 C 79 18 112/73 97 Pain Intensity Left Foot: Pain Intensity: 0 Left Posterior Head: Pain Intensity: 0 Left Other: Pain Intensity: 0 Left Flank: Pain Intensity: 0 Notes Mental Status: alert / awake / arousable and participated in evaluation Patient Amnestic to Procedure: Yes Nausea / Vomiting: adequately controlled Pain: adequately controlled Airway Patency, RR, SpO2: stable & adequate BP & HR: stable & adequate Hydration State: stable & adequate Anesthetic Complications: no major complications apparent
--- NOTE | 2019-05-14 18:21 | Family Medicine Progress Note ---
Date of Service May 14, 2019 Assessment & Plan (1) Complete below knee amputation of left lower extremity: 58 yo M here for gangrene of left foot, awaiting surgical BKA tomorrow. Gangrenous LT foot/left foot heel ulcer -s/p LT BKA POD 2, doing well. To follow up with vasc surg in 2 weeks. Medically discharged for rehab. FEN/GI: T2dm, HH DVT ppx: heparin SQ CODE STATUS: FULL DISPO: med/surg Other ongoing medical issues: - Hypertension - meds held initially in setting of ulcer/sepsis, now tolerating lisinopril. To resume home meds on discharge, defer to PCP. - hyperlipidemia - cont pravastatin, ASA - Type 2 diabetes, diabetic neuropathy: Mar 2019 HbA1c 11.8. At home is been on metformin, Levemir, NovoLog. Question of compliance. Patient agrees to close PCP (Dr. Huang) follow-up for this. - Tobacco use. Encourage cessation. (2) DM type 2 (diabetes mellitus, type 2): (3) HTN (hypertension): (4) Hyperlipidemia: (5) Foot ulcer, left: Supervising Physician Co-Signing Physician Notes I personally examined the patient and verified all roberto points of history and exam, discussed case, and agree with decision making with Dr Graham. Feeling good overall. Happy with his decision. Very pleased with his stump healing. No new complaints other than waiting on insurance for rehab placement. Vitals noted, in general he is awake and alert pleasant no distress. HEENT n ormocephalic atraumatic mucous members moist. Breathing unlabored no accessory muscle use good effort. Skin shows no rashes no pallor or icterus. Left lower extremity stump site is healing very well with no erythema Lower extremity ulcer/cellulitiswas not healing well, now status post BKA, doing quite well. Stable for rehab pending insurance approval. Otherwise as above. Subjective Doing well this morning, for inpatient rehab. Tolerating PO, using wheel chair without too much difficulty. Anticipating DC. Review of Systems Review of Systems: All systems reviewed & are unremarkable except as noted in HPI & below Physical Exam Physical Exam: Vitals noted and reviewed, as above GENERAL: no acute distress HEAD: normocephalic atraumatic ENT: sclerae normal, trachea midline RESP: normal work of breathing CV: regular rate and rhythm ABDOMEN: nondistended MSK: s/p LT BKA in tact PSYCH: appropriate mood and affect Results & Data Vital Signs (Past 12 Hours) Vital Signs Temp Pulse Resp BP BP Pulse Ox 05/14/19 15:13 36.7 C 72 18 113/71 96 05/14/19 08:13 76 132/76 05/14/19 06:34 36.7 C 80 16 135/71 96 PG Care Time/CCT Total # of Minutes Spent Total Time Spent with Patient: Total time spent is greater than 50% in coordination of care (as documented) at patient's floor/unit and/or counseling patient: Resident Activity Tracking Resident Involvement: Resident Care Provided Care Provided: Adult Hospital Medicine (1) DM type 2 (diabetes mellitus, type 2) Diabetes mellitus complication status: with hyperglycemia Diabetes mellitus mcfp insulin use: with intermediate teacher use Qualified Code(s): E11.65 - Type 2 diabetes mellitus with hyperglycemia; Z79.4 - roasterman (current) use of insulin (2) Hyperlipidemia Hyperlipidemia type: unspecified Qualified Code(s): E78.5 - Hyperlipidemia, unspecified (3) HTN (hypertension) Hypertension type: unspecified Qualified Code(s): I10 - Essential (primary) hypertension
[2019-05-15] MEDS: PRAVASTATIN SOD 40 MG TAB PO SCH (08:22)
[2019-05-15] MEDS: LISINOPRIL 10 MG TAB PO SCH (08:22)
[2019-05-15] MEDS: ASPIRIN 81 MG ECTAB PO SCH (08:23)
[2019-05-15] MEDS: LACTOBACILLUS ACIDOPHILUS (FLORANEX) TAB PO SCH ×3 (08:23→18:07)
[2019-05-15] MEDS: MULTIVITAMIN TAB PO SCH (08:23)
[2019-05-15] MEDS: hydroCHLOROthiazide 25 MG TAB PO SCH (08:23)
[2019-05-15] MEDS: HEPARIN SOD 5,000 UNIT/0.5 ML VIAL SQ SCH ×2 (08:24→20:42)
[2019-05-15] MEDS: FLUTICASONE PROPIONATE NA SPR 16 GM BTL SCH ×2 (08:24→20:42)
[2019-05-15] MEDS: INSULIN ASPART 100 UNITS/ML 3 ML PEN SC SCH ×4 (08:27→20:43)
[2019-05-15] MEDS: INSULIN DETEMIR FLEXPEN/FLEX TOUCH 100 UNITS/ML 3ML SQ SCH ×2 (08:28→20:43)
--- NOTE | 2019-05-15 09:54 | Discharge Summary ---
Date of Service May 15, 2019 Admission HPI Per Admitting Provider 58-year-old male with history of diabetes mellitus 2 with history of multiple foot ulcers status post partial ray amputation of third, fourth, and fifth right toes, hypertension, hyperlipidemia and tobacco use presents with chills and lightheadedness x3 days in the setting of left foot wound x3 to 4 weeks. Patient reports left foot wound noticed after he was cleaning his parking space and noted blood on his socks and slippers. He also noted a staple sticking through his slipper which could have caused the wound. Wound is noted to be draining yellowish/brownish stinky fluid and painful now despite decreased sensation in his feet. He reports going to his primary care doctor Dr. Vu who sent him to the wound clinic. Our wound clinic he had debridement on Tuesday, 3 days ago after which she developed chills and lightheadedness. Lightheadedness occurs every time he tries to get up quickly. He reports feeling worse day by day since debridement. Reports seeing Dr. Nelson yesterday for arterial study and nurse noted low blood pressure. He was instructed to go to PCP was sent into the ED today. Also reports bronchitis and dry cough for couple weeks now. Urine is also been orange in color for the last few days despite staying well-hydrated. Reports last antibiotic course was finished on Tuesday, 6 days agoBactrim twice daily x10 days given by PCP Dr. Vu. Denies any fever, headache, chest pain, shortness of breath, abdominal pain, nausea, vomiting, diarrhea, constipation, hematochezia,hematuria, dysuria. Social history: Reports chewing tobacco 1 pack/day for the past 35 to 40 years, no alcohol or recreational drug use Principal Diagnosis gangrenous foot infection Discharge Data Allergies Allergy/AdvReac Type Severity Reaction Status Date / Time No Known Allergies Allergy Unverified 04/26/19 17:19 Consultations 04/26/19 19:25 ED Decision to Admit Stat 04/26/19 21:27 Consult Podiatry Routine 04/27/19 15:27 Consult Vascular Surgery Routine 05/05/19 15:15 Consult Infectious Diseases Routine 05/12/19 06:46 Consult Case Management - Discharge Planning Routine Procedures Performed Operation Date: 04/28/19 19:30 Actual Procedures p Left Foot Incision and Drainage and Debridement(Left) - Ya Marie DPM Operation Date: 05/04/19 12:30 Actual Procedures p Left Foot Ulcer Debridement(Left) - Ya Marie DPM Operation Date: 05/11/19 07:00 Actual Procedures p Left Below Knee Amputation(Left) - Brendan Govea MD Ordered Studies 04/27/19 08:06 CT foot LT w con Urgent 04/27/19 15:58 US ankle/brachial index ltd Routine 04/27/19 16:35 MR ankle LT wo con Routine 04/27/19 21:27 US extremity non-vascular ltd Routine 04/28/19 09:18 US arterial duplex LE BI Routine 04/30/19 20:04 MR foot LT w/o con Routine Hospital Course (1) Complete below knee amputation of left lower extremity: 58 yo M here for gangrene of left foot. Gangrenous LT foot/left foot heel ulcer -s/p LT BKA (done 13Sept) , doing well. To follow up with vasc surg in 2 weeks. Medically discharged for rehab. FEN/GI: T2dm, HH DVT ppx: heparin SQ CODE STATUS: FULL DISPO: med/surg Other ongoing medical issues: - Hypertension - meds held initially in setting of ulcer/sepsis, now tolerating lisinopril. To resume home meds on discharge. - hyperlipidemia - cont pravastatin, ASA - Type 2 diabetes, diabetic neuropathy: Mar 2019 HbA1c 11.8. At home is been on metformin, Levemir, NovoLog. Question of compliance. Patient agrees to close PCP (Dr. Huang) follow-up for this. - Tobacco use. Encourage cessation. (2) DM type 2 (diabetes mellitus, type 2): (3) HTN (hypertension): (4) Hyperlipidemia: (5) Foot ulcer, left: Total Time Total Time Spent Total Time Spent (In Minutes): <30 Discharge Plan Discharge Items Patient Disposition: Transfer Inpatient Rehab Fac Reason For Visit: SEPSIS 2/2 SKIN AND SOFT TISSUE INFECTION Discharge Diagnosis: sepsis 2/2 skin and soft tissue infection s/p LT BKA Condition on Discharge: Good Activity: As commented below Non-emergency contact: Primary Care Provider and Surgeon Call non-emergency contact if: you have any medication questions and your symptoms worsen Follow-up/Referrals: Pascale Huang MD [Primary Care Provider] - 05/07/19 2:10 pm (Please, follow up at Dr. Pascale Huang' office with her associate, Malini Guerra PA-C, on TuesdayMay 07 at 2:10 pm. *If you need to change this appointment, call their office at [phone].) Diet: Carb Consistent or DM2 and Heart Healthy Addtl Attending Provider Instructions: 58yo M with PMH poorly controlled T2DM, HTN, HLD and tobacco abuse -- now with POD #3 s/p LLE BKA due to left foot gangrene. Plan for outpatient follow up in 2 weeks with vascular surgery (Dr. Govea with [facility]) for staple removal. For discharge today to inpatient rehab for strengthening. To do: 1. f/u with vascular surgery in 2 weeks (Dr. Govea with [facility]) 2. continue all home medications A Gladys YEN Pending Studies at Discharge: No Stand-Alone Forms: My [facility] [place] [employer] Skilled Items Patient informed of condition?: Yes DNR: No Discharge Level of Care: Acute rehab Communicable Disease: No Discharge Prognosis: Improving Lines: None Urinary Catheter: No Medications and DC Order Prescriptions: New acetaminophen [Mapap (acetaminophen)] 325 mg Tablet 650 mg PO Q4H PRN (Reason: pain) 30 Days Qty: 60 RF: 0 Continued metformin 1,000 mg Tablet 1,000 mg PO BID RF: 0 aspirin 81 mg Tablet,Delayed Release (Dr/Ec) 81 mg PO QAM RF: 0 lisinopril 10 mg Tablet 10 mg PO QAM RF: 0 Novolog Flexpen U-100 Insulin 100 unit/mL (3 mL) Insulin Pen 38 unit SUBCUT TID RF: 0 Levemir FlexTouch U-100 Insuln 100 unit/mL (3 mL) Insulin Pen 45 unit SUBCUT BID RF: 0 hydrochlorothiazide 12.5 mg Tablet 12.5 mg PO QAM RF: 0 multivitamin Tablet 1 tab PO QAM RF: 0 pravastatin [Pravachol] 80 mg Tablet 80 mg PO QAM RF: 0 Admission Data Admit Date/Time: 04/26/19 20:32 Attending Provider: Luis Antonio Cordova Admit Provider: Marlyn aFn Primary Care Provider: Pascale Huang Other Providers: Adriane Coyle ; Marlyn Fan ; Ya Marie ; Brendan Govea ; Luis Antonio Cordova ; Lynette Snyder ; Dennis Cadena ; Niko Guo Supervising Physician Co-Signing Physician Notes I personally examined the patient and verified all roberto points of history and exam, discussed case, and agree with decision making with Dr Graham. Feeling good overall. awaiting rehab Vitals noted, in general he is awake and alert pleasant no distress. HEENT normocephalic atraumatic mucous members moist. Breathing unlabored no accessory muscle use good effort. Skin shows no rashes no pallor or icterus. Left lower extremity stump site is healing very well with no erythema Lower extremity ulcer/cellulitiswas not healing well, now status post BKA, doing quite well. Stable for rehab pending insurance approval -- later (after it seemed clear he would be able to go to rehab today) insurance inexplicably denied rehab stay for him, despite his being a new amputee who lives independantly who also had a prlonged and complicated hospital stay. Otherwise as above. Resident Activity Tracking Resident Involvement: Resident Care Provided Care Provided: Adult Hospital Medicine
--- NOTE | 2019-05-15 13:42 | Pharmacy Report ---
PHA: Glycemic Control AP - Date of Service May 15, 2019 - Assessment & Plan The patient is currently receiving an average of 100 units of insulin per day. BSGs ranging 107 - 199 mg/dl over the past 24hrs. * Basal insulin: Lantus 25 units every 12 hours * Correctional Insulin: Novolog Correction per scale ACHS Goal Range: Low 110 mg/dL - High 140 mg/dL Correction Factor: 15 mg/dL/unit * Prandial insulin: Per carb ratio of 1 unit per 5 grams CHO consumed BSGs continue to improve, no changes needed to inpatient regimen at this time. Pharmacy will continue to monitor patient daily and write orders per [facility] inpatient glycemic control protocol. Thanks. * Please note that the plan above was derived based on current level of insulin resistance and hospital stress. These recommendations are appropriate for inpatient admission only. Plan of care upon discharge will need to be reassessed to avoid potential outpatient hypo/hyperglycemia.
[2019-05-16] MEDS: LACTOBACILLUS ACIDOPHILUS (FLORANEX) TAB PO SCH ×2 (08:19→12:53)
[2019-05-16] MEDS: hydroCHLOROthiazide 25 MG TAB PO SCH (08:20)
[2019-05-16] MEDS: MULTIVITAMIN TAB PO SCH (08:21)
[2019-05-16] MEDS: LISINOPRIL 10 MG TAB PO SCH (08:21)
[2019-05-16] MEDS: PRAVASTATIN SOD 40 MG TAB PO SCH (08:21)
[2019-05-16] MEDS: ASPIRIN 81 MG ECTAB PO SCH (08:21)
[2019-05-16] MEDS: HEPARIN SOD 5,000 UNIT/0.5 ML VIAL SQ SCH (08:22)
[2019-05-16] MEDS: FLUTICASONE PROPIONATE NA SPR 16 GM BTL SCH (08:22)
[2019-05-16] MEDS: INSULIN ASPART 100 UNITS/ML 3 ML PEN SC SCH ×2 (08:23→12:53)
[2019-05-16] MEDS: INSULIN DETEMIR FLEXPEN/FLEX TOUCH 100 UNITS/ML 3ML SQ SCH (08:24)
--- NOTE | 2019-05-16 09:41 | Pharmacy Report ---
Pharmacy Glycemic Short Note 2 - Date of Service May 16, 2019 - Glycemic Short BSG Results (Last 24 hours): 05/15/19 05/15/19 05/15/19 12:19 17:11 20:09 POC Glucose 143 H 164 H 195 H 05/16/19 08:10 POC Glucose 281 H Outpatient Anti-diabetic Regimen: * Levemir 45 units SQ BID * Aspart 38 units SQ TID (patient reports he usually only takes BID) * A1c = 11.8 % 04/27/19 ASSESSMENT: 05/16 * Patient's BSGs reasonably well controlled yesterday (143-199) * Patient received 102 units of insulin yesterday (50 basal and 52 correctional/prandial) * Fasting BSG this AM is 281 (per nursing: patient had large snack at bedtime - no prandial insulin given to the patient) 05/13 * Mr. Ledesma BSGs have been well controlled over the past 24 hours * His Levemir dose was held by nursing last night, even though the order was set to resume at 2100 * Fasting BSG = 148 mg/dL - will provide 10 additional units of Levemir to partially make up for missed dose last night (estimated basal requirements ~40-45 units/day) * Will plan to continue with tighter CF/CR in light of the missed basal, but will need to loosen further tomorrow, depending on BSGs 05/12 * Mr. Galo is POD 1 s/p BKA * He received 75 units of basal yesterday and 45 units of correctional * BSGs went as high as 306 mg/dL at bedtime but down to 177 mg/dL this AM after correctional doses overnight * I expect the Decadron to still be on board at this point, lasting through a majority of the day * Will give more basal this AM (usual dosing ~20-25 units BID) and tighten the CF/CR for this AM. Since BSG already much improved at lunch (128 mg/dL) will loosen the CF/CR back to previously stable doses. 05/11 * Patient undergoing left below the knee amputation today * Hypoglycemic last night and Levemir held * BSGs in 200s today * Dexamethasone 8 mg IV x 1 given in OR today PLAN FOR INPATIENT GLYCEMIC CONTROL: * Will continue with current regimen despite elevated fasting BSG this morning, which was most likely caused by uncovered bedtime snack * Basal insulin * Continue Levemir 25 units BID * Bolus insulin - continue same parameters * NovoLog ACHS or q6 if NPO * Goal Range: Low 110 mg/dL - High 140 mg/dL * Correction Factor: 15 mg/dL/unit * Nutritional / Prandial insulin per carb ratio of 1 unit per 5 grams CHO consumed * Label comments updated to instruct nursing to cover bedtime snack Discharge Recommendations: * See note from 05/08 Thank you.
== END 2019-05-16 17:11 | DRG 853 ==
LOC: ED 17:08 → 2S 20:32 → SUATTDRO 20:32 → 2S 21:10 → 4W 04-30 18:31 → 3E 05-11 13:46